=== PATIENT | male | born 1960 | race Caucasian/White ===

== ENCOUNTER 2016-10-20 15:08 | Outpatient (CLI) | payer MEDICARE, OTHER | END 2016-10-20 15:09 | disposition short-term general hospital (02) | LOC: EMS 15:08 | PROVIDERS: ATTEND Surgery | DX: R07.9 Chest pain, unspecified (principal); R42 Dizziness and giddiness | CPT/HCPCS: A0425; A0427 ==

== ENCOUNTER 2016-12-31 01:42 | Outpatient (CLI) | payer MEDICARE, OTHER | END 2016-12-31 01:43 | disposition short-term general hospital (02) | LOC: EMS 01:42 | PROVIDERS: ATTEND Surgery | DX: R07.9 Chest pain, unspecified (principal) | CPT/HCPCS: A0425; A0427 ==

== ENCOUNTER 2017-03-09 17:42 | Outpatient (CLI) | payer MEDICARE, OTHER | END 2017-03-09 17:43 | disposition critical access hospital (66) | LOC: EMS 17:42 | PROVIDERS: ATTEND Surgery | DX: R07.9 Chest pain, unspecified (principal) | CPT/HCPCS: A0425; A0427 ==

== ENCOUNTER 2017-03-09 18:03 | Inpatient (IN) | payer MEDICARE, OTHER ==
--- NOTE | 2017-03-09 18:16 | ED Physician Documentation ---
PD HPI CHEST PAIN - Stated complaint Stated Complaint: CP - Chief complaint Chief Complaint: Cardiac - History obtained from History obtained from: Patient - History of Present Illness Timing - onset: Today (at 5 pm while at rest) Timing - onset during: Rest (watching TV) Timing - duration: Hours (1) Timing - details: Abrupt onset, Still present Quality: Pressure, Tightness, Pain. No: Tearing Location: Substernal, Left chest Radiation: Back Improved by: No: Rest Worsened by: No: Inspiration, Movement, Palpation Associated symptoms: Shortness of air, Feeling faint / dizzy. No: Nausea, General Weakness, Palpitations Similar symptoms before: Diagnosis (he states being treated as [place] anginal episodes. Recent cath several months ago without stenoses.) Review of Systems Constitutional: denies: Fever, Chills Nose: denies: Rhinorrhea / runny nose, Congestion Throat: denies: Sore throat Cardiac: reports: Chest pain / pressure (just this evening). denies: Palpitations, Pedal edema, Calf pain Respiratory: reports: Dyspnea. denies: Cough GI: denies: Nausea, Vomiting, Diarrhea : denies: Dysuria, Frequency Skin: denies: Rash, Lesions Neurologic: denies: Generalized weakness, Focal weakness, Numbness, Near syncope Endocrine: denies: Weight loss, Easy bruising / bleeding Immunocompromised: denies: Immunocompromised PD PAST MEDICAL HISTORY - Past Medical History Cardiovascular: Coronary artery disease, Angina, [place] Respiratory: None Neuro: None Endocrine/Autoimmune: None - Allergies Allergies/Adverse Reactions: Allergies Allergy/AdvReac Type Severity Reaction Status Date / Time hydroxyzine [From Vistaril] Allergy Hives Verified 03/09/17 19:05 meperidine [From Demerol] Allergy Anaphylaxis Verified 03/09/17 19:05 - Social History Does the pt smoke?: No Does the pt drink ETOH?: No Does the pt have substance abuse?: No - Family History Family history: reports: CAD PD ED PE NORMAL - Vitals Vital signs reviewed: Yes - General General: Alert and oriented X 3, Well developed/nourished, Other (appears uncomfortable with chest pain. ) - HEENT HEENT: Pharynx benign - Neck Neck: Supple, no meningeal sign, No adenopathy - Cardiac Cardiac: RRR, No murmur - Respiratory Respiratory: Clear bilaterally, Other (no chestwall tenderness) - Abdomen Abdomen: Soft, Non tender - Back Back: No CVA TTP - Derm Derm: Normal color, Warm and dry - Extremities Extremities: No deformity, No tenderness to palpate, Normal ROM s pain, No edema , No calf tenderness / cord - Neuro Neuro: Alert and oriented X 3, No motor deficit, Normal speech Eye Opening: Spontaneous Motor: Obeys Commands Verbal: Oriented GCS Score: 15 - Psych Psych: Normal mood Results - Vitals Vitals: Vital Signs - 24 hr 03/09/17 03/09/17 03/09/17 18:08 19:50 20:40 Temperature 37.9 C H Heart Rate 106 H 88 87 Respiratory 20 14 13 Rate Blood Pressure 128/74 138/72 H 124/78 O2 Saturation 96 94 91 L Oxygen O2 Source Room air - EKG (time done) 18:08 Rate: Rate (enter#) (101) Rhythm: Sinus tachycardia [place]: Normal Intervals: Other (baseline artifact) QRS: Normal Ischemia: Normal ST segments. No: ST elevation c/w ischemia, ST depression Compare to prior EKG: Unchanged from prior EKG - Labs Labs: Laboratory Tests 03/09/17 03/09/17 03/09/17 19:09 19:09 19:09 WBC 11.1 H RBC 5.38 Hgb 16.8 Hct 48.9 MCV 90.9 MCH 31.2 H MCHC 34.3 RDW 14.3 Plt Count 244 MPV 8.3 Neut # 6.3 Lymph # 3.3 Harvey # 1.2 H Eos # 0.2 Baso # 0.0 Absolute Nucleated RBC 0.01 Nucleated RBC % 0.1 PT INR Sodium 137 Potassium 3.9 Chloride 104 Carbon Dioxide 23 Anion Gap 10.0 BUN 13 Creatinine 0.7 Estimated GFR (MDRD) 116 Glucose 101 H Calcium 9.5 Magnesium 2.0 Total Bilirubin 0.6 AST 78 H ALT 97 H Alkaline Phosphatase 149 H Troponin I < 0.04 Total Protein 7.4 Albumin 3.9 Globulin 3.5 Albumin/Globulin Ratio 1.1 Lipase 45 03/09/17 19:09 WBC RBC Hgb Hct MCV MCH MCHC RDW Plt Count MPV Neut # Lymph # Harvey # Eos # Baso # Absolute Nucleated RBC Nucleated RBC % PT 12.6 INR 1.1 Sodium Potassium Chloride Carbon Dioxide Anion Gap BUN Creatinine Estimated GFR (MDRD) Glucose Calcium Magnesium Total Bilirubin AST ALT Alkaline Phosphatase Troponin I Total Protein Albumin Globulin Albumin/Globulin Ratio Lipase - Rads (name of study) chest Radiology: Prelim report reviewed (no acute process) PD MEDICAL DECISION MAKING - ED course Complexity details: reviewed old records (Cath report from [facility] from recent showed no critical stenoses and patent prior stents. ), considered differential (patient has had CAD with 5 prior stents, but last was 2011 and has had CP episodes that he says are treated as coronary vasospasms. ), d/w patient Departure - Departure Disposition: 66 [facility] DC/Xfer Clinical Impression: Chest pain, rule out acute myocardial infarction, Variant angina Chest pain Qualifiers: Chest pain type: precordial pain Qualified Code(s): R07.2 - Precordial pain Condition: Stable Record reviewed to determine appropriate education?: Yes
[2017-03-09] MEDS ORDERED: HYDROmorphone 1 MG/ML SYRINGE IM STA (18:27)
[2017-03-09] MEDS ORDERED: diltiaZEM INJ 5 MG/ML VIAL IVP STA ×2 (18:28→20:21)
[2017-03-09] MEDS ORDERED: KETOROLAC 60 MG/2 ML VIAL IVP STA (18:28)
[2017-03-09] MEDS ORDERED: HYDROmorphone 1 MG/ML SYRINGE IVP STA ×2 (18:28→20:21)
--- NOTE | 2017-03-09 19:13 | XRAY Report ---
EXAM: CHEST RADIOGRAPHY EXAM DATE: 03/09/2017 06:45 PM. CLINICAL HISTORY: Chest pain onset 5 pm. COMPARISON: 03/24/2006. TECHNIQUE: 1 view. FINDINGS: Lungs/Pleura: There is moderate pulmonary vascular congestion. Lung volumes are low. No new focal air space disease. Negative for pneumothorax. Mediastinum: Within exam limitations, the cardiomediastinal contour is normal. Other: None. IMPRESSION: 1. Pulmonary vascular congestion. No interval change since previous exam. [facility] Referring Provider Line: [phone] SITE ID: [id number]
--- NOTE | 2017-03-09 19:13 | XRAY Preliminary Report ---
Exam: XR CHEST 1 VIEW X-RAY IMPRESSION: 1. Pulmonary vascular congestion. No interval change since previous exam. [facility] SITE ID: [id number]
[2017-03-09 19:18] LABS: BASOPHILS % (AUTO) 0.3 %; EOSINOPHILS # (AUTO) 0.2 10^3/uL (0.0-0.7); EOSINOPHILS % (AUTO) 1.8 %; HGB - HEMOGLOBIN 16.8 g/dL (14.0-18.0); LYMPHOCYTES # (AUTO) 3.3 10^3/uL (1.5-3.5); LYMPHOCYTES % (AUTO) 29.9 %; MEAN CORPUSCULAR HEMOGLOBIN 31.2 pg (27.0-31.0); MEAN CORPUSCULAR HGB CONC 34.3 g/dL (32.0-36.0); MEAN CORPUSCULAR VOLUME 90.9 fL (80.0-94.0); MEAN PLATELET VOLUME 8.3 fL (7.4-11.4); MONOCYTES # (AUTO) 1.2 10^3/uL (0.0-1.0); NEUTROPHILS # (AUTO) 6.3 10^3/uL (1.5-6.6); PLT - PLATELET COUNT 244 10^3/uL (130-450); RED BLOOD COUNT 5.38 10^6/uL (4.70-6.10); RED CELL DISTRIBUTION WIDTH 14.3 % (12.0-15.0); WHITE BLOOD COUNT 11.1 x10^3/uL (4.8-10.8)
[2017-03-09 19:30] LABS: ALBUMIN 3.9 g/dL (3.2-5.5); ALBUMIN/GLOBULIN RATIO 1.1 (1.0-2.2); BILIRUBIN,TOTAL 0.6 mg/dL (0.2-1.0); CALCIUM 9.5 mg/dL (8.5-10.3); CREATININE 0.7 mg/dL (0.6-1.2); TOTAL PROTEIN 7.4 g/dL (6.7-8.2)
[2017-03-09] MEDS ORDERED: NITROGLYCERIN 50 MG/250 ML 50 MG/250 ML BOTTLE IV STA (20:21)
[2017-03-09] MEDS ORDERED: PROCHLORPERAZINE 10 MG/2 ML VIAL IVP PRN (20:52)
[2017-03-09] MEDS ORDERED: ZOLPIDEM 5 MG TABLET PO PRN (20:52)
[2017-03-09] MEDS ORDERED: ACETAMINOPHEN 325 MG TABLET PO PRN (20:52)
[2017-03-09 21:17] LABS: INR 1.1 (0.8-1.2); PT - PROTHROMBIN TIME 12.6 secs (9.9-12.6)
[2017-03-09] MEDS: NITROGLYCERIN 50 MG/250 ML 50 MG/250 ML BOTTLE IV SCH (22:42)
[2017-03-09] MEDS: SODIUM CHLORIDE FLUSH 0.9% 10 ML SYRINGE IVP SCH (22:53)
[2017-03-09] MEDS: FUROSEMIDE 20 MG/2 ML VIAL IVP SCH (22:53)
[2017-03-09] MEDS: HYDROmorphone 1 MG/ML SYRINGE IVP PRN (22:59)
[2017-03-10] MEDS: ATORVASTATIN 40 MG TABLET PO SCH ×2 (00:05→21:14)
[2017-03-10] MEDS: diltiaZEM 30 MG TABLET PO SCH ×2 (00:06→05:34)
[2017-03-10] MEDS: INSULIN GLARGINE 300 UNIT/3 ML PEN SUBQ SCH ×2 (00:06→21:13)
[2017-03-10] MEDS ORDERED: SODIUM CHLORIDE 0.9% 500 ML IV PRN (00:28)
[2017-03-10] MEDS: ENOXAPARIN 40 MG/0.4 ML SYRINGE SUBQ SCH ×3 (00:39→21:13)
[2017-03-10] MEDS: HYDROmorphone 1 MG/ML SYRINGE IVP PRN ×8 (01:35→21:08)
--- NOTE | 2017-03-10 05:15 | HISTORY & PHYSICAL EXAMINATION ---
DATE OF SERVICE: Physician: Amberly Guerrier MD DATE OF ADMISSION: 03/09/2017 HISTORY OF PRESENT ILLNESS: This is a 56-year-old white male with a history of insulin-dependent diabetes, coronary artery disease with stenting, vasospastic angina in addition, normally low blood pressure, neuropathy. The patient presents with unstable angina. Patient was watching TV and suddenly got his typical onset of chest pressure across the entire precordium without radiation that he labeled a 7/10. He had run out of his sublingual nitroglycerin to try any but these do not normally work. He called an ambulance and was given sublingual nitroglycerin as well as nitro paste en route, which also did not help. He was eventually started on IV nitroglycerin in addition to narcotics in the ER which started to relieve his pain. His pain is currently increased up to a 7/10 again. There was no radiation of pain or associated shortness of breath or other symptoms. The patient states he normally gets this type of presentation with his angina, it is usually at rest and responds only to IV nitroglycerin drip. It was this same type of presentation for which he had an ambulance called and was taken to [facility] in December 2016, which led to the angiogram. From that discharge, it does not appear that he was put on any oral vasodilators for daily management of coronary vasospasm. The patient is normally active, able to play golf and walk without exertional angina. He denies PND and orthopnea. He denies palpitations, syncope, leg edema. He is compliant with his medications. PAST MEDICAL HISTORY: Coronary artery disease with 5 stents of the LAD artery in the past, coronary vasospasm documented by abnormal stress testing with ischemia of the anterior wall, but subsequent angiography done December 2016, showed a patent LAD (all stents were open) and no significant disease in the circumflex or right coronary arteries. He also has diabetes requiring insulin, has low blood pressure, and obesity. FAMILY HISTORY: No inherited diseases, no CAD. SOCIAL HISTORY: He is a nonsmoker, drinks no alcohol, denies any illicit drug use. ALLERGIES TO DRUGS; 1. VISTARIL, WHICH GAVE HIM HIVES. 2. DEMEROL, WHICH GAVE HIM ANAPHYLAXIS. MEDICATIONS AT HOME: 1. Vitamin D3. 2. Baby aspirin. 3. Lipitor, probably 40 mg at bedtime. 4. Insulin aspart 45 units b.i.d. 5. Victoza daily. 6. Lantus glargine 70 units every p.m. 7. Lyrica 150 p.o. b.i.d. REVIEW OF SYSTEMS: A comprehensive review of systems was performed and the positives are listed as above, all other organ systems are negative. PHYSICAL EXAMINATION: GENERAL: Obese white male. He appears in mild distress. VITAL SIGNS: Blood pressure 145/89, heart rate 82 in sinus rhythm. He did have a fever on presentation of 37.9 in the emergency room. Respiratory rate is 20, O2 saturation is 95% on room air. HEENT: Unremarkable. NECK: Very obese. There is no visible JVD. There is no thyromegaly or carotid bruits. LUNGS: Clear with poor air movement. CARDIOVASCULAR: Heart tones are very distant. BREASTS: Large. ABDOMEN: Large. I cannot rule out organomegaly or ascites. There was no tenderness and positive normal bowel sounds. EXTREMITIES: No clubbing, cyanosis or edema. NEUROLOGIC: Intact. LABORATORY DATA: Normal electrolytes, normal BUN and creatinine. Magnesium was 2.0. Mild LFT elevation with AST 78, ALT 97, alkaline phosphatase 149. Albumin 3.9. Troponin not detectable at less than 0.04. White blood count 11, hemoglobin 16.8, normal MCV , normal platelet count. INR 1.1. Chest x-ray: Mild intravascular edema. EKG: Normal sinus rhythm and borderline prolonged QT of 476 milliseconds, but otherwise within normal limits. There is no old EKG available for comparison. IMPRESSION/DIAGNOSES: 1. Unstable angina. 2. Prinzmetal angina. 3. Coronary artery disease with stenting in a [place] coronary artery. 4. Congestive heart failure exacerbation by chest x-ray. 5. Diabetes mellitus, on insulin. 6. Fever, source unclear. 5. Obesity. PLAN: Admit the patient to the ICU and continue the IV nitroglycerin drip for relief of his symptoms. Morphine can be used for narcotic relief of pain also. Start the patient on an oral vasodilator which should then be continued at discharge. I will choose Cardizem 30 mg p.o. every 6 hours, which could be titrated up and could be changed to a long-acting form at discharge depending on his blood pressure. Continue with his aspirin, Lipitor. No stress testing or transfer for coronary angiography is needed since he recently had workup just several months ago. Begin IV Lasix since diastolic dysfunction causing heart failure could also be adding to his chest pain. He can be transitioned over to p.o. Lasix or HCTZ or spironolactone at the time of discharge. Continue with his insulin management and a diabetic diet. Fully culture the patient and follow his CBC, but since there is no obvious source of infection, so no empiric antibiotics will be started. The fever could be related to the acute coronary syndrome. DVT prophylaxis: The patient will be started on Lovenox at a therapeutic dose of 40 mg p.o. b.i.d. because of the unstable angina and this will also serve as prophylaxis from DVT. CODE STATUS: FULL CODE. ATTESTATION: The patient is expected to be discharged or transferred to another facility within 96 hours: Yes. TD: 03/10/2017 06:14 STEPHENIE
[2017-03-10] MEDS: SODIUM CHLORIDE FLUSH 0.9% 10 ML SYRINGE IVP SCH ×3 (05:24→21:15)
[2017-03-10] MEDS: PANTOPRAZOLE 40 MG TABLET PO SCH (06:31)
[2017-03-10 07:23] LABS: BASOPHILS # (AUTO) 0.2 10^3/uL (0.0-0.1); BASOPHILS % (AUTO) 1.4 %; EOSINOPHILS # (AUTO) 0.4 10^3/uL (0.0-0.7); EOSINOPHILS % (AUTO) 3.1 %; HGB - HEMOGLOBIN 16.8 g/dL (14.0-18.0); LYMPHOCYTES # (AUTO) 4.1 10^3/uL (1.5-3.5); MEAN CORPUSCULAR HEMOGLOBIN 31.9 pg (27.0-31.0); MEAN CORPUSCULAR HGB CONC 34.6 g/dL (32.0-36.0); MEAN CORPUSCULAR VOLUME 92.1 fL (80.0-94.0); MEAN PLATELET VOLUME 8.3 fL (7.4-11.4); MONOCYTES # (AUTO) 1.3 10^3/uL (0.0-1.0); MONOCYTES % (AUTO) 9.9 %; NEUTROPHILS # (AUTO) 7.1 10^3/uL (1.5-6.6); NEUTROPHILS % (AUTO) 54.6 %; PLT - PLATELET COUNT 173 10^3/uL (130-450); RED BLOOD COUNT 5.26 10^6/uL (4.70-6.10); RED CELL DISTRIBUTION WIDTH 14.3 % (12.0-15.0); WHITE BLOOD COUNT 13.1 x10^3/uL (4.8-10.8)
[2017-03-10 07:25] LABS: CALCIUM 8.7 mg/dL (8.5-10.3); CREATININE 1.3 mg/dL (0.6-1.2); MAGNESIUM 1.8 mg/dL (1.7-2.8)
[2017-03-10 07:46] LABS: CHOL/HDL RATIO 8.4 (<5.0); CHOLESTEROL 245 mg/dL; HDL CHOLESTEROL 29 mg/dL; LDL CHOLESTEROL,CALCULATED 177 mg/dL; LDL/HDL RATIO 6.1 (<3.6); PHOSPHORUS 6.3 mg/dL (2.5-4.6); VLDL CHOLESTEROL 39 mg/dL
[2017-03-10] MEDS: PREGABALIN 25 MG CAPSULE PO SCH ×2 (08:03→21:13)
[2017-03-10] MEDS: PREGABALIN 100 MG CAPSULE PO SCH ×2 (08:03→21:14)
[2017-03-10] MEDS: NITROGLYCERIN 50 MG/250 ML 50 MG/250 ML BOTTLE IV SCH ×3 (08:23→21:22)
[2017-03-10] MEDS: INSULIN ASPART 300 UNIT/3 ML PEN SUBQ SCH ×5 (08:25→21:12)
[2017-03-10] MEDS: FUROSEMIDE 20 MG/2 ML VIAL IVP SCH ×2 (08:33→21:13)
[2017-03-10] MEDS: ASPIRIN 325 MG TABLET PO SCH (08:33)
[2017-03-10 08:43] LABS: HB2 TOTAL 17.2 g/dL; HEMOGLOBIN A1C 0.87 g/dL; HEMOGLOBIN A1C % 6.8 % (4.6-6.2)
[2017-03-10] MEDS ORDERED: PREGABALIN 100 MG CAPSULE PO SCH (09:00)
[2017-03-10 10:11] LABS: BILIRUBIN,URINE NEGATIVE (NEGATIVE); GLUCOSE, URINE (UA) NEGATIVE (NEGATIVE); KETONES,URINE (UA) NEGATIVE (NEGATIVE); LEUKOCYTE ESTERASE, URINE NEGATIVE (NEGATIVE); NITRITE,URINE NEGATIVE (NEGATIVE); OCCULT BLOOD,URINE NEGATIVE (NEGATIVE); PROTEIN,URINE NEGATIVE (NEGATIVE); UROBILINOGEN,URINE 0.2 (NORMAL) E.U./dL (NORMAL)
[2017-03-10 10:13] LABS: CLARITY,URINE CLEAR (CLEAR)
--- NOTE | 2017-03-10 14:09 | PROVIDER PROGRESS NOTE ---
Subjective - Prog Note Date Prog Note Date: 03/10/17 Prog Note Time: 14:07 - Subjective Pt reports feeling: Improved (Pt's chest pain is improved but still present, 5/ 10) Current Medications - Current Medications Current Medications: Tylenol, aspirin, Lipitor, Cardizem, Lovenox, Lasix, Dilaudid, insulin, Nitroglycerin, Protonix, Lyrica, Compazine, normal saline, Ambien Objective - Vital Signs/Intake & Output Reviewed Vital Signs: Yes Vital Signs: Vital Signs Temp Pulse Resp BP BP 03/10/17 13:00 88 16 125/55 L 03/10/17 12:23 138/64 H 03/10/17 12:00 37 C 95 16 138/64 H 03/10/17 11:45 113/75 03/10/17 11:21 113/79 03/10/17 11:05 113/49 L 03/10/17 11:00 120/65 Intake & Output: Intake & Output 03/07/17 03/08/17 03/09/17 03/10/17 23:59 23:59 23:59 23:59 Intake Total 2.325 3385.75 Output Total 1050 Balance 2.325 2335.75 - Objective General Appearance: positive: Alert, Mild distress Eyes Bilateral: positive: Normal inspection, PERRL, EOMI, No lid inflammation, Conjunctivae nml, No scleral icterus ENT: positive: ENT inspection nml, Pharynx nml, No signs of dehydration. negative: Purulent nasal drainage Neck: positive: No JVD, Trachea midline. negative: Thyromegaly Respiratory: positive: Chest non-tender, No respiratory distress, Breath sounds nml. negative: Wheezes, Rales, Rhonchi Cardiovascular: positive: Regular rate & rhythm, No murmur, No gallop Abdomen: positive: Non-tender, No organomegaly, Nml bowel sounds, No distention. negative: Tenderness Back: positive: Nml inspection. negative: CVA tenderness (R), CVA tenderness (L ) Skin: positive: Color nml, No rash, Warm, Dry. negative: Cyanosis Extremities: positive: Non-tender, Full ROM, Nml appearance Neurologic/Psychiatric: positive: Oriented x3, CN's nml (2-12), Motor nml, Sensation nml, Mood/affect nml - Lab Results Fish Bones: 03/10/17 07:05 03/10/17 07:05 Other Labs: Lab Results x24hrs 03/10/17 03/10/17 03/10/17 Range/Units 13:00 07:05 07:05 WBC (4.8-10.8) x10^3/uL RBC (4.70-6.10) 10^6/uL Hgb (14.0-18.0) g/dL Hct (42.0-52.0) % MCV (80.0-94.0) fL MCH (27.0-31.0) pg MCHC (32.0-36.0) g/dL RDW (12.0-15.0) % Plt Count (130-450) 10^3/uL MPV (7.4-11.4) fL Neut # (1.5-6.6) 10^3/uL Lymph # (1.5-3.5) 10^3/uL [place] # (0.0-1.0) 10^3/uL Eos # (0.0-0.7) 10^3/uL Baso # (0.0-0.1) 10^3/uL Absolute Nucleated RBC x10^3/uL Nucleated RBC % /100WBC Sodium (135-145) mmol/L Potassium (3.5-5.0) mmol/L Chloride (101-111) mmol/L Carbon Dioxide (21-32) mmol/L Anion Gap (6-13) BUN (6-20) mg/dL Creatinine (0.6-1.2) mg/dL Estimated GFR (MDRD) (>89) Glucose (70-100) mg/dL Glycated Hemoglobin 6.8 H (4.6-6.2) % Estim Average Glucose 148 H (70-100) Calcium (8.5-10.3) mg/dL Phosphorus 6.3 H (2.5-4.6) mg/dL Magnesium (1.7-2.8) mg/dL Troponin I < 0.04 (<0.49) ng/mL Triglycerides 197 H ( - 149) mg/dL Cholesterol 245 H ( - 199) mg/dL LDL Cholesterol, Calc 177 H ( - 129) mg/dL VLDL Cholesterol 39 mg/dL HDL Cholesterol 29 L (60 - ) mg/dL LDL/HDL Ratio 6.1 (<3.6) Cholesterol/HDL Ratio 8.4 (<5.0) 03/10/17 03/10/17 03/10/17 Range/Units 07:05 07:05 01:37 WBC 13.1 H (4.8-10.8) x10^3/uL RBC 5.26 (4.70-6.10) 10^6/uL Hgb 16.8 (14.0-18.0) g/dL Hct 48.5 (42.0-52.0) % MCV 92.1 (80.0-94.0) fL MCH 31.9 H (27.0-31.0) pg MCHC 34.6 (32.0-36.0) g/dL RDW 14.3 (12.0-15.0) % Plt Count 173 (130-450) 10^3/uL MPV 8.3 (7.4-11.4) fL Neut # 7.1 H (1.5-6.6) 10^3/uL Lymph # 4.1 H (1.5-3.5) 10^3/uL [place] # 1.3 H (0.0-1.0) 10^3/uL Eos # 0.4 (0.0-0.7) 10^3/uL Baso # 0.2 H (0.0-0.1) 10^3/uL Absolute Nucleated RBC 0.01 x10^3/uL Nucleated RBC % 0.0 /100WBC Sodium 132 L (135-145) mmol/L Potassium 4.0 (3.5-5.0) mmol/L Chloride 99 L (101-111) mmol/L Carbon Dioxide 22 (21-32) mmol/L Anion Gap 11.0 (6-13) BUN 17 (6-20) mg/dL Creatinine 1.3 H (0.6-1.2) mg/dL Estimated GFR (MDRD) 57 L (>89) Glucose 131 H (70-100) mg/dL Glycated Hemoglobin (4.6-6.2) % Estim Average Glucose (70-100) Calcium 8.7 (8.5-10.3) mg/dL Phosphorus (2.5-4.6) mg/dL Magnesium 1.8 (1.7-2.8) mg/dL Troponin I < 0.04 (<0.49) ng/mL Triglycerides ( - 149) mg/dL Cholesterol ( - 199) mg/dL LDL Cholesterol, Calc ( - 129) mg/dL VLDL Cholesterol mg/dL HDL Cholesterol (60 - ) mg/dL LDL/HDL Ratio (<3.6) Cholesterol/HDL Ratio (<5.0) Assessment/Plan - Problem List (1) Chest pain Impression: Improved with nitroglycerin drip and diltiazem PO. Pain is 5/10. Will consider weaning off drip when pain decreases, pain is 5/10 currently. Qualifiers: Chest pain type: precordial pain Qualified Code(s): R07.2 - Precordial pain (2) Variant angina Impression: Prinzmetal/vasospastic angina, pt on nitro drip, adjusting diltiazem doses.
[2017-03-10] MEDS ORDERED: diphenhydrAMINE 25 MG CAPSULE PO PRN (16:20)
[2017-03-10 16:54] LABS: CALCIUM 8.8 mg/dL (8.5-10.3); CREATININE 1.1 mg/dL (0.6-1.2)
[2017-03-10 17:00] LABS: BASOPHILS # (AUTO) 0.1 10^3/uL (0.0-0.1); BASOPHILS % (AUTO) 1.3 %; EOSINOPHILS # (AUTO) 0.2 10^3/uL (0.0-0.7); EOSINOPHILS % (AUTO) 1.7 %; HGB - HEMOGLOBIN 14.5 g/dL (14.0-18.0); LYMPHOCYTES # (AUTO) 2.8 10^3/uL (1.5-3.5); LYMPHOCYTES % (AUTO) 25.4 %; MEAN CORPUSCULAR HEMOGLOBIN 30.7 pg (27.0-31.0); MEAN CORPUSCULAR HGB CONC 33.7 g/dL (32.0-36.0); MEAN CORPUSCULAR VOLUME 91.2 fL (80.0-94.0); MEAN PLATELET VOLUME 7.7 fL (7.4-11.4); MONOCYTES # (AUTO) 1.4 10^3/uL (0.0-1.0); MONOCYTES % (AUTO) 12.4 %; NEUTROPHILS # (AUTO) 6.6 10^3/uL (1.5-6.6); NEUTROPHILS % (AUTO) 59.2 %; PLT - PLATELET COUNT 228 10^3/uL (130-450); RED BLOOD COUNT 4.73 10^6/uL (4.70-6.10); RED CELL DISTRIBUTION WIDTH 13.8 % (12.0-15.0); WHITE BLOOD COUNT 11.1 x10^3/uL (4.8-10.8)
[2017-03-10] MEDS: oxyCODONE 5 MG TABLET PO PRN (18:29)
[2017-03-10] MEDS: ZINC OXIDE 20% OINT 28.35 GM TUBE TOP PRN (20:12)
[2017-03-11] MEDS: oxyCODONE 5 MG TABLET PO PRN ×3 (00:03→09:24)
[2017-03-11] MEDS: HYDROmorphone 1 MG/ML SYRINGE IVP PRN (01:08)
[2017-03-11] MEDS: NITROGLYCERIN 50 MG/250 ML 50 MG/250 ML BOTTLE IV SCH ×4 (03:59→21:14)
[2017-03-11] MEDS: SODIUM CHLORIDE FLUSH 0.9% 10 ML SYRINGE IVP SCH ×3 (06:13→21:06)
[2017-03-11] MEDS: PANTOPRAZOLE 40 MG TABLET PO SCH (06:14)
[2017-03-11] MEDS: INSULIN ASPART 300 UNIT/3 ML PEN SUBQ SCH ×6 (08:08→20:53)
[2017-03-11] MEDS: PREGABALIN 100 MG CAPSULE PO SCH ×2 (08:23→21:06)
[2017-03-11] MEDS: ASPIRIN 325 MG TABLET PO SCH (08:23)
[2017-03-11] MEDS: PREGABALIN 25 MG CAPSULE PO SCH ×2 (08:23→21:06)
[2017-03-11] MEDS: FUROSEMIDE 20 MG/2 ML VIAL IVP SCH ×2 (08:23→21:04)
[2017-03-11] MEDS: ENOXAPARIN 40 MG/0.4 ML SYRINGE SUBQ SCH ×2 (08:24→21:00)
[2017-03-11] MEDS: MORPHINE 2 MG/ML CARPUJECT IVP PRN ×6 (10:31→23:36)
[2017-03-11] MEDS: ISOSORBIDE MONONITRATE ER 30 MG TABLET PO SCH (10:32)
[2017-03-11] MEDS: diltiaZEM 30 MG TABLET PO SCH ×3 (12:23→23:36)
[2017-03-11] MEDS: ZINC OXIDE 20% OINT 28.35 GM TUBE TOP PRN (17:59)
--- NOTE | 2017-03-11 18:45 | PROVIDER PROGRESS NOTE ---
Assessment/Plan - Problem List (1) Prinzmetal angina Assessment/Plan: Patient continued on nitro drip Pain improved but still 5/10 Increase dilt this am to 90 mg q 6 hours Add Imdur Start morphine IV Patient had cath and stress test done in December showing Prinzmetal angina Wean nitro drip (2) CAD (coronary artery disease) Assessment/Plan: Continue optimal management with aspirin, lipitor but no BB Trops negative No new EKG changes (3) Diabetes Qualifiers: Diabetes mellitus type: type 2 Diabetes mellitus complication status: with hyperglycemia Diabetes mellitus custodial insulin use: with custodial use Qualified Code(s): E11.65 - Type 2 diabetes mellitus with hyperglycemia; Z79.4 - exterminator helper (current) use of insulin; Z79.4 - intermediate (current) use of insulin ; Z79.4 - intermediate (current) use of insulin; Z79.4 - exterminator helper (current) use of insulin Assessment/Plan: Continue home dose of lantus and SS insulin Will start aspart with meals today Monitor BG BG elevated - Current Meds Current Meds: Current Medications Generic Name Dose Route Start Last Admin Trade Name Freq PRN Reason Stop Dose Admin Aspirin 325 mg 03/10/17 09:00 03/11/17 08:23 Wesly PO 325 mg DAILY JANNY Administration Atorvastatin Calcium 40 mg 03/09/17 23:45 03/10/17 21:14 Lipitor PO 40 mg QPM JANNY Administration Diltiazem HCl 90 mg 03/11/17 08:04 03/11/17 17:44 Cardizem PO 90 mg Q6HR JANNY Administration Diphenhydramine HCl 25 mg 03/10/17 16:20 03/10/17 16:35 Benadryl PO 25 mg Q4HR PRN Administration Allergy Symptoms Enoxaparin Sodium 40 mg 03/09/17 21:00 03/11/17 08:24 Lovenox SUBQ 40 mg BID JANNY Administration Furosemide 20 mg 03/09/17 22:00 03/11/17 08:23 Lasix Inj 20mg Vial IVP 20 mg BID JANNY Administration Hydromorphone HCl 1 mg 03/09/17 20:52 03/11/17 01:08 Dilaudid Inj Syringe IVP 1 mg Q2H PRN Administration Pain 8 to 10 Nitroglycerin 50 mg in 250 mls @ 1.5 mls/hr 03/09/17 22:00 03/11/17 18:00 Nitroglycerin IV 140 mcg/min .Q72H JANNY 42 mls/hr Protocol Titration 5 MCG/MIN Sodium Chloride 500 mls @ 10 mls/hr 03/10/17 00:28 03/11/17 18:00 Normal Saline 0.9% IV 10 mls/hr .Q48H PRN Infusion Peripheral Line Protocol Insulin Aspart 40 unit 03/10/17 09:00 03/11/17 08:08 Novolog SUBQ 40 unit DAILY JANNY Administration Insulin Aspart 1 - 5 unit 03/10/17 08:00 03/11/17 17:41 Novolog SUBQ 1 unit 0800,1200,1700,2100 JANNY Administration Protocol Insulin Aspart 40 unit 03/11/17 18:00 03/11/17 17:41 Novolog SUBQ 40 unit TIDWM JANNY Administration Insulin Glargine 70 unit 03/09/17 23:45 03/10/17 21:13 Lantus Solostar SUBQ 70 unit QPM JANNY Administration Isosorbide Mononitrate 30 mg 03/11/17 11:00 03/11/17 10:32 Imdur PO 30 mg DAILY [facility] Administration Morphine Sulfate 3 mg 03/11/17 17:02 03/11/17 17:43 Morphine (Carpuject) IVP 3 mg Q2HR PRN Administration PAIN Multi-Ingredient Ointment 1 applic 03/10/17 19:30 03/11/17 17:59 Zinc Oxide TOP 1 applic PRN PRN Administration Skin Care Oxycodone HCl 5 mg 03/10/17 16:19 03/11/17 09:24 Roxicodone PO 5 mg Q4HR PRN Administration Pain 5 to 7 Pantoprazole Sodium 40 mg 03/10/17 07:00 03/11/17 06:14 Protonix PO 40 mg QDAC JANNY Administration Pregabalin 100 mg 03/10/17 09:00 03/11/17 08:23 Lyrica PO 100 mg BID JANNY Administration Pregabalin 50 mg 03/10/17 09:00 03/11/17 08:23 Lyrica PO 50 mg BID JANNY Administration Sodium Chloride 10 ml 03/09/17 22:00 03/11/17 17:42 Normal Saline Flush 0.9% IVP Not Given Q8HR [facility] Zolpidem Tartrate 5 mg 03/09/17 20:52 03/11/17 00:03 Ambien PO 5 mg QPM PRN Administration Insomnia - Lab Result Lab results reviewed: Yes Fish Bone Diagrams: 03/10/17 16:53 03/10/17 16:40 - Diagnostic Imaging Results Diagnostic Imaging Results: Final report reviewed - Additional Planning Condition/Complexity: Guarded My Orders: My Active Orders 03/11/17 08:04 diltiaZEM [Cardizem] 90 mg PO Q6HR 03/11/17 11:00 Isosorbide Mononitrate ER [Imdur] 30 mg PO DAILY 03/11/17 17:02 Morphine Inj (Carpuject) [Morphine (Carpuject)] 3 mg IVP Q2HR PRN 03/11/17 18:00 Insulin Aspart [NovoLOG] 40 unit SUBQ TIDWM Plan Discussed with:: Patient Time Spent: 31-60 minutes Subjective - Subjective Patient Reports: Chest Pain (Continues to have 5/10 chest pain which improves with morphine), Other (No fevers, no chills, no SOB) Nursing Reports: No Complaints Objective Vital Signs: Vital Signs - 24 hr 03/10/17 03/10/17 03/10/17 19:00 19:20 20:00 Temperature 37.4 C Heart Rate [ 95 96 103 H Monitoring electrodes] Respiratory 19 24 20 Rate Blood Pressure Blood Pressure 134/76 H 131/81 H [Right Brachial artery] O2 Saturation 96 03/10/17 03/10/17 03/10/17 21:00 22:00 23:00 Temperature Heart Rate [ 95 100 102 H Monitoring electrodes] Respiratory 20 19 18 Rate Blood Pressure Blood Pressure 126/72 136/68 H 110/81 H [Right Brachial artery] O2 Saturation 96 92 03/11/17 03/11/17 03/11/17 00:00 00:03 01:00 Temperature 37.6 C H Heart Rate [ 99 98 Monitoring electrodes] Respiratory 17 19 Rate Blood Pressure 123/73 Blood Pressure 123/73 123/70 [Right Brachial artery] O2 Saturation 94 94 03/11/17 03/11/17 03/11/17 02:00 03:00 04:00 Temperature 37.2 C Heart Rate [ 98 90 86 Monitoring electrodes] Respiratory 17 17 17 Rate Blood Pressure Blood Pressure 134/68 H 133/74 H 126/68 [Right Brachial artery] O2 Saturation 95 95 95 03/11/17 03/11/17 03/11/17 05:00 06:00 06:13 Temperature Heart Rate [ 86 78 Monitoring electrodes] Respiratory 17 18 Rate Blood Pressure 126/71 Blood Pressure 127/71 126/71 [Right Brachial artery] O2 Saturation 94 03/11/17 03/11/17 03/11/17 07:00 07:47 07:52 Temperature 36.9 C Heart Rate [ 76 77 81 Monitoring electrodes] Respiratory 14 16 14 Rate Blood Pressure Blood Pressure 119/73 115/75 117/78 [Right Brachial artery] O2 Saturation 93 93 03/11/17 03/11/17 03/11/17 07:55 08:10 09:00 Temperature Heart Rate [ 87 82 84 Monitoring electrodes] Respiratory Rate Blood Pressure Blood Pressure 121/80 119/73 130/68 [Right Brachial artery] O2 Saturation 03/11/17 03/11/17 03/11/17 10:00 10:30 11:00 Temperature Heart Rate [ 75 74 74 Monitoring electrodes] Respiratory 17 Rate Blood Pressure Blood Pressure 118/71 123/68 123/68 [Right Brachial artery] O2 Saturation 93 95 03/11/17 03/11/17 03/11/17 12:00 12:23 13:00 Temperature Heart Rate [ 81 72 Monitoring electrodes] Respiratory 17 14 Rate Blood Pressure 120/65 Blood Pressure 120/70 124/55 L [Right Brachial artery] O2 Saturation 94 03/11/17 03/11/17 03/11/17 14:43 14:47 15:00 Temperature 37.1 C Heart Rate [ 72 80 75 Monitoring electrodes] Respiratory 20 18 Rate Blood Pressure Blood Pressure 120/80 120/80 120/80 [Right Brachial artery] O2 Saturation 03/11/17 03/11/17 03/11/17 16:00 17:00 17:44 Temperature Heart Rate [ 76 87 Monitoring electrodes] Respiratory 19 22 Rate Blood Pressure 108/90 H Blood Pressure 123/72 118/73 [Right Brachial artery] O2 Saturation 96 03/11/17 18:00 Temperature Heart Rate [ 76 Monitoring electrodes] Respiratory 16 Rate Blood Pressure Blood Pressure 116/68 [Right Brachial artery] O2 Saturation 98 Oxygen O2 Source Nasal cannula I&O (Last 24 Hrs): Intake and Output Totals x24h 03/09/17 03/10/17 03/11/17 23:59 23:59 23:59 Intake Total 2.325 4576.75 4680.583 Output Total 4200 4660 Balance 2.325 376.75 20.583 General: Alert, Oriented x3, Cooperative, Mild distress (Chest pain) HEENT: Atraumatic, PERRLA, EOMI, Mucous membr. moist/pink Neck: Supple, No JVD, No thyromegaly, +2 carotid pulse wo bruit, No LAD Lymphatic: no adenopathy Neuro: Alert, Non Focal, CN 2-12 Grossly Intact, Oriented Times 3 Cardiovascular: Regular rate, Normal S1, Normal S2, No murmurs Respiratory: Chest non-tender, No respiratory distress, Breath sounds nml Abdomen: Normal bowel sounds, Soft, No tenderness, No hepatospenomegaly Extremities: No clubbing, No cyanosis, No edema, Normal pulses Skin: No rashes, No breakdown - Results Results: Laboratory Results WBC 11.1 x10^3/uL (4.8-10.8) H 03/10/17 16:53 RBC 4.73 10^6/uL (4.70-6.10) 03/10/17 16:53 Hgb 14.5 g/dL (14.0-18.0) 03/10/17 16:53 Hct 43.1 % (42.0-52.0) 03/10/17 16:53 MCV 91.2 fL (80.0-94.0) 03/10/17 16:53 MCH 30.7 pg (27.0-31.0) 03/10/17 16:53 MCHC 33.7 g/dL (32.0-36.0) 03/10/17 16:53 RDW 13.8 % (12.0-15.0) 03/10/17 16:53 Plt Count 228 10^3/uL (130-450) 03/10/17 16:53 MPV 7.7 fL (7.4-11.4) 03/10/17 16:53 Neut # 6.6 10^3/uL (1.5-6.6) 03/10/17 16:53 Lymph # 2.8 10^3/uL (1.5-3.5) 03/10/17 16:53 [place] # 1.4 10^3/uL (0.0-1.0) H 03/10/17 16:53 Eos # 0.2 10^3/uL (0.0-0.7) 03/10/17 16:53 Baso # 0.1 10^3/uL (0.0-0.1) 03/10/17 16:53 Absolute Nucleated RBC 0.00 x10^3/uL 03/10/17 16:53 Nucleated RBC % 0.0 /100WBC 03/10/17 16:53 PT 12.6 secs (9.9-12.6) 03/09/17 19:09 INR 1.1 (0.8-1.2) 03/09/17 19:09 Sodium 129 mmol/L (135-145) L 03/10/17 16:40 Potassium 4.3 mmol/L (3.5-5.0) 03/10/17 16:40 Chloride 95 mmol/L (101-111) L 03/10/17 16:40 Carbon Dioxide 20 mmol/L (21-32) L 03/10/17 16:40 Anion Gap 14.0 (6-13) H 03/10/17 16:40 BUN 17 mg/dL (6-20) 03/10/17 16:40 Creatinine 1.1 mg/dL (0.6-1.2) 03/10/17 16:40 Estimated GFR (MDRD) 69 (>89) L 03/10/17 16:40 Glucose 112 mg/dL (70-100) H 03/10/17 16:40 POC Whole Bld Glucose 168 mg/dL (70 - 100) H 03/11/17 16:45 Glycated Hemoglobin 6.8 % (4.6-6.2) H 03/10/17 07:05 Estim Average Glucose 148 (70-100) H 03/10/17 07:05 Calcium 8.8 mg/dL (8.5-10.3) 03/10/17 16:40 Phosphorus 4.1 mg/dL (2.5-4.6) 03/11/17 05:16 Magnesium 1.8 mg/dL (1.7-2.8) 03/10/17 07:05 Total Bilirubin 0.6 mg/dL (0.2-1.0) 03/09/17 19:09 AST 78 IU/L (10-42) H 03/09/17 19:09 ALT 97 IU/L (10-60) H 03/09/17 19:09 Alkaline Phosphatase 149 IU/L (42-121) H 03/09/17 19:09 Troponin I < 0.04 ng/mL (<0.49) 03/10/17 13:00 Total Protein 7.4 g/dL (6.7-8.2) 03/09/17 19:09 Albumin 3.9 g/dL (3.2-5.5) 03/09/17 19:09 Globulin 3.5 g/dL (2.1-4.2) 03/09/17 19:09 Albumin/Globulin Ratio 1.1 (1.0-2.2) 03/09/17 19:09 Triglycerides 197 mg/dL (-149) H 03/10/17 07:05 Cholesterol 245 mg/dL (-199) H 03/10/17 07:05 LDL Cholesterol, Calc 177 mg/dL (-129) H 03/10/17 07:05 VLDL Cholesterol 39 mg/dL 03/10/17 07:05 HDL Cholesterol 29 mg/dL (60-) L 03/10/17 07:05 LDL/HDL Ratio 6.1 (<3.6) 03/10/17 07:05 Cholesterol/HDL Ratio 8.4 (<5.0) 03/10/17 07:05 Lipase 45 U/L (22-51) 03/09/17 19:09 Urine Color DARK YELLOW 03/09/17 09:20 Urine Clarity CLEAR (CLEAR) 03/09/17 09:20 Urine pH 6.0 PH (5.0-7.5) 03/09/17 09:20 Ur Specific [place] 1.025 (1.002-1.030) 03/09/17 09:20 Urine Protein NEGATIVE mg/dL (NEGATIVE) 03/09/17 09:20 Urine Glucose (UA) NEGATIVE mg/dL (NEGATIVE) 03/09/17 09:20 Urine Ketones NEGATIVE mg/dL (NEGATIVE) 03/09/17 09:20 Urine Occult Blood NEGATIVE (NEGATIVE) 03/09/17 09:20 Urine Nitrite NEGATIVE (NEGATIVE) 03/09/17 09:20 Urine Bilirubin NEGATIVE (NEGATIVE) 03/09/17 09:20 Urine Urobilinogen 0.2 (NORMAL) E.U./dL (NORMAL) 03/09/17 09:20 Ur Leukocyte Esterase NEGATIVE (NEGATIVE) 03/09/17 09:20 Ur Microscopic Review NOT INDICATED 03/09/17 09:20 Urine Culture Comments NOT INDICATED 03/09/17 09:20
[2017-03-11] MEDS: INSULIN GLARGINE 300 UNIT/3 ML PEN SUBQ SCH (20:59)
[2017-03-11] MEDS: ATORVASTATIN 40 MG TABLET PO SCH (21:05)
[2017-03-12] MEDS: MORPHINE 2 MG/ML CARPUJECT IVP PRN ×6 (03:42→21:18)
[2017-03-12] MEDS: NITROGLYCERIN 50 MG/250 ML 50 MG/250 ML BOTTLE IV SCH ×2 (03:42→14:25)
[2017-03-12 05:24] LABS: VBG PH 7.386 (7.31-7.41)
[2017-03-12] MEDS: diltiaZEM 30 MG TABLET PO SCH ×3 (06:50→17:21)
[2017-03-12] MEDS: SODIUM CHLORIDE FLUSH 0.9% 10 ML SYRINGE IVP SCH ×3 (07:01→20:44)
[2017-03-12] MEDS: PANTOPRAZOLE 40 MG TABLET PO SCH (07:01)
[2017-03-12] MEDS: INSULIN ASPART 300 UNIT/3 ML PEN SUBQ SCH ×8 (08:54→20:46)
[2017-03-12] MEDS: ISOSORBIDE MONONITRATE ER 30 MG TABLET PO SCH (08:57)
[2017-03-12] MEDS: ASPIRIN 325 MG TABLET PO SCH (08:57)
[2017-03-12] MEDS: PREGABALIN 25 MG CAPSULE PO SCH ×2 (08:57→20:47)
[2017-03-12] MEDS: FUROSEMIDE 20 MG/2 ML VIAL IVP SCH ×2 (08:57→20:44)
[2017-03-12] MEDS: ENOXAPARIN 40 MG/0.4 ML SYRINGE SUBQ SCH ×2 (08:57→20:36)
[2017-03-12] MEDS: PREGABALIN 100 MG CAPSULE PO SCH ×2 (08:58→20:46)
[2017-03-12] MEDS: SODIUM CHLORIDE FLUSH 0.9% 10 ML SYRINGE IVP PRN ×3 (09:13→16:54)
[2017-03-12 09:40] LABS: BASOPHILS # (AUTO) 0.1 10^3/uL (0.0-0.1); EOSINOPHILS # (AUTO) 0.1 10^3/uL (0.0-0.7); EOSINOPHILS % (AUTO) 0.8 %; HGB - HEMOGLOBIN 14.4 g/dL (14.0-18.0); LYMPHOCYTES # (AUTO) 1.4 10^3/uL (1.5-3.5); LYMPHOCYTES % (AUTO) 14.3 %; MEAN CORPUSCULAR HGB CONC 35.5 g/dL (32.0-36.0); MEAN CORPUSCULAR VOLUME 90.3 fL (80.0-94.0); MONOCYTES # (AUTO) 0.8 10^3/uL (0.0-1.0); MONOCYTES % (AUTO) 8.3 %; NEUTROPHILS # (AUTO) 7.4 10^3/uL (1.5-6.6); NEUTROPHILS % (AUTO) 75.6 %; PLT - PLATELET COUNT 174 10^3/uL (130-450); RED BLOOD COUNT 4.48 10^6/uL (4.70-6.10); RED CELL DISTRIBUTION WIDTH 13.6 % (12.0-15.0); WHITE BLOOD COUNT 9.8 x10^3/uL (4.8-10.8)
[2017-03-12 09:49] LABS: ALBUMIN 3.6 g/dL (3.2-5.5); ALBUMIN/GLOBULIN RATIO 1.2 (1.0-2.2); ALKALINE PHOSPHATASE 110 IU/L (42-121); ALT ALANINE AMINOTRANSFERASE 54 IU/L (10-60); AST ASPARTATE AMINOTRANSFERASE 43 IU/L (10-42); BUN - BLOOD UREA NITROGEN 12 mg/dL (6-20); CALCIUM 8.6 mg/dL (8.5-10.3); CARBON DIOXIDE - CO2 28 mmol/L (21-32); CHLORIDE 94 mmol/L (101-111); CREATININE 0.9 mg/dL (0.6-1.2); GFR - MDRD 87 (>89); GLUCOSE 210 mg/dL (70-100); PHOSPHORUS 2.7 mg/dL (2.5-4.6); SODIUM 135 mmol/L (135-145); TOTAL PROTEIN 6.7 g/dL (6.7-8.2)
--- NOTE | 2017-03-12 18:11 | PROVIDER PROGRESS NOTE ---
Assessment/Plan - Problem List (1) Prinzmetal angina Assessment/Plan: Patient continued on nitro drip weaned down to 45 mcg/hr this afternoon Pain improved but still persistently a 3 On Dilt 90 mg q6 hours will switch to 360 mg daily in the morning Continue Imdur 30 mg daily Continue morphine prn patient has needed 2 doses today Patient had cath and stress test done in December showing Prinzmetal angina Wean nitro drip Hopeful for discharge tomorrow (2) CAD (coronary artery disease) Assessment/Plan: Continue optimal management with aspirin, lipitor but currently no BB will consider at discharge Trops negative No new EKG changes (3) Diabetes Qualifiers: Diabetes mellitus type: type 2 Diabetes mellitus complication status: with hyperglycemia Diabetes mellitus alf insulin use: with superintendent marine oil terminal 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 aspart with meals and SS insulin Monitor BG BG improved - Current Meds Current Meds: Current Medications Generic Name Dose Route Start Last Admin Trade Name Freq PRN Reason Stop Dose Admin Aspirin 325 mg 03/10/17 09:00 03/12/17 08:57 Wesly PO 325 mg DAILY JANNY Administration Atorvastatin Calcium 40 mg 03/09/17 23:45 03/11/17 21:05 Lipitor PO 40 mg QPM JANNY Administration Diltiazem HCl 90 mg 03/11/17 08:04 03/12/17 17:21 Cardizem PO 90 mg Q6HR JANNY Administration Diphenhydramine HCl 25 mg 03/10/17 16:20 03/10/17 16:35 Benadryl PO 25 mg Q4HR PRN Administration Allergy Symptoms Enoxaparin Sodium 40 mg 03/09/17 21:00 03/12/17 08:57 Lovenox SUBQ 40 mg BID JANNY Administration Furosemide 20 mg 03/09/17 22:00 03/12/17 08:57 Lasix Inj 20mg Vial IVP 20 mg BID JANNY Administration Hydromorphone HCl 1 mg 03/09/17 20:52 03/11/17 01:08 Dilaudid Inj Syringe IVP 1 mg Q2H PRN Administration Pain 8 to 10 Nitroglycerin 50 mg in 250 mls @ 1.5 mls/hr 03/09/17 22:00 03/12/17 14:58 Nitroglycerin IV Infused .Q72H JANNY Titration Protocol 5 MCG/MIN Sodium Chloride 500 mls @ 10 mls/hr 03/10/17 00:28 03/12/17 01:15 Normal Saline 0.9% IV Infused .Q48H PRN Infusion Peripheral Line Protocol Insulin Aspart 1 - 5 unit 03/10/17 08:00 03/12/17 17:22 Novolog SUBQ 1 unit 0800,1200,1700,2100 JANNY Administration Protocol Insulin Aspart 40 unit 03/11/17 18:00 03/12/17 17:22 Novolog SUBQ 40 unit TIDWM JANNY Administration Insulin Glargine 70 unit 03/09/17 23:45 03/11/17 20:59 Lantus Solostar SUBQ 70 unit QPM JANNY Administration Isosorbide Mononitrate 30 mg 03/11/17 11:00 03/12/17 08:57 Imdur PO 30 mg DAILY JANNY Administration Morphine Sulfate 3 mg 03/11/17 17:02 03/12/17 16:54 Morphine (Carpuject) IVP 3 mg Q2HR PRN Administration PAIN Multi-Ingredient Ointment 1 applic 03/10/17 19:30 03/11/17 17:59 Zinc Oxide TOP 1 applic PRN PRN Administration Skin Care Oxycodone HCl 5 mg 03/10/17 16:19 03/11/17 09:24 Roxicodone PO 5 mg Q4HR PRN Administration Pain 5 to 7 Pantoprazole Sodium 40 mg 03/10/17 07:00 03/12/17 07:01 Protonix PO 40 mg QDAC JANNY Administration Pregabalin 100 mg 03/10/17 09:00 03/12/17 08:58 Lyrica PO 100 mg BID JANNY Administration Pregabalin 50 mg 03/10/17 09:00 03/12/17 08:57 Lyrica PO 50 mg BID JANNY Administration Sodium Chloride 10 ml 03/09/17 22:00 03/12/17 13:39 Normal Saline Flush 0.9% IVP 10 ml Q8HR JANNY Administration Sodium Chloride 10 ml 03/09/17 20:52 03/12/17 16:54 Normal Saline Flush 0.9% IVP 10 ml PRN PRN Administration NEEDED PER PROVIDER ORDERS Zolpidem Tartrate 5 mg 03/09/17 20:52 03/11/17 00:03 Ambien PO 5 mg QPM PRN Administration Insomnia - Lab Result Lab results reviewed: Yes Fish Bone Diagrams: 03/12/17 09:27 03/12/17 09:27 - Diagnostic Imaging Results Diagnostic Imaging Results: Final report reviewed - Additional Planning Condition/Complexity: Guarded My Orders: My Active Orders 03/11/17 18:00 Insulin Aspart [NovoLOG] 40 unit SUBQ TIDWM 03/13/17 05:00 CBC - COMP BLD CT W/AUTO DIFF [HEME] DAILYLAB CMP, RFLX TO IONIZED CA IF [CHEM] DAILYLAB PHOSPHORUS [CHEM] DAILYLAB Plan Discussed with:: Patient Time Spent: 31-60 minutes Subjective - Subjective Patient Reports: Chest Pain (Persistent but improved from yesterday. No radiation just localized on left side.), Other (No headache or dizziness) Nursing Reports: No Complaints Objective Vital Signs: Vital Signs - 24 hr 03/11/17 03/11/17 03/11/17 19:00 20:00 21:00 Temperature 98.6 C H Heart Rate [ 77 75 76 Monitoring electrodes] Respiratory 16 26 H 18 Rate Blood Pressure Blood Pressure 112/68 114/73 118/67 [Right Brachial artery] O2 Saturation 98 96 96 03/11/17 03/11/17 03/11/17 22:00 23:00 23:36 Temperature Heart Rate [ 76 77 Monitoring electrodes] Respiratory 19 20 Rate Blood Pressure 128/70 Blood Pressure 128/69 127/66 [Right Brachial artery] O2 Saturation 98 97 03/12/17 03/12/17 03/12/17 00:00 01:00 02:00 Temperature 37.1 C Heart Rate [ 74 72 70 Monitoring electrodes] Respiratory 12 19 17 Rate Blood Pressure Blood Pressure 136/46 H 125/67 93/79 [Right Brachial artery] O2 Saturation 95 93 93 03/12/17 03/12/17 03/12/17 03:00 04:00 05:00 Temperature Heart Rate [ 72 71 70 Monitoring electrodes] Respiratory 17 17 20 Rate Blood Pressure Blood Pressure 127/67 121/74 126/72 [Right Brachial artery] O2 Saturation 94 90 L 92 03/12/17 03/12/17 03/12/17 06:00 06:50 07:00 Temperature Heart Rate [ 70 71 Monitoring electrodes] Respiratory 17 18 Rate Blood Pressure 135/74 H Blood Pressure 116/68 124/70 [Right Brachial artery] O2 Saturation 92 92 03/12/17 03/12/17 03/12/17 07:50 09:00 09:48 Temperature Heart Rate [ 72 86 75 Monitoring electrodes] Respiratory 17 16 18 Rate Blood Pressure Blood Pressure 127/67 120/64 128/69 [Right Brachial artery] O2 Saturation 94 95 93 03/12/17 03/12/17 03/12/17 10:00 10:41 11:00 Temperature Heart Rate [ 71 67 73 Monitoring electrodes] Respiratory 16 16 19 Rate Blood Pressure Blood Pressure 121/65 108/70 113/70 [Right Brachial artery] O2 Saturation 94 96 93 03/12/17 03/12/17 03/12/17 11:41 12:00 12:16 Temperature Heart Rate [ 69 71 Monitoring electrodes] Respiratory 17 14 Rate Blood Pressure 118/64 Blood Pressure 109/70 [Right Brachial artery] O2 Saturation 95 96 03/12/17 03/12/17 03/12/17 12:49 13:00 13:34 Temperature Heart Rate [ 69 67 70 Monitoring electrodes] Respiratory 17 17 16 Rate Blood Pressure Blood Pressure 123/68 125/76 131/71 H [Right Brachial artery] O2 Saturation 92 92 94 03/12/17 03/12/17 03/12/17 14:00 14:14 14:30 Temperature Heart Rate [ 70 68 68 Monitoring electrodes] Respiratory 18 16 Rate Blood Pressure Blood Pressure 124/74 118/72 116/74 [Right Brachial artery] O2 Saturation 93 93 94 03/12/17 03/12/17 03/12/17 14:46 15:04 16:00 Temperature 37.1 C Heart Rate [ 74 72 70 Monitoring electrodes] Respiratory 18 16 16 Rate Blood Pressure Blood Pressure 149/68 H 134/76 H 129/69 [Right Brachial artery] O2 Saturation 93 93 95 03/12/17 03/12/17 17:00 17:21 Temperature Heart Rate [ 73 Monitoring electrodes] Respiratory 16 Rate Blood Pressure 118/67 Blood Pressure 118/67 [Right Brachial artery] O2 Saturation 93 Oxygen O2 Source Nasal cannula I&O (Last 24 Hrs): Intake and Output Totals x24h 03/10/17 03/11/17 03/12/17 23:59 23:59 23:59 Intake Total 4576.75 4930.283 2160.967 Output Total 4200 5410 1080 Balance 376.75 -579.869 9023.967 General: Alert, Oriented x3, Cooperative, Mild distress (chest pain) HEENT: Atraumatic, PERRLA, EOMI, Mucous membr. moist/pink Neck: Supple, No JVD, No thyromegaly, +2 carotid pulse wo bruit, No LAD Lymphatic: no adenopathy Neuro: Alert, Non Focal, CN 2-12 Grossly Intact, Oriented Times 3 Cardiovascular: Regular rate, Normal S1, Normal S2, No murmurs Respiratory: Chest non-tender, No respiratory distress, Breath sounds nml Abdomen: Normal bowel sounds, Soft, No tenderness, No hepatospenomegaly, No masses Extremities: No clubbing, No cyanosis, No edema, Normal pulses Skin: No rashes, No breakdown - Results Results: Laboratory Results WBC 9.8 x10^3/uL (4.8-10.8) 03/12/17 09:27 RBC 4.48 10^6/uL (4.70-6.10) L 03/12/17 09:27 Hgb 14.4 g/dL (14.0-18.0) 03/12/17 09:27 Hct 40.4 % (42.0-52.0) L 03/12/17 09:27 MCV 90.3 fL (80.0-94.0) 03/12/17 09:27 MCH 32.0 pg (27.0-31.0) H 03/12/17 09:27 MCHC 35.5 g/dL (32.0-36.0) 03/12/17 09:27 RDW 13.6 % (12.0-15.0) 03/12/17 09:27 Plt Count 174 10^3/uL (130-450) 03/12/17 09:27 MPV 8.0 fL (7.4-11.4) 03/12/17 09:27 Neut # 7.4 10^3/uL (1.5-6.6) H 03/12/17 09:27 Lymph # 1.4 10^3/uL (1.5-3.5) L 03/12/17 09:27 [place] # 0.8 10^3/uL (0.0-1.0) 03/12/17 09:27 Eos # 0.1 10^3/uL (0.0-0.7) 03/12/17 09:27 Baso # 0.1 10^3/uL (0.0-0.1) 03/12/17 09:27 Absolute Nucleated RBC 0.01 x10^3/uL 03/12/17 09:27 Nucleated RBC % 0.1 /100WBC 03/12/17 09:27 PT 12.6 secs (9.9-12.6) 03/09/17 19:09 INR 1.1 (0.8-1.2) 03/09/17 19:09 VBG pH 7.386 (7.31-7.41) 03/12/17 05:10 Ionized Calcium 1.10 mmol/L (1.15-1.33) L 03/12/17 05:10 Sodium 135 mmol/L (135-145) 03/12/17 09:27 Potassium 3.8 mmol/L (3.5-5.0) 03/12/17 09:27 Chloride 94 mmol/L (101-111) L 03/12/17 09:27 Carbon Dioxide 28 mmol/L (21-32) 03/12/17 09:27 Anion Gap 13.0 (6-13) 03/12/17 09:27 BUN 12 mg/dL (6-20) 03/12/17 09:27 Creatinine 0.9 mg/dL (0.6-1.2) 03/12/17 09:27 Estimated GFR (MDRD) 87 (>89) L 03/12/17 09:27 Glucose 210 mg/dL (70-100) H 03/12/17 09:27 POC Whole Bld Glucose 145 mg/dL (70 - 100) H 03/12/17 16:51 Glycated Hemoglobin 6.8 % (4.6-6.2) H 03/10/17 07:05 Estim Average Glucose 148 (70-100) H 03/10/17 07:05 Calcium 8.6 mg/dL (8.5-10.3) 03/12/17 09:27 Ionized Calcium NO 03/12/17 09:27 Phosphorus 2.7 mg/dL (2.5-4.6) 03/12/17 09:27 Magnesium 1.9 mg/dL (1.7-2.8) 03/12/17 04:00 Total Bilirubin 1.0 mg/dL (0.2-1.0) 03/12/17 09:27 AST 43 IU/L (10-42) H 03/12/17 09:27 ALT 54 IU/L (10-60) 03/12/17 09:27 Alkaline Phosphatase 110 IU/L (42-121) 03/12/17 09:27 Troponin I < 0.04 ng/mL (<0.49) 03/10/17 13:00 Total Protein 6.7 g/dL (6.7-8.2) 03/12/17 09:27 Albumin 3.6 g/dL (3.2-5.5) 03/12/17 09:27 Globulin 3.1 g/dL (2.1-4.2) 03/12/17 09:27 Albumin/Globulin Ratio 1.2 (1.0-2.2) 03/12/17 09:27 Triglycerides 197 mg/dL (-149) H 03/10/17 07:05 Cholesterol 245 mg/dL (-199) H 03/10/17 07:05 LDL Cholesterol, Calc 177 mg/dL (-129) H 03/10/17 07:05 VLDL Cholesterol 39 mg/dL 03/10/17 07:05 HDL Cholesterol 29 mg/dL (60-) L 03/10/17 07:05 LDL/HDL Ratio 6.1 (<3.6) 03/10/17 07:05 Cholesterol/HDL Ratio 8.4 (<5.0) 03/10/17 07:05 Lipase 45 U/L (22-51) 03/09/17 19:09 Urine Color DARK YELLOW 03/09/17 09:20 Urine Clarity CLEAR (CLEAR) 03/09/17 09:20 Urine pH 6.0 PH (5.0-7.5) 03/09/17 09:20 Ur Specific [place] 1.025 (1.002-1.030) 03/09/17 09:20 Urine Protein NEGATIVE mg/dL (NEGATIVE) 03/09/17 09:20 Urine Glucose (UA) NEGATIVE mg/dL (NEGATIVE) 03/09/17 09:20 Urine Ketones NEGATIVE mg/dL (NEGATIVE) 03/09/17 09:20 Urine Occult Blood NEGATIVE (NEGATIVE) 03/09/17 09:20 Urine Nitrite NEGATIVE (NEGATIVE) 03/09/17 09:20 Urine Bilirubin NEGATIVE (NEGATIVE) 03/09/17 09:20 Urine Urobilinogen 0.2 (NORMAL) E.U./dL (NORMAL) 03/09/17 09:20 Ur Leukocyte Esterase NEGATIVE (NEGATIVE) 03/09/17 09:20 Ur Microscopic Review NOT INDICATED 03/09/17 09:20 Urine Culture Comments NOT INDICATED 03/09/17 09:20
[2017-03-12] MEDS: INSULIN GLARGINE 300 UNIT/3 ML PEN SUBQ SCH (20:36)
[2017-03-12] MEDS: diltiaZEM CD 180 MG CAPSULE PO SCH (20:47)
[2017-03-12] MEDS: CARVEDILOL 3.125 MG TABLET PO SCH (20:47)
[2017-03-12] MEDS: ATORVASTATIN 40 MG TABLET PO SCH (20:49)
[2017-03-13] MEDS: MORPHINE 2 MG/ML CARPUJECT IVP PRN ×3 (00:27→20:20)
[2017-03-13] MEDS: SODIUM CHLORIDE FLUSH 0.9% 10 ML SYRINGE IVP SCH ×3 (00:27→20:25)
[2017-03-13] MEDS: oxyCODONE 5 MG TABLET PO PRN ×5 (01:12→23:03)
[2017-03-13 05:11] LABS: ALBUMIN 3.6 g/dL (3.2-5.5); ALBUMIN/GLOBULIN RATIO 1.2 (1.0-2.2); ALKALINE PHOSPHATASE 120 IU/L (42-121); ALT ALANINE AMINOTRANSFERASE 44 IU/L (10-60); AST ASPARTATE AMINOTRANSFERASE 31 IU/L (10-42); BILIRUBIN,TOTAL 1.3 mg/dL (0.2-1.0); BUN - BLOOD UREA NITROGEN 12 mg/dL (6-20); CALCIUM 8.4 mg/dL (8.5-10.3); CARBON DIOXIDE - CO2 27 mmol/L (21-32); CHLORIDE 97 mmol/L (101-111); CREATININE 0.8 mg/dL (0.6-1.2); GFR - MDRD 99 (>89); GLUCOSE 139 mg/dL (70-100); PHOSPHORUS 2.7 mg/dL (2.5-4.6); SODIUM 135 mmol/L (135-145); TOTAL PROTEIN 6.6 g/dL (6.7-8.2)
[2017-03-13 05:12] LABS: BASOPHILS # (AUTO) 0.2 10^3/uL (0.0-0.1); BASOPHILS % (AUTO) 1.2 %; EOSINOPHILS # (AUTO) 0.1 10^3/uL (0.0-0.7); EOSINOPHILS % (AUTO) 0.6 %; HGB - HEMOGLOBIN 15.3 g/dL (14.0-18.0); LYMPHOCYTES # (AUTO) 1.7 10^3/uL (1.5-3.5); MEAN CORPUSCULAR HEMOGLOBIN 30.8 pg (27.0-31.0); MEAN CORPUSCULAR HGB CONC 33.6 g/dL (32.0-36.0); MEAN CORPUSCULAR VOLUME 91.6 fL (80.0-94.0); MEAN PLATELET VOLUME 8.6 fL (7.4-11.4); MONOCYTES # (AUTO) 1.5 10^3/uL (0.0-1.0); MONOCYTES % (AUTO) 9.5 %; NEUTROPHILS # (AUTO) 11.9 10^3/uL (1.5-6.6); NEUTROPHILS % (AUTO) 77.7 %; PLT - PLATELET COUNT 203 10^3/uL (130-450); RED BLOOD COUNT 4.97 10^6/uL (4.70-6.10); WHITE BLOOD COUNT 15.4 x10^3/uL (4.8-10.8)
[2017-03-13] MEDS: PANTOPRAZOLE 40 MG TABLET PO SCH (06:16)
[2017-03-13] MEDS ORDERED: POTASSIUM CHLORIDE 20 MEQ TABLET PO ONE ×2 (07:00→07:43)
[2017-03-13] MEDS: INSULIN ASPART 300 UNIT/3 ML PEN SUBQ SCH ×7 (08:27→20:33)
[2017-03-13] MEDS: FUROSEMIDE 20 MG/2 ML VIAL IVP SCH ×2 (08:29→20:20)
[2017-03-13] MEDS: ENOXAPARIN 40 MG/0.4 ML SYRINGE SUBQ SCH ×2 (08:29→20:33)
[2017-03-13] MEDS: CARVEDILOL 3.125 MG TABLET PO SCH ×2 (08:29→20:24)
[2017-03-13] MEDS: diltiaZEM CD 180 MG CAPSULE PO SCH (08:29)
[2017-03-13] MEDS: ASPIRIN 325 MG TABLET PO SCH (08:29)
[2017-03-13] MEDS: ISOSORBIDE MONONITRATE ER 30 MG TABLET PO SCH (08:30)
[2017-03-13] MEDS: PREGABALIN 25 MG CAPSULE PO SCH ×2 (08:30→20:24)
[2017-03-13] MEDS: SODIUM CHLORIDE FLUSH 0.9% 10 ML SYRINGE IVP PRN ×2 (08:30→10:47)
[2017-03-13] MEDS: PREGABALIN 100 MG CAPSULE PO SCH ×2 (08:30→20:24)
[2017-03-13 09:18] LABS: BILIRUBIN,URINE NEGATIVE (NEGATIVE); GLUCOSE, URINE (UA) NEGATIVE (NEGATIVE); KETONES,URINE (UA) NEGATIVE (NEGATIVE); LEUKOCYTE ESTERASE, URINE NEGATIVE (NEGATIVE); NITRITE,URINE NEGATIVE (NEGATIVE); OCCULT BLOOD,URINE NEGATIVE (NEGATIVE); PROTEIN,URINE NEGATIVE (NEGATIVE); UROBILINOGEN,URINE 1 (NORMAL) E.U./dL (NORMAL)
[2017-03-13 09:19] LABS: CLARITY,URINE HAZY (CLEAR)
[2017-03-13 09:29] LABS: BACTERIA,URINE Moderate /HPF (None Seen); RBC,URINE 0-5 /HPF (0-5); SQUAMOUS EPITHELIAL CELL,UR MANY Squamous (<= Few)
[2017-03-13] MEDS ORDERED: FUROSEMIDE 20 MG/2 ML VIAL IVP SCH (10:30)
[2017-03-13] MEDS: cefTRIAXone 1 GM in SODIUM CHLORIDE 0.9% MINIBAG 100 ML IV SCH (10:46)
[2017-03-13] MEDS ORDERED: AZITHROMYCIN INJ 500 MG in SODIUM CHLORIDE 0.9% 250 ML IV SCH (12:00)
--- NOTE | 2017-03-13 17:09 | XRAY Report ---
DATE OF SERVICE: 03/13/2017 FRONTAL CHEST: 03/13/2017 CLINICAL INDICATION: Hypoxia, elevated white count. COMPARISON: 03/09/2017 Frontal view of the chest demonstrates a normal cardiac silhouette. There is increasing pulmonary vascular congestion, as well as bilateral perihilar infiltrates. No effusion or pneumothorax is seen. IMPRESSION: New perihilar infiltrates, with increasing pulmonary vascular congestion. TD: 03/13/2017 18:08
--- NOTE | 2017-03-13 18:23 | PROVIDER PROGRESS NOTE ---
Assessment/Plan - Problem List (1) CAP (community acquired pneumonia) Qualifiers: Laterality: unspecified laterality Qualified Code(s): J18.9 - Pneumonia, unspecified organism Assessment/Plan: This morning patient increasingly hypoxic and short of breath with exertion. Patient up to 5L of O2 and WBC was elevated up to 15.4. CXR shows new perihilar infiltrates with increasing pulmonary congestion Patient started on treatment for pneumonia with ceftriaxone and azithromycin Patient given IV dose of lasix EF 55-60% on echo without valvular abnormalities Wean O2 Will likely need 1-2 days of IV abx for pneumonia (2) Prinzmetal angina Assessment/Plan: Patient successfully weaned off nitro drip this morning Pain is relatively controlled but still 2-3/10 maybe secondary to pneumonia On diltiazem 360 mg Daily, coreg 3.125 mg and Imdur 30 mg daily for maintenance (3) CAD (coronary artery disease) Assessment/Plan: Continue optimal management with aspirin, lipitor and BB added here Trops negative No new EKG changes (4) Diabetes Qualifiers: Diabetes mellitus type: type 2 Diabetes mellitus complication status: with hyperglycemia Diabetes mellitus termite treater insulin use: with termite treater use Qualified Code(s): E11.65 - Type 2 diabetes mellitus with hyperglycemia; Z79.4 - exterminator termite (current) use of insulin; Z79.4 - exterminator termite (current) use of insulin ; Z79.4 - exterminator termite (current) use of insulin; Z79.4 - exterminator termite (current) use of insulin Assessment/Plan: Continue home dose of lantus. aspart with meals and SS insulin Monitor BG BG stable (5) Obstructive Sleep Apnea Assessment/Plan: Patients to bring in home CPAP tonight CPAP at night - Current Meds Current Meds: Current Medications Generic Name Dose Route Start Last Admin Trade Name Freq PRN Reason Stop Dose Admin Aspirin 325 mg 03/10/17 09:00 03/13/17 08:29 Wesly PO 325 mg DAILY JANNY Administration Atorvastatin Calcium 40 mg 03/09/17 23:45 03/12/17 20:49 Lipitor PO 40 mg QPM JANNY Administration Carvedilol 3.125 mg 03/12/17 19:00 03/13/17 08:29 Coreg PO 3.125 mg BID JANNY Administration Diltiazem HCl 360 mg 03/12/17 19:00 01/25/18 08:29 Cardizem Cd PO 360 mg DAILY JANNY Administration Diphenhydramine HCl 25 mg 03/10/17 16:20 03/10/17 16:35 Benadryl PO 25 mg Q4HR PRN Administration Allergy Symptoms Enoxaparin Sodium 40 mg 03/09/17 21:00 03/13/17 08:29 Lovenox SUBQ 40 mg BID JANNY Administration Furosemide 20 mg 03/09/17 22:00 03/13/17 08:29 Lasix Inj 20mg Vial IVP 20 mg BID JANNY Administration Hydromorphone HCl 1 mg 03/09/17 20:52 03/11/17 01:08 Dilaudid Inj Syringe IVP 1 mg Q2H PRN Administration Pain 8 to 10 Nitroglycerin 50 mg in 250 mls @ 1.5 mls/hr 03/09/17 22:00 03/12/17 14:58 Nitroglycerin IV Infused .Q72H JANNY Titration Protocol 5 MCG/MIN Sodium Chloride 500 mls @ 10 mls/hr 03/10/17 00:28 03/12/17 01:15 Normal Saline 0.9% IV Infused .Q48H PRN Infusion Peripheral Line Protocol Azithromycin 500 mg/ Sodium 250 mls @ 250 mls/hr 03/13/17 12:00 03/13/17 14: 36 Chloride IV Infused Q24H JANNY Infusion Ceftriaxone Sodium 1 gm/ 100 mls @ 200 mls/hr 03/13/17 11:00 03/13/17 11:20 Sodium Chloride IV Infused Q24H JANNY Infusion Insulin Aspart 1 - 5 unit 03/10/17 08:00 03/13/17 16:57 Novolog SUBQ Not Given 0800,1200,1700,2100 [facility] Protocol Insulin Aspart 40 unit 03/11/17 18:00 03/13/17 17:06 Novolog SUBQ 40 unit TIDWM JANNY Administration Insulin Glargine 70 unit 03/09/17 23:45 03/12/17 20:36 Lantus Solostar SUBQ 70 unit QPM JANNY Administration Isosorbide Mononitrate 30 mg 03/11/17 11:00 03/13/17 08:30 Imdur PO 30 mg DAILY JANNY Administration Morphine Sulfate 3 mg 03/11/17 17:02 03/13/17 14:25 Morphine (Carpuject) IVP 3 mg Q2HR PRN Administration PAIN Multi-Ingredient Ointment 1 applic 03/10/17 19:30 03/11/17 17:59 Zinc Oxide TOP 1 applic PRN PRN Administration Skin Care Oxycodone HCl 5 mg 03/10/17 16:19 03/13/17 17:05 Roxicodone PO 5 mg Q4HR PRN Administration Pain 5 to 7 Pantoprazole Sodium 40 mg 03/10/17 07:00 03/13/17 06:16 Protonix PO 40 mg QDAC JANNY Administration Pregabalin 100 mg 03/10/17 09:00 03/13/17 08:30 Lyrica PO 100 mg BID JANNY Administration Pregabalin 50 mg 03/10/17 09:00 03/13/17 08:30 Lyrica PO 50 mg BID JANNY Administration Sodium Chloride 10 ml 03/09/17 22:00 03/13/17 13:39 Normal Saline Flush 0.9% IVP 10 ml Q8HR JANNY Administration Sodium Chloride 10 ml 03/09/17 20:52 03/13/17 10:47 Normal Saline Flush 0.9% IVP 10 ml PRN PRN Administration NEEDED PER PROVIDER ORDERS Zolpidem Tartrate 5 mg 03/09/17 20:52 03/11/17 00:03 Ambien PO 5 mg QPM PRN Administration Insomnia - Lab Result Lab results reviewed: Yes Fish Bone Diagrams: 03/13/17 04:13 03/13/17 04:13 - EKG Results EKG Comparison: Unchanged from prior EKG - Diagnostic Imaging Results Diagnostic Imaging Results: Final report reviewed - Additional Planning Condition/Complexity: Guarded My Orders: My Active Orders 03/12/17 19:00 Carvedilol [Coreg] 3.125 mg PO BID diltiaZEM CD [Cardizem Cd] 360 mg PO DAILY 03/13/17 10:00 Echo Transthoracic Complete [ECHO] Routine 03/13/17 11:00 cefTRIAXone [Rocephin] 1 gm Sodium Chloride 0.9% Minibag [Normal Saline 0.9% Minibag] 100 ml IV Q24H 03/13/17 12:00 Azithromycin Inj [Zithromax Inj] 500 mg Sodium Chloride 0.9% [Normal Saline 0.9%] 250 ml IV Q24H 03/13/17 14:44 Home CPAP/BiPAP [RC] .ONCE 03/14/17 05:00 BNP - B-NATRIURETIC PEPTIDE [IAI] DAILYLAB CBC W/O DIFF (HEMOGRAM) [HEME] DAILYLAB CMP, RFLX TO IONIZED CA IF [CHEM] DAILYLAB 03/15/17 05:00 BNP - B-NATRIURETIC PEPTIDE [IAI] DAILYLAB CBC W/O DIFF (HEMOGRAM) [HEME] DAILYLAB CMP, RFLX TO IONIZED CA IF [CHEM] DAILYLAB 03/16/17 05:00 BNP - B-NATRIURETIC PEPTIDE [IAI] DAILYLAB CBC W/O DIFF (HEMOGRAM) [HEME] DAILYLAB CMP, RFLX TO IONIZED CA IF [CHEM] DAILYLAB 03/17/17 05:00 BNP - B-NATRIURETIC PEPTIDE [IAI] DAILYLAB CBC W/O DIFF (HEMOGRAM) [HEME] DAILYLAB CMP, RFLX TO IONIZED CA IF [CHEM] DAILYLAB 03/18/17 05:00 BNP - B-NATRIURETIC PEPTIDE [IAI] DAILYLAB CBC W/O DIFF (HEMOGRAM) [HEME] DAILYLAB CMP, RFLX TO IONIZED CA IF [CHEM] DAILYLAB Plan Discussed with:: Patient Time Spent: 31-60 minutes Subjective - Subjective Patient Reports: Chest Pain (2-3/10 in left side of chest, localized), Shortness of Breath (This morning patient is increasingly short of breath wiht increased O2 requirment) Nursing Reports: No Complaints Objective Vital Signs: Vital Signs - 24 hr 03/12/17 03/12/17 03/12/17 19:00 20:00 21:00 Temperature Heart Rate [ 73 76 83 Monitoring electrodes] Respiratory 18 18 23 Rate Blood Pressure 134/69 H 134/61 H 116/101 H [Right Brachial artery] O2 Saturation 93 96 95 03/12/17 03/12/17 03/13/17 22:00 23:00 00:00 Temperature Heart Rate [ 84 84 82 Monitoring electrodes] Respiratory 22 27 H 25 H Rate Blood Pressure 136/99 H 128/74 135/78 H [Right Brachial artery] O2 Saturation 94 95 03/13/17 03/13/17 03/13/17 01:00 02:00 03:00 Temperature Heart Rate [ 81 78 80 Monitoring electrodes] Respiratory 30 H 18 22 Rate Blood Pressure 140/77 H 137/80 H 126/61 [Right Brachial artery] O2 Saturation 93 03/13/17 03/13/17 03/13/17 04:00 05:00 06:00 Temperature 37.3 C Heart Rate [ 81 79 76 Monitoring electrodes] Respiratory 15 19 20 Rate Blood Pressure 135/71 H 135/72 H 98/64 [Right Brachial artery] O2 Saturation 91 L 92 03/13/17 03/13/17 03/13/17 07:00 08:00 09:00 Temperature Heart Rate [ 73 73 77 Monitoring electrodes] Respiratory 18 17 18 Rate Blood Pressure 100/77 127/69 138/74 H [Right Brachial artery] O2 Saturation 96 95 03/13/17 03/13/17 03/13/17 10:00 11:10 14:11 Temperature Heart Rate [ 66 69 66 Monitoring electrodes] Respiratory 18 17 18 Rate Blood Pressure 94/78 104/48 L 115/67 [Right Brachial artery] O2 Saturation 93 92 91 L 03/13/17 16:52 Temperature 98.3 C H Heart Rate [ 64 Monitoring electrodes] Respiratory 18 Rate Blood Pressure 113/71 [Right Brachial artery] O2 Saturation 91 L Oxygen O2 Source BIPAP I&O (Last 24 Hrs): Intake and Output Totals x24h 03/11/17 03/12/17 03/13/17 23:59 23:59 23:59 Intake Total 4930.283 2500.967 2180 Output Total 5410 1080 150 Balance -269.279 4354.967 2030 General: Alert, Oriented x3, Cooperative, No acute distress, Other (Obese) HEENT: Atraumatic, PERRLA, EOMI, Mucous membr. moist/pink Neck: Supple, No JVD, No thyromegaly, +2 carotid pulse wo bruit, No LAD Lymphatic: no adenopathy Neuro: Alert, Non Focal, CN 2-12 Grossly Intact, Oriented Times 3 Cardiovascular: Regular rate, Normal S1, Normal S2, No murmurs Respiratory: Chest non-tender, No respiratory distress, Rhonchi (Mid lung bilaterally) Abdomen: Normal bowel sounds, Soft, No tenderness, No hepatospenomegaly Extremities: No clubbing, No cyanosis, No edema, Normal pulses Skin: No rashes, No breakdown - Results Results: Laboratory Results WBC 15.4 x10^3/uL (4.8-10.8) H 03/13/17 04:13 RBC 4.97 10^6/uL (4.70-6.10) 03/13/17 04:13 Hgb 15.3 g/dL (14.0-18.0) 03/13/17 04:13 Hct 45.6 % (42.0-52.0) 03/13/17 04:13 MCV 91.6 fL (80.0-94.0) 03/13/17 04:13 MCH 30.8 pg (27.0-31.0) 03/13/17 04:13 MCHC 33.6 g/dL (32.0-36.0) 03/13/17 04:13 RDW 14.0 % (12.0-15.0) 03/13/17 04:13 Plt Count 203 10^3/uL (130-450) 03/13/17 04:13 MPV 8.6 fL (7.4-11.4) 03/13/17 04:13 Neut # 11.9 10^3/uL (1.5-6.6) H 03/13/17 04:13 Lymph # 1.7 10^3/uL (1.5-3.5) 03/13/17 04:13 Fergus # 1.5 10^3/uL (0.0-1.0) H 03/13/17 04:13 Eos # 0.1 10^3/uL (0.0-0.7) 03/13/17 04:13 Baso # 0.2 10^3/uL (0.0-0.1) H 03/13/17 04:13 Absolute Nucleated RBC 0.02 x10^3/uL 03/13/17 04:13 Nucleated RBC % 0.1 /100WBC 03/13/17 04:13 PT 12.6 secs (9.9-12.6) 03/09/17 19:09 INR 1.1 (0.8-1.2) 03/09/17 19:09 VBG pH 7.386 (7.31-7.41) 03/12/17 05:10 Ionized Calcium 1.10 mmol/L (1.15-1.33) L 03/12/17 05:10 Sodium 135 mmol/L (135-145) 03/13/17 04:13 Potassium 3.4 mmol/L (3.5-5.0) L 03/13/17 04:13 Chloride 97 mmol/L (101-111) L 03/13/17 04:13 Carbon Dioxide 27 mmol/L (21-32) 03/13/17 04:13 Anion Gap 11.0 (6-13) 03/13/17 04:13 BUN 12 mg/dL (6-20) 03/13/17 04:13 Creatinine 0.8 mg/dL (0.6-1.2) 03/13/17 04:13 Estimated GFR (MDRD) 99 (>89) 03/13/17 04:13 Glucose 139 mg/dL (70-100) H 03/13/17 04:13 POC Whole Bld Glucose 130 mg/dL (70 - 100) H 03/13/17 16:53 Glycated Hemoglobin 6.8 % (4.6-6.2) H 03/10/17 07:05 Estim Average Glucose 148 (70-100) H 03/10/17 07:05 Calcium 8.4 mg/dL (8.5-10.3) L 03/13/17 04:13 Ionized Calcium NO 03/13/17 04:13 Phosphorus 2.7 mg/dL (2.5-4.6) 03/13/17 04:13 Magnesium 1.8 mg/dL (1.7-2.8) 03/13/17 04:13 Total Bilirubin 1.3 mg/dL (0.2-1.0) H 03/13/17 04:13 AST 31 IU/L (10-42) 03/13/17 04:13 ALT 44 IU/L (10-60) 03/13/17 04:13 Alkaline Phosphatase 120 IU/L (42-121) 03/13/17 04:13 Troponin I 0.04 ng/mL (<0.49) 03/13/17 12:03 B-Natriuretic Peptide 515 pg/mL (5-100) H 03/13/17 12:03 Total Protein 6.6 g/dL (6.7-8.2) L 03/13/17 04:13 Albumin 3.6 g/dL (3.2-5.5) 03/13/17 04:13 Globulin 3.0 g/dL (2.1-4.2) 03/13/17 04:13 Albumin/Globulin Ratio 1.2 (1.0-2.2) 03/13/17 04:13 Triglycerides 197 mg/dL (-149) H 03/10/17 07:05 Cholesterol 245 mg/dL (-199) H 03/10/17 07:05 LDL Cholesterol, Calc 177 mg/dL (-129) H 03/10/17 07:05 VLDL Cholesterol 39 mg/dL 03/10/17 07:05 HDL Cholesterol 29 mg/dL (60-) L 03/10/17 07:05 LDL/HDL Ratio 6.1 (<3.6) 03/10/17 07:05 Cholesterol/HDL Ratio 8.4 (<5.0) 03/10/17 07:05 Lipase 45 U/L (22-51) 03/09/17 19:09 Urine Color YELLOW 03/13/17 09:12 Urine Clarity HAZY (CLEAR) 03/13/17 09:12 Urine pH 6.0 PH (5.0-7.5) 03/13/17 09:12 Ur Specific Mary[place] 1.010 (1.002-1.030) 03/13/17 09:12 Urine Protein NEGATIVE mg/dL (NEGATIVE) 03/13/17 09:12 Urine Glucose (UA) NEGATIVE mg/dL (NEGATIVE) 03/13/17 09:12 Urine Ketones NEGATIVE mg/dL (NEGATIVE) 03/13/17 09:12 Urine Occult Blood NEGATIVE (NEGATIVE) 03/13/17 09:12 Urine Nitrite NEGATIVE (NEGATIVE) 03/13/17 09:12 Urine Bilirubin NEGATIVE (NEGATIVE) 03/13/17 09:12 Urine Urobilinogen 1 (NORMAL) E.U./dL (NORMAL) 03/13/17 09:12 Ur Leukocyte Esterase NEGATIVE (NEGATIVE) 03/13/17 09:12 Urine RBC 0-5 /HPF (0-5) 03/13/17 09:12 Urine WBC 4-5 /HPF (0-3) 03/13/17 09:12 Ur Squamous Epith Cells MANY Squamous (<= Few) H 03/13/17 09:12 Urine Bacteria Moderate /HPF (None Seen) H 03/13/17 09:12 Ur Microscopic Review INDICATED 03/13/17 09:12 Urine Culture Comments NOT INDICATED 03/13/17 09:12 Influenza A (Rapid) Negative (Negative) 03/13/17 09:00 Influenza B (Rapid) Negative (Negative) 03/13/17 09:00 Influenza Types A,B Ag - 03/13/17 09:00
[2017-03-13] MEDS: ATORVASTATIN 40 MG TABLET PO SCH (20:24)
[2017-03-13] MEDS: INSULIN GLARGINE 300 UNIT/3 ML PEN SUBQ SCH (20:33)
[2017-03-14] MEDS: MORPHINE 2 MG/ML CARPUJECT IVP PRN (03:44)
[2017-03-14] MEDS: SODIUM CHLORIDE FLUSH 0.9% 10 ML SYRINGE IVP SCH (03:45)
[2017-03-14 05:04] LABS: HGB - HEMOGLOBIN 15.1 g/dL (14.0-18.0); MEAN CORPUSCULAR HGB CONC 34.3 g/dL (32.0-36.0); MEAN CORPUSCULAR VOLUME 90.4 fL (80.0-94.0); MEAN PLATELET VOLUME 8.3 fL (7.4-11.4); RED BLOOD COUNT 4.86 10^6/uL (4.70-6.10); RED CELL DISTRIBUTION WIDTH 14.1 % (12.0-15.0); WHITE BLOOD COUNT 10.8 x10^3/uL (4.8-10.8)
[2017-03-14 05:13] LABS: ALBUMIN 3.4 g/dL (3.2-5.5); ALBUMIN/GLOBULIN RATIO 1.1 (1.0-2.2); ALKALINE PHOSPHATASE 111 IU/L (42-121); ALT ALANINE AMINOTRANSFERASE 38 IU/L (10-60); AST ASPARTATE AMINOTRANSFERASE 26 IU/L (10-42); BILIRUBIN,TOTAL 0.9 mg/dL (0.2-1.0); BUN - BLOOD UREA NITROGEN 13 mg/dL (6-20); CALCIUM 8.3 mg/dL (8.5-10.3); CARBON DIOXIDE - CO2 28 mmol/L (21-32); CHLORIDE 96 mmol/L (101-111); CREATININE 0.8 mg/dL (0.6-1.2); GFR - MDRD 99 (>89); GLUCOSE 125 mg/dL (70-100); SODIUM 136 mmol/L (135-145); TOTAL PROTEIN 6.5 g/dL (6.7-8.2)
[2017-03-14 05:19] LABS: VBG PH 7.448 (7.31-7.41)
[2017-03-14] MEDS: oxyCODONE 5 MG TABLET PO PRN (06:20)
[2017-03-14] MEDS: PANTOPRAZOLE 40 MG TABLET PO SCH (06:20)
--- NOTE | 2017-03-14 09:09 | Discharge Plan ---
Discharge Plan Disposition: 01 Home, Self Care Condition: Stable Prescriptions: Azithromycin [Zithromax] 250 mg PO DAILY #6 tablet diltiaZEM CD [Cardizem Cd] 360 mg PO DAILY #60 capsule Diet: Diabetic Activity Restrictions: Activity as Tolerated Shower Restrictions: No Driving Restrictions: No Instruction Topics: Coronary Artery Spasm, Angina Unstable Additional Instructions or Follow Up instructions: Take the antibiotic prescription until it is done. Start taking Cardizem CD daily (to dilate the heart arteries and prevent their spasm) Resume all your other medications as before this hospitalization. Return to the ER if you develop unrelenting chest pressure again. See your Primary doctor and Application Development Intern in follow-up in the next 1-2 weeks. No Smoking: If you smoke, Please STOP! Call for help.
[2017-03-14] MEDS: INSULIN ASPART 300 UNIT/3 ML PEN SUBQ SCH ×2 (09:16→09:19)
[2017-03-14] MEDS: FUROSEMIDE 20 MG/2 ML VIAL IVP SCH (09:21)
[2017-03-14] MEDS: SODIUM CHLORIDE FLUSH 0.9% 10 ML SYRINGE IVP PRN (09:23)
[2017-03-14] MEDS: POTASSIUM CHLOR 10 MEQ/100 ML 10 MEQ/100 ML BAG IV SCH ×2 (09:28→10:53)
[2017-03-14] MEDS: ENOXAPARIN 40 MG/0.4 ML SYRINGE SUBQ SCH (09:41)
[2017-03-14] MEDS: PREGABALIN 25 MG CAPSULE PO SCH (09:44)
[2017-03-14] MEDS: ISOSORBIDE MONONITRATE ER 30 MG TABLET PO SCH (09:44)
[2017-03-14] MEDS: PREGABALIN 100 MG CAPSULE PO SCH (09:44)
[2017-03-14] MEDS: diltiaZEM CD 180 MG CAPSULE PO SCH (09:45)
[2017-03-14] MEDS: ASPIRIN 325 MG TABLET PO SCH (09:45)
[2017-03-14] MEDS: cefTRIAXone 1 GM in SODIUM CHLORIDE 0.9% MINIBAG 100 ML IV SCH (10:43)
[2017-03-14 12:11] VITALS: BP 112/71
--- NOTE | 2017-03-14 18:39 | DISCHARGE SUMMARY ---
DATE OF SERVICE: 03/14/2017 Physician: Amberly Guerrier MD DATE OF ADMISSION: 03/09/2017 DATE OF DISCHARGE: 03/14/2017 This is a 56-year-old white male with a history of obesity, diabetes on insulin , coronary disease with 5 stents in the past, vasospastic angina history. The patient presented after rapidly accelerating typical anginal symptoms which occurred at rest that did not respond to sublingual nitroglycerin or nitro paste in the ambulance, and he required IV nitroglycerin drip, which is his normal presentation with his vasospastic angina. The patient had undergone stress testing showing anterior ischemia several months previously, which led to a recent coronary angiogram that showed open LAD stents and no significant disease in the circumflex and RCA coronary arteries; therefore, he was diagnosed with vasospasm. The patient has been compliant with all his prescription medications. HOSPITAL COURSE AND DISCHARGE DIAGNOSES: 1. Printzmetal angina, unstable. The patient required over 24 hours of an IV nitroglycerin drip with slow improvement of his typical chest pressure. The patient had initiation of Cardizem with increase in doses slowly in order to achieve vasodilation so that IV nitroglycerin could be weaned off. At the time of discharge, he was sent home on new Cardizem-CD to treat his vasospastic angina. No beta tre was prescribed as it can cause vasospasm. 2. Coronary disease history. The angiogram recently showed patent stents. An echo done during this admission showed left ventricular hypertrophy with normal left ventricular ejection fraction of 55% to 60%. The patient was advised to continue with his aspirin, statin and good blood pressure and glucose control because of the history of previous coronary stenting. 3. Insulin-dependent diabetes. The patient required a diabetic diet, sliding scale insulin, long-acting and short-acting insulin while here and was discharged on his prehospitalization diabetic management. 5. Obstructive sleep apnea. The patient did use his CPAP while here. The patient developed worsening shortness of breath on the day before discharge, which responded to a day of iv diuretics, and a chest x-ray showed a new infiltrate, therefore he was started on antibiotics (see #7 below). 6. Constipation. It was noted the patient had no bowel movement since admission; however, he refused every single one of his medications for constipation and he was discharged without any abdominal pain, and a soft abdomen. 7. Hospital acquired pneumonia. The day before admission he was short of breath and had desaturations. He was put on empiric IV antibiotics and at the time of discharge, was changed to empiric Z-ELMER to complete a course of treatment. IMAGING and LABS: Reviewed and summarized above, ALLERGIES: HYDROXYZINE AND MEPERIDINE. MEDICATIONS AT DISCHARGE: 1. Adult dose aspirin daily. 2. Lipitor 40 mg daily. 3. Z-ELMER daily until the pills are done. 4. Vitamin D3 at 2000 units daily. 5. Cardizem-CD 360 mg p.o. daily. 6. Lexapro 20 mg daily. 7. NovoLog insulin as previously prescribed. 8. Glargine insulin as previously prescribed. 9. Victoza as previously prescribed. 10. Lovaza 1 gram p.o. b.i.d. 11. Lyrica as previously prescribed. CONDITION AT DISCHARGE: Stable. PHYSICAL EXAMINATION AT DISCHARGE: VITAL SIGNS: Blood pressure 112/71, pulse of 85 in sinus rhythm, afebrile, room air saturation 94%. HEENT: Unremarkable, except he appeared disheveled. NECK: His neck Showed no JVD in a vertical position. CHEST: Clear. HEART: Sounds normal. ABDOMEN: Soft, obese, nontender. EXTREMITIES: Without clubbing, cyanosis or edema. NEUROLOGIC: Intact. FOLLOWUP: With his PCP in 1-2 weeks and with his Security Escort as previously scheduled. CODE STATUS: FULL CODE. Time required to complete this entire discharge: 30 minutes. TD: 03/14/2017 19:38 [facility]
== END 2017-03-14 12:25 | disposition home or self-care (01) | DRG 302 ==
LOC: EDUNIT# → ED 18:03 → ICU 20:52
PROVIDERS: ADMIT Internal Medicine; ATTEND Internal Medicine
DX: R07.2 Precordial pain (principal); I25.10 Atherosclerotic heart disease of native coronary artery without angina pectoris; I25.118 Atherosclerotic heart disease of native coronary artery with other forms of angina pectoris; J18.9 Pneumonia, unspecified organism; Z68.41 Body mass index [BMI] 40.0-44.9, adult; E11.40 Type 2 diabetes mellitus with diabetic neuropathy, unspecified; E11.65 Type 2 diabetes mellitus with hyperglycemia; Z79.4 Long term (current) use of insulin; G47.33 Obstructive sleep apnea (adult) (pediatric); K59.00 Constipation, unspecified; Y95 Nosocomial condition; Z95.5 Presence of coronary angioplasty implant and graft; E66.9 Obesity, unspecified; I25.2 Old myocardial infarction; Z82.49 Family history of ischemic heart disease and other diseases of the circulatory system; Z79.82 Long term (current) use of aspirin; Z79.899 Other long term (current) drug therapy
CPT/HCPCS: 36415; 71045; 80048; 80053; 80061; 81001; 81003; 82330; 83036; 83690; 83721; 83735; 83880; 84100; 84132; 84484; 85025; 85610; 87040; 87086; 87150; 87275; 87276; 93005; 93306; 96372; 96374; 96375; 96376; 99284; 99285

== ENCOUNTER 2017-04-06 20:13 | Outpatient (CLI) | payer MEDICARE, OTHER | END 2017-04-06 20:14 | disposition critical access hospital (66) | LOC: EMS 20:13 | PROVIDERS: ATTEND Surgery | DX: R07.9 Chest pain, unspecified (principal) | CPT/HCPCS: A0425; A0427 ==

== ENCOUNTER 2017-04-06 20:32 | Inpatient (IN) | payer MEDICARE, OTHER ==
[2017-04-06] MEDS ORDERED: NITROGLYCERIN SL 0.4 MG TABLET SL STA ×2 (20:49→20:57)
[2017-04-06] MEDS: ASPIRIN CHEW 81 MG TABLET PO STA ×2 (20:51→20:53)
[2017-04-06 20:53] LABS: BASOPHILS # (AUTO) 0.1 10^3/uL (0.0-0.1); BASOPHILS % (AUTO) 1.4 %; EOSINOPHILS # (AUTO) 0.2 10^3/uL (0.0-0.7); EOSINOPHILS % (AUTO) 2.3 %; LYMPHOCYTES # (AUTO) 2.8 10^3/uL (1.5-3.5); LYMPHOCYTES % (AUTO) 29.3 %; MEAN CORPUSCULAR HEMOGLOBIN 31.5 pg (27.0-31.0); MEAN CORPUSCULAR HGB CONC 34.7 g/dL (32.0-36.0); MEAN CORPUSCULAR VOLUME 90.6 fL (80.0-94.0); MEAN PLATELET VOLUME 8.3 fL (7.4-11.4); MONOCYTES # (AUTO) 0.9 10^3/uL (0.0-1.0); NEUTROPHILS # (AUTO) 5.4 10^3/uL (1.5-6.6); PLT - PLATELET COUNT 201 10^3/uL (130-450); RED BLOOD COUNT 4.76 10^6/uL (4.70-6.10); RED CELL DISTRIBUTION WIDTH 14.1 % (12.0-15.0); WHITE BLOOD COUNT 9.4 x10^3/uL (4.8-10.8)
--- NOTE | 2017-04-06 20:57 | ED Physician Documentation ---
PD HPI CHEST PAIN - Stated complaint Stated Complaint: CHEST PAIN - Chief complaint Chief Complaint: Cardiac - History obtained from History obtained from: Patient, EMS - History of Present Illness Timing - onset: How many hours ago (2.5) Timing - onset during: Rest Timing - duration: Hours (2.5) Timing - details: Gradual onset, Still present Quality: Pain Location: Left chest Radiation: Jaw, Left upper extremity Associated symptoms: Shortness of air. No: Diaphoresis, Nausea, Vomiting Similar symptoms before: Diagnosis (History of similar symptoms with vasospastic angina.) Recently seen: Admitted (Hospitalized 1 month ago with similar symptoms, diagnosed as Prinzmetal's angina. He was also treated for pneumonia at that time.) - Treatment prior to arrival Treatment prior to arrival: Medics administered 4 baby aspirin and 1 sublingual nitroglycerin. - Additional information Additional information: The patient is a 56-year-old male with history of insulin-dependent diabetes, coronary artery disease, status post stents 5, history of Prinzmetal's angina, who arrives via ambulance with substernal chest pain radiating to his jaw and left shoulder. His pain started about 2 and half hours prior to arrival and has persisted since that time. He rates it at 8 out of 10 in severity. He reports associated mild shortness of breath. He denies nausea, vomiting, or diaphoresis. Medics administered 4 baby aspirin and 1 sublingual nitroglycerin , without change in the patient's symptoms. He has a history of coronary artery disease and is status post coronary stents 5. The last time was in 2011. He also has a history of similar angina symptoms for which he is been evaluated by cardiology at [facility], and diagnosed with Prinzmetal's angina. Review of his medical record reveals that he was hospitalized here 1 month ago with chest pain and was treated with IV nitroglycerin drip for vasospastic angina. At the time of discharge his medication was changed to Cardizem CD and he was taken off of beta-blockers. Review of Systems Constitutional: denies: Fever Ears: denies: Tinnitus/ringing Nose: denies: Congestion Throat: denies: Sore throat Cardiac: reports: Chest pain / pressure. denies: Palpitations Respiratory: reports: Dyspnea (mild). denies: Cough GI: denies: Abdominal Pain, Nausea, Vomiting : denies: Dysuria Skin: denies: Rash Musculoskeletal: denies: Extremity swelling Neurologic: denies: Focal weakness, Numbness, Headache PD PAST MEDICAL HISTORY - Past Medical History Cardiovascular: Coronary artery disease, Angina, VA Respiratory: Sleep apnea, CPAP use Neuro: None Endocrine/Autoimmune: Type 2 diabetes GI: None : None HEENT: None Psych: None Musculoskeletal: None Derm: None - Past Surgical History Past Surgical History: Yes Ortho: Knee replacement, Rotator cuff repair, Other Cardiovascular: Coronary stent - Present Medications Home Medications: Ambulatory Orders Medication Instructions Recorded Confirmed Insulin Aspart [NovoLOG] 40 unit SUBQ 0800 03/09/17 03/10/17 Insulin Aspart [NovoLOG] 45 unit SQ 1200,1700 03/09/17 03/10/17 Insulin Glargine [Lantus Solostar] 70 unit SQ DAILY PM 03/09/17 03/10/17 Liraglutide [Victoza 2-Antonio] 1.8 mg SQ DAILY PM 03/09/17 03/10/17 Pregabalin [Lyrica] 225 mg PO DAILY 03/09/17 03/10/17 Cholecalciferol (Vitamin D3) 2,000 units PO DAILY 03/10/17 03/10/17 [Vitamin D3] Escitalopram [Lexapro] 20 mg PO DAILY 03/10/17 03/10/17 Whiting-3 Acid Ethyl Esters [Lovaza] 1 gm PO BID 03/10/17 03/10/17 Aspirin [Wesly] 325 mg PO DAILY tablet 03/14/17 Atorvastatin [Lipitor] 40 mg PO QPM tablet 03/14/17 Azithromycin [Zithromax] 250 mg PO DAILY #6 tablet 03/14/17 Pregabalin [Lyrica] 50 mg PO BID capsule 03/14/17 Pregabalin [Lyrica] 100 mg PO BID capsule 03/14/17 diltiaZEM CD [Cardizem Cd] 360 mg PO DAILY #60 capsule 03/14/17 - Allergies Allergies/Adverse Reactions: Allergies Allergy/AdvReac Type Severity Reaction Status Date / Time hydroxyzine [From Vistaril] Allergy Hives Verified 04/06/17 20:39 meperidine [From Demerol] Allergy Anaphylaxis Verified 04/06/17 20:39 - Social History Does the pt smoke?: No Smoking Status: Never smoker Does the pt drink ETOH?: No Does the pt have substance abuse?: No PD ED PE NORMAL - Vitals Vital signs reviewed: Yes (mild hypertension initially.) - General General: Alert and oriented X 3, Well developed/nourished, Other (Obese.) - HEENT HEENT: Atraumatic, Moist mucous membranes, Pharynx benign - Neck Neck: Supple, no meningeal sign, No adenopathy, No JVD - Cardiac Cardiac: RRR, No murmur - Respiratory Respiratory: No respiratory distress, Clear bilaterally - Abdomen Abdomen: Soft, Non tender - Back Back: No CVA TTP - Derm Derm: No rash - Extremities Extremities: No calf tenderness / cord, Other (Trace pedal edema.) - Neuro Neuro: Alert and oriented X 3, No motor deficit, Normal speech Results - Vitals Vitals: Vital Signs - 24 hr 04/06/17 04/06/17 04/06/17 20:34 21:25 21:28 Temperature 37.2 C Heart Rate 86 84 84 Respiratory 22 17 18 Rate Blood Pressure 155/83 H 141/79 H 144/80 H O2 Saturation 96 97 96 04/06/17 04/06/17 04/06/17 21:30 21:35 21:46 Temperature Heart Rate 82 82 84 Respiratory 18 17 16 Rate Blood Pressure 150/82 H 149/80 H 143/85 H O2 Saturation 97 97 96 04/06/17 04/06/17 04/06/17 21:49 22:16 22:50 Temperature Heart Rate 79 85 86 Respiratory 22 18 16 Rate Blood Pressure 143/85 H 138/75 H 134/78 H O2 Saturation 96 96 95 Oxygen O2 Source Room air - EKG (time done) 20:41 Rate: Rate (enter#) (87) Rhythm: NSR [place]: Normal Ischemia: Q waves (in V2, consistent with old anteroseptal VA.). No: ST elevation c/w ischemia Compare to prior EKG: Changed from prior EKG (Q wave in V2 is new compared to previous EKG 03/09/2017.) Computer interpretation: Disagree with computer (NSR with wavy baseline (not accelerated junctional rhythm).) - Labs Labs: Laboratory Tests 04/06/17 04/06/17 04/06/17 20:45 20:45 20:45 WBC 9.4 RBC 4.76 Hgb 15.0 Hct 43.1 MCV 90.6 MCH 31.5 H MCHC 34.7 RDW 14.1 Plt Count 201 MPV 8.3 Neut # 5.4 Lymph # 2.8 [place] # 0.9 Eos # 0.2 Baso # 0.1 Absolute Nucleated RBC 0.01 Nucleated RBC % 0.1 Sodium 138 Potassium 3.7 Chloride 100 L Carbon Dioxide 25 Anion Gap 13.0 BUN 9 Creatinine 0.9 Estimated GFR (MDRD) 87 L Glucose 173 H Calcium 9.3 Total Bilirubin 0.8 AST 64 H ALT 74 H Alkaline Phosphatase 157 H Troponin I < 0.04 B-Natriuretic Peptide Total Protein 6.8 Albumin 3.7 Globulin 3.1 Albumin/Globulin Ratio 1.2 Lipase 48 04/06/17 20:45 WBC RBC Hgb Hct MCV MCH MCHC RDW Plt Count MPV Neut # Lymph # [place] # Eos # Baso # Absolute Nucleated RBC Nucleated RBC % Sodium Potassium Chloride Carbon Dioxide Anion Gap BUN Creatinine Estimated GFR (MDRD) Glucose Calcium Total Bilirubin AST ALT Alkaline Phosphatase Troponin I B-Natriuretic Peptide 44 Total Protein Albumin Globulin Albumin/Globulin Ratio Lipase - Rads (name of study) 1-view CXR Radiology: Prelim report reviewed, EMP read contemporaneously, See rad report ( Pulmonary vascular congestion, with no focal airspace disease.) PD MEDICAL DECISION MAKING - ED course Complexity details: reviewed old records, reviewed results, re-evaluated patient , considered differential, d/w patient, d/w pre owned sales consultant ED course: The patient's presentation is consistent with Prinzmetal's angina, which is the patient's previously determined diagnosis. There is no acute ST elevation on his electrocardiogram, and his troponin is normal. Chest x-ray reveals mild pulmonary vascular congestion, without evidence of airspace disease. His BNP is normal at 44. Treatment in the emergency department included administration of sublingual nitroglycerin followed by nitroglycerin drip. Morphine 4 mg administered IV. The patient's pain diminished from 9 out of 10 in severity to 6 out of 10 in severity. I discussed his presentation with Dr. Valentino, who is familiar with the patient from his previous hospitalization. She will write further orders. Departure - Departure Disposition: [facility] DC/Xfer Clinical Impression: Chest pain, rule out acute myocardial infarction, Variant angina Condition: Fair Discharge Date/Time: 04/07/17 00:35
[2017-04-06] MEDS ORDERED: NITROGLYCERIN SL 0.4 MG TABLET SL ONE (20:58)
[2017-04-06] MEDS ORDERED: ASPIRIN CHEW 81 MG TABLET ONE ×2 (20:58→20:59)
[2017-04-06 21:04] LABS: ALBUMIN 3.7 g/dL (3.2-5.5); ALBUMIN/GLOBULIN RATIO 1.2 (1.0-2.2); BILIRUBIN,TOTAL 0.8 mg/dL (0.2-1.0); CALCIUM 9.3 mg/dL (8.5-10.3); CREATININE 0.9 mg/dL (0.6-1.2); TOTAL PROTEIN 6.8 g/dL (6.7-8.2)
[2017-04-06] MEDS ORDERED: NITROGLYCERIN 50 MG/250 ML 50 MG/250 ML BOTTLE IV STA (21:09)
[2017-04-06] MEDS ORDERED: MORPHINE 2 MG/ML CARPUJECT IVP STA (21:37)
--- NOTE | 2017-04-06 21:59 | XRAY Preliminary Report ---
Exam: XR CHEST 1 VIEW X-RAY IMPRESSION: Pulmonary vascular congestion with no focal airspace disease. [facility] SITE ID: [id number]
--- NOTE | 2017-04-06 21:59 | XRAY Report ---
EXAM: CHEST RADIOGRAPHY EXAM DATE: 04/06/2017 09:15 PM. CLINICAL HISTORY: Chest pain. COMPARISON: 03/13/2017 chest x-ray. TECHNIQUE: 1 view. FINDINGS: Lungs/Pleura: There is pulmonary vascular congestion without overt edema. No lobar consolidation. No pleural effusion or pneumothorax. Mediastinum: Within exam limitations, the cardiomediastinal contour is normal. Other: None. IMPRESSION: Pulmonary vascular congestion with no focal airspace disease. [facility] Referring Provider Line: [phone] SITE ID: [id number]
[2017-04-06] MEDS ORDERED: diltiaZEM CD 120 MG CAPSULE PO SCH (23:45)
[2017-04-07] MEDS: ENOXAPARIN 150 MG/ML SYRINGE SUBQ SCH ×3 (01:00→20:42)
[2017-04-07] MEDS: INSULIN GLARGINE 300 UNIT/3 ML PEN SUBQ SCH ×2 (01:00→20:42)
[2017-04-07] MEDS ORDERED: AZITHROMYCIN 250 MG TABLET PO SCH (01:00)
[2017-04-07] MEDS: SODIUM CHLORIDE FLUSH 0.9% 10 ML SYRINGE IVP PRN ×4 (01:02→22:54)
[2017-04-07] MEDS: HYDROmorphone 1 MG/ML SYRINGE IVP PRN ×4 (01:02→08:42)
[2017-04-07] MEDS: IBUPROFEN 600 MG TABLET PO PRN (01:18)
[2017-04-07] MEDS: diltiaZEM CD 120 MG CAPSULE PO SCH ×3 (01:22→20:46)
[2017-04-07] MEDS: SODIUM CHLORIDE FLUSH 0.9% 10 ML SYRINGE IVP SCH ×3 (05:20→21:30)
[2017-04-07 05:46] LABS: BASOPHILS # (AUTO) 0.1 10^3/uL (0.0-0.1); BASOPHILS % (AUTO) 0.9 %; EOSINOPHILS # (AUTO) 0.2 10^3/uL (0.0-0.7); EOSINOPHILS % (AUTO) 2.6 %; HGB - HEMOGLOBIN 14.1 g/dL (14.0-18.0); LYMPHOCYTES # (AUTO) 2.9 10^3/uL (1.5-3.5); LYMPHOCYTES % (AUTO) 34.5 %; MEAN CORPUSCULAR HEMOGLOBIN 30.6 pg (27.0-31.0); MEAN CORPUSCULAR HGB CONC 33.4 g/dL (32.0-36.0); MEAN CORPUSCULAR VOLUME 91.8 fL (80.0-94.0); MEAN PLATELET VOLUME 8.3 fL (7.4-11.4); MONOCYTES # (AUTO) 0.8 10^3/uL (0.0-1.0); MONOCYTES % (AUTO) 9.9 %; NEUTROPHILS # (AUTO) 4.4 10^3/uL (1.5-6.6); NEUTROPHILS % (AUTO) 52.1 %; PLT - PLATELET COUNT 181 10^3/uL (130-450); RED BLOOD COUNT 4.59 10^6/uL (4.70-6.10); RED CELL DISTRIBUTION WIDTH 13.8 % (12.0-15.0); WHITE BLOOD COUNT 8.5 x10^3/uL (4.8-10.8)
[2017-04-07 05:47] LABS: BILIRUBIN,URINE NEGATIVE (NEGATIVE); GLUCOSE, URINE (UA) NEGATIVE (NEGATIVE); KETONES,URINE (UA) NEGATIVE (NEGATIVE); LEUKOCYTE ESTERASE, URINE NEGATIVE (NEGATIVE); NITRITE,URINE NEGATIVE (NEGATIVE); OCCULT BLOOD,URINE NEGATIVE (NEGATIVE); PROTEIN,URINE NEGATIVE (NEGATIVE); UROBILINOGEN,URINE 0.2 (NORMAL) E.U./dL (NORMAL)
[2017-04-07 05:53] LABS: INR 1.1 (0.8-1.2); PT - PROTHROMBIN TIME 12.7 secs (9.9-12.6)
[2017-04-07 06:08] LABS: CLARITY,URINE CLEAR (CLEAR)
[2017-04-07 06:09] LABS: CREATININE 0.9 mg/dL (0.6-1.2); MAGNESIUM 1.9 mg/dL (1.7-2.8)
[2017-04-07 06:20] LABS: CHOL/HDL RATIO 9.7 (<5.0); CHOLESTEROL 251 mg/dL; HDL CHOLESTEROL 26 mg/dL; LDL CHOLESTEROL,CALCULATED 176 mg/dL; LDL/HDL RATIO 6.8 (<3.6); VLDL CHOLESTEROL 49 mg/dL
[2017-04-07] MEDS ORDERED: POTASSIUM CHLORIDE 20 MEQ TABLET PO ONE (06:30)
[2017-04-07] MEDS ORDERED: NITROGLYCERIN 50 MG/250 ML 50 MG/250 ML BOTTLE IV ONE (07:37)
[2017-04-07] MEDS: NITROGLYCERIN 50 MG/250 ML 50 MG/250 ML BOTTLE IV SCH ×3 (07:39→21:32)
[2017-04-07] MEDS: ASPIRIN 325 MG TABLET PO SCH (08:44)
[2017-04-07] MEDS: AZITHROMYCIN 250 MG TABLET PO SCH (08:44)
[2017-04-07] MEDS: PREGABALIN 25 MG CAPSULE PO SCH ×2 (08:45→20:46)
[2017-04-07] MEDS: amLODIPine 5 MG TABLET PO SCH (08:46)
[2017-04-07] MEDS: FAMOTIDINE 20 MG TABLET PO SCH (08:46)
[2017-04-07] MEDS: ESCITALOPRAM 10 MG TABLET PO SCH (08:46)
[2017-04-07] MEDS: CHOLECALCIFEROL 1,000 UNIT TABLET PO SCH (08:46)
[2017-04-07] MEDS: PREGABALIN 100 MG CAPSULE PO SCH ×2 (08:47→20:46)
[2017-04-07] MEDS: INSULIN ASPART 300 UNIT/3 ML PEN SUBQ SCH ×7 (08:51→20:30)
[2017-04-07] MEDS ORDERED: NON FORMULARY MED (Cholecalciferol (Vitamin D3) [Vitamin D3] 2,000 UNITS) PO SCH (09:00)
[2017-04-07] MEDS: MORPHINE 2 MG/ML CARPUJECT IVP PRN ×8 (10:50→22:54)
--- NOTE | 2017-04-07 11:43 | PROVIDER PROGRESS NOTE ---
Subjective - Prog Note Date Prog Note Date: 04/07/17 Prog Note Time: 11:39 - Subjective Pt reports feeling: Improved (Patient says his pain which had been at 9 out of 10 is now around 5 out of 10.) Objective - Vital Signs/Intake & Output Reviewed Vital Signs: Yes Vital Signs: Vital Signs Temp Pulse Resp BP Pulse Ox 04/07/17 11:19 75 17 103/67 96 04/07/17 09:46 74 17 114/61 94 04/07/17 09:00 37.0 C 72 17 100/67 94 04/07/17 08:55 17 107/68 04/07/17 08:50 16 111/64 04/07/17 08:45 16 117/66 04/07/17 08:40 76 18 92/62 95 04/07/17 08:35 73 16 111/64 95 04/07/17 08:30 74 14 90/68 95 04/07/17 08:25 16 116/58 L Intake & Output: Intake & Output 04/04/17 04/05/17 04/06/17 04/07/17 23:59 23:59 23:59 23:59 Intake Total 11.7 926.90 Output Total 1100 Balance 11.7 -173.10 - Objective General Appearance: positive: No acute distress, Alert Eyes Bilateral: positive: Normal inspection, PERRL, EOMI, No lid inflammation, Conjunctivae nml, No scleral icterus ENT: positive: ENT inspection nml, Pharynx nml, No signs of dehydration Neck: positive: Nml inspection, Thyroid nml, No JVD, Trachea midline. negative : Thyromegaly Respiratory: positive: Chest non-tender, No respiratory distress, Breath sounds nml. negative: Wheezes, Rales, Rhonchi Cardiovascular: positive: Regular rate & rhythm, No murmur, No gallop Abdomen: positive: Non-tender, No organomegaly, Nml bowel sounds, No distention. negative: Guarding, Rebound Back: positive: Nml inspection. negative: CVA tenderness (R), CVA tenderness (L ) Skin: positive: Color nml, No rash, Warm, Dry. negative: Cyanosis Extremities: positive: Non-tender, Full ROM, Nml appearance, No pedal edema Neurologic/Psychiatric: positive: Oriented x3, CN's nml (2-12), Motor nml, Sensation nml, Mood/affect nml - Lab Results Fish Bones: 04/07/17 04:58 04/07/17 04:58 Other Labs: Lab Results x24hrs 04/07/17 04/07/17 04/07/17 Range/Units 05:25 04:58 04:58 WBC (4.8-10.8) x10^3/uL RBC (4.70-6.10) 10^6/uL Hgb (14.0-18.0) g/dL Hct (42.0-52.0) % MCV (80.0-94.0) fL MCH (27.0-31.0) pg MCHC (32.0-36.0) g/dL RDW (12.0-15.0) % Plt Count (130-450) 10^3/uL MPV (7.4-11.4) fL Neut # (1.5-6.6) 10^3/uL Lymph # (1.5-3.5) 10^3/uL [place] # (0.0-1.0) 10^3/uL Eos # (0.0-0.7) 10^3/uL Baso # (0.0-0.1) 10^3/uL Absolute Nucleated RBC x10^3/uL Nucleated RBC % /100WBC PT (9.9-12.6) secs INR (0.8-1.2) Sodium (135-145) mmol/L Potassium (3.5-5.0) mmol/L Chloride (101-111) mmol/L Carbon Dioxide (21-32) mmol/L Anion Gap (6-13) BUN (6-20) mg/dL Creatinine (0.6-1.2) mg/dL Estimated GFR (MDRD) (>89) Glucose (70-100) mg/dL Calcium (8.5-10.3) mg/dL Phosphorus 4.4 (2.5-4.6) mg/dL Magnesium (1.7-2.8) mg/dL Triglycerides 246 H ( - 149) mg/dL Cholesterol 251 H ( - 199) mg/dL LDL Cholesterol, Calc 176 H ( - 129) mg/dL VLDL Cholesterol 49 mg/dL HDL Cholesterol 26 L (60 - ) mg/dL LDL/HDL Ratio 6.8 (<3.6) Cholesterol/HDL Ratio 9.7 (<5.0) Urine Color YELLOW Urine Clarity CLEAR (CLEAR) Urine pH 7.0 (5.0-7.5) PH Ur Specific [place] 1.020 (1.002-1.030) Urine Protein NEGATIVE (NEGATIVE) mg/dL Urine Glucose (UA) NEGATIVE (NEGATIVE) mg/dL Urine Ketones NEGATIVE (NEGATIVE) mg/dL Urine Occult Blood NEGATIVE (NEGATIVE) Urine Nitrite NEGATIVE (NEGATIVE) Urine Bilirubin NEGATIVE (NEGATIVE) Urine Urobilinogen 0.2 (NORMAL) (NORMAL) E.U./dL Ur Leukocyte Esterase NEGATIVE (NEGATIVE) Ur Microscopic Review NOT INDICATED Urine Culture Comments NOT INDICATED 04/07/17 04/07/17 04/07/17 Range/Units 04:58 04:58 04:58 WBC 8.5 (4.8-10.8) x10^3/uL RBC 4.59 L (4.70-6.10) 10^6/uL Hgb 14.1 (14.0-18.0) g/dL Hct 42.1 (42.0-52.0) % MCV 91.8 (80.0-94.0) fL MCH 30.6 (27.0-31.0) pg MCHC 33.4 (32.0-36.0) g/dL RDW 13.8 (12.0-15.0) % Plt Count 181 (130-450) 10^3/uL MPV 8.3 (7.4-11.4) fL Neut # 4.4 (1.5-6.6) 10^3/uL Lymph # 2.9 (1.5-3.5) 10^3/uL [place] # 0.8 (0.0-1.0) 10^3/uL Eos # 0.2 (0.0-0.7) 10^3/uL Baso # 0.1 (0.0-0.1) 10^3/uL Absolute Nucleated RBC 0.01 x10^3/uL Nucleated RBC % 0.1 /100WBC PT 12.7 H (9.9-12.6) secs INR 1.1 (0.8-1.2) Sodium 135 (135-145) mmol/L Potassium 3.3 L (3.5-5.0) mmol/L Chloride 101 (101-111) mmol/L Carbon Dioxide 23 (21-32) mmol/L Anion Gap 11.0 (6-13) BUN 10 (6-20) mg/dL Creatinine 0.9 (0.6-1.2) mg/dL Estimated GFR (MDRD) 87 L (>89) Glucose 200 H (70-100) mg/dL Calcium 9.0 (8.5-10.3) mg/dL Phosphorus (2.5-4.6) mg/dL Magnesium 1.9 (1.7-2.8) mg/dL Triglycerides ( - 149) mg/dL Cholesterol ( - 199) mg/dL LDL Cholesterol, Calc ( - 129) mg/dL VLDL Cholesterol mg/dL HDL Cholesterol (60 - ) mg/dL LDL/HDL Ratio (<3.6) Cholesterol/HDL Ratio (<5.0) Urine Color Urine Clarity (CLEAR) Urine pH (5.0-7.5) PH Ur Specific [place] (1.002-1.030) Urine Protein (NEGATIVE) mg/dL Urine Glucose (UA) (NEGATIVE) mg/dL Urine Ketones (NEGATIVE) mg/dL Urine Occult Blood (NEGATIVE) Urine Nitrite (NEGATIVE) Urine Bilirubin (NEGATIVE) Urine Urobilinogen (NORMAL) E.U./dL Ur Leukocyte Esterase (NEGATIVE) Ur Microscopic Review Urine Culture Comments - Diagnostic Imaging Diagnostic Imaging Results: positive: Final report reviewed Diagnostic Imaging Comments: EXAM: CHEST RADIOGRAPHY EXAM DATE: 04/06/2017 09:15 PM. CLINICAL HISTORY: Chest pain. COMPARISON: 03/13/2017 chest x-ray. TECHNIQUE: 1 view. FINDINGS: Lungs/Pleura: There is pulmonary vascular congestion without overt edema. No lobar consolidation. No pleural effusion or pneumothorax. Mediastinum: Within exam limitations, the cardiomediastinal contour is normal. Other: None. IMPRESSION: Pulmonary vascular congestion with no focal airspace disease. Assessment/Plan - Problem List (1) Prinzmetal angina Impression: The patient has an established history of Prinzmetal angina. He had been on Cardizem CD 360 mg daily however his Prinzmetal angina continued through this. He is currently on a nitroglycerin drip in the intensive care unit and is also receiving 2 different types of calcium channel blockers. We will continue with the current care and once the patient is stable and his symptoms are relieved we will start him on a long-acting nitrate such as Imdur. No other changes at this time. (2) Diabetes Impression: The patient has been restarted on his insulin therapy from home. Continue coverage with sliding scale. Qualifiers: Diabetes mellitus type: type 2 Diabetes mellitus complication status: with hyperglycemia Diabetes mellitus correction insulin use: with intermediate teacher use Qualified Code(s): E11.65 - Type 2 diabetes mellitus with hyperglycemia; Z79.4 - intermediate teacher (current) use of insulin; Z79.4 - intermediate teacher (current) use of insulin ; Z79.4 - intermediate teacher (current) use of insulin; Z79.4 - intermediate teacher (current) use of insulin (3) HTN (hypertension) Impression: The patient's blood pressure has been very well controlled. Continue present care. Qualifiers: Hypertension type: essential hypertension Qualified Code(s): I10 - Essential (primary) hypertension (4) Hypercholesterolemia Impression: We will continue the patient on atorvastatin for hypercholesterolemia.
[2017-04-07] MEDS: POTASSIUM CHLORIDE 20 MEQ TABLET PO SCH (12:29)
[2017-04-07] MEDS: ATORVASTATIN 40 MG TABLET PO SCH (20:46)
[2017-04-07] MEDS: VICTOZA SUBQ SCH (20:47)
[2017-04-08] MEDS: MORPHINE 2 MG/ML CARPUJECT IVP PRN ×13 (00:27→22:02)
[2017-04-08] MEDS: SODIUM CHLORIDE FLUSH 0.9% 10 ML SYRINGE IVP PRN ×9 (00:27→20:13)
[2017-04-08] MEDS: NITROGLYCERIN 50 MG/250 ML 50 MG/250 ML BOTTLE IV SCH ×3 (04:30→18:04)
[2017-04-08] MEDS: SODIUM CHLORIDE FLUSH 0.9% 10 ML SYRINGE IVP SCH ×3 (05:49→22:02)
[2017-04-08 05:52] LABS: CALCIUM 8.8 mg/dL (8.5-10.3); MAGNESIUM 1.9 mg/dL (1.7-2.8)
[2017-04-08] MEDS: POTASSIUM CHLORIDE 20 MEQ TABLET PO SCH (08:23)
[2017-04-08] MEDS: ASPIRIN 325 MG TABLET PO SCH (08:23)
[2017-04-08] MEDS: amLODIPine 5 MG TABLET PO SCH (08:23)
[2017-04-08] MEDS: CHOLECALCIFEROL 1,000 UNIT TABLET PO SCH (08:24)
[2017-04-08] MEDS: AZITHROMYCIN 250 MG TABLET PO SCH (08:24)
[2017-04-08] MEDS: ENOXAPARIN 150 MG/ML SYRINGE SUBQ SCH ×2 (08:26→21:06)
[2017-04-08] MEDS: diltiaZEM CD 120 MG CAPSULE PO SCH ×2 (08:26→21:06)
[2017-04-08] MEDS: ESCITALOPRAM 10 MG TABLET PO SCH (08:26)
[2017-04-08] MEDS: PREGABALIN 25 MG CAPSULE PO SCH ×2 (08:27→21:07)
[2017-04-08] MEDS: FAMOTIDINE 20 MG TABLET PO SCH (08:27)
[2017-04-08] MEDS: PREGABALIN 100 MG CAPSULE PO SCH ×2 (08:28→21:07)
[2017-04-08] MEDS: INSULIN ASPART 300 UNIT/3 ML PEN SUBQ SCH ×7 (08:29→21:05)
--- NOTE | 2017-04-08 12:49 | PROVIDER PROGRESS NOTE ---
Subjective - Prog Note Date Prog Note Date: 04/08/17 Prog Note Time: 13:00 - Subjective Pt reports feeling: Improved (The pt's chest pain has improved, but is still significantly greater than baseline.) Current Medications - Current Medications Current Medications: Amlodipine, aspirin, Lipitor, azithromycin, vitamin D3, Cardizem CD, Lovenox, Lexapro, Pepcid, Dilaudid, Motrin, insulin, morphine, nitroglycerin,Potassium chloride, Lyrica, sodium chloride, temazepam Objective - Vital Signs/Intake & Output Reviewed Vital Signs: Yes Vital Signs: Vital Signs Temp Pulse Resp BP Pulse Ox 04/08/17 12:00 77 16 112/66 95 04/08/17 11:00 73 12 126/73 95 04/08/17 10:00 88 22 124/64 96 04/08/17 09:00 37.0 C 86 16 109/66 95 Intake & Output: Intake & Output 04/05/17 04/06/17 04/07/17 04/08/17 23:59 23:59 23:59 23:59 Intake Total 11.7 3565.675 1615 Output Total 2100 1650 Balance 11.7 1465.675 -35 - Objective General Appearance: positive: No acute distress, Alert Eyes Bilateral: positive: Normal inspection, PERRL, EOMI, No lid inflammation, Conjunctivae nml, No scleral icterus ENT: positive: ENT inspection nml, Pharynx nml, No signs of dehydration Neck: positive: Nml inspection, Thyroid nml, No JVD, Trachea midline. negative : Thyromegaly Respiratory: positive: Chest non-tender, No respiratory distress, Breath sounds nml. negative: Wheezes, Rales, Rhonchi Cardiovascular: positive: Regular rate & rhythm, No murmur, No gallop Abdomen: positive: Non-tender, No organomegaly, Nml bowel sounds, No distention. negative: Guarding, Rebound Back: positive: Nml inspection. negative: CVA tenderness (R), CVA tenderness (L ) Skin: positive: Color nml, No rash, Warm, Dry. negative: Cyanosis Extremities: positive: Non-tender, Full ROM, Nml appearance, No pedal edema Neurologic/Psychiatric: positive: Oriented x3, CN's nml (2-12), Motor nml, Sensation nml, Mood/affect nml - Lab Results Fish Bones: 04/07/17 04:58 04/08/17 04:54 Other Labs: Lab Results x24hrs 04/08/17 04/08/17 04/08/17 Range/Units 11:23 07:41 04:54 Potassium 3.8 (3.5-5.0) mmol/L POC Whole Bld Glucose 145 H 158 H (70 - 100) mg/dL Calcium 8.8 (8.5-10.3) mg/dL Phosphorus 4.0 (2.5-4.6) mg/dL Magnesium 1.9 (1.7-2.8) mg/dL 04/07/17 04/07/17 Range/Units 20:17 16:36 Potassium (3.5-5.0) mmol/L POC Whole Bld Glucose 121 H 83 (70 - 100) mg/dL Calcium (8.5-10.3) mg/dL Phosphorus (2.5-4.6) mg/dL Magnesium (1.7-2.8) mg/dL Assessment/Plan - Problem List (1) Prinzmetal angina Impression: The patient has an established history of Prinzmetal angina. His pain today is improved but still significant. He had been on Cardizem CD 360 mg daily however his Prinzmetal angina continued through this. He is currently on a nitroglycerin drip in the intensive care unit and is also receiving 2 different types of calcium channel blockers. We will continue with the current care and once the patient is stable and his symptoms are relieved we will start him on a long-acting nitrate such as Imdur. No other changes at this time. (2) Diabetes Impression: The patient has been restarted on his insulin therapy from home. Continue coverage with sliding scale. Qualifiers: Diabetes mellitus type: type 2 Diabetes mellitus complication status: with hyperglycemia Diabetes mellitus machine staker insulin use: with longterm use Qualified Code(s): E11.65 - Type 2 diabetes mellitus with hyperglycemia; Z79.4 - senior living (current) use of insulin; Z79.4 - senior living (current) use of insulin ; Z79.4 - weaver narrow fabrics (current) use of insulin; Z79.4 - weaver narrow fabrics (current) use of insulin (3) HTN (hypertension) Impression: The patient's blood pressure has been very well controlled. Continue present care. Qualifiers: Hypertension type: essential hypertension Qualified Code(s): I10 - Essential (primary) hypertension (4) Hypercholesterolemia Impression: Continue the patient on atorvastatin for hypercholesterolemia.
--- NOTE | 2017-04-08 17:53 | XRAY Report ---
FRONTAL CHEST: 04/08/2017 CLINICAL INDICATION: Pulmonary congestion. COMPARISON: 04/06/2017 FINDINGS: Frontal view of the chest demonstrates a normal cardiac silhouette. Pulmonary vascular congestion has increased. No focal infiltrate, effusion, or pneumothorax is present. IMPRESSION: INCREASING PULMONARY VASCULAR CONGESTION. NO FOCAL INFILTRATE. TD: 04/08/2017 17:52
[2017-04-08] MEDS: ATORVASTATIN 40 MG TABLET PO SCH (21:06)
[2017-04-08] MEDS: INSULIN GLARGINE 300 UNIT/3 ML PEN SUBQ SCH (21:07)
[2017-04-08] MEDS: VICTOZA SUBQ SCH (21:07)
[2017-04-09] MEDS: MORPHINE 2 MG/ML CARPUJECT IVP PRN ×14 (00:02→23:55)
[2017-04-09] MEDS: SODIUM CHLORIDE FLUSH 0.9% 10 ML SYRINGE IVP PRN ×8 (00:02→23:55)
[2017-04-09] MEDS: NITROGLYCERIN 50 MG/250 ML 50 MG/250 ML BOTTLE IV SCH ×4 (00:35→20:22)
[2017-04-09] MEDS: SODIUM CHLORIDE FLUSH 0.9% 10 ML SYRINGE IVP SCH ×5 (06:20→18:35)
[2017-04-09] MEDS: INSULIN ASPART 300 UNIT/3 ML PEN SUBQ SCH ×7 (08:02→20:59)
[2017-04-09] MEDS: ESCITALOPRAM 10 MG TABLET PO SCH (08:18)
[2017-04-09] MEDS: ASPIRIN 325 MG TABLET PO SCH (08:19)
[2017-04-09] MEDS: amLODIPine 5 MG TABLET PO SCH ×2 (08:19→21:01)
[2017-04-09] MEDS: FAMOTIDINE 20 MG TABLET PO SCH (08:19)
[2017-04-09] MEDS: PREGABALIN 25 MG CAPSULE PO SCH ×2 (08:20→21:01)
[2017-04-09] MEDS: PREGABALIN 100 MG CAPSULE PO SCH ×2 (08:20→21:01)
[2017-04-09] MEDS: diltiaZEM CD 120 MG CAPSULE PO SCH ×2 (08:21→21:02)
[2017-04-09] MEDS: CHOLECALCIFEROL 1,000 UNIT TABLET PO SCH (08:22)
[2017-04-09] MEDS: POTASSIUM CHLORIDE 20 MEQ TABLET PO SCH (08:22)
[2017-04-09] MEDS: AZITHROMYCIN 250 MG TABLET PO SCH (08:22)
[2017-04-09] MEDS: ENOXAPARIN 150 MG/ML SYRINGE SUBQ SCH (08:53)
[2017-04-09] MEDS ORDERED: ISOSORBIDE MONONITRATE ER 30 MG TABLET PO SCH (14:00)
--- NOTE | 2017-04-09 18:25 | PROVIDER PROGRESS NOTE ---
Assessment/Plan - Problem List (1) Prinzmetal angina Assessment/Plan: Will try to wean iv NTG to off very slowly and increase Ca-channel blockers and add Imdur, spreading out the doses Pt has R/O for GA, therefore will change sq Lovenox from treatment dose to prophylactic dose (2) CAD (coronary artery disease) Assessment/Plan: Continue antiplatelet agents and pre-hospital meds (3) Diabetes Qualifiers: Diabetes mellitus type: type 2 Diabetes mellitus complication status: with hyperglycemia Diabetes mellitus penitentiary insulin use: with penitentiary use Qualified Code(s): E11.65 - Type 2 diabetes mellitus with hyperglycemia; Z79.4 - custodial (current) use of insulin; Z79.4 - custodial (current) use of insulin ; 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; Z79.4 - custodial (current) use of insulin Assessment/Plan: Good glu control, but Pt needs high doses of Insulin Continue diet and meds (4) Morbid obesity with BMI of 40.0-44.9, adult Assessment/Plan: Pt would benefit from a calorie restricted diet and education - Current Meds Current Meds: Current Medications Generic Name Dose Route Start Last Admin Trade Name Freq PRN Reason Stop Dose Admin Aspirin 325 mg 04/07/17 09:00 04/09/17 08:19 Wesly PO 325 mg DAILY JANNY Administration Atorvastatin Calcium 40 mg 04/07/17 21:00 04/08/17 21:06 Lipitor PO 40 mg QPM JANNY Administration Azithromycin 250 mg 04/07/17 09:00 04/09/17 08:22 Zithromax PO 04/10/17 09:01 250 mg DAILY JANNY Administration Cholecalciferol 2,000 unit 04/07/17 09:00 04/09/17 08:22 Vitamin D3 PO 2,000 unit DAILY JANNY Administration Escitalopram Oxalate 20 mg 04/07/17 09:00 04/09/17 08:18 Lexapro PO 20 mg DAILY JANNY Administration Famotidine 20 mg 04/07/17 09:00 04/09/17 08:19 Pepcid PO 20 mg DAILY JANNY Administration Hydromorphone HCl 0.5 mg 04/06/17 23:30 04/07/17 08:42 Dilaudid Inj Syringe IVP 0.5 mg Q2H PRN Administration Pain 8 to 10 Nitroglycerin 50 mg in 250 mls @ 1.5 mls/hr 04/07/17 07:12 04/09/17 17:00 Nitroglycerin IV 135 mcg/min TITR JANNY 40.5 mls/hr Protocol Titration 5 MCG/MIN Ibuprofen 600 mg 04/06/17 23:30 04/07/17 01:18 Motrin PO 600 mg Q6HR PRN Administration Pain 1 to 4 Insulin Aspart 40 unit 04/07/17 08:00 04/09/17 08:02 Novolog SUBQ 40 unit 0800 JANNY Administration Insulin Aspart 45 unit 04/07/17 12:00 04/09/17 17:11 Novolog SUBQ 45 unit 1200,1700 JANNY Administration Insulin Aspart 1 - 5 unit 04/07/17 08:00 04/09/17 17:00 Novolog SUBQ Not Given 0800,1200,1700,2100 [facility] Protocol Insulin Glargine 70 unit 04/07/17 00:30 04/08/17 21:07 Lantus Solostar SUBQ 70 unit QPM JANNY Administration Morphine Sulfate 4 mg 04/09/17 17:01 04/09/17 17:05 Morphine (Carpuject) IVP 4 mg Q1H PRN Administration PAIN Victoza 1.8 each 04/07/17 21:00 04/08/17 21:07 SUBQ Not Given 2100 [facility] Potassium Chloride 20 meq 04/07/17 12:00 04/09/17 08:22 K-Dur PO 20 meq DAILYWM JANNY Administration Pregabalin 50 mg 04/07/17 09:00 04/09/17 08:20 Lyrica PO 50 mg BID JANNY Administration Pregabalin 100 mg 04/07/17 09:00 04/09/17 08:20 Lyrica PO 100 mg BID JANNY Administration Sodium Chloride 10 ml 04/07/17 06:00 04/09/17 16:08 Normal Saline Flush 0.9% IVP 10 ml Q8HR JANNY Administration Sodium Chloride 10 ml 04/06/17 23:30 04/09/17 14:52 Normal Saline Flush 0.9% IVP 10 ml PRN PRN Administration NEEDED PER PROVIDER ORDERS - Lab Result Fish Bone Diagrams: 04/07/17 04:58 04/08/17 04:54 - Additional Planning My Orders: My Active Orders 04/09/17 10:43 Miscellaenous Nursing Order [RC] QSHIFT 04/09/17 17:01 Morphine Inj (Carpuject) [Morphine (Carpuject)] 4 mg IVP Q1H PRN 04/09/17 17:02 diltiaZEM CD [Cardizem Cd] 240 mg PO BID 04/09/17 21:00 amLODIPine [Norvasc] 5 mg PO BID 04/10/17 09:00 Enoxaparin [Lovenox] 40 mg SUBQ DAILY Subjective - Subjective Patient Reports: Feeling Better, Other (Pt is on iv NTG drip at 130 mcg) Nursing Reports: Other (As iv NTG was started to wean, Pt developed his CP rated 6/10) Objective Vital Signs: Vital Signs - 24 hr 04/08/17 04/08/17 04/08/17 19:00 19:48 20:00 Temperature 37.2 C Heart Rate [ 82 81 79 Monitoring electrodes] Respiratory 22 15 15 Rate Blood Pressure 128/60 132/65 H [Left Brachial artery] O2 Saturation 95 96 95 04/08/17 04/08/17 04/08/17 21:00 22:00 23:00 Temperature Heart Rate [ 81 82 79 Monitoring electrodes] Respiratory 17 13 17 Rate Blood Pressure 129/75 140/75 H 139/82 H [Left Brachial artery] O2 Saturation 95 95 96 04/09/17 04/09/17 04/09/17 00:00 01:00 02:00 Temperature 37.1 C Heart Rate [ 79 76 72 Monitoring electrodes] Respiratory 14 17 14 Rate Blood Pressure 120/65 126/74 121/74 [Left Brachial artery] O2 Saturation 95 94 93 04/09/17 04/09/17 04/09/17 03:00 04:00 04:24 Temperature 36.8 C Heart Rate [ 82 72 81 Monitoring electrodes] Respiratory 18 13 17 Rate Blood Pressure 127/76 128/78 [Left Brachial artery] O2 Saturation 95 95 94 04/09/17 04/09/17 04/09/17 05:00 06:00 07:00 Temperature Heart Rate [ 73 72 69 Monitoring electrodes] Respiratory 18 17 14 Rate Blood Pressure 123/84 H 122/75 126/75 [Left Brachial artery] O2 Saturation 94 95 04/09/17 04/09/17 04/09/17 08:00 09:00 10:00 Temperature Heart Rate [ 71 75 72 Monitoring electrodes] Respiratory 11 L 15 16 Rate Blood Pressure 126/85 H 117/77 122/77 [Left Brachial artery] O2 Saturation 97 95 04/09/17 04/09/17 04/09/17 11:00 12:00 13:00 Temperature 37.3 C Heart Rate [ 81 73 76 Monitoring electrodes] Respiratory 17 14 21 Rate Blood Pressure 127/75 130/70 125/78 [Left Brachial artery] O2 Saturation 96 97 99 04/09/17 04/09/17 04/09/17 14:00 15:00 16:00 Temperature 37.3 C Heart Rate [ 77 76 78 Monitoring electrodes] Respiratory 18 16 17 Rate Blood Pressure 132/78 H 139/71 H [Left Brachial artery] O2 Saturation 95 95 04/09/17 04/09/17 17:00 18:00 Temperature Heart Rate [ 88 Monitoring electrodes] Respiratory 21 14 Rate Blood Pressure 119/81 H 111/41 L [Left Brachial artery] O2 Saturation 95 98 Oxygen O2 Source Room air I&O (Last 24 Hrs): Intake and Output Totals x24h 04/07/17 04/08/17 04/09/17 23:59 23:59 23:59 Intake Total 3565.675 3385.00 3983.65 Output Total 2100 2550 1500 Balance 1465.675 835.00 2483.65 General: Alert, Oriented x3 HEENT: Mucous membr. moist/pink Neck: Supple, Other (obese) Neuro: Non Focal Cardiovascular: Regular rate, No murmurs Respiratory: No respiratory distress Abdomen: Other (Obese with pannus, normal BS) Extremities: No edema - Results Results: Laboratory Results WBC 8.5 x10^3/uL (4.8-10.8) 04/07/17 04:58 RBC 4.59 10^6/uL (4.70-6.10) L 04/07/17 04:58 Hgb 14.1 g/dL (14.0-18.0) 04/07/17 04:58 Hct 42.1 % (42.0-52.0) 04/07/17 04:58 MCV 91.8 fL (80.0-94.0) 04/07/17 04:58 MCH 30.6 pg (27.0-31.0) 04/07/17 04:58 MCHC 33.4 g/dL (32.0-36.0) 04/07/17 04:58 RDW 13.8 % (12.0-15.0) 04/07/17 04:58 Plt Count 181 10^3/uL (130-450) 04/07/17 04:58 MPV 8.3 fL (7.4-11.4) 04/07/17 04:58 Neut # 4.4 10^3/uL (1.5-6.6) 04/07/17 04:58 Lymph # 2.9 10^3/uL (1.5-3.5) 04/07/17 04:58 [place] # 0.8 10^3/uL (0.0-1.0) 04/07/17 04:58 Eos # 0.2 10^3/uL (0.0-0.7) 04/07/17 04:58 Baso # 0.1 10^3/uL (0.0-0.1) 04/07/17 04:58 Absolute Nucleated RBC 0.01 x10^3/uL 04/07/17 04:58 Nucleated RBC % 0.1 /100WBC 04/07/17 04:58 PT 12.7 secs (9.9-12.6) H 04/07/17 04:58 INR 1.1 (0.8-1.2) 04/07/17 04:58 Sodium 135 mmol/L (135-145) 04/07/17 04:58 Potassium 3.8 mmol/L (3.5-5.0) 04/08/17 04:54 Chloride 101 mmol/L (101-111) 04/07/17 04:58 Carbon Dioxide 23 mmol/L (21-32) 04/07/17 04:58 Anion Gap 11.0 (6-13) 04/07/17 04:58 BUN 10 mg/dL (6-20) 04/07/17 04:58 Creatinine 0.9 mg/dL (0.6-1.2) 04/07/17 04:58 Estimated GFR (MDRD) 87 (>89) L 04/07/17 04:58 Glucose 200 mg/dL (70-100) H 04/07/17 04:58 POC Whole Bld Glucose 108 mg/dL (70 - 100) H 04/09/17 16:31 Calcium 8.8 mg/dL (8.5-10.3) 04/08/17 04:54 Phosphorus 3.8 mg/dL (2.5-4.6) 04/09/17 04:25 Magnesium 1.9 mg/dL (1.7-2.8) 04/08/17 04:54 Total Bilirubin 0.8 mg/dL (0.2-1.0) 04/06/17 20:45 AST 64 IU/L (10-42) H 04/06/17 20:45 ALT 74 IU/L (10-60) H 04/06/17 20:45 Alkaline Phosphatase 157 IU/L (42-121) H 04/06/17 20:45 Troponin I < 0.04 ng/mL (<0.49) 04/06/17 20:45 B-Natriuretic Peptide 44 pg/mL (5-100) 04/06/17 20:45 Total Protein 6.8 g/dL (6.7-8.2) 04/06/17 20:45 Albumin 3.7 g/dL (3.2-5.5) 04/06/17 20:45 Globulin 3.1 g/dL (2.1-4.2) 04/06/17 20:45 Albumin/Globulin Ratio 1.2 (1.0-2.2) 04/06/17 20:45 Triglycerides 246 mg/dL (-149) H 04/07/17 04:58 Cholesterol 251 mg/dL (-199) H 04/07/17 04:58 LDL Cholesterol, Calc 176 mg/dL (-129) H 04/07/17 04:58 VLDL Cholesterol 49 mg/dL 04/07/17 04:58 HDL Cholesterol 26 mg/dL (60-) L 04/07/17 04:58 LDL/HDL Ratio 6.8 (<3.6) 04/07/17 04:58 Cholesterol/HDL Ratio 9.7 (<5.0) 04/07/17 04:58 Lipase 48 U/L (22-51) 04/06/17 20:45 Urine Color YELLOW 04/07/17 05:25 Urine Clarity CLEAR (CLEAR) 04/07/17 05:25 Urine pH 7.0 PH (5.0-7.5) 04/07/17 05:25 Ur Specific [place] 1.020 (1.002-1.030) 04/07/17 05:25 Urine Protein NEGATIVE mg/dL (NEGATIVE) 04/07/17 05:25 Urine Glucose (UA) NEGATIVE mg/dL (NEGATIVE) 04/07/17 05:25 Urine Ketones NEGATIVE mg/dL (NEGATIVE) 04/07/17 05:25 Urine Occult Blood NEGATIVE (NEGATIVE) 04/07/17 05:25 Urine Nitrite NEGATIVE (NEGATIVE) 04/07/17 05:25 Urine Bilirubin NEGATIVE (NEGATIVE) 04/07/17 05:25 Urine Urobilinogen 0.2 (NORMAL) E.U./dL (NORMAL) 04/07/17 05:25 Ur Leukocyte Esterase NEGATIVE (NEGATIVE) 04/07/17 05:25 Ur Microscopic Review NOT INDICATED 04/07/17 05:25 Urine Culture Comments NOT INDICATED 04/07/17 05:25
[2017-04-09] MEDS: INSULIN GLARGINE 300 UNIT/3 ML PEN SUBQ SCH (21:00)
[2017-04-09] MEDS: ATORVASTATIN 40 MG TABLET PO SCH (21:01)
[2017-04-09] MEDS: VICTOZA SUBQ SCH (21:02)
[2017-04-09] MEDS: TEMAZEPAM 15 MG CAPSULE PO PRN (22:30)
[2017-04-10] MEDS: NITROGLYCERIN 50 MG/250 ML 50 MG/250 ML BOTTLE IV SCH ×2 (02:53→14:51)
[2017-04-10] MEDS: MORPHINE 2 MG/ML CARPUJECT IVP PRN ×13 (02:54→23:08)
[2017-04-10] MEDS: SODIUM CHLORIDE FLUSH 0.9% 10 ML SYRINGE IVP PRN ×2 (02:54→06:07)
[2017-04-10] MEDS: INSULIN ASPART 300 UNIT/3 ML PEN SUBQ SCH ×7 (08:00→21:33)
[2017-04-10] MEDS: CHOLECALCIFEROL 1,000 UNIT TABLET PO SCH (08:11)
[2017-04-10] MEDS: PREGABALIN 100 MG CAPSULE PO SCH ×2 (08:12→21:43)
[2017-04-10] MEDS: PREGABALIN 25 MG CAPSULE PO SCH ×2 (08:12→21:33)
[2017-04-10] MEDS: POTASSIUM CHLORIDE 20 MEQ TABLET PO SCH (08:13)
[2017-04-10] MEDS: ESCITALOPRAM 10 MG TABLET PO SCH (08:13)
[2017-04-10] MEDS: amLODIPine 5 MG TABLET PO SCH ×2 (08:14→21:34)
[2017-04-10] MEDS: diltiaZEM CD 120 MG CAPSULE PO SCH ×2 (08:15→21:33)
[2017-04-10] MEDS: AZITHROMYCIN 250 MG TABLET PO SCH (08:15)
[2017-04-10] MEDS: FAMOTIDINE 20 MG TABLET PO SCH (08:16)
[2017-04-10] MEDS: ASPIRIN 325 MG TABLET PO SCH (08:16)
--- NOTE | 2017-04-10 08:22 | HISTORY & PHYSICAL EXAMINATION ---
DATE OF SERVICE: 04/06/2017 Physician: Amberly Guerrier MD This is a 56-year-old white male with a history of obesity, insulin-dependent diabetes, coronary disease, vasospastic angina, and he normally runs a low blood pressure. The patient was just admitted here 1 month ago for vasospastic angina requiring IV nitroglycerin for over 24 hours and adjustment of his p.o. vasodilators in order to achieve pain control. The patient's recent past history is significant for the fact that coronary vasospasm was diagnosed by an abnormal stress test with ischemia of the anterior wall, but subsequent angiography done 12/2016 showed patent LAD stents and no significant disease in the left circumflex or right coronary arteries and, therefore, his diagnosis was vasospastic angina. Patient is waiting to be taken on by a new human services program specialist, and he has been compliant with the new medications with which he was discharged from here 1 month ago. The patient presents with a similar onset of chest pressure across the entire precordium with mild shortness of breath and radiation to the neck and jaw of his pain, which occurred while he was resting and watching TV after dinner. He presents to the emergency room via ambulance, where he received aspirin and sublingual nitroglycerin and in the ER was already started on an IV nitroglycerin drip with some improvement of his pain, but he also needs narcotics. The patient is now in the ICU and states that his pain has decreased, but not entirely resolved. He is mildly diaphoretic, but not short of breath currently. PAST MEDICAL HISTORY 1. Obesity. 2. Insulin-dependent diabetes. 3. Coronary disease with 5 stents in the LAD. 4. Coronary vasospasm. 5. Usually borderline low blood pressure. ALLERGIES 1. VISTARIL. 2. DEMEROL. MEDICATIONS 1. Insulin NovoLog 40 units subcutaneous in the morning. 2. Insulin NovoLog 45 units at noon and 5 p.m. 3. Lantus insulin 70 units in the p.m. 4. Victoza 1.8 mg subcutaneous in the p.m. 5. Lyrica 225 p.o. in the a.m. 6. Vitamin D3, 2000 units daily. 7. Lexapro 20 mg daily. 8. Ava-3 1000 mg b.i.d. 9. Adult dose aspirin daily. 10. Lipitor 40 mg q.p.m. 11. Zithromax for unknown cause 250 mg p.o. daily, 6 more tablets. 12. Diltiazem CD 360 mg p.o. daily in the a.m. REVIEW OF SYSTEMS: A comprehensive review of systems was performed and the pertinent positives are as above. There is no current cough or sputum production as there was on the admission 1 month ago. SOCIAL HISTORY: The patient is a nonsmoker who never smoked, drinks no alcohol , uses no illicit drugs. FAMILY HISTORY: No inherited diseases. PHYSICAL EXAMINATION GENERAL: Obese white male, mildly diaphoretic and complaining of mild chest pressure. VITAL SIGNS: Blood pressure 138/91, pulse of 80 sinus rhythm, afebrile, room air saturation 94%. HEENT: Unremarkable, except for mild forehead diaphoresis. Oral mucosa moist. NECK: No JVD at a 45-degree upright angle. No carotid bruits. LUNGS: Clear. HEART: Sounds distant. ABDOMEN: Obese with a pannus. No organomegaly. Nontender, soft. EXTREMITIES: 1+ edema to the mid shins. No clubbing or cyanosis. NEUROLOGIC: Grossly intact. LABORATORY DATA: Normal electrolytes. Normal BUN and creatinine. Glucose 173 , AST 64, ALT 74, alkaline phosphatase 157, troponin not detectable at less than 0.04. BNP 44. Normal CBC. No INR was done. No urinalysis was done. Chest x-ray shows pulmonary vascular congestion and no focal airspace disease. Cardiac size is normal. EKG with normal sinus rhythm, QS waves in V1 and V2, and since his EKG from 1 month previously the QS wave in V2 is new. IMPRESSION/DIAGNOSES 1. Unstable angina pectoris. 2. Printzmetal vasospastic angina. 3. Coronary artery disease in a [place] coronary artery. 4. Congestive heart failure exacerbation by chest x-ray. 5. Insulin-dependent diabetes. 6. Morbid obesity. PLAN Admit the patient to the ICU on telemetry. Continue with his IV nitroglycerin drip, titrate to pain. Adjust his calcium channel blockers, spreading them out and 2 different ones can be used in a situation like this. Therefore, I will change the Cardizem CD 360 mg daily to Cardizem CD 120 mg p.o. b.i.d. and add Norvasc 5 mg p.o. in the a.m. Continue with his aspirin, statin, and diabetic medications. Start diabetic diet and a sliding scale insulin for coverage. Obtain troponins to rule out myocardial infarction and follow his EKG for changes. Also, obtain an Echo, limited, to evaluate for wall motion regarding the anterior wall where the new QS waves are now seen on EKG and where he had the ischemia noted 3 months previously by stress testing, since prolonged vasospasm may have caused an MA for him. DVT prophylaxis: Lovenox at treatment doses will be used because of unstable angina. Code status: FULL CODE. ATTESTATION: The patient is expected to be discharged or transferred to another facility within 96 hours: Yes. TD: 04/07/2017 06:46 STEPHENIE
[2017-04-10] MEDS ORDERED: ENOXAPARIN 40 MG/0.4 ML SYRINGE SUBQ ONE (09:33)
[2017-04-10] MEDS: ENOXAPARIN 150 MG/ML SYRINGE SUBQ SCH (10:38)
[2017-04-10] MEDS: SODIUM CHLORIDE FLUSH 0.9% 10 ML SYRINGE IVP SCH ×3 (12:52→18:48)
[2017-04-10] MEDS ORDERED: POLYETHYLENE GLYCOL 3350 17 GM PACKET PO SCH (13:00)
--- NOTE | 2017-04-10 15:51 | PROVIDER PROGRESS NOTE ---
Assessment/Plan - Problem List (1) Prinzmetal angina Assessment/Plan: Continue iv NTG taper to off and increase of Ca-channel blockers. 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 Assessment/Plan: Continue present diet and meds (4) Morbid obesity with BMI of 40.0-44.9, adult Assessment/Plan: Continue diet - Current Meds Current Meds: Current Medications Generic Name Dose Route Start Last Admin Trade Name Joshq PRN Reason Stop Dose Admin Amlodipine Besylate 5 mg 04/09/17 21:00 04/10/17 08:14 Norvasc PO 5 mg BID JANNY Administration Aspirin 325 mg 04/07/17 09:00 04/10/17 08:16 Wesly PO 325 mg DAILY JANNY Administration Atorvastatin Calcium 40 mg 04/07/17 21:00 04/09/17 21:01 Lipitor PO 40 mg QPM JANNY Administration Cholecalciferol 2,000 unit 04/07/17 09:00 04/10/17 08:11 Vitamin D3 PO 2,000 unit DAILY JANNY Administration Diltiazem HCl 240 mg 04/09/17 17:02 04/10/17 08:15 Cardizem Cd PO 240 mg BID JANNY Administration Enoxaparin Sodium 40 mg 04/10/17 09:00 04/10/17 10:38 Lovenox SUBQ 40 mg DAILY JANNY Administration Escitalopram Oxalate 20 mg 04/07/17 09:00 04/10/17 08:13 Lexapro PO 20 mg DAILY JANNY Administration Famotidine 20 mg 04/07/17 09:00 04/10/17 08:16 Pepcid PO 20 mg DAILY JANNY Administration Hydromorphone HCl 0.5 mg 04/06/17 23:30 04/07/17 08:42 Dilaudid Inj Syringe IVP 0.5 mg Q2H PRN Administration Pain 8 to 10 Nitroglycerin 50 mg in 250 mls @ 1.5 mls/hr 04/07/17 07:12 04/10/17 14:51 Nitroglycerin IV 60 mcg/min TITR JANNY 18 mls/hr Protocol Administration 5 MCG/MIN Ibuprofen 600 mg 04/06/17 23:30 04/07/17 01:18 Motrin PO 600 mg Q6HR PRN Administration Pain 1 to 4 Insulin Aspart 40 unit 04/07/17 08:00 04/10/17 08:09 Novolog SUBQ 40 unit 0800 JANNY Administration Insulin Aspart 45 unit 04/07/17 12:00 04/10/17 11:57 Novolog SUBQ 45 unit 1200,1700 JANNY Administration Insulin Aspart 1 - 5 unit 04/07/17 08:00 04/10/17 11:57 Novolog SUBQ 1 unit 0800,1200,1700,2100 JANNY Administration Protocol Insulin Glargine 70 unit 04/07/17 00:30 04/09/17 21:00 Lantus Solostar SUBQ 70 unit QPM JANNY Administration Morphine Sulfate 4 mg 04/09/17 17:01 04/10/17 15:34 Morphine (Carpuject) IVP 4 mg Q1H PRN Administration PAIN Victoza 1.8 each 04/07/17 21:00 04/09/17 21:02 SUBQ Not Given 2099 [facility] Potassium Chloride 20 meq 04/07/17 12:00 04/10/17 08:13 K-Dur PO 20 meq DAILYWM JANNY Administration Pregabalin 50 mg 04/07/17 09:00 04/10/17 08:12 Lyrica PO 50 mg BID JANNY Administration Pregabalin 100 mg 04/07/17 09:00 04/10/17 08:12 Lyrica PO 100 mg BID JANNY Administration Sodium Chloride 10 ml 04/07/17 06:00 04/10/17 12:52 Normal Saline Flush 0.9% IVP 10 ml Q8HR JANNY Administration Sodium Chloride 10 ml 04/06/17 23:30 04/10/17 06:07 Normal Saline Flush 0.9% IVP 10 ml PRN PRN Administration NEEDED PER PROVIDER ORDERS Temazepam 15 mg 04/06/17 23:30 04/09/17 22:30 Restoril PO 15 mg QPM PRN Administration Insomnia - Lab Result Fish Bone Diagrams: 04/07/17 04:58 04/08/17 04:54 - Additional Planning My Orders: My Active Orders 04/09/17 17:01 Morphine Inj (Carpuject) [Morphine (Carpuject)] 4 mg IVP Q1H PRN 04/09/17 17:02 diltiaZEM CD [Cardizem Cd] 240 mg PO BID 04/09/17 21:00 amLODIPine [Norvasc] 5 mg PO BID 04/10/17 09:00 Enoxaparin [Lovenox] 40 mg SUBQ DAILY Subjective - Subjective Patient Reports: Feeling Better, Resting Comfortably Nursing Reports: Other (iv NTG was decreased slightly) Objective Vital Signs: Vital Signs - 24 hr 04/09/17 04/09/17 04/09/17 16:00 17:00 18:00 Temperature 37.3 C Heart Rate [ 78 88 Monitoring electrodes] Respiratory 17 21 14 Rate Blood Pressure 139/71 H 119/81 H 111/41 L [Left Brachial artery] O2 Saturation 95 95 98 04/09/17 04/09/17 04/09/17 19:17 20:00 21:00 Temperature 37.6 C H Heart Rate [ 81 80 83 Monitoring electrodes] Respiratory 17 13 20 Rate Blood Pressure 139/80 H 145/76 H 130/79 [Left Brachial artery] O2 Saturation 96 96 95 04/09/17 04/09/17 04/10/17 22:00 23:00 00:00 Temperature 37.3 C Heart Rate [ 83 84 81 Monitoring electrodes] Respiratory 18 19 19 Rate Blood Pressure 104/82 H 122/65 116/72 [Left Brachial artery] O2 Saturation 94 92 95 04/10/17 04/10/17 04/10/17 01:00 02:00 03:00 Temperature Heart Rate [ 77 71 74 Monitoring electrodes] Respiratory 21 11 L 12 Rate Blood Pressure 121/72 117/73 127/79 [Left Brachial artery] O2 Saturation 95 96 96 04/10/17 04/10/17 04/10/17 04:00 05:00 06:00 Temperature Heart Rate [ 75 70 78 Monitoring electrodes] Respiratory 14 16 17 Rate Blood Pressure 124/75 113/46 L 114/77 [Left Brachial artery] O2 Saturation 95 95 93 04/10/17 04/10/17 04/10/17 07:00 08:00 09:00 Temperature 36.7 C Heart Rate [ 69 79 68 Monitoring electrodes] Respiratory 14 20 14 Rate Blood Pressure 124/69 135/78 H 122/71 [Left Brachial artery] O2 Saturation 94 93 94 04/10/17 04/10/17 04/10/17 10:00 11:00 12:00 Temperature Heart Rate [ 79 89 66 Monitoring electrodes] Respiratory 15 20 17 Rate Blood Pressure 122/62 120/58 L 124/62 [Left Brachial artery] O2 Saturation 98 95 04/10/17 04/10/17 14:29 15:00 Temperature Heart Rate [ 66 76 Monitoring electrodes] Respiratory 20 12 Rate Blood Pressure 153/83 H 125/77 [Left Brachial artery] O2 Saturation 95 Oxygen O2 Source Room air I&O (Last 24 Hrs): Intake and Output Totals x24h 04/08/17 04/09/17 04/10/17 23:59 23:59 23:59 Intake Total 3385.00 4739.40 2658.250 Output Total 2550 2225 1800 Balance 835.00 2514.40 858.250 General: Other ([place] using his home CPAP) HEENT: Mucous membr. moist/pink Neck: Supple Neuro: Alert Cardiovascular: No murmurs Abdomen: Other (Obese with pannus) Extremities: No edema - Results Results: Laboratory Results WBC 8.5 x10^3/uL (4.8-10.8) 04/07/17 04:58 RBC 4.59 10^6/uL (4.70-6.10) L 04/07/17 04:58 Hgb 14.1 g/dL (14.0-18.0) 04/07/17 04:58 Hct 42.1 % (42.0-52.0) 04/07/17 04:58 MCV 91.8 fL (80.0-94.0) 04/07/17 04:58 MCH 30.6 pg (27.0-31.0) 04/07/17 04:58 MCHC 33.4 g/dL (32.0-36.0) 04/07/17 04:58 RDW 13.8 % (12.0-15.0) 04/07/17 04:58 Plt Count 181 10^3/uL (130-450) 04/07/17 04:58 MPV 8.3 fL (7.4-11.4) 04/07/17 04:58 Neut # 4.4 10^3/uL (1.5-6.6) 04/07/17 04:58 Lymph # 2.9 10^3/uL (1.5-3.5) 04/07/17 04:58 [place] # 0.8 10^3/uL (0.0-1.0) 04/07/17 04:58 Eos # 0.2 10^3/uL (0.0-0.7) 04/07/17 04:58 Baso # 0.1 10^3/uL (0.0-0.1) 04/07/17 04:58 Absolute Nucleated RBC 0.01 x10^3/uL 04/07/17 04:58 Nucleated RBC % 0.1 /100WBC 04/07/17 04:58 PT 12.7 secs (9.9-12.6) H 04/07/17 04:58 INR 1.1 (0.8-1.2) 04/07/17 04:58 Sodium 135 mmol/L (135-145) 04/07/17 04:58 Potassium 3.8 mmol/L (3.5-5.0) 04/08/17 04:54 Chloride 101 mmol/L (101-111) 04/07/17 04:58 Carbon Dioxide 23 mmol/L (21-32) 04/07/17 04:58 Anion Gap 11.0 (6-13) 04/07/17 04:58 BUN 10 mg/dL (6-20) 04/07/17 04:58 Creatinine 0.9 mg/dL (0.6-1.2) 04/07/17 04:58 Estimated GFR (MDRD) 87 (>89) L 04/07/17 04:58 Glucose 200 mg/dL (70-100) H 04/07/17 04:58 POC Whole Bld Glucose 169 mg/dL (70 - 100) H 04/10/17 11:28 Calcium 8.8 mg/dL (8.5-10.3) 04/08/17 04:54 Phosphorus 3.8 mg/dL (2.5-4.6) 04/09/17 04:25 Magnesium 1.9 mg/dL (1.7-2.8) 04/08/17 04:54 Total Bilirubin 0.8 mg/dL (0.2-1.0) 04/06/17 20:45 AST 64 IU/L (10-42) H 04/06/17 20:45 ALT 74 IU/L (10-60) H 04/06/17 20:45 Alkaline Phosphatase 157 IU/L (42-121) H 04/06/17 20:45 Troponin I < 0.04 ng/mL (<0.49) 04/06/17 20:45 B-Natriuretic Peptide 44 pg/mL (5-100) 04/06/17 20:45 Total Protein 6.8 g/dL (6.7-8.2) 04/06/17 20:45 Albumin 3.7 g/dL (3.2-5.5) 04/06/17 20:45 Globulin 3.1 g/dL (2.1-4.2) 04/06/17 20:45 Albumin/Globulin Ratio 1.2 (1.0-2.2) 04/06/17 20:45 Triglycerides 246 mg/dL (-149) H 04/07/17 04:58 Cholesterol 251 mg/dL (-199) H 04/07/17 04:58 LDL Cholesterol, Calc 176 mg/dL (-129) H 04/07/17 04:58 VLDL Cholesterol 49 mg/dL 04/07/17 04:58 HDL Cholesterol 26 mg/dL (60-) L 04/07/17 04:58 LDL/HDL Ratio 6.8 (<3.6) 04/07/17 04:58 Cholesterol/HDL Ratio 9.7 (<5.0) 04/07/17 04:58 Lipase 48 U/L (22-51) 04/06/17 20:45 Urine Color YELLOW 04/07/17 05:25 Urine Clarity CLEAR (CLEAR) 04/07/17 05:25 Urine pH 7.0 PH (5.0-7.5) 04/07/17 05:25 Ur Specific [place] 1.020 (1.002-1.030) 04/07/17 05:25 Urine Protein NEGATIVE mg/dL (NEGATIVE) 04/07/17 05:25 Urine Glucose (UA) NEGATIVE mg/dL (NEGATIVE) 04/07/17 05:25 Urine Ketones NEGATIVE mg/dL (NEGATIVE) 04/07/17 05:25 Urine Occult Blood NEGATIVE (NEGATIVE) 04/07/17 05:25 Urine Nitrite NEGATIVE (NEGATIVE) 04/07/17 05:25 Urine Bilirubin NEGATIVE (NEGATIVE) 04/07/17 05:25 Urine Urobilinogen 0.2 (NORMAL) E.U./dL (NORMAL) 04/07/17 05:25 Ur Leukocyte Esterase NEGATIVE (NEGATIVE) 04/07/17 05:25 Ur Microscopic Review NOT INDICATED 04/07/17 05:25 Urine Culture Comments NOT INDICATED 04/07/17 05:25
[2017-04-10] MEDS: IBUPROFEN 600 MG TABLET PO PRN (16:40)
[2017-04-10] MEDS: INSULIN GLARGINE 300 UNIT/3 ML PEN SUBQ SCH (21:32)
[2017-04-10] MEDS: ATORVASTATIN 40 MG TABLET PO SCH (21:34)
[2017-04-10] MEDS: VICTOZA SUBQ SCH (21:51)
[2017-04-10] MEDS: TEMAZEPAM 15 MG CAPSULE PO PRN (22:23)
[2017-04-11] MEDS: MORPHINE 2 MG/ML CARPUJECT IVP PRN ×13 (00:58→22:41)
[2017-04-11] MEDS: HYDROmorphone 1 MG/ML SYRINGE IVP PRN (02:03)
[2017-04-11] MEDS: NITROGLYCERIN 50 MG/250 ML 50 MG/250 ML BOTTLE IV SCH ×2 (06:52→23:38)
[2017-04-11] MEDS: diltiaZEM CD 120 MG CAPSULE PO SCH ×2 (08:23→21:03)
[2017-04-11] MEDS: FAMOTIDINE 20 MG TABLET PO SCH (08:23)
[2017-04-11] MEDS: PREGABALIN 25 MG CAPSULE PO SCH ×2 (08:23→21:02)
[2017-04-11] MEDS: PREGABALIN 100 MG CAPSULE PO SCH ×2 (08:23→21:03)
[2017-04-11] MEDS: ESCITALOPRAM 10 MG TABLET PO SCH (08:24)
[2017-04-11] MEDS: CHOLECALCIFEROL 1,000 UNIT TABLET PO SCH (08:24)
[2017-04-11] MEDS: POTASSIUM CHLORIDE 20 MEQ TABLET PO SCH (08:25)
[2017-04-11] MEDS: INSULIN ASPART 300 UNIT/3 ML PEN SUBQ SCH ×7 (08:25→21:01)
[2017-04-11] MEDS: amLODIPine 5 MG TABLET PO SCH ×2 (08:25→21:03)
[2017-04-11] MEDS: ASPIRIN 325 MG TABLET PO SCH (08:25)
[2017-04-11] MEDS: ENOXAPARIN 150 MG/ML SYRINGE SUBQ SCH (08:26)
[2017-04-11] MEDS ORDERED: ENOXAPARIN 40 MG/0.4 ML SYRINGE SUBQ SCH (11:00)
[2017-04-11] MEDS: SODIUM CHLORIDE FLUSH 0.9% 10 ML SYRINGE IVP SCH ×2 (13:48→23:52)
--- NOTE | 2017-04-11 17:50 | PROVIDER PROGRESS NOTE ---
Assessment/Plan - Problem List (1) Prinzmetal angina Assessment/Plan: I called the available [employer] Assembler at [facility] today and discussed this Pt's entire case, including his abnormal stress test 12/03, angio results at [facility] 01/03 and the 2 admissions here to the ICU over the past 2 mos with prolonged CP, on iv NTG for several days. His impressions was that this is not true angina (from CAD or vasospasm) and that other causes should be considered, before potentially transferring the Pt to them for another coronary angio. Will ask for a Surgical Consult for EGD, to evaluate for esophageal spasm or PUD /inflammatiom. (EGD tomorrow am) If he has a negative EGD, will start a therapeutic trial of NSAIDs fo potential pericarditis pain or costochondritis. (2) CAD (coronary artery disease) Assessment/Plan: As above in #1 (3) Diabetes Qualifiers: Diabetes mellitus type: type 2 Diabetes mellitus complication status: with hyperglycemia Diabetes mellitus assisted insulin use: with adjunct faculty for medical terminology use Qualified Code(s): E11.65 - Type 2 diabetes mellitus with hyperglycemia; Z79.4 - penitentiary (current) use of insulin; Z79.4 - adjunct faculty for medical terminology (current) use of insulin ; Z79.4 - adjunct faculty for medical terminology (current) use of insulin; Z79.4 - adjunct faculty for medical terminology (current) use of insulin Assessment/Plan: Continue present diet and will adjust Insulin orders to avoid low blood glu checks (4) Morbid obesity with BMI of 40.0-44.9, adult Assessment/Plan: Continue diet - Current Meds Current Meds: Current Medications Generic Name Dose Route Start Last Admin Trade Name Gabriel PRN Reason Stop Dose Admin Amlodipine Besylate 5 mg 04/09/17 21:00 04/11/17 08:25 Norvasc PO 5 mg BID JANNY Administration Aspirin 325 mg 04/07/17 09:00 04/11/17 08:25 Wesly PO 325 mg DAILY JANNY Administration Atorvastatin Calcium 40 mg 04/07/17 21:00 04/10/17 21:34 Lipitor PO 40 mg QPM JANNY Administration Cholecalciferol 2,000 unit 04/07/17 09:00 04/11/17 08:24 Vitamin D3 PO 2,000 unit DAILY JANNY Administration Diltiazem HCl 240 mg 04/09/17 17:02 04/11/17 08:23 Cardizem Cd PO 240 mg BID JANNY Administration Escitalopram Oxalate 20 mg 04/07/17 09:00 04/11/17 08:24 Lexapro PO 20 mg DAILY JANNY Administration Famotidine 20 mg 04/07/17 09:00 04/11/17 08:23 Pepcid PO 20 mg DAILY JANNY Administration Hydromorphone HCl 0.5 mg 04/06/17 23:30 04/11/17 02:03 Dilaudid Inj Syringe IVP 0.5 mg Q2H PRN Administration Pain 8 to 10 Nitroglycerin 50 mg in 250 mls @ 1.5 mls/hr 04/07/17 07:12 04/11/17 17:00 Nitroglycerin IV 50 mcg/min TITR JANNY 15 mls/hr Protocol Titration 5 MCG/MIN Ibuprofen 600 mg 04/06/17 23:30 04/10/17 16:40 Motrin PO 600 mg Q6HR PRN Administration Pain 1 to 4 Insulin Aspart 1 - 5 unit 04/07/17 08:00 04/11/17 17:23 Novolog SUBQ Not Given 0800,1200,1700,2100 [facility] Protocol Insulin Aspart 20 unit 04/11/17 12:00 04/11/17 17:23 Novolog SUBQ 20 unit 0800,1200,1700 [facility] Administration Insulin Glargine 70 unit 04/07/17 00:30 04/10/17 21:32 Lantus Solostar SUBQ 70 unit QPM JANNY Administration Morphine Sulfate 4 mg 04/09/17 17:01 04/11/17 16:40 Morphine (Carpuject) IVP 4 mg Q1H PRN Administration PAIN Victoza 1.8 each 04/07/17 21:00 04/10/17 21:51 SUBQ Not Given 2100 [facility] Potassium Chloride 20 meq 04/07/17 12:00 04/11/17 08:25 K-Dur PO 20 meq DAILYWM JANNY Administration Pregabalin 50 mg 04/07/17 09:00 04/11/17 08:23 Lyrica PO 50 mg BID JANNY Administration Pregabalin 100 mg 04/07/17 09:00 04/11/17 08:23 Lyrica PO 100 mg BID JANNY Administration Sodium Chloride 10 ml 04/07/17 06:00 04/11/17 13:48 Normal Saline Flush 0.9% IVP 10 ml Q8HR JANNY Administration Sodium Chloride 10 ml 04/06/17 23:30 04/10/17 06:07 Normal Saline Flush 0.9% IVP 10 ml PRN PRN Administration NEEDED PER PROVIDER ORDERS Temazepam 15 mg 04/06/17 23:30 04/10/17 22:23 Restoril PO 15 mg QPM PRN Administration Insomnia - Lab Result Fish Bone Diagrams: 04/07/17 04:58 04/08/17 04:54 - Additional Planning My Orders: My Active Orders 04/11/17 Consult [General Surgery Consult] [CONS] Routine 04/11/17 12:00 Insulin Aspart [NovoLOG] 20 unit SUBQ 0800,1200,1700 Subjective - Subjective Patient Reports: Resting Comfortably Nursing Reports: Other (Pt gets his typical chest pressure if iv infusion of NTG is turned down below 50 mcg) Objective Vital Signs: Vital Signs - 24 hr 04/10/17 04/10/17 04/10/17 18:00 19:00 21:14 Temperature Heart Rate [ 74 76 Monitoring electrodes] Respiratory 15 17 Rate Blood Pressure 145/76 H 141/84 H 139/75 H [Left Brachial artery] O2 Saturation 04/10/17 04/10/17 04/10/17 22:00 23:00 23:57 Temperature 36.7 C Heart Rate [ 73 76 75 Monitoring electrodes] Respiratory 16 16 13 Rate Blood Pressure 115/70 115/70 96/59 L [Left Brachial artery] O2 Saturation 04/11/17 04/11/17 04/11/17 01:00 02:00 03:00 Temperature Heart Rate [ 76 74 75 Monitoring electrodes] Respiratory 14 16 15 Rate Blood Pressure 117/69 [Left Brachial artery] O2 Saturation 96 04/11/17 04/11/17 04/11/17 04:00 05:00 06:00 Temperature 36.8 C Heart Rate [ 72 71 74 Monitoring electrodes] Respiratory 18 11 L 12 Rate Blood Pressure 118/69 130/82 H [Left Brachial artery] O2 Saturation 97 04/11/17 04/11/17 04/11/17 07:00 08:29 09:00 Temperature 36.6 C Heart Rate [ 74 79 79 Monitoring electrodes] Respiratory 10 L 11 L 11 L Rate Blood Pressure 131/72 H 131/72 H 125/75 [Left Brachial artery] O2 Saturation 95 94 04/11/17 04/11/17 04/11/17 11:23 12:00 13:00 Temperature 37.1 C Heart Rate [ 73 80 77 Monitoring electrodes] Respiratory 14 14 15 Rate Blood Pressure 116/76 101/62 120/77 [Left Brachial artery] O2 Saturation 96 93 93 04/11/17 04/11/17 04/11/17 14:00 16:00 17:00 Temperature 37.0 C Heart Rate [ 70 70 76 Monitoring electrodes] Respiratory 20 13 17 Rate Blood Pressure 115/70 117/69 125/92 H [Left Brachial artery] O2 Saturation 92 93 93 Oxygen O2 Source Room air I&O (Last 24 Hrs): Intake and Output Totals x24h 04/09/17 04/10/17 04/11/17 23:59 23:59 23:59 Intake Total 4739.40 4306.075 2370 Output Total 2225 1800 0 Balance 2514.40 2506.075 2370 General: Alert, Oriented x3 HEENT: Mucous membr. moist/pink Neck: Supple Neuro: Non Focal Cardiovascular: No murmurs Respiratory: No respiratory distress Abdomen: Other (Obese with pannus) Extremities: Other (Trace edema) - Results Results: Laboratory Results WBC 8.5 x10^3/uL (4.8-10.8) 04/07/17 04:58 RBC 4.59 10^6/uL (4.70-6.10) L 04/07/17 04:58 Hgb 14.1 g/dL (14.0-18.0) 04/07/17 04:58 Hct 42.1 % (42.0-52.0) 04/07/17 04:58 MCV 91.8 fL (80.0-94.0) 04/07/17 04:58 MCH 30.6 pg (27.0-31.0) 04/07/17 04:58 MCHC 33.4 g/dL (32.0-36.0) 04/07/17 04:58 RDW 13.8 % (12.0-15.0) 04/07/17 04:58 Plt Count 181 10^3/uL (130-450) 04/07/17 04:58 MPV 8.3 fL (7.4-11.4) 04/07/17 04:58 Neut # 4.4 10^3/uL (1.5-6.6) 04/07/17 04:58 Lymph # 2.9 10^3/uL (1.5-3.5) 04/07/17 04:58 Wagoner # 0.8 10^3/uL (0.0-1.0) 04/07/17 04:58 Eos # 0.2 10^3/uL (0.0-0.7) 04/07/17 04:58 Baso # 0.1 10^3/uL (0.0-0.1) 04/07/17 04:58 Absolute Nucleated RBC 0.01 x10^3/uL 04/07/17 04:58 Nucleated RBC % 0.1 /100WBC 04/07/17 04:58 PT 12.7 secs (9.9-12.6) H 04/07/17 04:58 INR 1.1 (0.8-1.2) 04/07/17 04:58 Sodium 135 mmol/L (135-145) 04/07/17 04:58 Potassium 3.8 mmol/L (3.5-5.0) 04/08/17 04:54 Chloride 101 mmol/L (101-111) 04/07/17 04:58 Carbon Dioxide 23 mmol/L (21-32) 04/07/17 04:58 Anion Gap 11.0 (6-13) 04/07/17 04:58 BUN 10 mg/dL (6-20) 04/07/17 04:58 Creatinine 0.9 mg/dL (0.6-1.2) 04/07/17 04:58 Estimated GFR (MDRD) 87 (>89) L 04/07/17 04:58 Glucose 200 mg/dL (70-100) H 04/07/17 04:58 POC Whole Bld Glucose 113 mg/dL (70 - 100) H 04/11/17 17:10 Calcium 8.8 mg/dL (8.5-10.3) 04/08/17 04:54 Phosphorus 3.8 mg/dL (2.5-4.6) 04/09/17 04:25 Magnesium 1.9 mg/dL (1.7-2.8) 04/08/17 04:54 Total Bilirubin 0.8 mg/dL (0.2-1.0) 04/06/17 20:45 AST 64 IU/L (10-42) H 04/06/17 20:45 ALT 74 IU/L (10-60) H 04/06/17 20:45 Alkaline Phosphatase 157 IU/L (42-121) H 04/06/17 20:45 Troponin I < 0.04 ng/mL (<0.49) 04/06/17 20:45 B-Natriuretic Peptide 44 pg/mL (5-100) 04/06/17 20:45 Total Protein 6.8 g/dL (6.7-8.2) 04/06/17 20:45 Albumin 3.7 g/dL (3.2-5.5) 04/06/17 20:45 Globulin 3.1 g/dL (2.1-4.2) 04/06/17 20:45 Albumin/Globulin Ratio 1.2 (1.0-2.2) 04/06/17 20:45 Triglycerides 246 mg/dL (-149) H 04/07/17 04:58 Cholesterol 251 mg/dL (-199) H 04/07/17 04:58 LDL Cholesterol, Calc 176 mg/dL (-129) H 04/07/17 04:58 VLDL Cholesterol 49 mg/dL 04/07/17 04:58 HDL Cholesterol 26 mg/dL (60-) L 04/07/17 04:58 LDL/HDL Ratio 6.8 (<3.6) 04/07/17 04:58 Cholesterol/HDL Ratio 9.7 (<5.0) 04/07/17 04:58 Lipase 48 U/L (22-51) 04/06/17 20:45 Urine Color YELLOW 04/07/17 05:25 Urine Clarity CLEAR (CLEAR) 04/07/17 05:25 Urine pH 7.0 PH (5.0-7.5) 04/07/17 05:25 Ur Specific [place] 1.020 (1.002-1.030) 04/07/17 05:25 Urine Protein NEGATIVE mg/dL (NEGATIVE) 04/07/17 05:25 Urine Glucose (UA) NEGATIVE mg/dL (NEGATIVE) 04/07/17 05:25 Urine Ketones NEGATIVE mg/dL (NEGATIVE) 04/07/17 05:25 Urine Occult Blood NEGATIVE (NEGATIVE) 04/07/17 05:25 Urine Nitrite NEGATIVE (NEGATIVE) 04/07/17 05:25 Urine Bilirubin NEGATIVE (NEGATIVE) 04/07/17 05:25 Urine Urobilinogen 0.2 (NORMAL) E.U./dL (NORMAL) 04/07/17 05:25 Ur Leukocyte Esterase NEGATIVE (NEGATIVE) 04/07/17 05:25 Ur Microscopic Review NOT INDICATED 04/07/17 05:25 Urine Culture Comments NOT INDICATED 04/07/17 05:25
[2017-04-11] MEDS: INSULIN GLARGINE 300 UNIT/3 ML PEN SUBQ SCH (21:01)
[2017-04-11] MEDS: ATORVASTATIN 40 MG TABLET PO SCH (21:03)
[2017-04-11] MEDS: TEMAZEPAM 15 MG CAPSULE PO PRN (22:40)
[2017-04-11] MEDS: VICTOZA SUBQ SCH (22:48)
[2017-04-12] MEDS: MORPHINE 2 MG/ML CARPUJECT IVP PRN ×11 (00:17→22:00)
[2017-04-12] MEDS: SODIUM CHLORIDE FLUSH 0.9% 10 ML SYRINGE IVP SCH ×3 (05:47→23:24)
[2017-04-12] MEDS: INSULIN ASPART 300 UNIT/3 ML PEN SUBQ SCH ×7 (08:21→20:56)
[2017-04-12] MEDS ORDERED: GLYCOPYRROLATE 1 MG/5 ML VIAL IVP ONE (08:30)
[2017-04-12] MEDS ORDERED: MIDAZOLAM 2 MG/2 ML VIAL IVP ONE (08:30)
[2017-04-12] MEDS ORDERED: KETAMINE 500 MG/10 ML VIAL IVP ONE (08:30)
[2017-04-12] MEDS ORDERED: LACTATED RINGERS 1,000 ML IV ONE (08:41)
[2017-04-12] MEDS ORDERED: LIDO GARGLE 30 ML BOTTLE TOP ONE (08:41)
[2017-04-12 08:59] LABS: CALCIUM 8.7 mg/dL (8.5-10.3); CREATININE 0.8 mg/dL (0.6-1.2); HGB - HEMOGLOBIN 13.3 g/dL (14.0-18.0); MEAN CORPUSCULAR HEMOGLOBIN 31.8 pg (27.0-31.0); MEAN CORPUSCULAR HGB CONC 34.7 g/dL (32.0-36.0); MEAN CORPUSCULAR VOLUME 91.7 fL (80.0-94.0); MEAN PLATELET VOLUME 8.4 fL (7.4-11.4); RED BLOOD COUNT 4.18 10^6/uL (4.70-6.10); RED CELL DISTRIBUTION WIDTH 14.1 % (12.0-15.0); WHITE BLOOD COUNT 7.7 x10^3/uL (4.8-10.8)
[2017-04-12] MEDS: PREGABALIN 25 MG CAPSULE PO SCH ×2 (10:00→20:55)
[2017-04-12] MEDS: POTASSIUM CHLORIDE 20 MEQ TABLET PO SCH (10:00)
[2017-04-12] MEDS: ASPIRIN 325 MG TABLET PO SCH (10:00)
[2017-04-12] MEDS: CHOLECALCIFEROL 1,000 UNIT TABLET PO SCH (10:00)
[2017-04-12] MEDS ORDERED: PANTOPRAZOLE 40 MG TABLET PO SCH (10:00)
[2017-04-12] MEDS: ESCITALOPRAM 10 MG TABLET PO SCH (10:00)
[2017-04-12] MEDS: diltiaZEM CD 120 MG CAPSULE PO SCH ×2 (10:00→20:56)
[2017-04-12] MEDS: FAMOTIDINE 20 MG TABLET PO SCH (10:00)
[2017-04-12] MEDS: amLODIPine 5 MG TABLET PO SCH ×2 (10:00→20:55)
[2017-04-12] MEDS: PREGABALIN 100 MG CAPSULE PO SCH ×2 (10:00→20:55)
[2017-04-12] MEDS: SUCRALFATE 1 GM/10 ML UDC PO SCH ×3 (10:48→21:48)
[2017-04-12] MEDS: PANTOPRAZOLE 40 MG VIAL IVP SCH (10:49)
[2017-04-12] MEDS: SODIUM CHLORIDE FLUSH 0.9% 10 ML SYRINGE IVP PRN ×3 (10:49→23:28)
--- NOTE | 2017-04-12 14:24 | PROVIDER PROGRESS NOTE ---
Subjective - Prog Note Date Prog Note Date: 04/12/17 Prog Note Time: 12:45 - Subjective Pt reports feeling: No change (The patient still complains of chest pressure and pain. He denies any other new problems. He has been eating well and moving his bowels. He is not short of breath at rest.) Current Medications - Current Medications Current Medications: Amlodipine, aspirin, atorvastatin, vitamin D, diltiazem CD, Enochs apparent, Lexapro, Pepcid, hydromorphone, ibuprofen, insulin, isosorbide, morphine, Protonix, potassium chloride, Lyrica, sodium chloride, Carafate, Restoril Objective - Vital Signs/Intake & Output Reviewed Vital Signs: Yes Vital Signs: Vital Signs Temp Pulse Resp BP Pulse Ox 04/12/17 14:11 78 14 113/87 H 98 04/12/17 14:00 37.6 C H 77 16 119/77 94 04/12/17 13:00 87 19 128/83 H 93 04/12/17 12:00 75 120 H 131/72 H 93 04/12/17 11:00 80 11 L 119/88 H 95 Intake & Output: Intake & Output 04/09/17 04/10/17 04/11/17 04/12/17 23:59 23:59 23:59 23:59 Intake Total 4739.40 4306.075 3508 1830.0 Output Total 2225 1800 0 1100 Balance 2514.40 2506.075 3508 730.0 - Objective General Appearance: positive: Alert, Mild distress, Other (anxiety) Eyes Bilateral: positive: Normal inspection, PERRL, EOMI ENT: positive: ENT inspection nml, Pharynx nml, No signs of dehydration Neck: positive: Nml inspection, Thyroid nml, No JVD, Trachea midline. negative : Thyromegaly Respiratory: positive: Chest non-tender, No respiratory distress, Breath sounds nml. negative: Wheezes, Rales, Rhonchi Cardiovascular: positive: Regular rate & rhythm, No murmur, No gallop Abdomen: positive: Non-tender, No organomegaly, Nml bowel sounds, No distention. negative: Guarding, Rebound Back: positive: Nml inspection. negative: CVA tenderness (R), CVA tenderness (L ) Skin: positive: Color nml, No rash, Warm, Dry. negative: Cyanosis Extremities: positive: Non-tender, Full ROM, Nml appearance, No pedal edema Neurologic/Psychiatric: positive: Oriented x3, CN's nml (2-12), Motor nml, Sensation nml, Mood/affect nml - Lab Results Fish Bones: 04/12/17 08:25 04/12/17 08:25 Other Labs: Lab Results x24hrs 04/12/17 04/12/17 04/12/17 Range/Units 11:58 08:25 08:25 WBC (4.8-10.8) x10^3/uL RBC (4.70-6.10) 10^6/uL Hgb (14.0-18.0) g/dL Hct (42.0-52.0) % MCV (80.0-94.0) fL MCH (27.0-31.0) pg MCHC (32.0-36.0) g/dL RDW (12.0-15.0) % Plt Count (130-450) 10^3/uL MPV (7.4-11.4) fL Sodium 138 (135-145) mmol/L Potassium 4.0 (3.5-5.0) mmol/L Chloride 100 L (101-111) mmol/L Carbon Dioxide 28 (21-32) mmol/L Anion Gap 10.0 (6-13) BUN 12 (6-20) mg/dL Creatinine 0.8 (0.6-1.2) mg/dL Estimated GFR (MDRD) 99 (>89) Glucose 148 H (70-100) mg/dL POC Whole Bld Glucose 163 H (70 - 100) mg/dL Calcium 8.7 (8.5-10.3) mg/dL B-Natriuretic Peptide 126 H (5-100) pg/mL 04/12/17 04/12/17 04/11/17 Range/Units 08:25 08:18 20:21 WBC 7.7 (4.8-10.8) x10^3/uL RBC 4.18 L (4.70-6.10) 10^6/uL Hgb 13.3 L (14.0-18.0) g/dL Hct 38.3 L (42.0-52.0) % MCV 91.7 (80.0-94.0) fL MCH 31.8 H (27.0-31.0) pg MCHC 34.7 (32.0-36.0) g/dL RDW 14.1 (12.0-15.0) % Plt Count 170 (130-450) 10^3/uL MPV 8.4 (7.4-11.4) fL Sodium (135-145) mmol/L Potassium (3.5-5.0) mmol/L Chloride (101-111) mmol/L Carbon Dioxide (21-32) mmol/L Anion Gap (6-13) BUN (6-20) mg/dL Creatinine (0.6-1.2) mg/dL Estimated GFR (MDRD) (>89) Glucose (70-100) mg/dL POC Whole Bld Glucose 139 H 166 H (70 - 100) mg/dL Calcium (8.5-10.3) mg/dL B-Natriuretic Peptide (5-100) pg/mL 04/11/17 Range/Units 17:10 WBC (4.8-10.8) x10^3/uL RBC (4.70-6.10) 10^6/uL Hgb (14.0-18.0) g/dL Hct (42.0-52.0) % MCV (80.0-94.0) fL MCH (27.0-31.0) pg MCHC (32.0-36.0) g/dL RDW (12.0-15.0) % Plt Count (130-450) 10^3/uL MPV (7.4-11.4) fL Sodium (135-145) mmol/L Potassium (3.5-5.0) mmol/L Chloride (101-111) mmol/L Carbon Dioxide (21-32) mmol/L Anion Gap (6-13) BUN (6-20) mg/dL Creatinine (0.6-1.2) mg/dL Estimated GFR (MDRD) (>89) Glucose (70-100) mg/dL POC Whole Bld Glucose 113 H (70 - 100) mg/dL Calcium (8.5-10.3) mg/dL B-Natriuretic Peptide (5-100) pg/mL Assessment/Plan - Problem List (1) Prinzmetal angina Impression: The patient has a known history of Prinzmetal angina, however has not had any relief despite being on a nitroglycerin drip for many days. In discussing the case with a refurbish technician from [place] Dr. Valentino was suggested that she look for other causes of the pain, especially upper GI dysfunction or pericarditis. An EGD was done which showed a small ulcer and some generalized gastritis but the surgeon does not feel that this would be enough to explain the patient's symptoms.I have converted the patient from the nitroglycerin drip to Imdur 60 mg daily and we will also start him on [id number] ibuprofen in case there is some gastritis/pericarditis component to the patient's pain. We will also continue him on the Carafate and PPI which were recommended by the surgeon. (2) Diabetes Impression: Controlled, continue present care with sliding scale coverage. Qualifiers: Diabetes mellitus type: type 2 Diabetes mellitus complication status: with hyperglycemia Diabetes mellitus jail insulin use: with terminal gauger supervisor use Qualified Code(s): E11.65 - Type 2 diabetes mellitus with hyperglycemia; Z79.4 - care home (current) use of insulin; Z79.4 - care home (current) use of insulin ; Z79.4 - care home (current) use of insulin; Z79.4 - care home (current) use of insulin (3) HTN (hypertension) Impression: Fairly well-managed with a combination of Norvasc and Cardizem, We will add hydrochlorothiazide. Qualifiers: Hypertension type: essential hypertension Qualified Code(s): I10 - Essential (primary) hypertension (4) Hypercholesterolemia Impression: Continue Lipitor
[2017-04-12] MEDS: IBUPROFEN 600 MG TABLET PO SCH ×2 (14:52→19:02)
[2017-04-12] MEDS: hydroCHLOROthiazide 25 MG TABLET PO SCH (14:52)
[2017-04-12] MEDS: ISOSORBIDE MONONITRATE ER 30 MG TABLET PO SCH (14:52)
[2017-04-12] MEDS: ATORVASTATIN 40 MG TABLET PO SCH (20:56)
[2017-04-12] MEDS: INSULIN GLARGINE 300 UNIT/3 ML PEN SUBQ SCH (20:57)
[2017-04-12] MEDS: VICTOZA SUBQ SCH (21:27)
[2017-04-12] MEDS: TEMAZEPAM 15 MG CAPSULE PO PRN (21:30)
[2017-04-13] MEDS: IBUPROFEN 600 MG TABLET PO SCH ×2 (00:33→06:35)
[2017-04-13] MEDS: MORPHINE 2 MG/ML CARPUJECT IVP PRN ×7 (03:16→10:48)
[2017-04-13] MEDS: SODIUM CHLORIDE FLUSH 0.9% 10 ML SYRINGE IVP SCH ×3 (03:20→06:28)
[2017-04-13 05:26] LABS: HGB - HEMOGLOBIN 14.4 g/dL (14.0-18.0); MEAN CORPUSCULAR HEMOGLOBIN 31.1 pg (27.0-31.0); MEAN CORPUSCULAR HGB CONC 33.5 g/dL (32.0-36.0); MEAN CORPUSCULAR VOLUME 92.6 fL (80.0-94.0); MEAN PLATELET VOLUME 8.3 fL (7.4-11.4); RED BLOOD COUNT 4.63 10^6/uL (4.70-6.10); RED CELL DISTRIBUTION WIDTH 14.3 % (12.0-15.0); WHITE BLOOD COUNT 6.9 x10^3/uL (4.8-10.8)
[2017-04-13 05:32] LABS: CALCIUM 8.9 mg/dL (8.5-10.3); CREATININE 0.8 mg/dL (0.6-1.2)
[2017-04-13] MEDS: PANTOPRAZOLE 40 MG VIAL IVP SCH (06:35)
[2017-04-13] MEDS: SUCRALFATE 1 GM/10 ML UDC PO SCH (07:07)
[2017-04-13] MEDS: SODIUM CHLORIDE FLUSH 0.9% 10 ML SYRINGE IVP PRN ×3 (07:30→10:48)
[2017-04-13] MEDS ORDERED: LORazepam 2 MG/ML VIAL IVP PRN (07:45)
[2017-04-13] MEDS: NITROGLYCERIN SL 0.4 MG TABLET SL PRN ×3 (07:50→08:10)
[2017-04-13] MEDS: INSULIN ASPART 300 UNIT/3 ML PEN SUBQ SCH ×2 (09:10→09:11)
[2017-04-13] MEDS: ASPIRIN 325 MG TABLET PO SCH (09:15)
[2017-04-13] MEDS: amLODIPine 5 MG TABLET PO SCH (09:15)
[2017-04-13] MEDS: POTASSIUM CHLORIDE 20 MEQ TABLET PO SCH (09:15)
[2017-04-13] MEDS: CHOLECALCIFEROL 1,000 UNIT TABLET PO SCH (09:16)
[2017-04-13] MEDS: ESCITALOPRAM 10 MG TABLET PO SCH (09:17)
[2017-04-13] MEDS: ISOSORBIDE MONONITRATE ER 30 MG TABLET PO SCH (09:17)
[2017-04-13] MEDS: PREGABALIN 25 MG CAPSULE PO SCH (09:28)
[2017-04-13] MEDS: PREGABALIN 100 MG CAPSULE PO SCH (09:28)
[2017-04-13] MEDS: hydroCHLOROthiazide 25 MG TABLET PO SCH (09:28)
[2017-04-13] MEDS: diltiaZEM CD 120 MG CAPSULE PO SCH (09:28)
--- NOTE | 2017-04-13 10:37 | Discharge Plan ---
Discharge Plan Disposition: 02 Transfer Acute Care Hosp Condition: Fair Diet: Diabetic Activity Restrictions: Activity as Tolerated Shower Restrictions: No Driving Restrictions: No Weight Bearing: Full Weight No Smoking: If you smoke, Please STOP! Call for help.
--- NOTE | 2017-04-13 10:40 | DISCHARGE SUMMARY ---
Discharge Summary Admit Date: 04/06/17 Discharge Date: 04/13/17 Discharging Provider: Baylee Fonseca DO Primary Care Provider: [place] clinic Code Status: Attempt Resuscitation Condition at Discharge: Fair Discharge Disposition: 02 Transfer Acute Care Hosp - DIAGNOSES Admission Diagnoses: 1. Unstable angina pectoris 2. Prinzmetal vasospastic angina 3. Coronary artery disease in the [place] coronary artery 4. Congestive heart failure exacerbation by chest x-ray 5. Insulin-dependent diabetes 6. Morbid obesity Discharge Diagnoses with Status of Each Condition: 1. Unstable angina pectoris-We are unsure of the etiology of the chest pain. It seems unlikely that it would be the Prinzmetal angina as the patient has had little to no relief over the course of 4 days with an IV nitroglycerin drip. We performed an EGD which found some mild erosions and a small ulcer but nothing that would account for the chest pain the patient has been experiencing. We have been giving him [id number] nonsteroidal anti- inflammatory medications for a possible pericarditis or costochondritis and again this has been ineffective at managing the patient's pain. At this time we will be transferring the patient over to [facility] in the hopes that they will be able to find the true etiology of the patient's chest pain. 2. Prinzmetal vasospastic angina- See #1 3. Coronary artery disease in the [place] coronary artery- The most recent angiogram found a cardiac blood vessels to be open and without occlusion 4. Congestive heart failure exacerbation by chest x-ray - BNP on admission was 44. 5. Insulin-dependent diabetes- Continue with the patient's diabetic diet and sliding scale coverage. 6. Morbid obesity- The patient needs to diet as he weighs over 300 pounds however we need to find out the etiology of his chest pain first. - HPI History of Present Illness: From Dr. Guerrier's H&P: This is a 56-year-old white male with a history of obesity, insulin-dependent diabetes, coronary artery disease, vasospastic angina, and he normally runs a low blood pressure. Patient was admitted here 1 month ago for vasospastic angina requiring IV nitroglycerin for over 24 hours and adjustment of his p.o. vasodilators in order to achieve pain control. The patient's recent past history significant for the fact that coronary vasospasm was diagnosed by an abnormal stress test with ischemia of the anterior wall but subsequent angiography done on 12/2016 showed the patient's LAD stents to be patent and no significant disease in the left circumflex or right coronary arteries and, therefore, his diagnosis was vasospastic angina. The patient is waiting to be taken on by a new mix chemist, and he has been compliant with new medications with which he was discharged from here 1 month ago. The patient presents with a similar onset of chest pressure across the entire precordium with mild shortness of breath and radiation to the neck and jaw. This radiation occurred while he was resting and watching TV after dinner. He presents to the emergency room via ambulance, where he received aspirin and sublingual nitroglycerin and in the ER was already started on an IV nitroglycerin drip with some improvement of his pain, but he also needs narcotics. The patient is now in the intensive care unit and states that his pain has decreased, but not entirely resolved. He is mildly diaphoretic, but not short of breath currently. - HOSPITAL COURSE Hospital Course: Patient was admitted to the intensive care unit on the nitroglycerin drip. His calcium channel blockers were adjusted by Dr. Valentino and unfortunately he continued to experience the substernal chest pain. After 3 days it was suggested that perhaps this was not cardiac related and so additional etiologies were investigated; the patient underwent an EGD which showed some mild erosions and a small ulcer but nothing that would account for the patient's severe chest pain. He was placed on [id number] NSAIDs to treat a possible pericarditis or costochondritis but again this was ineffective at managing his pain. He was also placed on long-acting oral nitrates, specifically Imdur 60 mg daily, but this has been ineffective at managing his pain. At this time he will be transferred to [facility] for further cardiology workup. - ALLERGIES Allergies/Adverse Reactions: Allergies Allergy/AdvReac Type Severity Reaction Status Date / Time hydroxyzine [From Vistaril] Allergy Hives Verified 04/06/17 20:39 meperidine [From Demerol] Allergy Anaphylaxis Verified 04/06/17 20:39 - MEDICATIONS Home Medications: Ambulatory Orders Medication Instructions Recorded Confirmed Insulin Aspart [NovoLOG] 40 unit SUBQ 0800 03/09/17 04/07/17 Insulin Aspart [NovoLOG] 45 unit SQ 1200,1700 03/09/17 04/07/17 Insulin Glargine [Lantus Solostar] 70 unit SQ DAILY PM 03/09/17 04/07/17 Liraglutide [Victoza 2-Antonio] 1.8 mg SQ DAILY PM 03/09/17 04/07/17 Pregabalin [Lyrica] 225 mg PO BID 03/09/17 03/10/17 Cholecalciferol (Vitamin D3) 2,000 units PO DAILY 03/10/17 04/07/17 [Vitamin D3] Escitalopram [Lexapro] 20 mg PO DAILY 03/10/17 04/07/17 Fox-3 Acid Ethyl Esters [Lovaza] 1 gm PO BID 03/10/17 04/07/17 Aspirin [Wesly] 325 mg PO DAILY tablet 03/14/17 04/07/17 Atorvastatin [Lipitor] 40 mg PO QPM tablet 03/14/17 04/07/17 diltiaZEM CD [Cardizem Cd] 360 mg PO DAILY #60 capsule 03/14/17 04/07/17 Ibuprofen [Motrin] 600 mg PO Q6HR tablet 04/13/17 Insulin Aspart [NovoLOG] 1 - 5 unit SUBQ 04/13/17 0800,1200,1700,2100 pen Isosorbide Mononitrate ER [Imdur] 60 mg PO DAILY tablet 04/13/17 LORazepam INJ [Ativan Inj (Vial)] 0.5 mg IVP Q2H PRN vial 04/13/17 Nitroglycerin [Nitrostat] 0.4 mg SL Q5MIN PRN tablet 04/13/17 Pantoprazole [Protonix inj] 40 mg IVP QDAC vial 04/13/17 Potassium Chloride [K-Dur] 20 meq PO DAILYWM tablet 04/13/17 Pregabalin [Lyrica] 50 mg PO BID capsule 04/13/17 Pregabalin [Lyrica] 100 mg PO BID capsule 04/13/17 Temazepam [Restoril] 15 mg PO QPM PRN capsule 04/13/17 amLODIPine [Norvasc] 5 mg PO BID tablet 04/13/17 diltiaZEM CD [Cardizem Cd] 240 mg PO BID capsule 04/13/17 hydroCHLOROthiazide [Hydrodiuril] 25 mg PO DAILY tablet 04/13/17 - PHYSICAL EXAM AT DISCHARGE General Appearance: positive: Alert, Moderate distress Eyes Bilateral: positive: Normal inspection, PERRL, EOMI, No lid inflammation, Conjunctivae nml, No scleral icterus ENT: positive: ENT inspection nml, Pharynx nml, No signs of dehydration Neck: positive: Nml inspection, Thyroid nml, No JVD, Trachea midline. negative : Thyromegaly Respiratory: positive: Chest non-tender, No respiratory distress, Breath sounds nml. negative: Wheezes, Rales, Rhonchi Cardiovascular: positive: Regular rate & rhythm, No murmur, No gallop Peripheral Pulses: positive: 1+ Abdomen: positive: Non-tender, No organomegaly, Nml bowel sounds, No distention. negative: Guarding, Rebound Back: positive: Nml inspection. negative: CVA tenderness (R), CVA tenderness (L ) Skin: positive: Color nml, No rash, Warm, Dry. negative: Cyanosis Extremities: positive: Non-tender, Full ROM, Nml appearance, No pedal edema Neurologic/Psychiatric: positive: Oriented x3, CN's nml (2-12), Motor nml, Sensation nml, Mood/affect nml - LABS Result Diagrams: 04/13/17 04:45 04/13/17 04:45 - FOLLOW UP Follow [facility] - TIME SPENT Time Spent in Discharge (Minutes): 45
[2017-04-13 11:02] VITALS: BP 137/73
== END 2017-04-13 10:45 | disposition short-term general hospital (02) | DRG 302 ==
LOC: EDUNIT# → ED 20:32 → ICU 23:31
PROVIDERS: ADMIT Internal Medicine; ATTEND Hospitalist
PROC: 0DB68ZX Excision of Stomach, Via Natural or Artificial Opening Endoscopic, Diagnostic (ICD-10-PCS; 2017-04-12)
PROC: 0DB38ZX Excision of Lower Esophagus, Via Natural or Artificial Opening Endoscopic, Diagnostic (ICD-10-PCS; principal; 2017-04-12 07:30)
DX: R07.9 Chest pain, unspecified (principal); R68.84 Jaw pain; I25.118 Atherosclerotic heart disease of native coronary artery with other forms of angina pectoris; E11.9 Type 2 diabetes mellitus without complications; I25.110 Atherosclerotic heart disease of native coronary artery with unstable angina pectoris; K29.71 Gastritis, unspecified, with bleeding; Z68.41 Body mass index [BMI] 40.0-44.9, adult; I31.9 Disease of pericardium, unspecified; I11.0 Hypertensive heart disease with heart failure; I50.9 Heart failure, unspecified; E78.00 Pure hypercholesterolemia, unspecified; E11.65 Type 2 diabetes mellitus with hyperglycemia; E66.01 Morbid (severe) obesity due to excess calories; M94.0 Chondrocostal junction syndrome [Tietze]; I25.111 Atherosclerotic heart disease of native coronary artery with angina pectoris with documented spasm; K26.9 Duodenal ulcer, unspecified as acute or chronic, without hemorrhage or perforation; K22.70 Barrett's esophagus without dysplasia; G47.30 Sleep apnea, unspecified; Z79.82 Long term (current) use of aspirin; Z79.4 Long term (current) use of insulin; Z95.5 Presence of coronary angioplasty implant and graft; Z96.659 Presence of unspecified artificial knee joint
CPT/HCPCS: 36415; 71045; 80048; 80053; 80061; 81001; 81003; 82310; 83690; 83721; 83735; 83880; 84100; 84132; 84484; 85025; 85610; 87086; 87150; 93005; 93308; 96374; 99285

== ENCOUNTER 2017-04-13 11:00 | Outpatient (CLI) | payer MEDICARE, OTHER | END 2017-04-13 11:01 | disposition short-term general hospital (02) | LOC: EMS 11:00 | PROVIDERS: ATTEND Surgery | DX: R07.9 Chest pain, unspecified (principal) | CPT/HCPCS: A0170; A0425; A0426 ==

== ENCOUNTER 2017-05-03 19:55 | Outpatient (CLI) | payer MEDICARE, OTHER | END 2017-05-03 19:56 | disposition critical access hospital (66) | LOC: EMS 19:55 | PROVIDERS: ATTEND Surgery | DX: M25.562 Pain in left knee (principal) | CPT/HCPCS: A0425; A0429 ==

== ENCOUNTER 2017-05-03 20:16 | Emergency (ER) | payer MEDICARE, OTHER ==
[2017-05-03] MEDS ORDERED: HYDROmorphone 1 MG/ML SYRINGE IVP STA ×2 (20:25→21:37)
--- NOTE | 2017-05-03 21:41 | XRAY Report ---
EXAM: LEFT KNEE RADIOGRAPHY EXAM DATE: 05/03/2017 09:30 PM. CLINICAL HISTORY: Left knee locked in flexion COMPARISON: None. TECHNIQUE: 2 views. FINDINGS: Evaluation is limited due to patient positioning issues. Bones: There is a total knee arthroplasty. On the lateral view, the posterior margin of the femoral c omponent may be locked on a portion of the tibial plafond component. No fractures. Soft Tissues: A mild knee effusion is present. IMPRESSION: Potential locking femoral component on the tibial plafond component. [facility] Referring Provider Line: [phone] SITE ID: [id number]
--- NOTE | 2017-05-03 21:41 | XRAY Preliminary Report ---
Exam: XR KNEE 2 VIEW LT IMPRESSION: Potential locking femoral component on the tibial plafond component. [facility] SITE ID: [id number]
--- NOTE | 2017-05-03 21:48 | ED Physician Documentation ---
History of Present Illness - Stated complaint Stated Complaint: L KNEE PAIN - Chief complaint Chief Complaint: Ext Problem - History obtained from History obtained from: Patient, EMS - History of Present Illness Timing: Today Pain level max: 10 Pain level now: 10 Improved by: nothing Worsened by: nothing - Additonal information Additional information: Patient is a 56-year-old male who presents to the emergency department with the left knee locked in flexion. He had a L total knee arthroplasty performed on this knee in 2003 in [place]. Did not have any trauma tonight. Has not taken anything for pain. EMS was called and brought him to the emergency department. Review of Systems Ten Systems: 10 systems reviewed and negative Constitutional: denies: Fever, Chills GI: denies: Vomiting, Diarrhea Skin: denies: Rash Musculoskeletal: denies: Neck pain, Back pain Neurologic: denies: Headache PD PAST MEDICAL HISTORY - Past Medical History Past Medical History: Yes Cardiovascular: Coronary artery disease, Angina, [place] Respiratory: Sleep apnea, CPAP use Neuro: None Endocrine/Autoimmune: Type 2 diabetes GI: None : None HEENT: None Psych: None Musculoskeletal: None Derm: None - Past Surgical History Past Surgical History: Yes Ortho: Knee replacement, Rotator cuff repair, Other Cardiovascular: Coronary stent - Present Medications Home Medications: Ambulatory Orders Medication Instructions Recorded Confirmed Insulin Aspart [NovoLOG] 40 unit SUBQ 0800 03/09/17 04/07/17 Insulin Aspart [NovoLOG] 45 unit SQ 1200,1700 03/09/17 04/07/17 Insulin Glargine [Lantus Solostar] 70 unit SQ DAILY PM 03/09/17 04/07/17 Liraglutide [Victoza 2-Antonio] 1.8 mg SQ DAILY PM 03/09/17 04/07/17 Pregabalin [Lyrica] 225 mg PO BID 03/09/17 03/10/17 Cholecalciferol (Vitamin D3) 2,000 units PO DAILY 03/10/17 04/07/17 [Vitamin D3] Escitalopram [Lexapro] 20 mg PO DAILY 03/10/17 04/07/17 [place]-3 Acid Ethyl Esters [Lovaza] 1 gm PO BID 03/10/17 04/07/17 Aspirin [Wesly] 325 mg PO DAILY tablet 03/14/17 04/07/17 Atorvastatin [Lipitor] 40 mg PO QPM tablet 03/14/17 04/07/17 diltiaZEM CD [Cardizem Cd] 360 mg PO DAILY #60 capsule 03/14/17 04/07/17 Ibuprofen [Motrin] 600 mg PO Q6HR tablet 04/13/17 Insulin Aspart [NovoLOG] 1 - 5 unit SUBQ 04/13/17 0800,1200,1700,2100 pen Isosorbide Mononitrate ER [Imdur] 60 mg PO DAILY tablet 04/13/17 LORazepam INJ [Ativan Inj (Vial)] 0.5 mg IVP Q2H PRN vial 04/13/17 Nitroglycerin [Nitrostat] 0.4 mg SL Q5MIN PRN tablet 04/13/17 Pantoprazole [Protonix inj] 40 mg IVP QDAC vial 04/13/17 Potassium Chloride [K-Dur] 20 meq PO DAILYWM tablet 04/13/17 Pregabalin [Lyrica] 50 mg PO BID capsule 04/13/17 Pregabalin [Lyrica] 100 mg PO BID capsule 04/13/17 Temazepam [Restoril] 15 mg PO QPM PRN capsule 04/13/17 amLODIPine [Norvasc] 5 mg PO BID tablet 04/13/17 diltiaZEM CD [Cardizem Cd] 240 mg PO BID capsule 04/13/17 hydroCHLOROthiazide [Hydrodiuril] 25 mg PO DAILY tablet 04/13/17 - Allergies Allergies/Adverse Reactions: Allergies Allergy/AdvReac Type Severity Reaction Status Date / Time hydroxyzine [From Vistaril] Allergy Hives Verified 04/06/17 20:39 meperidine [From Demerol] Allergy Anaphylaxis Verified 04/06/17 20:39 - Social History Does the pt smoke?: No Smoking Status: Never smoker Does the pt drink ETOH?: No Does the pt have substance abuse?: No - Immunizations Immunizations are current?: Yes - POLST Patient has POLST: No PD ED PE NORMAL - Vitals Vital signs reviewed: Yes - General General: Alert and oriented X 3, No acute distress - HEENT HEENT: Moist mucous membranes - Neck Neck: Supple, no meningeal sign - Cardiac Cardiac: RRR - Respiratory Respiratory: No respiratory distress, Clear bilaterally - Abdomen Abdomen: Soft, Non tender, Non distended - Derm Derm: Warm and dry - Extremities Extremities: Other (L knee - locked in flexion. Unable to move the knee. mild joint effusion. No skin changes. ) - Neuro Neuro: Alert and oriented X 3 - Psych Psych: Normal mood, Normal affect Results - Vitals Vitals: Vital Signs - 24 hr 05/03/17 05/03/17 05/03/17 20:22 21:34 21:42 Temperature 37.4 C Heart Rate 89 83 81 Respiratory 17 20 16 Rate Blood Pressure 154/70 H 141/75 H 141/75 H O2 Saturation 98 98 98 05/03/17 05/03/17 05/03/17 22:30 22:41 22:46 Temperature Heart Rate 81 81 75 Respiratory 16 12 18 Rate Blood Pressure 137/79 H 97/66 O2 Saturation 98 98 05/03/17 05/03/17 05/03/17 22:51 23:02 23:15 Temperature Heart Rate 78 80 82 Respiratory 18 16 18 Rate Blood Pressure 115/61 110/58 L 110/58 L O2 Saturation 98 97 96 Oxygen O2 Source Room air - Rads (name of study) L knee xray Radiology: Prelim report reviewed, EMP read contemporaneously, See rad report ( Potential locked femoral component on the tibial plafond component.) L knee post reduction xray Radiology: Prelim report reviewed, EMP read contemporaneously, See rad report ( Anatomic alignment of the left knee postreduction. Small enthesophyte projecting posterior to the superior pole of the patella on the lateral view, unclear if this is recently avulsed with partial quadriceps tendon tear. Correlate clinical exam suggested) Procedures - Procedural sedation Sedation prep: Informed consent, Last meal (10 hrs prior to sedation), AHA 3 - severe disease, IV O2 monitor, ET CO2 monitor, RT present Sedation medications: propofol, given by MD Patient status during sedation: Unresponsive, Vitals remained stable, Maintained airway, Recovered uneventfully Sedation recovery: Recovered uneventfully, Back to baseline PD MEDICAL DECISION MAKING - ED course Complexity details: reviewed results, re-evaluated patient, considered differential, d/w patient, d/w foreign law consultant ED course: Patient is a 56-year-old male who presents to the emergency department with possibly a partially subluxed left prosthetic knee. Orthopedics was consulted, Dr. Collins, he evaluated the patient in the emergency department request I performed sedation while he manipulates the knee. Propofol was used, patient tolerated well. Required 100 mg total. The knee was straightened and placed in a knee immobilizer. No complications to the sedation. We will have him follow-up with orthopedics in a week for repeat evaluation. See Dr. Collins's note for his portion of the care. Patient counseled regarding signs and symptoms for which I believe and urgent re-evaluation would be necessary. Patient with good understanding of and agreement to plan and is comfortable going home at this time This document was made in part using voice recognition software. While efforts are made to proofread this document, sound alike and grammatical errors may occur. Departure - Departure Disposition: 01 Home, Self Care Clinical Impression: Subluxation of prosthetic knee Qualifiers: Encounter type: initial encounter Qualified Code(s): T84.028A - Dislocation of other internal joint prosthesis, initial encounter Condition: Good Instructions: ED Knee Pain [facility] Follow-Up: [facility] [Provider Group] - Within 1 week Comments: Wear the knee immobilizer until released by orthopedics. Return if you worsen. You need to follow up with orthopedics this week for repeat evaluation. Discharge Date/Time: 05/03/17 23:54
[2017-05-03] MEDS ORDERED: PROPOFOL 200 MG/20 ML VIAL IVP STA (22:34)
[2017-05-03] MEDS ORDERED: SODIUM CHLORIDE 0.9% 1,000 ML IV ONE (22:35)
[2017-05-03 23:03] VITALS: BP 110/58
[2017-05-03] MEDS ORDERED: HYDROcod/ACETAM 5/325 MG TABLET PO STA (23:07)
--- NOTE | 2017-05-03 23:29 | XRAY Preliminary Report ---
Exam: XR KNEE 2 VIEW LT IMPRESSION: 1. Anatomic alignment of left knee post reduction. 2. Small enthesophyte projecting posterior to the superior pole of patella on the lateral view, uncle ar if this is recently avulsed with partial quadriceps tendon tear. Correlation clinical exam suggest ed. RADIA SITE ID: [id number]
--- NOTE | 2017-05-03 23:31 | XRAY Report ---
EXAM: LEFT KNEE RADIOGRAPHY EXAM DATE: 05/03/2017 11:04 PM. CLINICAL HISTORY: Post reduction left knee malalignment. COMPARISON: Earlier same day. TECHNIQUE: 2 views. FINDINGS: Bones and joints: Anatomic alignment of the left knee post reduction. No fracture seen. There is a sm all enthesophyte which projects posterior to the superior aspect of the patella on the lateral view. No large effusion. Soft Tissues: Normal. No soft tissue swelling. IMPRESSION: 1. Anatomic alignment of the left knee post reduction. 2. Small enthesophyte projecting posterior to the superior pole of patella on the lateral view, uncle ar if this is recently avulsed with partial quadriceps tendon tear. Correlation clinical exam suggest ed. MESFIN Referring Provider Line: [phone] SITE ID: [id number]
--- NOTE | 2017-05-05 13:43 | CONSULTATION NOTE ---
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 He is approximately 10 years status post primary left total knee arthroplasty. He has had occasional problem with it catching, but nothing like he has today. He was seated in a chair. He went to shift his position while still seated to accommodate his dog in some way and he felt something go in the left knee and it was locked. He was unable to straighten it. The patient is certain that his knee brand is a Vinay. PAST MEDICAL HISTORY: Significant for diabetes with neuropathic feet. He has some type of ulcer on his hallux, which is under the care of a soil specialist. There is no sign of infection in the leg. PHYSICAL EXAMINATION GENERAL: He is a morbidly obese man laying on the gurney with the patient control analgesic button in his right hand. EXTREMITIES: The left leg is bent about 115 degrees at the knee. He has pain with attempt to move it from this position. There is no varus or valgus deformity. The leg and the femur do not look as though he has a complete posterior dislocation. There is no swelling or inflammation. X-RAY: Two-view radiographs attempted of the left knee show on lateral view the polyethylene seems to be in the correct position relative to the tray. There is almost an overlap of the tibial component and femoral component shadows posteriorly. AP view is not helpful other than confirming the posterior stabilized design. IMPRESSION: Subluxation of left total knee arthroplasty. I suspect that he has posterior dislocated or subluxed the stabilizing post on the tibia relative to the femoral box. I explained this to the patient. The emergency room physician and myself formulated the plan to undergo intravenous sedation in the emergency room with an attempted closed manipulative reduction. This was explained to the patient, and he agrees to proceed. I explained to him that if it does not succeed, then we will have to take him to the operating room for a more complete anesthesia. I would not contemplate opening his knee in any way this evening or at other times. If he needs revision, he will need [place]. [place]EDURE: With the emergency room physician managing the propofol, with assistance of a nurse, and with a respiratory therapist attending, he was given somewhat more than 100 mg of propofol and became briefly unresponsive. At that moment, I placed a forearm behind his knee and pulled anteriorly and then used the left hand to help straighten the leg from the ankle. There was no palpable shift, but the knee came into full extension. There is 2 + varus/valgus laxity as is common with his type of knee. It was equal to that of the other side. Radiographs post reduction were ordered. We will suggest the patient follow up in our orthopedic clinic. TD: 05/05/2017 06:20 STEPHENIE
== END 2017-05-03 23:54 | disposition home or self-care (01) ==
LOC: EDUNIT# → ED 20:16
DX: T84.028A Dislocation of other internal joint prosthesis, initial encounter (principal); X58.XXXA Exposure to other specified factors, initial encounter; Z96.652 Presence of left artificial knee joint; I25.119 Atherosclerotic heart disease of native coronary artery with unspecified angina pectoris; I25.2 Old myocardial infarction; G47.30 Sleep apnea, unspecified; E11.9 Type 2 diabetes mellitus without complications; Z79.4 Long term (current) use of insulin; Z79.82 Long term (current) use of aspirin; E66.01 Morbid (severe) obesity due to excess calories
CPT/HCPCS: 27550; 73560; 94770; 96361; 96374; 96376; 99152; 99284; 99285; A9270; J1170

== ENCOUNTER 2017-05-09 15:59 | Outpatient (CLI) | payer MEDICARE, OTHER | END 2017-05-09 16:00 | disposition critical access hospital (66) | LOC: EMS 15:59 | PROVIDERS: ATTEND Surgery | DX: R07.9 Chest pain, unspecified (principal) | CPT/HCPCS: A0425; A0427 ==

== ENCOUNTER 2017-05-09 16:21 | Emergency (ER) | payer MEDICARE, OTHER ==
[2017-05-09] MEDS ORDERED: MORPHINE 2 MG/ML SYRINGE IVP STA (16:29)
--- NOTE | 2017-05-09 16:45 | ED Physician Documentation ---
PD HPI CHEST PAIN - Stated complaint Stated Complaint: CP - Chief complaint Chief Complaint: Cardiac - History obtained from History obtained from: Patient, EMS - History of Present Illness Timing - onset: Other (A few minutes before 3 PM today this 56-year-old gentleman with a known history of coronary disease with stents in his LAD developed sharp central chest pain that is nonradiating. He was at rest at the time. He says it feels like he was stabbed with cattle prod in his chest. There is no associated shortness of breath, sweatiness, or nausea. He did become a little dizzy with it. He still has it and it did not respond to either Tums nor nitroglycerin. Review of the chart shows he has had several admissions for chest pain recently. He ruled out each time. He was angiogrammed in [place] in December of last year showing patent stents and no other significant coronary disease. Patient says he also had an angiogram last month which was clean but showed pericarditis. I will try to get the records.) Review of Systems Constitutional: denies: Fever, Chills Throat: denies: Dental pain / toothache, Sore throat Cardiac: denies: Chest pain / pressure, Palpitations Respiratory: denies: Dyspnea, Cough PD PAST MEDICAL HISTORY - Past Medical History Cardiovascular: Coronary artery disease, Angina, [place] Respiratory: Sleep apnea, CPAP use Neuro: None Endocrine/Autoimmune: Type 2 diabetes GI: None : None HEENT: None Psych: None Musculoskeletal: None Derm: None - Past Surgical History Past Surgical History: Yes Ortho: Knee replacement, Rotator cuff repair, Other Cardiovascular: Coronary stent - Present Medications Home Medications: Ambulatory Orders Medication Instructions Recorded Confirmed Insulin Aspart [NovoLOG] 40 unit SUBQ 0800 03/09/17 04/07/17 Insulin Aspart [NovoLOG] 45 unit SQ 1200,1700 03/09/17 04/07/17 Insulin Glargine [Lantus Solostar] 70 unit SQ DAILY PM 03/09/17 04/07/17 Liraglutide [Victoza 2-Antonio] 1.8 mg SQ DAILY PM 03/09/17 04/07/17 Pregabalin [Lyrica] 225 mg PO BID 03/09/17 05/09/17 Cholecalciferol (Vitamin D3) 2,000 units PO DAILY 03/10/17 04/07/17 [Vitamin D3] Escitalopram [Lexapro] 10 mg PO DAILY 03/10/17 05/09/17 [place]-3 Acid Ethyl Esters [Lovaza] 1 gm PO BID 03/10/17 04/07/17 Aspirin [Wesly] 325 mg PO DAILY tablet 03/14/17 04/07/17 Atorvastatin [Lipitor] 40 mg PO QPM tablet 03/14/17 04/07/17 diltiaZEM CD [Cardizem Cd] 360 mg PO DAILY #60 capsule 03/14/17 05/09/17 Ibuprofen [Motrin] 600 mg PO Q6HR tablet 04/13/17 Insulin Aspart [NovoLOG] 1 - 5 unit SUBQ 04/13/17 0800,1200,1700,2100 pen Isosorbide Mononitrate ER [Imdur] 60 mg PO DAILY tablet 04/13/17 Nitroglycerin [Nitrostat] 0.4 mg SL Q5MIN PRN tablet 04/13/17 05/09/17 Potassium Chloride [K-Dur] 20 meq PO DAILYWM tablet 04/13/17 Temazepam [Restoril] 15 mg PO QPM PRN capsule 04/13/17 amLODIPine [Norvasc] 5 mg PO BID tablet 04/13/17 hydroCHLOROthiazide [Hydrodiuril] 25 mg PO DAILY tablet 04/13/17 Colchicine 0.6 mg PO BID #20 capsule 05/09/17 Colchicine [Colchicine] 0.6 mg PO BID 05/09/17 05/09/17 Liraglutide [Victoza 2-Antonio] 1.8 mg SQ DAILY 05/09/17 05/09/17 Metoprolol Succinate 12.5 mg PO DAILY 05/09/17 05/09/17 Pantoprazole Sodium [Protonix] 40 mg PO BID 05/09/17 05/09/17 - Allergies Allergies/Adverse Reactions: Allergies Allergy/AdvReac Type Severity Reaction Status Date / Time hydroxyzine [From Vistaril] Allergy Hives Verified 05/09/17 16:32 meperidine [From Demerol] Allergy Anaphylaxis Verified 05/09/17 16:32 - Social History Does the pt smoke?: No Smoking Status: Never smoker Does the pt drink ETOH?: No Does the pt have substance abuse?: No - Family History Family history: reports: Non contributory - Immunizations Immunizations are current?: Yes - POLST Patient has POLST: No PD ED PE NORMAL - Vitals Vital signs reviewed: Yes - General General: Alert and oriented X 3, No acute distress - HEENT HEENT: PERRL, EOMI - Neck Neck: Supple, no meningeal sign, No bony TTP - Cardiac Cardiac: RRR, No murmur - Respiratory Respiratory: No respiratory distress, Clear bilaterally - Abdomen Abdomen: Non tender - Back Back: No CVA TTP, No spinal TTP - Derm Derm: Normal color, Warm and dry - Extremities Extremities: No edema, No calf tenderness / cord - Neuro Neuro: Alert and oriented X 3, Normal speech - Psych Psych: Normal mood, Normal affect Results - Vitals Vitals: Vital Signs - 24 hr 05/09/17 05/09/17 05/09/17 16:23 16:57 17:11 Temperature 36.5 C Heart Rate 90 80 Respiratory 21 20 Rate Blood Pressure 150/90 H 145/82 H Blood Pressure 147/90 H [Left] Blood Pressure 139/88 H [Right] O2 Saturation 97 96 05/09/17 05/09/17 05/09/17 17:31 18:26 19:08 Temperature Heart Rate 74 83 82 Respiratory 18 18 16 Rate Blood Pressure 146/95 H 117/91 H 112/78 Blood Pressure [Left] Blood Pressure [Right] O2 Saturation 95 95 96 Oxygen O2 Source Room air - EKG (time done) 1625 Rate: Rate (enter#) (83) Rhythm: NSR [place]: Normal Intervals: Normal NE QRS: Normal Ischemia: Normal ST segments Compare to prior EKG: Unchanged from prior EKG (no chg from 04/06/17) Computer interpretation: Agree with computer - Labs Labs: Laboratory Tests 05/09/17 05/09/17 05/09/17 16:36 16:36 16:36 WBC 8.1 RBC 4.74 Hgb 15.0 Hct 43.0 MCV 90.8 MCH 31.7 H MCHC 34.9 RDW 14.2 Plt Count 170 MPV 8.4 Neut # 4.8 Lymph # 2.2 [place] # 0.8 Eos # 0.2 Baso # 0.1 Absolute Nucleated RBC 0.00 Nucleated RBC % 0.0 Sodium 135 Potassium 4.1 Chloride 100 L Carbon Dioxide 24 Anion Gap 11.0 BUN 10 Creatinine 0.9 Estimated GFR (MDRD) 87 L Glucose 260 H Calcium 8.8 Total Bilirubin 0.4 AST 66 H ALT 87 H Alkaline Phosphatase 200 H Troponin I < 0.04 Total Protein 7.2 Albumin 3.9 Globulin 3.3 Albumin/Globulin Ratio 1.2 Lipase 58 H 05/09/17 18:50 WBC RBC Hgb Hct MCV MCH MCHC RDW Plt Count MPV Neut # Lymph # [place] # Eos # Baso # Absolute Nucleated RBC Nucleated RBC % Sodium Potassium Chloride Carbon Dioxide Anion Gap BUN Creatinine Estimated GFR (MDRD) Glucose Calcium Total Bilirubin AST ALT Alkaline Phosphatase Troponin I < 0.04 Total Protein Albumin Globulin Albumin/Globulin Ratio Lipase Procedures - General procedure General procedure: He was difficult for IV access, paramedics and tried and failed prior to arrival. I personally placed a 20-gauge IV in the left forearm using real-time ultrasound guidance after ChloraPrep which john and flushed easily. PD MEDICAL DECISION MAKING - ED course Complexity details: reviewed old records ED course: Records from last admission, April 13 of this year to [place] were reviewed. He had nonobstructive coronary disease, they were concerned for pericarditis and recommended colchicine for 3 months which he is not taking. He says he took it for 3 days. But later found out he is still taking it, recommended continuation. Note made also of pang's changes on recent EGD (only path available, no op note yet). He was quite demanding about the need for pain medications requesting a "morphine drip." There is no evidence of coronary disease and given recent negative catheterization, unchanged EKG, and 2 negative troponins in the emergency department ACS is no longer considered at all likely. Departure - Departure Disposition: 01 Home, Self Care Clinical Impression: Chest pain Qualifiers: Chest pain type: unspecified Qualified Code(s): R07.9 - Chest pain, unspecified Condition: Good Record reviewed to determine appropriate education?: Yes Instructions: ED Chest Pain NonCardiac Prescriptions: Colchicine 0.6 mg PO BID #20 capsule Comments: Follow-up with your physician, next available appointment. Discuss continuation of colchicine which the road mender at [place] documented they wanted you on for a full 3 months. Return if new symptoms develop. Discharge Date/Time: 05/09/17 19:30
[2017-05-09 16:47] LABS: BASOPHILS # (AUTO) 0.1 10^3/uL (0.0-0.1); BASOPHILS % (AUTO) 1.2 %; EOSINOPHILS # (AUTO) 0.2 10^3/uL (0.0-0.7); EOSINOPHILS % (AUTO) 2.7 %; LYMPHOCYTES # (AUTO) 2.2 10^3/uL (1.5-3.5); LYMPHOCYTES % (AUTO) 27.7 %; MEAN CORPUSCULAR HEMOGLOBIN 31.7 pg (27.0-31.0); MEAN CORPUSCULAR HGB CONC 34.9 g/dL (32.0-36.0); MEAN CORPUSCULAR VOLUME 90.8 fL (80.0-94.0); MEAN PLATELET VOLUME 8.4 fL (7.4-11.4); MONOCYTES # (AUTO) 0.8 10^3/uL (0.0-1.0); MONOCYTES % (AUTO) 9.3 %; NEUTROPHILS # (AUTO) 4.8 10^3/uL (1.5-6.6); NEUTROPHILS % (AUTO) 59.1 %; PLT - PLATELET COUNT 170 10^3/uL (130-450); RED BLOOD COUNT 4.74 10^6/uL (4.70-6.10); RED CELL DISTRIBUTION WIDTH 14.2 % (12.0-15.0); WHITE BLOOD COUNT 8.1 x10^3/uL (4.8-10.8)
[2017-05-09 16:57] LABS: ALBUMIN 3.9 g/dL (3.2-5.5); ALBUMIN/GLOBULIN RATIO 1.2 (1.0-2.2); BILIRUBIN,TOTAL 0.4 mg/dL (0.2-1.0); CALCIUM 8.8 mg/dL (8.5-10.3); CREATININE 0.9 mg/dL (0.6-1.2); TOTAL PROTEIN 7.2 g/dL (6.7-8.2)
[2017-05-09] MEDS ORDERED: MORPHINE 10 MG/ML VIAL IVP STA ×2 (17:07→18:34)
[2017-05-09] MEDS ORDERED: NITROGLYCERIN 2% PASTE TOP STA (17:07)
[2017-05-09] MEDS ORDERED: COLCHICINE 0.6 MG TABLET PO STA (18:42)
[2017-05-09 19:09] VITALS: BP 112/78
== END 2017-05-09 19:30 | disposition home or self-care (01) ==
LOC: EDUNIT# → ED 16:21
DX: R07.9 Chest pain, unspecified (principal); I25.119 Atherosclerotic heart disease of native coronary artery with unspecified angina pectoris; I25.2 Old myocardial infarction; G47.30 Sleep apnea, unspecified; E11.9 Type 2 diabetes mellitus without complications; Z79.4 Long term (current) use of insulin; Z79.82 Long term (current) use of aspirin
CPT/HCPCS: 36415; 80053; 83690; 84484; 85025; 93005; 96374; 96376; 99284; A9270; J2270

== ENCOUNTER 2017-05-23 15:50 | Outpatient (CLI) | payer MEDICARE, OTHER | END 2017-05-23 15:51 | disposition critical access hospital (66) | LOC: EMS 15:50 | PROVIDERS: ATTEND Surgery | DX: M23.8X2 Other internal derangements of left knee (principal) | CPT/HCPCS: A0425; A0429 ==

== ENCOUNTER 2017-05-23 16:13 | Emergency (ER) | payer MEDICARE, OTHER ==
[2017-05-23] MEDS ORDERED: MORPHINE 2 MG/ML SYRINGE IVP STA ×3 (16:56→19:31)
--- NOTE | 2017-05-23 16:59 | ED Physician Documentation ---
History of Present Illness - Stated complaint Stated Complaint: L KNEE PX - Chief complaint Chief Complaint: Ext Problem - Additonal information Additional information: hx from pt 56 male L total knee prior sublux of components req ortho reduction in OR today after shopping sat in his chair and it happened again L knee is locked last ate breakfast Review of Systems Musculoskeletal: reports: Joint pain PD PAST MEDICAL HISTORY - Past Medical History Cardiovascular: Coronary artery disease, Angina, [place] Respiratory: Sleep apnea, CPAP use Neuro: None Endocrine/Autoimmune: Type 2 diabetes GI: None : None HEENT: None Psych: None Musculoskeletal: None Derm: None - Past Surgical History Past Surgical History: Yes Ortho: Knee replacement, Rotator cuff repair, Other Cardiovascular: Coronary stent - Present Medications Home Medications: Ambulatory Orders Medication Instructions Recorded Confirmed Insulin Aspart [NovoLOG] 40 unit SUBQ 0800 03/09/17 04/07/17 Insulin Aspart [NovoLOG] 45 unit SQ 1200,1700 03/09/17 04/07/17 Insulin Glargine [Lantus Solostar] 70 unit SQ DAILY PM 03/09/17 04/07/17 Liraglutide [Victoza 2-Antonio] 1.8 mg SQ DAILY PM 03/09/17 04/07/17 Pregabalin [Lyrica] 225 mg PO BID 03/09/17 05/09/17 Cholecalciferol (Vitamin D3) 2,000 units PO DAILY 03/10/17 04/07/17 [Vitamin D3] Escitalopram [Lexapro] 10 mg PO DAILY 03/10/17 05/09/17 [place]-3 Acid Ethyl Esters [Lovaza] 1 gm PO BID 03/10/17 04/07/17 Aspirin [Wesly] 325 mg PO DAILY tablet 03/14/17 04/07/17 Atorvastatin [Lipitor] 40 mg PO QPM tablet 03/14/17 04/07/17 diltiaZEM CD [Cardizem Cd] 360 mg PO DAILY #60 capsule 03/14/17 05/09/17 Ibuprofen [Motrin] 600 mg PO Q6HR tablet 04/13/17 Insulin Aspart [NovoLOG] 1 - 5 unit SUBQ 04/13/17 0800,1200,1700,2100 pen Isosorbide Mononitrate ER [Imdur] 60 mg PO DAILY tablet 04/13/17 Nitroglycerin [Nitrostat] 0.4 mg SL Q5MIN PRN tablet 04/13/17 05/09/17 Potassium Chloride [K-Dur] 20 meq PO DAILYWM tablet 04/13/17 Temazepam [Restoril] 15 mg PO QPM PRN capsule 04/13/17 amLODIPine [Norvasc] 5 mg PO BID tablet 04/13/17 hydroCHLOROthiazide [Hydrodiuril] 25 mg PO DAILY tablet 04/13/17 Colchicine 0.6 mg PO BID #20 capsule 05/09/17 Colchicine [Colchicine] 0.6 mg PO BID 05/09/17 05/09/17 Liraglutide [Victoza 2-Antonio] 1.8 mg SQ DAILY 05/09/17 05/09/17 Metoprolol Succinate 12.5 mg PO DAILY 05/09/17 05/09/17 Pantoprazole Sodium [Protonix] 40 mg PO BID 05/09/17 05/09/17 - Allergies Allergies/Adverse Reactions: Allergies Allergy/AdvReac Type Severity Reaction Status Date / Time hydroxyzine [From Vistaril] Allergy Hives Verified 05/23/17 16:18 meperidine [From Demerol] Allergy Anaphylaxis Verified 05/23/17 16:18 - Social History Does the pt smoke?: No Smoking Status: Never smoker Does the pt drink ETOH?: No Does the pt have substance abuse?: No - Immunizations Immunizations are current?: Yes - POLST Patient has POLST: No PD ED PE NORMAL - Vitals Vital signs reviewed: Yes - Extremities Extremities: Other (in brace, + pulse, + motor, has baseline neuropthy) Results - Vitals Vitals: Vital Signs - 24 hr 05/23/17 05/23/17 05/23/17 16:15 16:19 18:01 Temperature 37.0 C 36.8 C Heart Rate 88 84 Respiratory 18 18 Rate Blood Pressure 147/90 H 129/82 H O2 Saturation 97 92 05/23/17 05/23/17 05/23/17 19:20 19:27 19:30 Temperature Heart Rate 83 84 84 Respiratory 19 14 21 Rate Blood Pressure 147/83 H 108/70 O2 Saturation 95 97 96 05/23/17 05/23/17 05/23/17 19:32 19:45 19:52 Temperature Heart Rate 84 82 83 Respiratory 13 14 16 Rate Blood Pressure 112/70 116/66 120/81 H O2 Saturation 96 95 05/23/17 20:28 Temperature 36.6 C Heart Rate 86 Respiratory 18 Rate Blood Pressure 131/86 H O2 Saturation 96 Oxygen O2 Source Room air - Rads (name of study) knee Radiology: See rad report (per rad stable and expected appearance of left knee arthroplasty) knee 2 Radiology: See rad report (no acute) Procedures - Reduction Body part reduced: Knee Anesthesia: Conscious sedation, Morphine, Propofol Reduction aftercare: Other (see ortho Dr Nichols's note for reduction as he performed that procedure while I did the sedation - straight leg brace placed) - Procedural sedation Sedation prep: Informed consent, Time out completed, Last meal, PE performed, AHA 3 - severe disease Sedation medications: morphine, propofol, given by MD Patient status during sedation: Unresponsive, Vitals remained stable, Maintained airway, Recovered uneventfully, Respiratory depression, Other ( nneded to be sedated twice, first time gave 50 of propofol s sedation, then another 30 and pt became deeply sedated with resp depression unrepsonsive except to firm tactile stimulation for approx 60 sec , did not desat, fairly quickly recovered, knee still felt out of place to him so a second sedation was done with 40 of propofol and pt was mod sedated and had no resp depression and recovered uneventfully). No: Hypoxia, Needed resp assistance, Complications Sedation recovery: Recovered uneventfully Departure - Departure Disposition: 01 Home, Self Care Clinical Impression: Subluxation of prosthetic knee Qualifiers: Encounter type: initial encounter Qualified Code(s): T84.028A - Dislocation of other internal joint prosthesis, initial encounter Condition: Good Follow-Up: Corinne Murphy MD [Emergency Provider] - Comments: Dr Nichols has reduced the knee You need to wear the straight leg brace until you follow up with orthopedics You may walk while wearing the brace but can also use crutches if that is more comfortable for you. Follow up with one of the orthopedics specialists in [place] that Dr Nichols gave you names for to discuss revising the hardware We gave you some percocet to take home to help with the pain overnight. Now that the knee is reduced you should not need narcotic pain medications after that
[2017-05-23] MEDS ORDERED: MORPHINE 2 MG/ML SYRINGE IM STA ×2 (17:34→18:11)
--- NOTE | 2017-05-23 17:38 | XRAY Report ---
EXAM: LEFT KNEE RADIOGRAPHY EXAM DATE: 05/23/2017 05:10 PM. CLINICAL HISTORY: Left knee pain while walking. Unable to bear weight or extend. COMPARISON: 05/03/2017. TECHNIQUE: 2 views. FINDINGS: Bones and Joints: No fractures or bone lesion. A 3 component left knee arthroplasty has been performe d. There is expected alignment of components. No unexpected periprosthetic lucency or other evidence of loosening. Soft Tissues: No knee effusion. No soft tissue swelling. IMPRESSION: Stable expected appearance of left knee arthroplasty. [facility] Referring Provider Line: [phone] SITE ID: [id number]
--- NOTE | 2017-05-23 17:38 | XRAY Preliminary Report ---
Exam: XR KNEE 2 VIEW LT IMPRESSION: Stable expected appearance of left knee arthroplasty. [facility] SITE ID: [id number]
--- NOTE | 2017-05-23 18:47 | PROVIDER PROGRESS NOTE ---
Subjective - Prog Note Date Prog Note Date: 05/23/17 Prog Note Time: 18:44 - Subjective Pt reports feeling: Worse ([place] when he felt his left knee"shift" out of place. Knee was "locked" in flexed position. Unable to extend knee or weight bear on left. No distal weakness/ numbness. Last ate at 0800) Objective - Vital Signs/Intake & Output Vital Signs: Vital Signs x48h Temp Pulse Resp BP Pulse Ox 05/23/17 18:01 36.8 C 84 18 129/82 H 92 05/23/17 16:19 37.0 C 05/23/17 16:15 88 18 147/90 H 97 - Diagnostic Imaging Diagnostic Imaging Comments: XR showed no acute fracture/dislocation - Other Results/Comments Other Results/Comments: EXAM: Left knee: Held in 45 degree f;lexed postion. Painful to attempt to move or translate knee. Moves toes well. sensation grossly intact. Good cap filling Assessment/Plan - Problem List (1) Other subluxation of left knee, initial encounter Impression: S/p left TKR in ?2010. Posterior stabilizing. Has subluxed twice in past 2-3 weeks PLAN: Under conscious sedation, able to place traction and manipulate knee, resulting in a reduction of his tibial component on his femoral component. Keep in knee immobilizer with knee in extension and stable position. Weightbearing as tolerated. Knee extended in immobilizer. Able to flex about 10-15 degrees in immobilizer without problem. Still with mild pain in knee. XR (post reduction) show no fracture/dislocation. Will need to establish contact with Orthopedist at [facility] for possible revision of his left TKR in the future. Several MD names given. to patient. Stay in immobilizer as much as possible until seen by revision arthroplasty surgeon.
[2017-05-23] MEDS ORDERED: PROMETHAZINE INJ 12.5 MG in SODIUM CHLORIDE 0.9% 50 ML IV STA (19:02)
[2017-05-23] MEDS ORDERED: PROPOFOL 200 MG/20 ML VIAL IVP STA ×2 (19:02→19:35)
[2017-05-23] MEDS ORDERED: oxyCODONE/ACET 5/325 Prepack 4 PO STA (19:56)
--- NOTE | 2017-05-23 20:16 | XRAY Preliminary Report ---
Exam: XR KNEE 2 VIEW LT IMPRESSION: Stable appearance of left knee prosthesis alignment. No acute bony abnormality. [facility] SITE ID: [id number]
--- NOTE | 2017-05-23 20:16 | XRAY Report ---
EXAM: LEFT KNEE RADIOGRAPHY EXAM DATE: 05/23/2017 08:00 PM. CLINICAL HISTORY: Post reduction. COMPARISON: None. TECHNIQUE: 2 views. FINDINGS: Bones: Normal. No fractures or bone lesions. Joints: Status post left knee arthroplasty. Components of the prosthesis demonstrates satisfactory al ignment and appear firmly anchored. Soft Tissues: Normal. No soft tissue swelling. IMPRESSION: Stable appearance of left knee prosthesis alignment. No acute bony abnormality. [facility] Referring Provider Line: [phone] SITE ID: [id number]
--- NOTE | 2017-05-23 20:28 | CONSULTATION NOTE ---
DATE OF SERVICE: 05/23/2017 Physician: Jassi Nichols MD REFERRING PHYSICIAN: Dr. Murphy of the emergency room department. CHIEF COMPLAINT: "My left knee is stuck." HISTORY OF PRESENT ILLNESS: The patient is a 56-year-old male who had a left total knee performed in 2010 in [place]. This apparently was a posterior stabilizing-type total knee replacement. In the last 2 weeks, he has had an episode of subluxation of his tibial component on the femoral component, resulting in a painful locking of his knee. The first time this occurred about 2-[address] Emery was able to do a closed reduction in the emergency room under conscious sedation. The patient was in a knee immobilizer for a short period of time and was informed he would need to consult a total joint arthroplasty surgeon in [place] for consideration of revision of his prostheses. He has been out of his knee immobilizer now for about a week's time. He was putting groceries back in [place] this afternoon when he felt his knee "shift". He again had a painful locking to his knee. He was taken by ambulance to the emergency room where he had his knee evaluated. The patient last ate breakfast this morning. PHYSICAL EXAMINATION: The patient's left knee was flexed at about 45 degrees. Unable to move the knee secondary to pain. The patient's neurovascular is intact distally with good toe motion on command. Good capillary filling noted. Sensation was intact. X-rays were taken and these show no obvious fractures or dislocations about his knee. ASSESSMENT 1. Recurrent subluxation of his left knee. 2. Status post posterior stabilizing left total knee. PLAN: The patient will be discharged weightbearing as tolerated on his left lower extremity in a knee immobilizer. He was told to stay on a knee immobilizer as much as possible until he can be evaluated by a total joint arthroplasty surgeon for consideration of a revision of his total knee. I gave him the names of Dr. Juan Knott and Dr. Jamie wilson in [place] for consideration for consultation. TD: 05/23/2017 20:27 MTDSeema
[2017-05-23 20:29] VITALS: BP 131/86
== END 2017-05-23 20:52 | disposition home or self-care (01) ==
LOC: EDUNIT# → ED 16:13
DX: T84.023A Instability of internal left knee prosthesis, initial encounter (principal); I25.10 Atherosclerotic heart disease of native coronary artery without angina pectoris; I25.2 Old myocardial infarction; E11.9 Type 2 diabetes mellitus without complications; Z79.4 Long term (current) use of insulin; Z95.5 Presence of coronary angioplasty implant and graft; Z79.82 Long term (current) use of aspirin
CPT/HCPCS: 27550; 73560; 94770; 96365; 96372; 99152; 99283; 99284; J2270; J7040; 27560

== ENCOUNTER 2017-06-02 07:10 | Outpatient (CLI) | payer MEDICARE, OTHER | END 2017-06-02 07:11 | disposition critical access hospital (66) | LOC: EMS 07:10 | PROVIDERS: ATTEND Surgery | DX: M25.562 Pain in left knee (principal); Z96.652 Presence of left artificial knee joint | CPT/HCPCS: A0425; A0429 ==

== ENCOUNTER 2017-06-02 07:30 | Emergency (ER) | payer MEDICARE, OTHER ==
[2017-06-02] MEDS ORDERED: HYDROmorphone 1 MG/ML CARPUJECT IVP STA (07:35)
--- NOTE | 2017-06-02 07:35 | ED Physician Documentation ---
History of Present Illness - Stated complaint Stated Complaint: L KNEE PX - Additonal information Additional information: hx from pt 56 male s/p L total knee several ER visits recently for locked hardware has required conscious sedation to reduce ortho advised needs revision has appt later this week he wasnt wearing the brace I gave him after I saw him last week, sat down, locked again - occurred this AM no fall etc Review of Systems Musculoskeletal: reports: Joint pain PD PAST MEDICAL HISTORY - Past Medical History Cardiovascular: Coronary artery disease, Angina, [place] Respiratory: Sleep apnea, CPAP use Neuro: None Endocrine/Autoimmune: Type 2 diabetes GI: None : None HEENT: None Psych: None Musculoskeletal: None Derm: None - Past Surgical History Past Surgical History: Yes Ortho: Knee replacement, Rotator cuff repair, Other Cardiovascular: Coronary stent - Present Medications Home Medications: Ambulatory Orders Medication Instructions Recorded Confirmed Insulin Aspart [NovoLOG] 40 unit SUBQ 0800 03/09/17 04/07/17 Insulin Aspart [NovoLOG] 45 unit SQ 1200,1700 03/09/17 04/07/17 Insulin Glargine [Lantus Solostar] 70 unit SQ DAILY PM 03/09/17 04/07/17 Liraglutide [Victoza 2-Antonio] 1.8 mg SQ DAILY PM 03/09/17 04/07/17 Pregabalin [Lyrica] 225 mg PO BID 03/09/17 05/09/17 Cholecalciferol (Vitamin D3) 2,000 units PO DAILY 03/10/17 04/07/17 [Vitamin D3] Escitalopram [Lexapro] 10 mg PO DAILY 03/10/17 05/09/17 [place]-3 Acid Ethyl Esters [Lovaza] 1 gm PO BID 03/10/17 04/07/17 Aspirin [Wesly] 325 mg PO DAILY tablet 03/14/17 04/07/17 Atorvastatin [Lipitor] 40 mg PO QPM tablet 03/14/17 04/07/17 diltiaZEM CD [Cardizem Cd] 360 mg PO DAILY #60 capsule 03/14/17 05/09/17 Ibuprofen [Motrin] 600 mg PO Q6HR tablet 04/13/17 Insulin Aspart [NovoLOG] 1 - 5 unit SUBQ 04/13/17 0800,1200,1700,2100 pen Isosorbide Mononitrate ER [Imdur] 60 mg PO DAILY tablet 04/13/17 Nitroglycerin [Nitrostat] 0.4 mg SL Q5MIN PRN tablet 04/13/17 05/09/17 Potassium Chloride [K-Dur] 20 meq PO DAILYWM tablet 04/13/17 Temazepam [Restoril] 15 mg PO QPM PRN capsule 04/13/17 amLODIPine [Norvasc] 5 mg PO BID tablet 04/13/17 hydroCHLOROthiazide [Hydrodiuril] 25 mg PO DAILY tablet 04/13/17 Colchicine 0.6 mg PO BID #20 capsule 05/09/17 Colchicine [Colchicine] 0.6 mg PO BID 05/09/17 05/09/17 Liraglutide [Victoza 2-Antonio] 1.8 mg SQ DAILY 05/09/17 05/09/17 Metoprolol Succinate 12.5 mg PO DAILY 05/09/17 05/09/17 Pantoprazole Sodium [Protonix] 40 mg PO BID 05/09/17 05/09/17 - Allergies Allergies/Adverse Reactions: Allergies Allergy/AdvReac Type Severity Reaction Status Date / Time hydroxyzine [From Vistaril] Allergy Hives Verified 05/23/17 16:18 meperidine [From Demerol] Allergy Anaphylaxis Verified 05/23/17 16:18 - Social History Does the pt smoke?: No Smoking Status: Never smoker Does the pt drink ETOH?: No Does the pt have substance abuse?: No - Immunizations Immunizations are current?: Yes - POLST Patient has POLST: No PD ED PE NORMAL - Vitals Vital signs reviewed: Yes - Cardiac Cardiac: RRR - Respiratory Respiratory: No respiratory distress, Clear bilaterally - Abdomen Abdomen: Non tender - Extremities Extremities: Other (L knee locked in flexion, MSV intact) Results - Vitals Vitals: Vital Signs - 24 hr 06/02/17 06/02/17 07:33 10:08 Temperature 36.4 C L Heart Rate 89 72 Respiratory 18 17 Rate Blood Pressure 150/81 H 111/73 O2 Saturation 96 96 Oxygen O2 Source Nasal cannula - Tele (time rhythm occurred) 10 AM Telemetry / rhythm strip: Other (no prolonged QT) - Rads (name of study) knee Radiology: See rad report (no fracture or hardware loosening) Procedures - Reduction Body part reduced: Other (locked L knee hardware - under conscious sedation flexed knee slightly more which seemed to unlock the hardwar and then gentyl, as the quad spasm subsided, straightened out the leg and applied a knee brace, pt tolerated well, MSV intact, no need for rpt xarys as prior showed to hardware damage or loosening) Reduction aftercare: NV intact, Splint applied - Procedural sedation Sedation prep: Informed consent, Time out completed, Last meal, PE performed, AHA 3 - severe disease, IV O2 monitor, ET CO2 monitor, RT present Sedation medications: dilaudid, propofol, given by MD Patient status during sedation: Responds to tactile, Vitals remained stable, Maintained airway, Recovered uneventfully. No: Respiratory depression Sedation recovery: Recovered uneventfully Departure - Departure Disposition: 01 Home, Self Care Clinical Impression: Subluxation of prosthetic knee Qualifiers: Encounter type: initial encounter Qualified Code(s): T84.028A - Dislocation of other internal joint prosthesis, initial encounter; Z96.659 - Presence of unspecified artificial knee joint; Z96.659 - Presence of unspecified artificial knee joint Condition: Good Follow-Up: JANELL HELMS MD [Primary Care Provider] - Comments: WEAR THE BRACE AT ALL TIMES Follow up with orthopedics tomorrow as scheduled The knee should feel better now that it is reduced We gave you percocet in the ER before you went home and that should last 6 hr After that ice and tylenol as needed
[2017-06-02] MEDS ORDERED: PROMETHAZINE INJ 25 MG in SODIUM CHLORIDE 0.9% 50 ML IV STA (07:36)
--- NOTE | 2017-06-02 08:24 | XRAY Report ---
EXAM: LEFT KNEE RADIOGRAPHY EXAM DATE: 06/02/2017 08:11 AM. CLINICAL HISTORY: Locked hardware. COMPARISON: 05/23/2017. TECHNIQUE: 2 views. 3 images are provided. FINDINGS: Bones: On the lateral view, there is no evidence of fracture or hardware loosening. Technically subop timal evaluation on the frontal view secondary to fixed flexion, but there is no gross evidence of fr acture. Joints: No gross dislocation. Soft Tissues: No significant abnormality. IMPRESSION: Technically suboptimal evaluation secondary to fixed flexion at the knee joint. There is no gross radiographically apparent fracture or hardware loosening. [facility] Referring Provider Line: [phone] SITE ID: [id number]
--- NOTE | 2017-06-02 08:24 | XRAY Preliminary Report ---
Exam: XR KNEE 2 VIEW LT IMPRESSION: Technically suboptimal evaluation secondary to fixed flexion at the knee joint. There is no gross radiographically apparent fracture or hardware loosening. [facility] SITE ID: [id number]
[2017-06-02] MEDS ORDERED: PROPOFOL 200 MG/20 ML VIAL IVP STA (09:11)
[2017-06-02 10:10] VITALS: BP 111/73
== END 2017-06-02 11:30 | disposition home or self-care (01) ==
LOC: EDUNIT# → ED 07:30
DX: T84.023A Instability of internal left knee prosthesis, initial encounter (principal); Y83.1 Surgical operation with implant of artificial internal device as the cause of abnormal reaction of the patient, or of later complication, without mention of misadventure at the time of the procedure; Z96.652 Presence of left artificial knee joint; E11.9 Type 2 diabetes mellitus without complications; Z79.4 Long term (current) use of insulin; Z79.82 Long term (current) use of aspirin
CPT/HCPCS: 27550; 73560; 94770; 96365; 99152; 99283; J1170; J7040

== ENCOUNTER 2017-06-06 21:00 | Outpatient (CLI) | payer MEDICARE, OTHER | END 2017-06-06 21:01 | disposition short-term general hospital (02) | LOC: EMS 21:00 | PROVIDERS: ATTEND Surgery | DX: M23.91 Unspecified internal derangement of right knee (principal) | CPT/HCPCS: A0425; A0429 ==

== ENCOUNTER 2017-06-28 13:44 | Outpatient (CLI) | payer MEDICARE, OTHER | END 2017-06-28 13:45 | disposition critical access hospital (66) | LOC: EMS 13:44 | PROVIDERS: ATTEND Surgery | DX: R07.9 Chest pain, unspecified (principal) | CPT/HCPCS: A0425; A0427 ==

== ENCOUNTER 2017-06-28 13:50 | Emergency (ER) | payer MEDICARE, OTHER ==
--- NOTE | 2017-06-28 13:55 | ED Physician Documentation ---
PD HPI CHEST PAIN - Stated complaint Stated Complaint: CP - History obtained from History obtained from: Patient - History of Present Illness Timing - onset: Today (This is a 56-year-old gentleman with history of coronary artery disease and history of Prinzmetal's angina who presents with about 25 minutes of his typical substernal chest pain radiating between the shoulder blades that started while at rest. His EKG in route was nonischemic.) - Additional information Additional information: He was admitted here in March of this year, had persistent chest pain but negative enzymes for 5 days, he was eventually transferred to [place], when I saw him maybe a month or 2 ago I reviewed the records, he had nonobstructive coronary disease at that time and they felt he had pericarditis. Review of Systems Constitutional: reports: Weight Loss (purposeful). denies: Fever, Chills Nose: denies: Rhinorrhea / runny nose, Congestion Cardiac: reports: Chest pain / pressure Respiratory: denies: Dyspnea PD PAST MEDICAL HISTORY - Past Medical History Cardiovascular: Coronary artery disease, Angina, [place] Respiratory: Sleep apnea, CPAP use Endocrine/Autoimmune: Type 2 diabetes GI: None : None HEENT: None Psych: None Musculoskeletal: None Derm: None - Past Surgical History Past Surgical History: Yes Ortho: Knee replacement, Rotator cuff repair, Other Cardiovascular: Coronary stent - Present Medications Home Medications: Ambulatory Orders Medication Instructions Recorded Confirmed Insulin Aspart [NovoLOG] 40 unit SUBQ 0800 03/09/17 04/07/17 Insulin Aspart [NovoLOG] 45 unit SQ 1200,1700 03/09/17 04/07/17 Insulin Glargine [Lantus Solostar] 70 unit SQ DAILY PM 03/09/17 04/07/17 Liraglutide [Victoza 2-Antonio] 1.8 mg SQ DAILY PM 03/09/17 04/07/17 Pregabalin [Lyrica] 225 mg PO BID 03/09/17 05/09/17 Cholecalciferol (Vitamin D3) 2,000 units PO DAILY 03/10/17 04/07/17 [Vitamin D3] Escitalopram [Lexapro] 10 mg PO DAILY 03/10/17 05/09/17 [place]-3 Acid Ethyl Esters [Lovaza] 1 gm PO BID 03/10/17 04/07/17 Aspirin [Wesly] 325 mg PO DAILY tablet 03/14/17 04/07/17 Atorvastatin [Lipitor] 40 mg PO QPM tablet 03/14/17 04/07/17 diltiaZEM CD [Cardizem Cd] 360 mg PO DAILY #60 capsule 03/14/17 05/09/17 Ibuprofen [Motrin] 600 mg PO Q6HR tablet 04/13/17 Insulin Aspart [NovoLOG] 1 - 5 unit SUBQ 04/13/17 0800,1200,1700,2100 pen Isosorbide Mononitrate ER [Imdur] 60 mg PO DAILY tablet 04/13/17 Nitroglycerin [Nitrostat] 0.4 mg SL Q5MIN PRN tablet 04/13/17 05/09/17 Potassium Chloride [K-Dur] 20 meq PO DAILYWM tablet 04/13/17 Temazepam [Restoril] 15 mg PO QPM PRN capsule 04/13/17 amLODIPine [Norvasc] 5 mg PO BID tablet 04/13/17 hydroCHLOROthiazide [Hydrodiuril] 25 mg PO DAILY tablet 04/13/17 Colchicine 0.6 mg PO BID #20 capsule 05/09/17 Colchicine [Colchicine] 0.6 mg PO BID 05/09/17 05/09/17 Liraglutide [Victoza 2-Antonio] 1.8 mg SQ DAILY 05/09/17 05/09/17 Metoprolol Succinate 12.5 mg PO DAILY 05/09/17 05/09/17 Pantoprazole Sodium [Protonix] 40 mg PO BID 05/09/17 05/09/17 - Allergies Allergies/Adverse Reactions: Allergies Allergy/AdvReac Type Severity Reaction Status Date / Time hydroxyzine [From Vistaril] Allergy Hives Verified 06/28/17 13:59 meperidine [From Demerol] Allergy Anaphylaxis Verified 06/28/17 13:59 - Social History Does the pt smoke?: No Smoking Status: Never smoker Does the pt drink ETOH?: No Does the pt have substance abuse?: No - Family History Family history: reports: Non contributory - Immunizations Immunizations are current?: Yes - POLST Patient has POLST: No PD ED PE NORMAL - Vitals Vital signs reviewed: Yes - General General: Alert and oriented X 3, No acute distress - HEENT HEENT: PERRL, EOMI - Neck Neck: Supple, no meningeal sign, No bony TTP - Cardiac Cardiac: RRR, No murmur - Respiratory Respiratory: No respiratory distress, Clear bilaterally - Abdomen Abdomen: Soft, Non tender - Back Back: No CVA TTP, No spinal TTP - Derm Derm: Normal color, Warm and dry - Extremities Extremities: No deformity, No edema, No calf tenderness / cord - Neuro Neuro: Alert and oriented X 3, Normal speech - Psych Psych: Normal mood, Normal affect Results - Vitals Vitals: Vital Signs - 24 hr 06/28/17 06/28/17 06/28/17 13:59 15:06 17:35 Temperature 36.8 C Heart Rate 85 76 82 Respiratory 18 16 15 Rate Blood Pressure 133/75 H 132/76 H 127/66 O2 Saturation 94 94 98 06/28/17 18:35 Temperature Heart Rate 83 Respiratory 14 Rate Blood Pressure 130/78 O2 Saturation 94 Oxygen O2 Source Room air - EKG (time done) 1355 Rate: Rate (enter#) (71) Rhythm: NSR [place]: Normal Intervals: Normal [place] QRS: Normal Ischemia: Normal ST segments Computer interpretation: Agree with computer - Labs Labs: Laboratory Tests 06/28/17 06/28/17 06/28/17 14:10 14:10 14:10 WBC 8.3 RBC 5.19 Hgb 16.2 Hct 47.1 MCV 90.7 MCH 31.1 H MCHC 34.3 RDW 14.0 Plt Count 165 MPV 8.2 Neut # 5.0 Lymph # 2.3 [place] # 0.7 Eos # 0.2 Baso # 0.1 Absolute Nucleated RBC 0.00 Nucleated RBC % 0.0 Sodium 137 Potassium 4.4 Chloride 102 Carbon Dioxide 25 Anion Gap 10.0 BUN 13 Creatinine 0.8 Estimated GFR (MDRD) 99 Glucose 227 H Calcium 9.2 Total Bilirubin 0.9 AST 72 H ALT 103 H Alkaline Phosphatase 191 H Troponin I < 0.04 Total Protein 7.7 Albumin 4.1 Globulin 3.6 Albumin/Globulin Ratio 1.1 Lipase 55 H 06/28/17 17:02 WBC RBC Hgb Hct MCV MCH MCHC RDW Plt Count MPV Neut # Lymph # [place] # Eos # Baso # Absolute Nucleated RBC Nucleated RBC % Sodium Potassium Chloride Carbon Dioxide Anion Gap BUN Creatinine Estimated GFR (MDRD) Glucose Calcium Total Bilirubin AST ALT Alkaline Phosphatase Troponin I < 0.04 Total Protein Albumin Globulin Albumin/Globulin Ratio Lipase Procedures - General procedure General procedure: He is difficult for IV access. I personally placed a 22g long IV in the right forearm after chloraprep which john and flushed well. PD MEDICAL DECISION MAKING - ED course ED course: 56-year-old gentleman with history of vasospastic angina and a cath within the last few months without intervenable coronary disease presents with chest pain. EKG and delta troponins in the department are negative. He did have mildly elevated liver enzymes but really no historical evidence that this would be biliary i.e. it did not start after eating. That said an ultrasound was done and he does have gallstones without evidence of cholecystitis. Follow-up for his chest pain and this were advised. Departure - Departure Disposition: 01 Home, Self Care Clinical Impression: Atypical chest pain Cholelithiasis Qualifiers: Cholelithiasis location: gallbladder Cholecystitis presence: without cholecystitis Biliary obstruction: without biliary obstruction Qualified Code(s) : K80.20 - Calculus of gallbladder without cholecystitis without obstruction Condition: Good Record reviewed to determine appropriate education?: Yes Instructions: ED Chest Pain Atypical Unkn Cause Follow-Up: Oksana Raya MD [Provider Admit Priv/Credential] - Within 1 week (SHE HAS OFFICE HOURS IN [place] ONCE A WEEK) Comments: [place] called a HIDA scan to better evaluate your gallbladder and return if worse. The apprentice lineman third step listed on this form is office hours once a week and here in [place] and you can call to make an appointment with her here. Discharge Date/Time: 06/28/17 18:42
[2017-06-28] MEDS ORDERED: ASPIRIN CHEW 81 MG TABLET PO STA (14:05)
[2017-06-28] MEDS ORDERED: MORPHINE 2 MG/ML SYRINGE IVP STA ×3 (14:05→17:11)
[2017-06-28 14:28] LABS: ALBUMIN 4.1 g/dL (3.2-5.5); ALBUMIN/GLOBULIN RATIO 1.1 (1.0-2.2); BILIRUBIN,TOTAL 0.9 mg/dL (0.2-1.0); CALCIUM 9.2 mg/dL (8.5-10.3); CREATININE 0.8 mg/dL (0.6-1.2); TOTAL PROTEIN 7.7 g/dL (6.7-8.2)
[2017-06-28 14:40] LABS: BASOPHILS # (AUTO) 0.1 10^3/uL (0.0-0.1); BASOPHILS % (AUTO) 1.4 %; EOSINOPHILS # (AUTO) 0.2 10^3/uL (0.0-0.7); EOSINOPHILS % (AUTO) 2.5 %; HGB - HEMOGLOBIN 16.2 g/dL (14.0-18.0); LYMPHOCYTES # (AUTO) 2.3 10^3/uL (1.5-3.5); LYMPHOCYTES % (AUTO) 27.8 %; MEAN CORPUSCULAR HEMOGLOBIN 31.1 pg (27.0-31.0); MEAN CORPUSCULAR HGB CONC 34.3 g/dL (32.0-36.0); MEAN CORPUSCULAR VOLUME 90.7 fL (80.0-94.0); MEAN PLATELET VOLUME 8.2 fL (7.4-11.4); MONOCYTES # (AUTO) 0.7 10^3/uL (0.0-1.0); MONOCYTES % (AUTO) 8.3 %; PLT - PLATELET COUNT 165 10^3/uL (130-450); RED BLOOD COUNT 5.19 10^6/uL (4.70-6.10); WHITE BLOOD COUNT 8.3 x10^3/uL (4.8-10.8)
--- NOTE | 2017-06-28 17:00 | Ultrasound Report ---
EXAM: ABDOMEN ULTRASOUND LIMITED, RUQ EXAM DATE: 06/28/2017 04:45 PM. CLINICAL HISTORY: Chest pain, elevated liver enzymes. COMPARISON: None. TECHNIQUE: Real-time scanning was performed with static images obtained. FINDINGS: Liver: The liver parenchyma is coarse and echogenic. 21 cm. Main portal vein flow: Hepatopetal. Gallbladder: There is a gallstone in the neck of the gallbladder. Gallbladder wall thickness is xiomara l at 2.5 mm. Negative ultrasound Olivera's sign, limited by pain medication. Biliary System: CBD measures 6.9 mm. No visible intrahepatic biliary dilatation. Other: Right kidney measures 13 cm in length. IMPRESSION: 1. Gallstones without other definite findings of acute cholecystitis. 2. Coarse echogenic liver consistent with steatosis 3. Mild dilation of common bile duct of uncertain chronicity. [facility] Referring Provider Line: [phone] SITE ID: [id number]
--- NOTE | 2017-06-28 17:00 | Ultrasound Preliminary Report ---
Exam: US ABDOMEN LIMITED IMPRESSION: 1. Gallstones without other definite findings of acute cholecystitis. 2. Coarse echogenic liver consistent with steatosis 3. Mild dilation of common bile duct of uncertain chronicity. [facility] SITE ID: [id number]
[2017-06-28 18:36] VITALS: BP 130/78
== END 2017-06-28 18:42 | disposition home or self-care (01) ==
LOC: EDUNIT# → ED 13:50
DX: R07.89 Other chest pain (principal); I25.10 Atherosclerotic heart disease of native coronary artery without angina pectoris; I25.2 Old myocardial infarction; Z95.5 Presence of coronary angioplasty implant and graft; E11.9 Type 2 diabetes mellitus without complications; Z79.4 Long term (current) use of insulin; Z79.82 Long term (current) use of aspirin
CPT/HCPCS: 76705; 80053; 83690; 84484; 85025; 93005; 96374; 96376; 99283; J2270; 36415

== ENCOUNTER 2017-07-04 11:01 | Outpatient (CLI) | payer MEDICARE, OTHER | END 2017-07-04 11:02 | disposition critical access hospital (66) | LOC: EMS 11:01 | PROVIDERS: ATTEND Surgery | DX: M25.561 Pain in right knee (principal); Z96.653 Presence of artificial knee joint, bilateral | CPT/HCPCS: A0425; A0429 ==

== ENCOUNTER 2017-07-04 11:24 | Emergency (ER) | payer MEDICARE, OTHER ==
--- NOTE | 2017-07-04 12:00 | ED Physician Documentation ---
History of Present Illness - Stated complaint Stated Complaint: L KNEE LOCKED - Chief complaint Chief Complaint: Ext Problem - History obtained from History obtained from: Patient, EMS - History of Present Illness Timing: Today Pain level max: 6 Pain level now: 6 Improved by: nothing Worsened by: nothing - Additonal information Additional information: Patient is a 56-year-old gentleman who presents to the emergency department complaining that his left knee is "blocked". States this is happened 3 or 4 times over the past few months and his doctor is getting ready to do a revisional surgery on him for this. He was getting out of bed this morning when this occurred. Last ate last night. No numbness or tingling. Review of Systems Ten Systems: 10 systems reviewed and negative Constitutional: denies: Fever, Chills Ears: denies: Ear pain Nose: denies: Rhinorrhea / runny nose, Congestion Throat: denies: Sore throat Cardiac: denies: Chest pain / pressure Respiratory: denies: Cough GI: denies: Nausea, Vomiting, Diarrhea Skin: denies: Rash Musculoskeletal: denies: Neck pain, Back pain Neurologic: denies: Headache PD PAST MEDICAL HISTORY - Past Medical History Past Medical History: Yes Cardiovascular: Coronary artery disease, Angina, [place] Respiratory: Sleep apnea, CPAP use Endocrine/Autoimmune: Type 2 diabetes GI: None : None HEENT: None Psych: None Musculoskeletal: None Derm: None - Past Surgical History Past Surgical History: Yes Ortho: Knee replacement, Rotator cuff repair, Other Cardiovascular: Coronary stent - Present Medications Home Medications: Ambulatory Orders Medication Instructions Recorded Confirmed Insulin Aspart [NovoLOG] 40 unit SUBQ 0800 03/09/17 04/07/17 Insulin Aspart [NovoLOG] 45 unit SQ 1200,1700 03/09/17 04/07/17 Insulin Glargine [Lantus Solostar] 70 unit SQ DAILY PM 03/09/17 04/07/17 Liraglutide [Victoza 2-Antonio] 1.8 mg SQ DAILY PM 03/09/17 04/07/17 Pregabalin [Lyrica] 225 mg PO BID 03/09/17 05/09/17 Cholecalciferol (Vitamin D3) 2,000 units PO DAILY 03/10/17 04/07/17 [Vitamin D3] Escitalopram [Lexapro] 10 mg PO DAILY 03/10/17 05/09/17 [place]-3 Acid Ethyl Esters [Lovaza] 1 gm PO BID 03/10/17 04/07/17 Aspirin [Wesly] 325 mg PO DAILY tablet 03/14/17 04/07/17 Atorvastatin [Lipitor] 40 mg PO QPM tablet 03/14/17 04/07/17 diltiaZEM CD [Cardizem Cd] 360 mg PO DAILY #60 capsule 03/14/17 05/09/17 Ibuprofen [Motrin] 600 mg PO Q6HR tablet 04/13/17 Insulin Aspart [NovoLOG] 1 - 5 unit SUBQ 04/13/17 0800,1200,1700,2100 pen Isosorbide Mononitrate ER [Imdur] 60 mg PO DAILY tablet 04/13/17 Nitroglycerin [Nitrostat] 0.4 mg SL Q5MIN PRN tablet 04/13/17 05/09/17 Potassium Chloride [K-Dur] 20 meq PO DAILYWM tablet 04/13/17 Temazepam [Restoril] 15 mg PO QPM PRN capsule 04/13/17 amLODIPine [Norvasc] 5 mg PO BID tablet 04/13/17 hydroCHLOROthiazide [Hydrodiuril] 25 mg PO DAILY tablet 04/13/17 Colchicine 0.6 mg PO BID #20 capsule 05/09/17 Colchicine [Colchicine] 0.6 mg PO BID 05/09/17 05/09/17 Liraglutide [Victoza 2-Antonio] 1.8 mg SQ DAILY 05/09/17 05/09/17 Metoprolol Succinate 12.5 mg PO DAILY 05/09/17 05/09/17 Pantoprazole Sodium [Protonix] 40 mg PO BID 05/09/17 05/09/17 - Allergies Allergies/Adverse Reactions: Allergies Allergy/AdvReac Type Severity Reaction Status Date / Time hydroxyzine [From Vistaril] Allergy Hives Verified 06/28/17 13:59 meperidine [From Demerol] Allergy Anaphylaxis Verified 06/28/17 13:59 - Social History Does the pt smoke?: No Smoking Status: Never smoker Does the pt drink ETOH?: No Does the pt have substance abuse?: No - Immunizations Immunizations are current?: Yes - POLST Patient has POLST: No PD ED PE NORMAL - Vitals Vital signs reviewed: Yes - General General: Alert and oriented X 3, No acute distress - HEENT HEENT: Moist mucous membranes - Neck Neck: Supple, no meningeal sign - Cardiac Cardiac: RRR, Strong equal pulses - Respiratory Respiratory: No respiratory distress, Clear bilaterally - Abdomen Abdomen: Soft, Non tender - Derm Derm: Warm and dry - Extremities Extremities: Other (L knee locked in flexion) - Neuro Neuro: Alert and oriented X 3 - Psych Psych: Normal mood, Normal affect Results - Vitals Vitals: Vital Signs - 24 hr 07/04/17 07/04/17 07/04/17 11:28 13:04 13:12 Temperature 36.4 C L Heart Rate 82 73 69 Respiratory 18 20 15 Rate Blood Pressure 121/72 111/67 104/68 O2 Saturation 96 96 98 07/04/17 14:19 Temperature Heart Rate 88 Respiratory 18 Rate Blood Pressure 141/78 H O2 Saturation 97 Oxygen O2 Source Room air - Labs Labs: Laboratory Tests 07/04/17 07/04/17 12:10 12:10 WBC 7.0 RBC 4.84 Hgb 15.1 Hct 44.1 MCV 91.0 MCH 31.1 H MCHC 34.2 RDW 14.3 Plt Count 152 MPV 8.0 Neut # 4.2 Lymph # 2.0 [place] # 0.6 Eos # 0.2 Baso # 0.1 Absolute Nucleated RBC 0.00 Nucleated RBC % 0.1 Sodium 137 Potassium 4.4 Chloride 102 Carbon Dioxide 27 Anion Gap 8.0 BUN 12 Creatinine 0.8 Estimated GFR (MDRD) 99 Glucose 129 H Calcium 8.9 PD MEDICAL DECISION MAKING - ED course Complexity details: reviewed results, re-evaluated patient, considered differential, d/w patient, d/w databases computer consultant (Dr. Emery (ortho) and Angelo Worthington [employer]) ED course: Patient is a 56-year-old gentleman who presents to the emergency department with a recurrent left knee subluxation. This was reduced by orthopedics in the emergency department under sedation was provided by anesthesia. See their notes for their portions of care. He recovered uneventfully and was placed in a articulating knee brace. 10-70. Ambulating quite well on this. Hopefully this will prevent recurrent subluxation until he can have his knee revised. Neurovascularly intact. Patient counseled regarding signs and symptoms for which I believe and urgent re-evaluation would be necessary. Patient with good understanding of and agreement to plan and is comfortable going home at this time This document was made in part using voice recognition software. While efforts are made to proofread this document, sound alike and grammatical errors may occur. Departure - Departure Disposition: 01 Home, Self Care Clinical Impression: Subluxation of prosthetic knee Qualifiers: Encounter type: initial encounter Qualified Code(s): T84.028A - Dislocation of other internal joint prosthesis, initial encounter Condition: Good Instructions: ED Knee Pain [facility] Follow-Up: your,orthopedist in 1 week [Other] Comments: Continue to wear the brace until you are released by orthopedist. We have limited the range of motion of your knee in hopes that this will not occur again. Return if you worsen. Discharge Date/Time: 07/04/17 14:22
[2017-07-04 12:19] LABS: BASOPHILS # (AUTO) 0.1 10^3/uL (0.0-0.1); BASOPHILS % (AUTO) 1.4 %; EOSINOPHILS # (AUTO) 0.2 10^3/uL (0.0-0.7); EOSINOPHILS % (AUTO) 2.5 %; HGB - HEMOGLOBIN 15.1 g/dL (14.0-18.0); LYMPHOCYTES % (AUTO) 28.3 %; MEAN CORPUSCULAR HEMOGLOBIN 31.1 pg (27.0-31.0); MEAN CORPUSCULAR HGB CONC 34.2 g/dL (32.0-36.0); MONOCYTES # (AUTO) 0.6 10^3/uL (0.0-1.0); MONOCYTES % (AUTO) 8.4 %; NEUTROPHILS # (AUTO) 4.2 10^3/uL (1.5-6.6); NEUTROPHILS % (AUTO) 59.4 %; PLT - PLATELET COUNT 152 10^3/uL (130-450); RED BLOOD COUNT 4.84 10^6/uL (4.70-6.10); RED CELL DISTRIBUTION WIDTH 14.3 % (12.0-15.0)
[2017-07-04 12:27] LABS: CALCIUM 8.9 mg/dL (8.5-10.3); CREATININE 0.8 mg/dL (0.6-1.2)
[2017-07-04] MEDS ORDERED: PROPOFOL 200 MG/20 ML VIAL IVP ONE (12:50)
[2017-07-04] MEDS ORDERED: LIDOCAINE-MPF 2% 5 ML VIAL IM ONE (12:50)
[2017-07-04 14:21] VITALS: BP 141/78
--- NOTE | 2017-07-04 16:29 | CONSULTATION NOTE ---
DATE OF SERVICE: 07/04/2017 Physician: Clyde Emery MD This is a consult from the emergency room physician. DIAGNOSIS: Left knee arthroplasty, subluxation. HISTORY OF PRESENT ILLNESS: The patient has had multiple episodes of coming to the emergency room with his left total knee flexed about 90 degrees and seeming to be locked in that position. He is about 5 years status post the total knee replacement. There have been 3 or more subluxation episodes in the past. Today, he was just getting up off his bed and felt his knee lock. He was not able to straighten this himself. PHYSICAL EXAMINATION: He is lying in bed. He is morbidly obese. Knee is flexed at about 90 degrees exactly. There was a faint hint of a posterior subluxation of the tibia relative to the femur, based on the position of the patella and the tibial tubercle and anterior cortex of the tibia. He is neurovascularly intact. 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 PLAN: The patient has already spoken to Dr. Ayala, and there are tentative plans to go ahead with a procedure to alleviate this problem. The exact procedure to be determined by surgeon. I explained to the patient we are in the same position we were last time when I did this and also another orthopedic hospitalist. This should be possible to do in the emergency room with simple IV sedation. The patient wished to have the animation artist perform this. Fortunately, he was available. DESCRIPTION: With the patient propped up about 20 degrees to allow easy breathing, the animation artist placed about 70 mg of propofol IV. The patient's eyes drooped and he stopped responding. I placed my forearm in the popliteal space, placed my left on the anterior ankle. I pulled distally with my forearm and brought him into extension smoothly. There was no sensation of a reduction. However, the position of the knee went back to normal. He was neurovascularly intact. We placed him in an adjustable knee brace, set to range of motion 10-60 degrees. The patient was instructed to keep this on as much as possible. He is also instructed to work his quadriceps in preparation for some knee surgery. TD: 07/04/2017 13:22
== END 2017-07-04 14:22 | disposition home or self-care (01) ==
LOC: EDUNIT# → ED 11:24
DX: T84.023A Instability of internal left knee prosthesis, initial encounter (principal); E11.9 Type 2 diabetes mellitus without complications; I25.10 Atherosclerotic heart disease of native coronary artery without angina pectoris; I25.2 Old myocardial infarction; Z98.61 Coronary angioplasty status; Z79.4 Long term (current) use of insulin; Z79.82 Long term (current) use of aspirin
CPT/HCPCS: 27550; 36415; 80048; 85025; 99283; 99284

== ENCOUNTER 2017-07-07 13:50 | Outpatient (CLI) | payer MEDICARE, OTHER | END 2017-07-07 13:51 | disposition critical access hospital (66) | LOC: EMS 13:50 | PROVIDERS: ATTEND Surgery | DX: R07.9 Chest pain, unspecified (principal) | CPT/HCPCS: A0425; A0427 ==

== ENCOUNTER 2017-07-07 14:08 | Emergency (ER) | payer MEDICARE, OTHER ==
--- NOTE | 2017-07-07 14:30 | ED Physician Documentation ---
PD HPI CHEST PAIN - Stated complaint Stated Complaint: CP - Chief complaint Chief Complaint: Cardiac - History obtained from History obtained from: Patient, EMS - History of Present Illness Timing - onset: Today Timing - onset during: Rest Timing - duration: Hours (1 1/2) Timing - details: Abrupt onset Quality: Aching, Sharp, Pain Location: Substernal, Left chest Radiation: Left upper extremity Improved by: No: Rest Worsened by: Inspiration, Movement Associated symptoms: Shortness of air. No: Nausea, Vomiting, Feeling faint / dizzy, General Weakness, Palpitations Similar symptoms before: Diagnosis (possibly pericarditis and was on Colchicine for 3 months, finished 2 weeks ago. Considered Printz-Metal possible on admission here Mar 2017, but felt not likely by Cardiology due to non- responsiveness to nitro and calcium blockers (was on them for 4 days and only narcotic pain meds seemed to be actually working). Had cardiac cath just month prior to that that showed clear stents with good flow.) Review of Systems Constitutional: denies: Fever, Chills Nose: denies: Rhinorrhea / runny nose, Congestion Throat: denies: Sore throat Cardiac: reports: Chest pain / pressure. denies: Palpitations, Pedal edema, Calf pain Respiratory: denies: Dyspnea, Cough GI: denies: Abdominal Pain, Nausea, Vomiting, Diarrhea : denies: Dysuria, Frequency Musculoskeletal: denies: Extremity swelling Neurologic: denies: Generalized weakness, Focal weakness, Numbness, Near syncope Psychiatric: denies: Anxiety Endocrine: denies: Weight loss Immunocompromised: denies: Immunocompromised PD PAST MEDICAL HISTORY - Past Medical History Past Medical History: Yes Cardiovascular: Coronary artery disease, Angina, [place] Respiratory: Sleep apnea, CPAP use Endocrine/Autoimmune: Type 2 diabetes GI: None : None HEENT: None Psych: None Musculoskeletal: None Derm: None - Past Surgical History Past Surgical History: Yes Ortho: Knee replacement, Rotator cuff repair, Other Cardiovascular: Coronary stent - Present Medications Home Medications: Ambulatory Orders Medication Instructions Recorded Confirmed Insulin Aspart [NovoLOG] 40 unit SUBQ 0800 03/09/17 04/07/17 Insulin Aspart [NovoLOG] 45 unit SQ 1200,1700 03/09/17 04/07/17 Insulin Glargine [Lantus Solostar] 70 unit SQ DAILY PM 03/09/17 04/07/17 Liraglutide [Victoza 2-Antonio] 1.8 mg SQ DAILY PM 03/09/17 04/07/17 Pregabalin [Lyrica] 225 mg PO BID 03/09/17 05/09/17 Cholecalciferol (Vitamin D3) 2,000 units PO DAILY 03/10/17 04/07/17 [Vitamin D3] Escitalopram [Lexapro] 10 mg PO DAILY 03/10/17 05/09/17 [place]-3 Acid Ethyl Esters [Lovaza] 1 gm PO BID 03/10/17 04/07/17 Aspirin [Wesly] 325 mg PO DAILY tablet 03/14/17 04/07/17 Atorvastatin [Lipitor] 40 mg PO QPM tablet 03/14/17 04/07/17 diltiaZEM CD [Cardizem Cd] 360 mg PO DAILY #60 capsule 03/14/17 05/09/17 Ibuprofen [Motrin] 600 mg PO Q6HR tablet 04/13/17 Insulin Aspart [NovoLOG] 1 - 5 unit SUBQ 04/13/17 0800,1200,1700,2100 pen Isosorbide Mononitrate ER [Imdur] 60 mg PO DAILY tablet 04/13/17 Nitroglycerin [Nitrostat] 0.4 mg SL Q5MIN PRN tablet 04/13/17 05/09/17 Potassium Chloride [K-Dur] 20 meq PO DAILYWM tablet 04/13/17 Temazepam [Restoril] 15 mg PO QPM PRN capsule 04/13/17 amLODIPine [Norvasc] 5 mg PO BID tablet 04/13/17 hydroCHLOROthiazide [Hydrodiuril] 25 mg PO DAILY tablet 04/13/17 Colchicine 0.6 mg PO BID #20 capsule 05/09/17 Colchicine [Colchicine] 0.6 mg PO BID 05/09/17 05/09/17 Liraglutide [Victoza 2-Antonio] 1.8 mg SQ DAILY 05/09/17 05/09/17 Metoprolol Succinate 12.5 mg PO DAILY 05/09/17 05/09/17 Pantoprazole Sodium [Protonix] 40 mg PO BID 05/09/17 05/09/17 Dexamethasone [Decadron] 4 mg PO DAILY #5 tablet 07/07/17 Naproxen 375 mg PO BID #20 tablet 07/07/17 Oxycodone HCl/Acetaminophen 1 each PO Q6H PRN #20 tablet 07/07/17 [Percocet 5-325 mg Tablet] - Allergies Allergies/Adverse Reactions: Allergies Allergy/AdvReac Type Severity Reaction Status Date / Time hydroxyzine [From Vistaril] Allergy Hives Verified 07/07/17 14:18 meperidine [From Demerol] Allergy Anaphylaxis Verified 07/07/17 14:18 - Social History Does the pt smoke?: No Smoking Status: Never smoker Does the pt drink ETOH?: No Does the pt have substance abuse?: No - Family History Family history: reports: CAD - Immunizations Immunizations are current?: Yes - POLST Patient has POLST: No PD ED PE NORMAL - Vitals Vital signs reviewed: Yes - General General: Alert and oriented X 3, Well developed/nourished, Other (appears in pain, suggesting nitro drip right away and pain meds.) - HEENT HEENT: Pharynx benign - Neck Neck: Supple, no meningeal sign, No adenopathy - Cardiac Cardiac: RRR, No murmur - Respiratory Respiratory: Clear bilaterally, Other (some element of chestwall tenderness left chest sternal area. No rash nor sores. Does not reproduce the pain though. ) - Abdomen Abdomen: Soft, Non tender - Back Back: No CVA TTP - Derm Derm: Normal color, Warm and dry, No rash - Extremities Extremities: No deformity, No tenderness to palpate, Normal ROM s pain, No edema , No calf tenderness / cord - Neuro Neuro: Alert and oriented X 3, No motor deficit, Normal speech - Psych Psych: Normal affect Results - Vitals Vitals: Vital Signs - 24 hr 07/07/17 07/07/17 07/07/17 14:16 15:41 15:43 Temperature 36.9 C Heart Rate 92 88 85 Respiratory 20 15 14 Rate Blood Pressure 193/85 H 150/77 H 145/77 H O2 Saturation 97 95 95 07/07/17 07/07/17 07/07/17 15:46 15:53 16:04 Temperature Heart Rate 81 78 78 Respiratory 17 15 16 Rate Blood Pressure 147/81 H 137/84 H 142/83 H O2 Saturation 95 99 94 07/07/17 07/07/17 07/07/17 16:30 17:17 18:21 Temperature Heart Rate 80 93 85 Respiratory 17 14 15 Rate Blood Pressure 158/89 H 144/86 H 118/72 O2 Saturation 97 95 94 07/07/17 07/07/17 18:45 18:59 Temperature Heart Rate 79 86 Respiratory 12 16 Rate Blood Pressure 114/80 116/84 H O2 Saturation 94 99 Oxygen O2 Source Room air - EKG (time done) 14:13 Rate: Rate (enter#) (90) Rhythm: NSR [place]: Normal Intervals: Normal [place] QRS: Poor R wave progression Ischemia: Normal ST segments, Q waves (anteroseptal without acute ST changes). No: ST elevation c/w ischemia, ST depression Compare to prior EKG: Unchanged from prior EKG - Labs Labs: Laboratory Tests 07/07/17 07/07/17 07/07/17 14:25 14:25 14:25 WBC 6.4 RBC 5.22 Hgb 16.2 Hct 46.9 MCV 89.8 MCH 31.1 H MCHC 34.6 RDW 14.2 Plt Count 139 MPV 8.3 Neut # 3.8 Lymph # 1.9 [place] # 0.5 Eos # 0.1 Baso # 0.1 Absolute Nucleated RBC 0.00 Nucleated RBC % 0.0 Sodium 136 Potassium 4.2 Chloride 99 L Carbon Dioxide 27 Anion Gap 10.0 BUN 8 Creatinine 0.8 Estimated GFR (MDRD) 99 Glucose 235 H Calcium 9.3 Magnesium 1.9 Total Bilirubin 0.9 AST 69 H ALT 86 H Alkaline Phosphatase 188 H Troponin I < 0.04 B-Natriuretic Peptide Total Protein 7.5 Albumin 4.0 Globulin 3.5 Albumin/Globulin Ratio 1.1 Lipase 42 07/07/17 07/07/17 14:25 17:03 WBC RBC Hgb Hct MCV MCH MCHC RDW Plt Count MPV Neut # Lymph # [place] # Eos # Baso # Absolute Nucleated RBC Nucleated RBC % Sodium Potassium Chloride Carbon Dioxide Anion Gap BUN Creatinine Estimated GFR (MDRD) Glucose Calcium Magnesium Total Bilirubin AST ALT Alkaline Phosphatase Troponin I < 0.04 B-Natriuretic Peptide 92 Total Protein Albumin Globulin Albumin/Globulin Ratio Lipase - Rads (name of study) chest Radiology: Prelim report reviewed, EMP read contemporaneously (no acute process) PD MEDICAL DECISION MAKING - ED course Complexity details: re-evaluated patient (not really any response to NTG by EMS nor here. Diltiazem without apparent improvement. IV Dilaudid/Morphine was only real improvement. He suggests that the nitro drip is slowly improving the pain but I would expect better with the NTG/Ca rte combo if it were spasm. Also might expect some ECG changes. I talked with Dr. Magallanes who felt it was very unlikely coronary spasm given current and prior patterns and non-response really to NTG/Ca blockers in the past. Could still consider pericardial process. Dr. Magallanes suggested NSAIDs. ), considered differential (consider cardiac, spasm or pericardial or small vessel ischemia. Will check BNP and Troponin. No ECG changes acutely. Consider musculoskeletal as is sharp and worse with breathing/position. COnsider gastric as had some gastritis on EGD in Mar. Can try GI cocktail. consider pulmonary and will get chest xray. ), d/w eyewear consultant (Dr. Magallanes, who felt it was not variant angina based on course of it and labs/ECG. Can treat with anti-inflammatories. ) Departure - Departure Disposition: Home, Self Care Clinical Impression: Chest pain at rest Clinical Impression: (Ruled Out): Prinzmetal angina Condition: Stable Record reviewed to determine appropriate education?: Yes Instructions: ED Chest Pain Atypical Unkn Cause Follow-Up: JANELL HELMS MD [Primary Care Provider] - Prescriptions: Dexamethasone [Decadron] 4 mg PO DAILY #5 tablet Naproxen 375 mg PO BID #20 tablet Oxycodone HCl/Acetaminophen [Percocet 5-325 mg Tablet] 1 each PO Q6H PRN #20 tablet PRN Reason: Pain Comments: There are no signs of heart failure or heart attack or pneumonia on labs. I talked with the forensic computer examiner on-call who reviewed your tests from March and we discussed the current lab tests and EKG. He felt it was very unlikely to be Prinzmetal angina. We could still consider possible pericarditis or musculoskeletal causes of the pain. We will treat these with anti- inflammatories and pain medicine and see how you do over the next few days. Discharge Date/Time: 07/07/17 19:32
[2017-07-07 14:58] LABS: BASOPHILS # (AUTO) 0.1 10^3/uL (0.0-0.1); BASOPHILS % (AUTO) 1.1 %; EOSINOPHILS # (AUTO) 0.1 10^3/uL (0.0-0.7); EOSINOPHILS % (AUTO) 2.2 %; HGB - HEMOGLOBIN 16.2 g/dL (14.0-18.0); LYMPHOCYTES # (AUTO) 1.9 10^3/uL (1.5-3.5); LYMPHOCYTES % (AUTO) 28.7 %; MEAN CORPUSCULAR HEMOGLOBIN 31.1 pg (27.0-31.0); MEAN CORPUSCULAR HGB CONC 34.6 g/dL (32.0-36.0); MEAN CORPUSCULAR VOLUME 89.8 fL (80.0-94.0); MEAN PLATELET VOLUME 8.3 fL (7.4-11.4); MONOCYTES # (AUTO) 0.5 10^3/uL (0.0-1.0); MONOCYTES % (AUTO) 8.5 %; NEUTROPHILS # (AUTO) 3.8 10^3/uL (1.5-6.6); NEUTROPHILS % (AUTO) 59.5 %; PLT - PLATELET COUNT 139 10^3/uL (130-450); RED BLOOD COUNT 5.22 10^6/uL (4.70-6.10); RED CELL DISTRIBUTION WIDTH 14.2 % (12.0-15.0); WHITE BLOOD COUNT 6.4 x10^3/uL (4.8-10.8)
[2017-07-07 15:08] LABS: ALBUMIN/GLOBULIN RATIO 1.1 (1.0-2.2); BILIRUBIN,TOTAL 0.9 mg/dL (0.2-1.0); CALCIUM 9.3 mg/dL (8.5-10.3); CREATININE 0.8 mg/dL (0.6-1.2); MAGNESIUM 1.9 mg/dL (1.7-2.8); TOTAL PROTEIN 7.5 g/dL (6.7-8.2)
[2017-07-07] MEDS ORDERED: HYDROmorphone 2 MG/ML VIAL IVP STA (15:11)
[2017-07-07] MEDS ORDERED: KETOROLAC 30 MG/ML VIAL IVP STA (15:11)
[2017-07-07] MEDS ORDERED: diltiaZEM INJ 5 MG/ML VIAL IVP ONE (15:12)
[2017-07-07] MEDS ORDERED: NITROGLYCERIN 50 MG/250 ML 50 MG/250 ML BOTTLE IV STA (15:13)
--- NOTE | 2017-07-07 15:32 | XRAY Report ---
EXAM: CHEST RADIOGRAPHY EXAM DATE: 07/07/2017 03:25 PM. CLINICAL HISTORY: Chest pain. COMPARISON: 04/08/2017. TECHNIQUE: 1 view. FINDINGS: Lungs/Pleura: No focal opacities evident. No pleural effusion. No pneumothorax. Mediastinum: Within exam limitations, the cardiomediastinal contour is normal. Other: None. IMPRESSION: No acute intrathoracic plain film abnormality. [facility] Referring Provider Line: [phone] SITE ID: [id number]
[2017-07-07] MEDS ORDERED: MORPHINE 10 MG/ML VIAL IVP STA ×2 (16:40→18:00)
[2017-07-07] MEDS ORDERED: MAG HYDROX/AL HYDROX/SIMETH 30 ML UDC PO STA (17:03)
[2017-07-07] MEDS ORDERED: LIDOCAINE VISCOUS 2% 15 ML UDC MM STA (17:03)
[2017-07-07] MEDS ORDERED: DEXAMETHASONE 10 MG/ML VIAL IVP STA (17:04)
[2017-07-07 18:59] VITALS: BP 116/84
== END 2017-07-07 19:32 | disposition home or self-care (01) ==
LOC: EDUNIT# → ED 14:08
DX: R07.89 Other chest pain (principal); I25.10 Atherosclerotic heart disease of native coronary artery without angina pectoris; I25.2 Old myocardial infarction; Z95.5 Presence of coronary angioplasty implant and graft; E11.9 Type 2 diabetes mellitus without complications; Z79.4 Long term (current) use of insulin; Z79.82 Long term (current) use of aspirin
CPT/HCPCS: 36415; 71045; 80053; 83690; 83735; 83880; 84484; 85025; 93005; 96365; 96366; 96375; 96376; 99284; A9270; J1170

== ENCOUNTER 2017-07-08 07:12 | Outpatient (CLI) | payer MEDICARE, OTHER | END 2017-07-08 07:13 | disposition critical access hospital (66) | LOC: EMS 07:12 | PROVIDERS: ATTEND Surgery | DX: R07.9 Chest pain, unspecified (principal) | CPT/HCPCS: A0425; A0427 ==

== ENCOUNTER 2017-07-08 07:33 | Inpatient (IN) | payer MEDICARE, OTHER ==
--- NOTE | 2017-07-08 07:45 | ED Physician Documentation ---
PD HPI CHEST PAIN - Stated complaint Stated Complaint: CP - Chief complaint Chief Complaint: Cardiac - History obtained from History obtained from: Patient - History of Present Illness Timing - onset: How many days ago (4) Timing - onset during: Rest Timing - duration: Days (4) Timing - details: Gradual onset, Still present Quality: Pressure, Tightness, Sharp, Like prior ACS, Pain Location: Substernal, Left chest Radiation: Jaw, Neck, Left upper extremity Improved by: Nitro, Other medication Associated symptoms: No: Shortness of air, Diaphoresis, Nausea, Vomiting, Feeling faint / dizzy, General Weakness, Palpitations, Cough Similar symptoms before: Diagnosis (prinzmentals angina) Recently seen: Emergency Dept - Additional information Additional information: 56-year-old diabetic male with history of coronary artery disease and Prinzmetal 's angina has developed chest pain the last 4 days. The pain radiates up into his jaw and neck and he has been evaluated in the emergency department for this yesterday. He did have some improvement with pain medication and nitro his tropes were negative and his liver functions were mildly elevated without elevation of the bilirubin. He went home and subsequently developed worsening chest pain again throughout the night is very uncomfortable throughout the entire night and decided to call the aid car again this morning. He has had a problem with his knee prosthesis locking and has required conscious sedation to reduce the joints. He states that he plays golf and continues to play walking 18 holes. Review of Systems Constitutional: denies: Fever Eyes: denies: Decreased vision Ears: denies: Ear pain Nose: denies: Congestion Throat: denies: Sore throat Cardiac: reports: Chest pain / pressure. denies: Palpitations Respiratory: reports: Cough. denies: Dyspnea GI: denies: Abdominal Pain, Nausea, Vomiting : denies: Dysuria, Frequency Skin: denies: Rash Musculoskeletal: reports: Neck pain, Extremity pain, Joint pain. denies: Back pain Neurologic: denies: Generalized weakness, Focal weakness, Numbness PD PAST MEDICAL HISTORY - Past Medical History Cardiovascular: Coronary artery disease, Angina, [place] Respiratory: Sleep apnea, CPAP use Endocrine/Autoimmune: Type 2 diabetes GI: None : None HEENT: None Psych: None Musculoskeletal: None Derm: None - Past Surgical History Past Surgical History: Yes Ortho: Knee replacement, Rotator cuff repair, Other Cardiovascular: Coronary stent - Present Medications Home Medications: Ambulatory Orders Medication Instructions Recorded Confirmed Insulin Aspart [NovoLOG] 40 unit SUBQ 0800 03/09/17 04/07/17 Insulin Aspart [NovoLOG] 45 unit SQ 1200,1700 03/09/17 04/07/17 Insulin Glargine [Lantus Solostar] 70 unit SQ DAILY PM 03/09/17 04/07/17 Liraglutide [Victoza 2-Antonio] 1.8 mg SQ DAILY PM 03/09/17 04/07/17 Pregabalin [Lyrica] 225 mg PO BID 03/09/17 05/09/17 Cholecalciferol (Vitamin D3) 2,000 units PO DAILY 03/10/17 04/07/17 [Vitamin D3] Escitalopram [Lexapro] 10 mg PO DAILY 03/10/17 05/09/17 [place]-3 Acid Ethyl Esters [Lovaza] 1 gm PO BID 03/10/17 04/07/17 Aspirin [Wesly] 325 mg PO DAILY tablet 03/14/17 04/07/17 Atorvastatin [Lipitor] 40 mg PO QPM tablet 03/14/17 04/07/17 diltiaZEM CD [Cardizem Cd] 360 mg PO DAILY #60 capsule 03/14/17 05/09/17 Ibuprofen [Motrin] 600 mg PO Q6HR tablet 04/13/17 Insulin Aspart [NovoLOG] 1 - 5 unit SUBQ 04/13/17 0800,1200,1700,2100 pen Isosorbide Mononitrate ER [Imdur] 60 mg PO DAILY tablet 04/13/17 Nitroglycerin [Nitrostat] 0.4 mg SL Q5MIN PRN tablet 04/13/17 05/09/17 Potassium Chloride [K-Dur] 20 meq PO DAILYWM tablet 04/13/17 Temazepam [Restoril] 15 mg PO QPM PRN capsule 04/13/17 amLODIPine [Norvasc] 5 mg PO BID tablet 04/13/17 hydroCHLOROthiazide [Hydrodiuril] 25 mg PO DAILY tablet 04/13/17 Colchicine 0.6 mg PO BID #20 capsule 05/09/17 Colchicine [Colchicine] 0.6 mg PO BID 05/09/17 05/09/17 Liraglutide [Victoza 2-Antonio] 1.8 mg SQ DAILY 05/09/17 05/09/17 Metoprolol Succinate 12.5 mg PO DAILY 05/09/17 05/09/17 Pantoprazole Sodium [Protonix] 40 mg PO BID 05/09/17 05/09/17 Dexamethasone [Decadron] 4 mg PO DAILY #5 tablet 07/07/17 Naproxen 375 mg PO BID #20 tablet 07/07/17 Oxycodone HCl/Acetaminophen 1 each PO Q6H PRN #20 tablet 07/07/17 [Percocet 5-325 mg Tablet] - Allergies Allergies/Adverse Reactions: Allergies Allergy/AdvReac Type Severity Reaction Status Date / Time hydroxyzine [From Vistaril] Allergy Hives Verified 07/07/17 14:18 meperidine [From Demerol] Allergy Anaphylaxis Verified 07/07/17 14:18 - Social History Does the pt smoke?: No Smoking Status: Never smoker Does the pt drink ETOH?: No Does the pt have substance abuse?: No - Immunizations Immunizations are current?: Yes - POLST Patient has POLST: No PD ED PE NORMAL - Vitals Vital signs reviewed: Yes (tachy and hypertensive ) - General General: Alert and oriented X 3, No acute distress, Well developed/nourished - HEENT HEENT: Atraumatic, PERRL, EOMI - Neck Neck: Supple, no meningeal sign - Cardiac Cardiac: No murmur, Other (tachy to 110) - Respiratory Respiratory: No respiratory distress, Clear bilaterally, Other (no chest wall tenderness) - Abdomen Abdomen: Soft, Non tender - Back Back: No CVA TTP, No spinal TTP - Derm Derm: Normal color, Warm and dry, No rash - Extremities Extremities: No deformity, No edema - Neuro Neuro: No motor deficit, No sensory deficit Eye Opening: Spontaneous Motor: Obeys Commands Verbal: Oriented GCS Score: 15 - Psych Psych: Normal mood, Normal affect Results - Vitals Vitals: Vital Signs - 24 hr 07/08/17 07/08/17 07/08/17 07:36 08:50 11:02 Temperature 36.9 C Heart Rate 106 H 101 H 99 Respiratory 18 14 16 Rate Blood Pressure 134/65 H 127/75 142/82 H O2 Saturation 93 94 94 07/08/17 07/08/17 07/08/17 11:40 12:13 13:30 Temperature Heart Rate 93 93 96 Respiratory 16 16 16 Rate Blood Pressure 109/63 107/65 106/78 O2 Saturation 93 93 94 07/08/17 07/08/17 07/08/17 14:28 15:29 16:40 Temperature Heart Rate 87 98 90 Respiratory 16 18 16 Rate Blood Pressure 112/66 147/78 H 106/54 L O2 Saturation 93 98 95 Oxygen O2 Source Room air - EKG (time done) 0738 Rate: Rate (enter#) (106) Rhythm: Sinus tachycardia Intervals: Wide QRS Compare to prior EKG: Changed from prior EKG (spt 07-07-2017 rate has increased and the QRSd is prolonged today) Computer interpretation: Agree with computer - Labs Labs: Laboratory Tests 07/08/17 07/08/17 07/08/17 09:00 09:00 09:00 WBC 11.7 H RBC 5.03 Hgb 15.7 Hct 45.7 MCV 90.8 MCH 31.2 H MCHC 34.3 RDW 14.4 Plt Count 187 MPV 8.2 Neut # 9.9 H Lymph # 1.2 L [place] # 0.6 Eos # 0.0 Baso # 0.1 Absolute Nucleated RBC 0.01 Nucleated RBC % 0.1 Sodium 136 Potassium 4.6 Chloride 102 Carbon Dioxide 23 Anion Gap 11.0 BUN 13 Creatinine 0.9 Estimated GFR (MDRD) 87 L Glucose 386 H Calcium 9.3 Total Bilirubin 0.8 AST 52 H ALT 78 H Alkaline Phosphatase 172 H Total Creatine Kinase 42 CK-MB (CK-2) 1.7 Troponin I < 0.04 Total Protein 7.3 Albumin 3.8 Globulin 3.5 Albumin/Globulin Ratio 1.1 Lipase 30 - Rads (name of study) 2 veiw chest Radiology: Prelim report reviewed (Impression: 1. No acute disease in the chest.), EMP read indepedently, See rad report Procedures - IVC sono (time) 0755 Bedside IVC sono: IVC measures (cm) (1.57), IVC collapsed c insp (cm) (complete) , Dehydration (mild est <1 liter deficit) PD MEDICAL DECISION MAKING - ED course Complexity details: reviewed old records, reviewed results, re-evaluated patient , considered differential, d/w patient ED course: 56-year-old male with a history of coronary artery disease has had prior episodes similar to this which have been treated as vasospastic angina. The patient has had prior improvement with use of intravenous nitroglycerin and morphine and today we have started this on the patient again. I have reviewed the patient's past history and I am not satisfied that the clinical course matches with vasospastic angina but I am inexperienced in this. I have looked at other etiologies including pulmonary embolism, infection and musculoskeletal injury. His CT angiogram was unremarkable with the exception of thickened bronchus consistent with COPD his CK was normal and there is no evidence of infiltrate in the detailed CT examination. He did have improvement with the use of nitroglycerin and morphine and he has asked to be hospitalized. He spent all of last night in severe pain and does not want to continue to experience that. I have talked to our hospitalist Dr. Valentino and she is willing to treat the patient and provide for further diagnosis if possible. Departure - Departure Disposition: ED Place in Observation Clinical Impression: Prinzmetal angina Condition: Stable Discharge Date/Time: 07/08/17 18:46
[2017-07-08] MEDS ORDERED: SODIUM CHLORIDE 0.9% 500 ML IV ONE ×2 (08:12→10:46)
[2017-07-08 09:03] LABS: BASOPHILS # (AUTO) 0.1 10^3/uL (0.0-0.1); BASOPHILS % (AUTO) 0.6 %; EOSINOPHILS % (AUTO) 0.1 %; HGB - HEMOGLOBIN 15.7 g/dL (14.0-18.0); LYMPHOCYTES # (AUTO) 1.2 10^3/uL (1.5-3.5); LYMPHOCYTES % (AUTO) 9.8 %; MEAN CORPUSCULAR HEMOGLOBIN 31.2 pg (27.0-31.0); MEAN CORPUSCULAR HGB CONC 34.3 g/dL (32.0-36.0); MEAN CORPUSCULAR VOLUME 90.8 fL (80.0-94.0); MEAN PLATELET VOLUME 8.2 fL (7.4-11.4); MONOCYTES # (AUTO) 0.6 10^3/uL (0.0-1.0); MONOCYTES % (AUTO) 5.3 %; NEUTROPHILS # (AUTO) 9.9 10^3/uL (1.5-6.6); NEUTROPHILS % (AUTO) 84.2 %; PLT - PLATELET COUNT 187 10^3/uL (130-450); RED BLOOD COUNT 5.03 10^6/uL (4.70-6.10); RED CELL DISTRIBUTION WIDTH 14.4 % (12.0-15.0); WHITE BLOOD COUNT 11.7 x10^3/uL (4.8-10.8)
--- NOTE | 2017-07-08 09:06 | XRAY Report ---
EXAM: CHEST RADIOGRAPHY EXAM DATE: 07/08/2017 08:57 AM. CLINICAL HISTORY: Chest pain. Lightheadedness. COMPARISON: 07/07/2017. TECHNIQUE: 2 views. FINDINGS: Lungs/Pleura: No focal opacities evident. No pleural effusion. No pneumothorax. Normal volumes. Mediastinum: Heart size is normal. Aorta is mildly tortuous. Other: No acute osseous abnormalities. IMPRESSION: 1. No acute disease in the chest. [facility] Referring Provider Line: [phone] SITE ID: [id number]
[2017-07-08 09:17] LABS: ALBUMIN 3.8 g/dL (3.2-5.5); ALBUMIN/GLOBULIN RATIO 1.1 (1.0-2.2); BILIRUBIN,TOTAL 0.8 mg/dL (0.2-1.0); CALCIUM 9.3 mg/dL (8.5-10.3); CREATININE 0.9 mg/dL (0.6-1.2); TOTAL PROTEIN 7.3 g/dL (6.7-8.2)
[2017-07-08 09:21] LABS: TROPONIN I < 0.04 ng/mL (<0.49)
[2017-07-08 09:23] LABS: CREATINE KINASE MB 1.7 ng/mL (0.6-6.3)
[2017-07-08] MEDS ORDERED: ONDANSETRON 4 MG/2 ML VIAL IVP STA (09:39)
[2017-07-08] MEDS ORDERED: MORPHINE 10 MG/ML VIAL IVP STA ×2 (09:39→10:13)
[2017-07-08] MEDS ORDERED: NITROGLYCERIN 50 MG/250 ML 50 MG/250 ML BOTTLE IV SCH ×2 (12:00→19:00)
[2017-07-08] MEDS ORDERED: MORPHINE 10 MG/ML VIAL IVP ONE (12:28)
[2017-07-08] MEDS ORDERED: IOPAMIDOL-300 100 ML VIAL ONE (14:55)
[2017-07-08] MEDS ORDERED: IOPAMIDOL-300 100 ML VIAL IVP ONE (15:08)
--- NOTE | 2017-07-08 15:39 | CT Preliminary Report ---
Exam: CT CHEST ANGIO (PE) IMPRESSION: 1. No acute intrathoracic abnormality. Specifically no evidence of pulmonary emboli through the segme ntal pulmonary arteries. 2. Mild diffuse bronchial wall thickening suggestive of bronchitis or other airways disease with sabe r-sheath configuration of the trachea suggesting COPD. 3. Multifocal solid nonspecific pulmonary nodules measuring <6 mm. Recommend follow-up of the described nodule(s) according to the following guidelines: Fleischner Society Recommendations 2017 MacMahon et al. Radiology 2017 Solid Nodules-Low Risk Patients: <6 mm (single or multiple) - No routine follow-up* Solid Nodules-High Risk Patients: <6 mm (single or multiple) -Optional CT at 12 months* *Nodules < 6mm do not require routine follow-up, but suspicious nodule morphology, upper lobe locatio n, or both may warrant 12 month follow-up [facility] SITE ID: [id number]
--- NOTE | 2017-07-08 15:51 | CT Report ---
EXAM: CT ANGIOGRAM CHEST EXAM DATE: 07/08/2017 03:08 PM. CLINICAL HISTORY: Left-sided chest pain. COMPARISON: Chest radiograph 07/08/2017. CT chest 03/25/2006. TECHNIQUE: Routine helical imaging was performed through the chest in the pulmonary arterial phase. I V Contrast: 80ML ISOVUE 300. Reconstructions: Coronal 3-D MIP reconstructions.Sagittal and coronal. In accordance with CT protocol optimization, one or more of the following dose reduction techniques w ere utilized for this exam: automated exposure control, adjustment of mA and/or KV based on patient s ize, or use of iterative reconstructive technique. FINDINGS: Pulmonary Arteries: Diagnostic quality: Adequate through the segmental arteries. No evidence for acute or chronic pulmona ry emboli. RV/LV is within normal limits. There is no interventricular septal bowing. There is no reflux of cont rast material in the IVC. Lungs/Pleura: -No mass or consolidation. No evidence of edema. No pleural effusion or pneumothorax. There is minima l bibasilar dependent atelectasis, right greater than left. There is mild focal subsegmental atelecta sis versus pleuroparenchymal scarring in the lingula and left lower lobe. -There is a nonspecific solid 5 mm pulmonary nodule in the right middle lobe laterally, which is incr eased some in size since 2007 exam when this measured 2-3 mm (, prior exam ). Additional nons pecific right middle lobe subpleural solid pulmonary nodule measures 5 mm, previously [place] was present in this position on 2006 CT (current exam , prior exam ). 2 adjacent nonspec [facility] left upper lobe pulmonary nodule centrally measures 3 mm (, not definitely present on prior exam). Similar solid nodule along the course of the left major fissure projecting into the uppe r lobe likely represents a benign intrapulmonary lymph node measuring 5.7 mm (). There are additi onal pulmonary micronodules within both lungs, predominating in the upper lobes near the apices, best appreciated on thick slab MIP coronal series 7. Benign calcified pulmonary lymph node versus granulo ma present along the course of the right fissures (). -The central airways are patent. There is mild circumferential wall thickening of the bronchioles thr oughout both lungs, most prominent inferiorly. There is a saber-sheath configuration of the upper tra lindsey, strongly correlated with COPD. Mediastinum: -No cardiac enlargement. No significant pericardial effusion. Severe coronary artery calcifications a nd likely stent present in the LAD distribution. -Main pulmonary arterial caliber is within normal limits. -There are mildly prominent, though non-pathologically enlarged right hilar and right lower paratrach eal lymph nodes of uncertain etiology and clinical significance, though similar to 2007 CT. Thoracic Aorta: Normal in course and caliber. No evidence of dissection. Trace calcific atheroscleros is present at the arch. Normal variant bovine arch branch pattern noted. Upper Abdomen: Unremarkable. Other: No acute osseous abnormality or suspicious focal osseous lesion. Minimal to mild spondylitic c hanges present in the thoracic spine. Moderate to severe degenerative spondylitic changes present in the visualized lower cervical spine. Degenerative changes present at the sternomanubrial joint as wel l. There is mild convex right curvature of the midthoracic spine. Visualized lower thyroid is unremar kable. No abnormally enlarged axillary, supraclavicular or internal mammary lymph nodes. There is par tially visualized mild symmetric gynecomastia. IMPRESSION: 1. No acute intrathoracic abnormality. Specifically no evidence of pulmonary emboli through the segme ntal pulmonary arteries. 2. Mild diffuse bronchial wall thickening suggestive of bronchitis or other airways disease with sabe r-sheath configuration of the trachea suggesting COPD. 3. Multifocal solid nonspecific pulmonary nodules measuring <6 mm. Recommend follow-up of the described nodule(s) according to the following guidelines: Fleischner Society Recommendations 2017 MacMahon et al. Radiology 2017 Solid Nodules-Low Risk Patients: <6 mm (single or multiple) - No routine follow-up* Solid Nodules-High Risk Patients: <6 mm (single or multiple) -Optional CT at 12 months* *Nodules < 6mm do not require routine follow-up, but suspicious nodule morphology, upper lobe locatio n, or both may warrant 12 month follow-up [facility] Referring Provider Line: [phone] SITE ID: [id number]
[2017-07-08] MEDS: HYDROcod/ACETAM 5/325 MG TABLET PO PRN ×2 (19:09→23:43)
[2017-07-08] MEDS ORDERED: SODIUM CHLORIDE 0.9% 500 ML IV PRN (20:25)
[2017-07-08] MEDS: amLODIPine 5 MG TABLET PO SCH (20:30)
[2017-07-08] MEDS: COLCHICINE 0.6 MG TABLET PO SCH (20:30)
[2017-07-08] MEDS: ATORVASTATIN 40 MG TABLET PO SCH (20:30)
[2017-07-08] MEDS: INSULIN GLARGINE 300 UNIT/3 ML PEN SUBQ SCH (20:34)
[2017-07-08] MEDS: methylPREDNISolone SUCCINATE 40 MG/ML VIAL IVP SCH (21:18)
[2017-07-09] MEDS: SODIUM CHLORIDE FLUSH 0.9% 10 ML SYRINGE IVP SCH ×4 (01:05→22:48)
[2017-07-09] MEDS: HYDROcod/ACETAM 5/325 MG TABLET PO PRN ×3 (03:40→11:33)
[2017-07-09 05:28] LABS: CALCIUM 8.7 mg/dL (8.5-10.3); CREATININE 0.7 mg/dL (0.6-1.2)
[2017-07-09] MEDS: methylPREDNISolone SUCCINATE 40 MG/ML VIAL IVP SCH ×3 (05:57→21:13)
[2017-07-09] MEDS: INSULIN ASPART 300 UNIT/3 ML PEN SUBQ SCH ×3 (08:14→17:54)
[2017-07-09] MEDS: amLODIPine 5 MG TABLET PO SCH ×2 (09:11→20:23)
[2017-07-09] MEDS: ISOSORBIDE MONONITRATE ER 30 MG TABLET PO SCH (09:11)
[2017-07-09] MEDS: METOPROLOL SUCCINATE 25 MG TABLET PO SCH (09:11)
[2017-07-09] MEDS: hydroCHLOROthiazide 25 MG TABLET PO SCH (09:11)
[2017-07-09] MEDS: ESCITALOPRAM 10 MG TABLET PO SCH (09:11)
[2017-07-09] MEDS: COLCHICINE 0.6 MG TABLET PO SCH ×3 (09:14→20:23)
[2017-07-09] MEDS: diltiaZEM CD 180 MG CAPSULE PO SCH (09:14)
[2017-07-09] MEDS: ASPIRIN 325 MG TABLET PO SCH (09:14)
--- NOTE | 2017-07-09 09:19 | HISTORY & PHYSICAL EXAMINATION ---
DATE OF SERVICE: 07/08/2017 Physician: Amberly Guerrier MD HISTORY OF PRESENT ILLNESS: This is a 56-year-old white male with a history of coronary artery disease with 5 stents done over 2 years ago. He moved to [facility] in 2015. He has had at least 4 admissions here for evaluation of chest pain. In the fall of 2016, he underwent stress testing here which showed an area of anterior ischemia, and he required transfer for an angiogram which showed patent LAD stents and no areas to explain the ischemia. Therefore, he was diagnosed with vasospastic angina (Printzmetal's angina). He then had another evaluation in the winter, and in March 2017, an admission with chest pain, at which time he had an EGD to evaluate for gastric cause of the pain, and this showed a small ulcer plus gastritis. He had persistent pain as an inpatient, and therefore was transferred for another coronary angiogram, which was done 04/14/2017 and showed no new stenoses and patent major coronary vessels. The patient again presented to the ER yesterday with similar chest pain. He was evaluated and treated, had some improvement and released but returned to the ER this morning with "unbearable pain". He always gets his symptoms at rest, not with (demand) exercise. He requires IV nitroglycerin for pain control or, in the last several admissions, has now needed narcotics. Now he was started on IV nitro with some relief at 5 mcg and then slightly more improvement with 10 mcg. He also underwent a CTA of the chest and a PE was ruled out this morning. PAST MEDICAL HISTORY 1. Insulin-dependent diabetes. 2. Obesity. 3. Sleep apnea on CPAP. 4. Coronary artery disease with stents done over 2 years ago, last angiogram showing no significant stenoses and preserved LVEF. 5. Presumed pericarditis since the March 2017 admission, for which he is supposed to be on colchicine, and it is unknown if his Decadron was started for that. ALLERGIES 1. DILAUDID. 2. HYDROXYZINE. MEDICATIONS 1. Amlodipine 5 mg b.i.d. 2. Adult dose aspirin daily. 3. Lipitor 40 mg every evening. 4. Colchicine 0.6 mg b.i.d. 5. Cardizem-CD 360 mg daily. 6. Lexapro 10 mg daily. 7. HydroDIURIL 25 mg daily. 8. Insulin 40 units subcu in the morning and 40 units subcu at noon and 5 p.m. 9. Lantus insulin 70 units subcu every evening. 10. Imdur 60 mg daily. 11. Decadron 4 mg daily. 12. Sublingual nitroglycerin p.r.n. 13. Vitamin D3 daily. 14. Protonix 40 mg b.i.d. 15. Victoza 2 pack daily. 16. Tylenol with codeine p.r.n. FAMILY HISTORY: Known heart disease. SOCIAL HISTORY: The patient is a nonsmoker, drinks social alcohol, uses no illicit drugs. REVIEW OF SYSTEMS: A comprehensive review of systems was performed, and the pertinent positives are in the HPI. All the rest are negative. PHYSICAL EXAMINATION GENERAL: Obese white male. He states that his pain is waxing and waning and goes as high as 8/10. VITAL SIGNS: Blood pressure 117/71, heart rate 84 in sinus rhythm, afebrile. Room air saturation 94%. HEENT: Unremarkable. NECK: Without JVD, but is obese. No carotid bruits. LUNGS: Clear. HEART: Heart sounds normal. No audible murmur. ABDOMEN: Soft, obese, positive bowel sounds. No organomegaly. EXTREMITIES: Trace ankle edema. No clubbing or cyanosis. NEUROLOGIC: Intact. LABORATORY/DATA His troponin is nondetectable at less than 0.04. Normal electrolytes, normal BUN and creatinine. Glucose 386, AST 52, ALT 78, alkaline phosphatase 172, bilirubin 0.8. Normal lipase. White count 11.7, hemoglobin 15.7, platelet count 187. EKG: Normal sinus rhythm, nonspecific lateral ST depressions which have been present for many EKGs in the past. CTA of the chest showed no pulmonary embolism. The LV and RV are within normal size. There is a subpleural solid pulmonary nodule and/or additional pulmonary micronodules within the lung, and a benign calcified pulmonary lymph node or granuloma in the right fissure, and there is mild thickening of the bronchioles. IMPRESSION/DIAGNOSES 1. Atypical chest pain. Pain is now "only relieved with narcotics," in the past admission it was "only controlled with IV nitroglycerin." 2. Pericarditis, presumable. 3. Vasospastic angina, presumably. 4. History of coronary artery disease with stenting, 2 recent angiograms were done (December 2016 and March 2017, showing no new areas of stenosis). 5. Insulin-dependent diabetes. 6. Obesity. 7. Sleep apnea, on CPAP. 8. HTN PLAN: Continue with the patient's IV nitroglycerin, which is currently at 5mcg , and place him in Observation to cycle troponins. Recheck an EKG in the am. Check an Echo to rule out pericardial effusion or suggestion of pericarditis. Increase his steroid, which I assume was being used for treatment of pericarditis, and continue the colchicine at its current dose. Resume his GI medications for the ulcer and gastritis found by EGD in 04/06. If all the troponins are negative, will stop the IV nitroglycerin and adjust medications to control the pain of either pericarditis or costochondritis or gastritis. I am concerned now that he may have drug-seeking behavior since he readily admits that "only narcotics now control the pain." If so, he will need outpatient chronic pain management. DEEP VENOUS THROMBOSIS PROPHYLAXIS: SCDs. CODE STATUS: FULL CODE. ATTESTATION: The patient is expected to be discharged or transferred to another facility within 96 hours: Yes. TD: 07/08/2017 22:58 STEPHENIE
[2017-07-09] MEDS: SODIUM CHLORIDE FLUSH 0.9% 10 ML SYRINGE IVP PRN ×3 (11:34→17:49)
[2017-07-09] MEDS ORDERED: ISOSORBIDE MONONITRATE ER 30 MG TABLET PO ONE (13:21)
[2017-07-09] MEDS: SUCRALFATE 1 GM/10 ML UDC PO SCH ×3 (14:20→21:13)
[2017-07-09] MEDS: PANTOPRAZOLE 40 MG TABLET PO SCH (14:21)
--- NOTE | 2017-07-09 17:10 | PROVIDER PROGRESS NOTE ---
Assessment/Plan - Problem List (1) Atypical chest pain Assessment/Plan: Pt rquesting iv NTG and iv Morphine pushes to "break the cycle". Will use oral Imdur and oral narcotics overlapping iv Morphine. Will also continue iv syeroids and colchicine for poss pericarditis. Will also restart Protonix and Carafate for poss gastritis. Will change from OBS status to inpt. (3) Prinzmetal angina Assessment/Plan: Continue nitrates and Ca channel blockers (4) Diabetes Qualifiers: Assessment/Plan: ontinue DM diet and Insulin coverage. (5) MARLEY on CPAP Assessment/Plan: Have ordered CPAP from home. - Current Meds Current Meds: Current Medications Generic Name Dose Route Start Last Admin Trade Name Freq PRN Reason Stop Dose Admin Acetaminophen/Hydrocodone Bitart 1 tab 07/08/17 18:01 07/09/17 11:33 [place] 5/325 PO 1 tab Q4HR PRN Administration Pain 5 to 7 Amlodipine Besylate 5 mg 07/08/17 21:00 07/09/17 09:11 Norvasc PO 5 mg BID JANNY Administration Aspirin 325 mg 07/09/17 09:00 07/09/17 09:14 Wesly PO 325 mg DAILY JANNY Administration Atorvastatin Calcium 40 mg 07/08/17 21:00 07/08/17 20:30 Lipitor PO 40 mg QPM JANNY Administration Colchicine 0.6 mg 07/09/17 13:30 07/09/17 14:21 Colcrys PO 0.6 mg BID JANNY Administration Diltiazem HCl 360 mg 07/09/17 09:00 07/09/17 09:14 Cardizem Cd PO 360 mg DAILY JANNY Administration Escitalopram Oxalate 10 mg 07/09/17 09:00 07/09/17 09:11 Lexapro PO 10 mg DAILY JANNY Administration Hydrochlorothiazide 25 mg 07/09/17 09:00 07/09/17 09:11 Hydrodiuril PO 25 mg DAILY JANNY Administration Sodium Chloride 500 mls @ 10 mls/hr 07/08/17 20:25 07/09/17 11:42 Normal Saline 0.9% IV Infused .Q48H PRN Infusion Peripheral Line Protocol Insulin Aspart 40 unit 07/09/17 08:00 07/09/17 08:14 Novolog SUBQ 40 unit 0800 JANNY Administration Insulin Aspart 45 unit 07/09/17 12:00 07/09/17 12:47 Novolog SUBQ 45 unit 1200,1700 JANNY Administration Insulin Glargine 70 unit 07/08/17 21:00 07/08/17 20:34 Lantus Solostar SUBQ 70 unit QPM JANNY Administration Isosorbide Mononitrate 60 mg 07/09/17 09:00 07/09/17 09:11 Imdur PO 60 mg DAILY JANNY Administration Methylprednisolone 40 mg 07/08/17 22:00 07/09/17 14:21 Solu-Medrol (40mg Vial) IVP 40 mg TID JANNY Administration Metoprolol Succinate 12.5 mg 07/09/17 09:00 07/09/17 09:11 Toprol Xl PO 12.5 mg DAILY JANNY Administration Pantoprazole Sodium 40 mg 07/09/17 14:00 07/09/17 14:21 Protonix PO 40 mg QDAC JANNY Administration Sodium Chloride 10 ml 07/09/17 01:00 07/09/17 09:18 Normal Saline Flush 0.9% IVP Not Given 0100,0900,1700 [facility] Sodium Chloride 10 ml 07/08/17 18:01 07/09/17 14:22 Normal Saline Flush 0.9% IVP 10 ml PRN PRN Administration NEEDED PER PROVIDER ORDERS Sucralfate 1 gm 07/09/17 14:00 07/09/17 16:16 Carafate PO Not Given 0700,1100,1600,2200 JANNY - Lab Result Fish Bone Diagrams: 07/08/17 09:00 07/09/17 04:45 - Additional Planning My Orders: My Active Orders 07/08/17 20:25 Sodium Chloride 0.9% [Normal Saline 0.9%] 500 ml IV 10 mls/hr 07/08/17 21:00 Atorvastatin [Lipitor] 40 mg PO QPM Insulin Glargine [Lantus Solostar] 70 unit SUBQ QPM amLODIPine [Norvasc] 5 mg PO BID 07/08/17 22:00 methylPREDNISolone SUCCINATE [SOLU-Medrol (40MG VIAL)] 40 mg IVP TID 07/09/17 08:00 Insulin Aspart [NovoLOG] 40 unit SUBQ 0800 07/09/17 09:00 Aspirin [Wesly] 325 mg PO DAILY Escitalopram [Lexapro] 10 mg PO DAILY Isosorbide Mononitrate ER [Imdur] 60 mg PO DAILY Metoprolol Succinate [Toprol Xl] 12.5 mg PO DAILY diltiaZEM CD [Cardizem Cd] 360 mg PO DAILY hydroCHLOROthiazide [Hydrodiuril] 25 mg PO DAILY 07/09/17 12:00 Insulin Aspart [NovoLOG] 45 unit SUBQ 1200,1700 07/09/17 13:30 Colchicine [Colcrys] 0.6 mg PO BID 07/09/17 14:00 Pantoprazole [Protonix] 40 mg PO QDAC Sucralfate [Carafate] 1 gm PO 0700,1100,1600,2200 Subjective - Subjective Patient Reports: Other (Still gets waves of CP to L shoulder and into L arm.) Nursing Reports: Other (Pt was lightheaded when to toilet today.) Objective Vital Signs: Vital Signs - 24 hr 07/08/17 07/08/17 07/08/17 19:00 20:00 21:00 Temperature 36.6 C Heart Rate [ 84 76 78 Monitoring electrodes] Respiratory 14 15 16 Rate Blood Pressure 117/71 104/73 108/65 [Right Brachial artery] O2 Saturation 94 94 92 07/08/17 07/08/17 07/09/17 22:00 23:00 00:00 Temperature 36.5 C 36.5 C Heart Rate [ 76 75 71 Monitoring electrodes] Respiratory 14 12 14 Rate Blood Pressure 95/71 98/64 103/66 [Right Brachial artery] O2 Saturation 94 94 95 07/09/17 07/09/17 07/09/17 01:00 02:00 03:00 Temperature Heart Rate [ 73 73 74 Monitoring electrodes] Respiratory 13 12 13 Rate Blood Pressure 98/64 86/56 L 100/61 [Right Brachial artery] O2 Saturation 94 93 92 07/09/17 07/09/17 07/09/17 04:00 05:00 06:00 Temperature 36.5 C Heart Rate [ 72 69 74 Monitoring electrodes] Respiratory 12 10 L 15 Rate Blood Pressure 114/72 106/77 105/70 [Right Brachial artery] O2 Saturation 93 92 94 07/09/17 07/09/17 07/09/17 07:00 07:39 07:50 Temperature 36.5 C Heart Rate [ 73 72 Monitoring electrodes] Respiratory 12 13 Rate Blood Pressure 108/66 108/66 [Right Brachial artery] O2 Saturation 95 95 07/09/17 07/09/17 07/09/17 09:00 10:00 11:00 Temperature Heart Rate [ 80 76 74 Monitoring electrodes] Respiratory 14 12 14 Rate Blood Pressure 105/56 L 99/94 H 109/72 [Right Brachial artery] O2 Saturation 92 92 95 07/09/17 07/09/17 07/09/17 12:00 12:56 14:00 Temperature 36.9 C Heart Rate [ 69 74 75 Monitoring electrodes] Respiratory 15 17 19 Rate Blood Pressure 105/70 116/69 111/63 [Right Brachial artery] O2 Saturation 94 95 95 07/09/17 07/09/17 07/09/17 15:00 16:00 17:00 Temperature 37.1 C Heart Rate [ 79 74 77 Monitoring electrodes] Respiratory 15 16 19 Rate Blood Pressure 114/78 114/76 110/73 [Right Brachial artery] O2 Saturation 94 95 94 Oxygen O2 Source Room air I&O (Last 24 Hrs): Intake and Output Totals x24h 07/07/17 07/08/17 07/09/17 23:59 23:59 23:59 Intake Total 411.725 831.275 Output Total 2250 Balance 411.725 -1418.725 General: Alert, Oriented x3, No acute distress HEENT: Mucous membr. moist/pink Neck: Supple, No JVD Neuro: Non Focal Cardiovascular: Regular rate, No murmurs Respiratory: Chest non-tender, No respiratory distress Abdomen: Other (Obese with pannus.) Extremities: No edema - Results Results: Laboratory Results WBC 11.7 x10^3/uL (4.8-10.8) H 07/08/17 09:00 RBC 5.03 10^6/uL (4.70-6.10) 07/08/17 09:00 Hgb 15.7 g/dL (14.0-18.0) 07/08/17 09:00 Hct 45.7 % (42.0-52.0) 07/08/17 09:00 MCV 90.8 fL (80.0-94.0) 07/08/17 09:00 MCH 31.2 pg (27.0-31.0) H 07/08/17 09:00 MCHC 34.3 g/dL (32.0-36.0) 07/08/17 09:00 RDW 14.4 % (12.0-15.0) 07/08/17 09:00 Plt Count 187 10^3/uL (130-450) 07/08/17 09:00 MPV 8.2 fL (7.4-11.4) 07/08/17 09:00 Neut # 9.9 10^3/uL (1.5-6.6) H 07/08/17 09:00 Lymph # 1.2 10^3/uL (1.5-3.5) L 07/08/17 09:00 [place] # 0.6 10^3/uL (0.0-1.0) 07/08/17 09:00 Eos # 0.0 10^3/uL (0.0-0.7) 07/08/17 09:00 Baso # 0.1 10^3/uL (0.0-0.1) 07/08/17 09:00 Absolute Nucleated RBC 0.01 x10^3/uL 07/08/17 09:00 Nucleated RBC % 0.1 /100WBC 07/08/17 09:00 ESR 6 mm/Hr (0-20) 07/09/17 04:45 Sodium 139 mmol/L (135-145) 07/09/17 04:45 Potassium 4.2 mmol/L (3.5-5.0) 07/09/17 04:45 Chloride 105 mmol/L (101-111) 07/09/17 04:45 Carbon Dioxide 25 mmol/L (21-32) 07/09/17 04:45 Anion Gap 9.0 (6-13) 07/09/17 04:45 BUN 19 mg/dL (6-20) 07/09/17 04:45 Creatinine 0.7 mg/dL (0.6-1.2) 07/09/17 04:45 Estimated GFR (MDRD) 116 (>89) 07/09/17 04:45 Glucose 231 mg/dL (70-100) H 07/09/17 04:45 Calcium 8.7 mg/dL (8.5-10.3) 07/09/17 04:45 Total Bilirubin 0.8 mg/dL (0.2-1.0) 07/08/17 09:00 AST 52 IU/L (10-42) H 07/08/17 09:00 ALT 78 IU/L (10-60) H 07/08/17 09:00 Alkaline Phosphatase 172 IU/L (42-121) H 07/08/17 09:00 Total Creatine Kinase 42 IU/L (22-269) 07/08/17 09:00 CK-MB (CK-2) 1.7 ng/mL (0.6-6.3) 07/08/17 09:00 Troponin I < 0.04 ng/mL (<0.49) 07/09/17 04:45 Total Protein 7.3 g/dL (6.7-8.2) 07/08/17 09:00 Albumin 3.8 g/dL (3.2-5.5) 07/08/17 09:00 Globulin 3.5 g/dL (2.1-4.2) 07/08/17 09:00 Albumin/Globulin Ratio 1.1 (1.0-2.2) 07/08/17 09:00 Lipase 30 U/L (22-51) 07/08/17 09:00 - Procedures Procedures: Procedures EXCISION OF LOWER ESOPHAGUS, ENDO, DIAGN (04/06/17) EXCISION OF STOMACH, ENDO, DIAGN (04/06/17)
[2017-07-09] MEDS: MORPHINE 2 MG/ML SYRINGE IVP PRN ×3 (17:49→22:48)
[2017-07-09] MEDS: ATORVASTATIN 40 MG TABLET PO SCH (20:23)
[2017-07-09] MEDS: INSULIN GLARGINE 300 UNIT/3 ML PEN SUBQ SCH (21:16)
[2017-07-10] MEDS: HYDROcod/ACETAM 5/325 MG TABLET PO PRN ×4 (00:08→15:44)
[2017-07-10] MEDS: MORPHINE 2 MG/ML SYRINGE IVP PRN ×4 (02:54→10:59)
[2017-07-10] MEDS: SODIUM CHLORIDE FLUSH 0.9% 10 ML SYRINGE IVP PRN ×3 (02:54→06:13)
[2017-07-10] MEDS: SUCRALFATE 1 GM/10 ML UDC PO SCH ×3 (06:13→16:27)
[2017-07-10] MEDS: methylPREDNISolone SUCCINATE 40 MG/ML VIAL IVP SCH ×2 (06:13→14:18)
[2017-07-10] MEDS: PANTOPRAZOLE 40 MG TABLET PO SCH (06:13)
[2017-07-10] MEDS: INSULIN ASPART 300 UNIT/3 ML PEN SUBQ SCH ×3 (08:33→17:15)
[2017-07-10] MEDS: ESCITALOPRAM 10 MG TABLET PO SCH (08:37)
[2017-07-10] MEDS: hydroCHLOROthiazide 25 MG TABLET PO SCH (08:37)
[2017-07-10] MEDS: diltiaZEM CD 180 MG CAPSULE PO SCH (08:38)
[2017-07-10] MEDS: COLCHICINE 0.6 MG TABLET PO SCH (08:38)
[2017-07-10] MEDS: ISOSORBIDE MONONITRATE ER 30 MG TABLET PO SCH (08:38)
[2017-07-10] MEDS: METOPROLOL SUCCINATE 25 MG TABLET PO SCH (08:40)
[2017-07-10] MEDS: ASPIRIN 325 MG TABLET PO SCH (08:40)
[2017-07-10] MEDS: amLODIPine 5 MG TABLET PO SCH (08:40)
[2017-07-10] MEDS: SODIUM CHLORIDE FLUSH 0.9% 10 ML SYRINGE IVP SCH ×2 (09:00→14:19)
[2017-07-10 13:31] VITALS: BP 104/65
[2017-07-10] MEDS ORDERED: HYDROcod/ACETAM 10 MG/325 MG TABLET PO ONE (16:00)
--- NOTE | 2017-07-10 17:20 | Discharge Plan ---
Discharge Plan Disposition: Home, Self Care Condition: Stable Prescriptions: HYDROcod/ACETAM 5/325 [[place] 5/325] 2 tab PO Q4HR PRN #8 tablet PRN Reason: Pain 5 to 7 Diet: Diabetic Activity Restrictions: Activity as Tolerated Shower Restrictions: No Driving Restrictions: No Instruction Topics: Pain Manage Ch, Pain Manage Meds Ch Additional Instructions or Follow Up instructions: See your PCP for follow-up within 1 week. He needs to adjust your medications for pain control, so that you do not need admission for iv narcotics. If needed , he may send you to a painting instructor. Resume all your pre-hospital medications, especially the Decadron (steroid) and the Colchicine (antii-inflammatory medicine) for the pericarditis that the Cardiologists at [facility] started to treat. See your doctor regarding possibly restarting the ulcer and gastritis medications, you were on them temporarily while you were here. No Smoking: If you smoke, Please STOP! Call for help. Follow-up with: JANELL HELMS MD [Primary Care Provider] -
[2017-07-10] MEDS ORDERED: HYDROcod/ACETAM 5/325 MG TABLET PO PRN (18:00)
--- NOTE | 2017-07-12 20:55 | DISCHARGE SUMMARY ---
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 In December 2016, he had admission for chest pain and underwent stress testing which showed anterior ischemia and he was sent for an angiogram. There were no stenoses found in the LAD distribution, he had patent stents from prior LAD stenting. His diagnosis was considered therefore to be Printzmetal's angina. He has had 2 subsequent admissions for chest pain, underwent EGD to rule out a gastric source of pain, which did find a small duodenal ulcer plus gastritis and he also underwent repeat angiography in March 2017 because of these multiple admissions and again was found to have no significant coronary stenoses. The patient presented again now with chest pain that waxes and wanes, occurs only at rest, is slightly improved with positional changes and has in the past only responded to IV nitroglycerin, but now he also requests narcotics for this and states that it "runs its course in 3 days." The patient was placed in observation, then required transfer to inpatient status for management of another presentation of chest pain. HOSPITAL COURSE AND DISCHARGE DIAGNOSES 1. Atypical chest pain. The patient had 3 normal troponins, no EKG changes, minimal effect with IV nitroglycerin at 5 and 10 mcg and was requesting narcotics for pain relief and stating that "3 days would probably be enough." Minimal IV morphine was used for management. He was put on oxycodone tablets and advised to be followed up by his primary care doctor for pain management. 2. Printzmetal's angina. Because of the above sequence of testing, he carries a presumptive diagnosis of coronary vasospasm and is therefore on both Norvasc and Cardizem. He has had subsequent trials of colchicine and Decadron treatment for possible pericarditis , which continue. 3. Coronary artery disease. The patient did have coronary stenting done approximately 4 years ago, but recent angiography shows patent stents and he is compliant with his antiplatelet agents and other cardiac medications. 4. Insulin-dependent diabetes mellitus. The patient's management was with a diabetic diet, insulin coverage and he had adequate control noted on glucose testing. 5. Sleep apnea. The patient is compliant with a CPAP device. ALLERGIES: HYDROXYZINE AND MEPERIDINE. DISCHARGE MEDICATIONS: 1. [place] 5/325 mg 2 tablets every 4 hours p.r.n. pain, only 10 tablets were provided. 2. Lipitor 80 mg at bedtime. 3. Colchicine 0.6 mg b.i.d. 4. Cardizem-CD 360 mg daily. 5. Lexapro 20 mg daily. 6. Imdur 60 mg daily. 7. Toprol-XL 12.5 mg daily. 8. Protonix 40 mg b.i.d. 9. Aspart insulin 40 units every a.m. 10. NovoLog insulin 45 units at midday and NovoLog sliding scale insulin and Lantus 70 units subcutaneous every a.m. PHYSICAL EXAMINATION: At discharge, obese white male, who appears in no distress. VITAL SIGNS: Blood pressure 104/65, pulse of 70, afebrile, room air saturation 95%. HEENT: Reveals oral mucosa moist and unremarkable exam. NECK: Without JVD, but he is obese. No carotid bruits. CHEST: Clear. HEART: Sounds normal, but distant. ABDOMEN: Obese with a pannus. EXTREMITIES: Show no edema. NEUROLOGIC: Intact. FOLLOWUP: With his PCP in the next 1-2 weeks and recommend pain management. CODE STATUS: FULL CODE. Time required to complete discharge, chart review, medications dosing and dictation: 60 minutes. TD: 07/11/2017 21:04 STEPHENIE
== END 2017-07-10 17:40 | disposition home or self-care (01) | DRG 313 ==
LOC: EDUNIT# → ED 07:33 → ICU 18:01 → OBSVTOIN 07-09 17:23
PROVIDERS: ADMIT Internal Medicine; ATTEND Internal Medicine
DX: R07.89 Other chest pain (principal); Z68.41 Body mass index [BMI] 40.0-44.9, adult; I31.9 Disease of pericardium, unspecified; I25.118 Atherosclerotic heart disease of native coronary artery with other forms of angina pectoris; E66.9 Obesity, unspecified; G47.33 Obstructive sleep apnea (adult) (pediatric); G47.30 Sleep apnea, unspecified; I10 Essential (primary) hypertension; E11.9 Type 2 diabetes mellitus without complications; Z79.4 Long term (current) use of insulin; Z79.82 Long term (current) use of aspirin; Z79.891 Long term (current) use of opiate analgesic; Z79.899 Other long term (current) drug therapy; Z95.5 Presence of coronary angioplasty implant and graft; Z87.11 Personal history of peptic ulcer disease; Z82.49 Family history of ischemic heart disease and other diseases of the circulatory system
CPT/HCPCS: 36415; 71046; 71275; 80048; 80053; 82550; 82553; 83690; 84484; 85025; 85651; 87150; 93005; 93308; 96361; 96365; 96366; 96375; 96376; 99284; 99285

== ENCOUNTER 2017-08-05 | Outpatient (CLI) | END 2017-08-05 13:01 | disposition critical access hospital (66) | CPT/HCPCS: A0425; A0427 ==

== ENCOUNTER 2017-08-05 13:19 | Emergency (ER) | payer MEDICARE, OTHER ==
--- NOTE | 2017-08-05 14:03 | ED Physician Documentation ---
PD HPI CHEST PAIN - Stated complaint Stated Complaint: CP - Chief complaint Chief Complaint: Cardiac - History obtained from History obtained from: Patient, EMS - History of Present Illness Timing - onset: Today Timing - onset during: Light activity Timing - duration: Minutes Timing - details: Abrupt onset, Still present Quality: Pressure, Sharp, Pain Location: Substernal Radiation: Neck Improved by: Nitro Associated symptoms: Shortness of air, Diaphoresis Similar symptoms before: Diagnosis (prinzmentals angina) Recently seen: Admitted - Additional information Additional information: 56-year-old male with a history of coronary artery disease has been diagnosed with Prinzmetal's angina and he has been having episodes that will last him for about 3 days. He has been hospitalized recently on a nitroglycerin drip and pain medication about 1 month ago. Since that time he has been back to playing golf and today he was on the golf course he made it to the 6 hole when suddenly he had onset of this pain. Review of Systems Constitutional: denies: Fever, Chills, Myalgias Eyes: denies: Decreased vision Ears: denies: Ear pain Nose: denies: Congestion Throat: denies: Sore throat Cardiac: reports: Chest pain / pressure. denies: Palpitations, Pedal edema, Calf pain Respiratory: denies: Dyspnea, Cough GI: denies: Abdominal Pain, Nausea, Vomiting : denies: Dysuria, Frequency Skin: denies: Rash Musculoskeletal: denies: Neck pain, Back pain, Extremity pain Neurologic: denies: Generalized weakness, Focal weakness, Numbness PD PAST MEDICAL HISTORY - Past Medical History Past Medical History: Yes Cardiovascular: Coronary artery disease, Angina, [place] Respiratory: Sleep apnea, CPAP use Neuro: Peripheral neuropathy Endocrine/Autoimmune: Type 2 diabetes GI: None : None HEENT: None Psych: None Musculoskeletal: None Derm: None - Past Surgical History Past Surgical History: Yes General: Appendectomy, Colonoscopy Ortho: Knee replacement, Rotator cuff repair, Other Cardiovascular: Coronary stent HEENT: Tonsil/Adenoidectomy - Present Medications Home Medications: Ambulatory Orders Medication Instructions Recorded Confirmed Insulin Aspart [NovoLOG] 40 unit SUBQ QDBREAKFAST 03/09/17 07/09/17 Insulin Aspart [NovoLOG] 45 unit SQ 1200,1700 03/09/17 07/09/17 Insulin Glargine [Lantus Solostar] 70 unit SQ DAILY PM 03/09/17 07/09/17 Escitalopram [Lexapro] 20 mg PO DAILY 03/10/17 07/09/17 [place]-3 Acid Ethyl Esters [Lovaza] 1 gm PO TID 03/10/17 07/09/17 diltiaZEM CD [Cardizem Cd] 360 mg PO DAILY #60 capsule 03/14/17 07/09/17 Insulin Aspart [NovoLOG] 1 - 5 unit SUBQ 04/13/17 07/09/17 0800,1200,1700,2100 pen Isosorbide Mononitrate ER [Imdur] 60 mg PO DAILY tablet 04/13/17 07/09/17 Colchicine 0.6 mg PO BID 05/09/17 07/09/17 Metoprolol Succinate 12.5 mg PO DAILY 05/09/17 07/09/17 Pantoprazole Sodium [Protonix] 40 mg PO BID 05/09/17 07/09/17 Atorvastatin Calcium 80 mg PO DAILY 07/09/17 07/09/17 HYDROcod/ACETAM 5/325 [[place] 5/325] 2 tab PO Q4HR PRN #8 tablet 07/10/17 diltiaZEM [Cardizem] 30 mg PO Q6H PRN #20 tablet 08/05/17 oxyCODONE/ACET 5/325 [Percocet 5 1 - 2 each PO Q4-6H PRN #20 tablet 08/05/17 mg/325 mg] - Allergies Allergies/Adverse Reactions: Allergies Allergy/AdvReac Type Severity Reaction Status Date / Time hydroxyzine [From Vistaril] Allergy Hives Verified 07/07/17 14:18 meperidine [From Demerol] Allergy Anaphylaxis Verified 07/07/17 14:18 - Social History Does the pt smoke?: No Smoking Status: Never smoker Does the pt drink ETOH?: No Does the pt have substance abuse?: No - Immunizations Immunizations are current?: Yes - POLST Patient has POLST: No PD ED PE NORMAL - Vitals Vital signs reviewed: Yes (normal. 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, No motor deficit, No sensory deficit, Normal speech Eye Opening: Spontaneous Motor: Obeys Commands Verbal: Oriented GCS Score: 15 - Psych Psych: Normal mood, Normal affect Results - Vitals Vitals: Vital Signs - 24 hr 08/05/17 08/05/17 08/05/17 13:22 14:17 16:16 Temperature 36.7 C Heart Rate 73 71 70 Respiratory 16 16 11 L Rate Blood Pressure 115/61 112/70 124/70 O2 Saturation 97 96 97 08/05/17 08/05/17 08/05/17 17:01 17:40 18:16 Temperature Heart Rate 69 69 67 Respiratory 16 18 10 L Rate Blood Pressure 120/73 109/74 113/68 O2 Saturation 98 96 96 08/05/17 08/05/17 18:24 18:29 Temperature Heart Rate 64 64 Respiratory 14 11 L Rate Blood Pressure 97/61 104/72 O2 Saturation 94 95 Oxygen O2 Source Room air - EKG (time done) 1323 Rate: Rate (enter#) (73) Rhythm: NSR Ischemia: Normal ST segments Compare to prior EKG: Changed from prior EKG (SPT 07-08-17 rate has decreased and QRSD is now normal. ) Computer interpretation: Agree with computer - Labs Labs: Laboratory Tests 08/05/17 08/05/17 08/05/17 14:00 14:00 14:00 WBC 10.6 RBC 4.92 Hgb 15.3 Hct 46.0 MCV 93.4 MCH 31.0 MCHC 33.2 RDW 14.2 Plt Count 222 MPV 8.8 Neut # (Auto) 6.8 H Lymph # (Auto) 2.4 [place] # (Auto) 0.9 Eos # (Auto) 0.3 Baso # (Auto) 0.1 Absolute Nucleated RBC 0.01 Nucleated RBC % 0.1 Manual Slide Review Indicated Platelet Estimate NORMAL (130-450,000) Platelet Morphology NORMAL APPEARANCE RBC Morph Micro Appear NORMAL APPEARANCE Sodium 135 Potassium 3.8 Chloride 105 Carbon Dioxide 23 Anion Gap 7.0 BUN 13 Creatinine 0.9 Estimated GFR (MDRD) 87 L Glucose 260 H Calcium 8.7 Total Bilirubin 1.0 AST 40 ALT 49 Alkaline Phosphatase 184 H Troponin I < 0.04 Total Protein 6.7 Albumin 3.6 Globulin 3.1 Albumin/Globulin Ratio 1.2 Lipase 59 H 08/05/17 17:52 WBC RBC Hgb Hct MCV MCH MCHC RDW Plt Count MPV Neut # (Auto) Lymph # (Auto) [place] # (Auto) Eos # (Auto) Baso # (Auto) Absolute Nucleated RBC Nucleated RBC % Manual Slide Review Platelet Estimate Platelet Morphology RBC Morph Micro Appear Sodium Potassium Chloride Carbon Dioxide Anion Gap BUN Creatinine Estimated GFR (MDRD) Glucose Calcium Total Bilirubin AST ALT Alkaline Phosphatase Troponin I < 0.04 Total Protein Albumin Globulin Albumin/Globulin Ratio Lipase - Rads (name of study) 2 veiw chest Radiology: Prelim report reviewed (Impression negative for acute cardiopulmonary abnormality.), EMP read indepedently, See rad report PD MEDICAL DECISION MAKING - ED course Complexity details: reviewed old records, reviewed results, re-evaluated patient , considered differential, d/w patient ED course: 56-year-old male with a history of coronary artery disease has developed again pain in his chest. He has radiation to his back up to his left shoulder blade and into his neck. Today this pain occurred while he was on the sixth hole playing golf. He is usually had symptoms come on at rest. He has been diagnosed with Prinzmetal's angina. He was admitted to the hospital last month for 3 days on a nitroglycerin drip and morphine. He feels that this is what it will take to resolve his episode. This patient has atypical symptoms for Prinzmetal's in that his symptoms will last for days instead of minutes and appear to require narcotic pain reliever for relief. At the conclusion of his hospitalization last month it was recommended he see his primary care doctor for pain management. The patient states that in between these episodes he has no pain and he is not interested in pain management. He does not have EKG changes associated with his symptoms and he does not have elevation of his trop. Today he is treated with pain medication and not a nitro drip. He has required high doses of nitro to get an effect and he is on a long acting nitrate. This seems to be loosing its effectiveness. He is treated with oral percocet followed by fentanyl IV titration at 100micrograms per dose. He has some improvement with the narcotic alone but this is inadequate. He is given IV diltiazem 20mg with further improvement. Dr. Raya is consulted in the case by phone and recommends outpatient followup with her in [place] as the patient is not able to get an appointment on [facility] for one month. - Sepsis Event Vital Signs: Vital Signs - 24 hr 08/05/17 08/05/17 08/05/17 13:22 14:17 16:16 Temperature 36.7 C Heart Rate 73 71 70 Respiratory 16 16 11 L Rate Blood Pressure 115/61 112/70 124/70 O2 Saturation 97 96 97 08/05/17 08/05/17 08/05/17 17:01 17:40 18:16 Temperature Heart Rate 69 69 67 Respiratory 16 18 10 L Rate Blood Pressure 120/73 109/74 113/68 O2 Saturation 98 96 96 08/05/17 08/05/17 18:24 18:29 Temperature Heart Rate 64 64 Respiratory 14 11 L Rate Blood Pressure 97/61 104/72 O2 Saturation 94 95 Oxygen O2 Source Room air Departure - Departure Disposition: Home, Self Care Clinical Impression: Prinzmetal angina Instructions: Coronary Artery Spasm Follow-Up: JANELL HELMS MD [Primary Care Provider] - Oksana Raya MD [Provider Admit Priv/Credential] - Prescriptions: diltiaZEM [Cardizem] 30 mg PO Q6H PRN #20 tablet PRN Reason: chest pain oxyCODONE/ACET 5/325 [Percocet 5 mg/325 mg] 1 - 2 each PO Q4-6H PRN #20 tablet PRN Reason: Chest Pain
[2017-08-05 14:31] LABS: BASOPHILS # (AUTO) 0.1 10^3/uL (0.0-0.1); BASOPHILS % (AUTO) 1.1 %; EOSINOPHILS # (AUTO) 0.3 10^3/uL (0.0-0.7); EOSINOPHILS % (AUTO) 3.3 %; HGB - HEMOGLOBIN 15.3 g/dL (14.0-18.0); LYMPHOCYTES # (AUTO) 2.4 10^3/uL (1.5-3.5); LYMPHOCYTES % (AUTO) 22.4 %; MEAN CORPUSCULAR HGB CONC 33.2 g/dL (32.0-36.0); MEAN CORPUSCULAR VOLUME 93.4 fL (80.0-94.0); MEAN PLATELET VOLUME 8.8 fL (7.4-11.4); MONOCYTES # (AUTO) 0.9 10^3/uL (0.0-1.0); MONOCYTES % (AUTO) 8.9 %; NEUTROPHILS # (AUTO) 6.8 10^3/uL (1.5-6.6); NEUTROPHILS % (AUTO) 64.3 %; PLT - PLATELET COUNT 222 10^3/uL (130-450); RED BLOOD COUNT 4.92 10^6/uL (4.70-6.10); RED CELL DISTRIBUTION WIDTH 14.2 % (12.0-15.0); WHITE BLOOD COUNT 10.6 x10^3/uL (4.8-10.8)
[2017-08-05 14:46] LABS: ALBUMIN 3.6 g/dL (3.2-5.5); ALBUMIN/GLOBULIN RATIO 1.2 (1.0-2.2); CALCIUM 8.7 mg/dL (8.5-10.3); CREATININE 0.9 mg/dL (0.6-1.2); TOTAL PROTEIN 6.7 g/dL (6.7-8.2)
[2017-08-05 14:58] LABS: PLATELET ESTIMATE, MANUAL NORMAL (130-450,000) (NORMAL); PLATELET MORPHOLOGY NORMAL APPEARANCE (NORMAL); RBC MORPHOLOGY (MULTIPLE) NORMAL APPEARANCE (NORMAL)
--- NOTE | 2017-08-05 15:05 | XRAY Report ---
Procedure Date: 08/05/2017 Accession Number: [id number] / [id number] Procedure: XR - Chest 2 View X-Ray CPT Code: 63398 FULL RESULT: EXAM: CHEST RADIOGRAPHY EXAM DATE: 08/05/2017 02:34 PM. CLINICAL HISTORY: Chest pain. COMPARISON: None. TECHNIQUE: 2 views. FINDINGS: Lungs/Pleura: Lungs appear unchanged. Lung volumes are mildly reduced. No consolidation or edema. Negative for pneumothorax. Mediastinum: Heart and mediastinal contours are unremarkable. Other: None. IMPRESSION: Negative for an acute cardiopulmonary abnormality. RADIA
[2017-08-05] MEDS ORDERED: oxyCOD/ACETAMIN 5 MG/325 MG TABLET PO STA (15:16)
[2017-08-05] MEDS ORDERED: fentaNYL 100 MCG/2 ML VIAL IVP STA ×3 (16:28→18:30)
[2017-08-05] MEDS ORDERED: SODIUM CHLORIDE 0.9% 1,000 ML IV ONE ×2 (16:29→18:29)
[2017-08-05] MEDS ORDERED: diltiaZEM INJ 5 MG/ML VIAL IVP STA (18:01)
[2017-08-05 19:19] VITALS: BP 106/67
== END 2017-08-05 19:21 | disposition home or self-care (01) ==
LOC: EDUNIT# → ED 13:19
DX: I20.1 Angina pectoris with documented spasm (principal); I25.10 Atherosclerotic heart disease of native coronary artery without angina pectoris; E13.42 Other specified diabetes mellitus with diabetic polyneuropathy; Z95.5 Presence of coronary angioplasty implant and graft; Z79.4 Long term (current) use of insulin
CPT/HCPCS: 36415; 71046; 80053; 83690; 84484; 85025; 93005; 99284; A9270; 96361; 96374; 96375; 96376

== ENCOUNTER 2017-08-20 03:48 | Outpatient (CLI) | payer MEDICARE, OTHER | END 2017-08-20 03:49 | disposition critical access hospital (66) | LOC: EMS 03:48 | PROVIDERS: ATTEND Surgery | DX: R07.9 Chest pain, unspecified (principal) | CPT/HCPCS: A0425; A0427 ==

== ENCOUNTER 2017-08-20 04:08 | Emergency (ER) | payer MEDICARE, OTHER ==
--- NOTE | 2017-08-20 05:07 | ED Physician Documentation ---
PD HPI CHEST PAIN - Stated complaint Stated Complaint: CP - Chief complaint Chief Complaint: Cardiac - History obtained from History obtained from: Patient, EMS - History of Present Illness Timing - onset: Enter time (03:00) Timing - onset during: Sleep Timing - details: Abrupt onset Pain level now: 10 Quality: Pain Location: Other (no radiation) Improved by: Nothing Worsened by: Other (no exacerbating factors) Similar symptoms before: Diagnosis (CAD, Prinzmetal's angina) Recently seen: Emergency Dept - Additional information Additional information: patient OLIVA, states he was asleep and was awoken this morning at 3 AM by severe midline/left chest pain. He has had recurrent, similar episodes with several ED visits as well as some hospital admissions for ongoing testing. Patient says he has a stress test scheduled this Friday (August 22, 2017). Given ASA and NTG SL en route. He specifically tells me that the only thing that works for this pain in the past is nitroglycerin drip and narcotic pain medication. Review of Systems Constitutional: denies: Fever, Chills, Sweats Cardiac: reports: Chest pain / pressure. denies: Palpitations, Pedal edema Respiratory: reports: Reviewed and negative GI: reports: Reviewed and negative Musculoskeletal: denies: Back pain PD PAST MEDICAL HISTORY - Past Medical History Cardiovascular: Coronary artery disease, Angina, [place] Respiratory: Sleep apnea, CPAP use Neuro: Peripheral neuropathy Endocrine/Autoimmune: Type 2 diabetes GI: None : None HEENT: None Psych: None Musculoskeletal: None Derm: None - Past Surgical History Past Surgical History: Yes General: Appendectomy, Colonoscopy Ortho: Knee replacement, Rotator cuff repair, Other Cardiovascular: Coronary stent HEENT: Tonsil/Adenoidectomy - Present Medications Home Medications: Ambulatory Orders Medication Instructions Recorded Confirmed Insulin Aspart [NovoLOG] 40 unit SUBQ QDBREAKFAST 03/09/17 07/09/17 Insulin Aspart [NovoLOG] 45 unit SQ 1200,1700 03/09/17 07/09/17 Insulin Glargine [Lantus Solostar] 70 unit SQ DAILY PM 03/09/17 07/09/17 Escitalopram [Lexapro] 20 mg PO DAILY 03/10/17 07/09/17 [place]-3 Acid Ethyl Esters [Lovaza] 1 gm PO TID 03/10/17 07/09/17 diltiaZEM CD [Cardizem Cd] 360 mg PO DAILY #60 capsule 03/14/17 07/09/17 Insulin Aspart [NovoLOG] 1 - 5 unit SUBQ 04/13/17 07/09/17 0800,1200,1700,2100 pen Isosorbide Mononitrate ER [Imdur] 60 mg PO DAILY tablet 04/13/17 07/09/17 Colchicine 0.6 mg PO BID 05/09/17 07/09/17 Metoprolol Succinate 12.5 mg PO DAILY 05/09/17 07/09/17 Pantoprazole Sodium [Protonix] 40 mg PO BID 05/09/17 07/09/17 Atorvastatin Calcium 80 mg PO DAILY 07/09/17 07/09/17 diltiaZEM [Cardizem] 30 mg PO Q6H PRN #20 tablet 08/05/17 Isosorbide Mononitrate ER [Imdur] 60 mg PO DAILY #20 tablet 08/20/17 - Allergies Allergies/Adverse Reactions: Allergies Allergy/AdvReac Type Severity Reaction Status Date / Time hydroxyzine [From Vistaril] Allergy Hives Verified 08/20/17 04:16 meperidine [From Demerol] Allergy Anaphylaxis Verified 08/20/17 04:16 - Social History Does the pt smoke?: No Smoking Status: Never smoker Does the pt drink ETOH?: No Does the pt have substance abuse?: No - Immunizations Immunizations are current?: Yes - POLST Patient has POLST: No PD ED PE NORMAL - Vitals Vital signs reviewed: Yes - General General: Alert and oriented X 3, No acute distress, Well developed/nourished - HEENT HEENT: Moist mucous membranes - Neck Neck: Supple, no meningeal sign - Cardiac Cardiac: RRR, No murmur - Respiratory Respiratory: No respiratory distress, Clear bilaterally - Abdomen Abdomen: Soft, Non tender - Derm Derm: Normal color, Warm and dry - Extremities Extremities: No edema - Neuro Neuro: Alert and oriented X 3 Results - Vitals Vitals: Oxygen O2 Source Room air - EKG (time done) No standard instances Rate: Rate (enter#) (74) Rhythm: NSR [place]: Normal Intervals: Normal [place] QRS: Normal Ischemia: Q waves (V1, V2) Compare to prior EKG: Unchanged from prior EKG (no significant change vs. ) - Labs Labs: Laboratory Tests 08/20/17 08/20/17 08/20/17 05:05 05:05 05:05 WBC 7.8 RBC 4.61 L Hgb 14.5 Hct 42.9 MCV 93.0 MCH 31.5 H MCHC 33.8 RDW 14.0 Plt Count 174 MPV 7.9 Neut # (Auto) 4.6 Lymph # (Auto) 2.0 Day # (Auto) 0.9 Eos # (Auto) 0.2 Baso # (Auto) 0.1 Absolute Nucleated RBC 0.01 Nucleated RBC % 0.1 Sodium 136 Potassium 4.2 Chloride 103 Carbon Dioxide 24 Anion Gap 9.0 BUN 14 Creatinine 0.8 Estimated GFR (MDRD) 99 Glucose 398 H Calcium 8.6 Troponin I < 0.04 PD MEDICAL DECISION MAKING - ED course Complexity details: reviewed old records, reviewed results, re-evaluated patient , considered differential, d/w patient ED course: imaging not performed today, as this is similar pain to several previous episodes including 08/05/17 (at which time he had unremarkable CXR). Given ASA in field and NTG, which he says had no effect. He is adamant about needing IV nitroglycerin and narcotic pain medication and that he is certain any other medications will not work. I ordered toradol, which he subsequently reported did not have any effect. Given 1 mg Dilaudid IV, which relieved his pain. He was not given nitroglycerin during ED stay (only en route to ED by medics). 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 I initially contacted on-call cardiology for [facility]. D/W Dr. Maki, who then queried his records and determined that patient's business operations director is with a different cardiology group at [facility] and he paged the appropriate service for me. I then D/W Dr. Dimas, who tells me that patient's business operations director is Dr. Raya. Dr. Dimas agrees that patient is appropriate for discharge now that he is pain-free and his EKG and blood tests (incl. troponin) are reassuring. She asks that I emphasize to patient that he take his calcium-channel tre and beta- blockers as prescribed. She says she does not see an indication that he is currently taking long-acting nitrate, specifically Imdur, and she recommends I prescribe this if he is not. I asked patient if he is taking Imdur or a long- acting nitrate/nitroglycerin, and he says he is not. I thus prescribed Imdur. - Sepsis Event Vital Signs: Oxygen O2 Source Room air Departure - Departure Disposition: Home, Self Care Clinical Impression: Chest pain Qualifiers: Chest pain type: unspecified Qualified Code(s): R07.9 - Chest pain, unspecified Condition: Good Instructions: ED Chest Pain Atypical Unkn Cause Follow-Up: JANELL HELMS MD [Primary Care Provider] - Prescriptions: Isosorbide Mononitrate ER [Imdur] 60 mg PO DAILY #20 tablet Comments: Follow up with your business operations director this Friday as scheduled. Discharge Date/Time: 08/20/17 07:51
[2017-08-20 05:13] LABS: BASOPHILS # (AUTO) 0.1 10^3/uL (0.0-0.1); BASOPHILS % (AUTO) 1.2 %; EOSINOPHILS # (AUTO) 0.2 10^3/uL (0.0-0.7); EOSINOPHILS % (AUTO) 2.1 %; HGB - HEMOGLOBIN 14.5 g/dL (14.0-18.0); LYMPHOCYTES % (AUTO) 25.3 %; MEAN CORPUSCULAR HEMOGLOBIN 31.5 pg (27.0-31.0); MEAN CORPUSCULAR HGB CONC 33.8 g/dL (32.0-36.0); MEAN PLATELET VOLUME 7.9 fL (7.4-11.4); MONOCYTES # (AUTO) 0.9 10^3/uL (0.0-1.0); NEUTROPHILS # (AUTO) 4.6 10^3/uL (1.5-6.6); NEUTROPHILS % (AUTO) 59.4 %; PLT - PLATELET COUNT 174 10^3/uL (130-450); RED BLOOD COUNT 4.61 10^6/uL (4.70-6.10); WHITE BLOOD COUNT 7.8 x10^3/uL (4.8-10.8)
[2017-08-20 05:20] LABS: CALCIUM 8.6 mg/dL (8.5-10.3); CREATININE 0.8 mg/dL (0.6-1.2)
[2017-08-20] MEDS ORDERED: KETOROLAC 60 MG/2 ML VIAL IVP STA (05:23)
[2017-08-20] MEDS ORDERED: HYDROmorphone 1 MG/ML CARPUJECT IVP STA (06:10)
[2017-08-20 07:52] VITALS: BP 123/66
== END 2017-08-20 07:51 | disposition home or self-care (01) ==
LOC: EDUNIT# → ED 04:08 → SUPCPDRO 04:08 → ED 07:51
DX: R07.9 Chest pain, unspecified (principal); E11.42 Type 2 diabetes mellitus with diabetic polyneuropathy; Z79.4 Long term (current) use of insulin; I25.10 Atherosclerotic heart disease of native coronary artery without angina pectoris; I20.9 Angina pectoris, unspecified; Z95.5 Presence of coronary angioplasty implant and graft; I25.2 Old myocardial infarction
CPT/HCPCS: 36415; 80048; 84484; 85025; 93005; 96374; 96375; 99283; 99284; J1170

== ENCOUNTER 2017-09-11 01:45 | Outpatient (CLI) | payer MEDICARE, OTHER | END 2017-09-11 01:46 | disposition critical access hospital (66) | LOC: EMS 01:45 | PROVIDERS: ATTEND Surgery | DX: M25.561 Pain in right knee (principal); Z96.651 Presence of right artificial knee joint | CPT/HCPCS: A0425; A0429 ==

== ENCOUNTER 2017-09-11 02:03 | Emergency (ER) | payer MEDICARE, OTHER ==
[2017-09-11] MEDS ORDERED: PROPOFOL 200 MG/20 ML VIAL IVP STA (02:19)
[2017-09-11] MEDS ORDERED: HYDROmorphone 1 MG/ML CARPUJECT IVP STA (02:20)
--- NOTE | 2017-09-11 02:35 | ED Physician Documentation ---
History of Present Illness - Stated complaint Stated Complaint: RIGHT KNEE LOCKED UP - Chief complaint Chief Complaint: Ext Problem - History obtained from History obtained from: Patient, EMS - History of Present Illness Timing: How many hours ago (1) Pain level max: 9 Pain level now: 9 Improved by: rest Worsened by: movement - Additonal information Additional information: Patient is a 56-year-old male who states that he woke up tonight and was unable to extend his knee. Similar symptoms have been occurring for the past several months of the left knee. He states that his orthopedic surgeon is not planning to do surgery until at least November. He has not been wearing his hinged knee braces at home. No fall. Review of Systems Ten Systems: 10 systems reviewed and negative Constitutional: denies: Fever, Chills Respiratory: denies: Cough GI: denies: Nausea, Diarrhea : denies: Dysuria Skin: denies: Rash Musculoskeletal: denies: Neck pain, Back pain Neurologic: denies: Focal weakness, Numbness, Headache PD PAST MEDICAL HISTORY - Past Medical History Past Medical History: Yes Cardiovascular: Coronary artery disease, Angina, [place] Respiratory: Sleep apnea, CPAP use Neuro: Peripheral neuropathy Endocrine/Autoimmune: Type 2 diabetes GI: None : None HEENT: None Psych: None Musculoskeletal: None Derm: None - Past Surgical History Past Surgical History: Yes General: Appendectomy, Colonoscopy Ortho: Knee replacement, Rotator cuff repair, Other Cardiovascular: Coronary stent HEENT: Tonsil/Adenoidectomy - Present Medications Home Medications: Ambulatory Orders Medication Instructions Recorded Confirmed Insulin Aspart [NovoLOG] 40 unit SUBQ QDBREAKFAST 03/09/17 07/09/17 Insulin Aspart [NovoLOG] 45 unit SQ 1200,1700 03/09/17 07/09/17 Insulin Glargine [Lantus Solostar] 70 unit SQ DAILY PM 03/09/17 07/09/17 Escitalopram [Lexapro] 20 mg PO DAILY 03/10/17 07/09/17 [place]-3 Acid Ethyl Esters [Lovaza] 1 gm PO TID 03/10/17 07/09/17 diltiaZEM CD [Cardizem Cd] 360 mg PO DAILY #60 capsule 03/14/17 07/09/17 Insulin Aspart [NovoLOG] 1 - 5 unit SUBQ 04/13/17 07/09/17 0800,1200,1700,2100 pen Isosorbide Mononitrate ER [Imdur] 60 mg PO DAILY tablet 04/13/17 07/09/17 Colchicine 0.6 mg PO BID 05/09/17 07/09/17 Metoprolol Succinate 12.5 mg PO DAILY 05/09/17 07/09/17 Pantoprazole Sodium [Protonix] 40 mg PO BID 05/09/17 07/09/17 Atorvastatin Calcium 80 mg PO DAILY 07/09/17 07/09/17 diltiaZEM [Cardizem] 30 mg PO Q6H PRN #20 tablet 08/05/17 - Allergies Allergies/Adverse Reactions: Allergies Allergy/AdvReac Type Severity Reaction Status Date / Time hydroxyzine [From Vistaril] Allergy Hives Verified 09/11/17 02:12 meperidine [From Demerol] Allergy Anaphylaxis Verified 09/11/17 02:12 - Social History Does the pt smoke?: No Smoking Status: Never smoker Does the pt drink ETOH?: No Does the pt have substance abuse?: No - Immunizations Immunizations are current?: Yes - POLST Patient has POLST: No PD ED PE NORMAL - Vitals Vital signs reviewed: Yes - General General: Alert and oriented X 3, No acute distress - HEENT HEENT: Moist mucous membranes - Neck Neck: Supple, no meningeal sign - Cardiac Cardiac: RRR, Strong equal pulses - Respiratory Respiratory: No respiratory distress, Clear bilaterally - Abdomen Abdomen: Soft, Non tender, Non distended - Derm Derm: Warm and dry - Extremities Extremities: Other (R knee bent in flexion. NVI.) - Neuro Neuro: Alert and oriented X 3 - Psych Psych: Normal mood, Normal affect Results - Vitals Vitals: Vital Signs - 24 hr 09/11/17 09/11/17 09/11/17 02:06 02:57 03:08 Temperature 36.6 C Heart Rate 98 89 80 Respiratory 18 21 18 Rate Blood Pressure 167/90 H 116/90 H 144/81 H O2 Saturation 97 98 98 09/11/17 09/11/17 09/11/17 03:10 03:12 03:14 Temperature 36.6 C Heart Rate 86 85 84 Respiratory 16 25 H 24 Rate Blood Pressure 144/81 H 126/80 126/80 O2 Saturation 98 94 93 09/11/17 09/11/17 09/11/17 03:16 03:24 03:33 Temperature Heart Rate 83 86 82 Respiratory 21 19 16 Rate Blood Pressure 144/85 H 163/87 H 132/71 H O2 Saturation 94 97 97 09/11/17 09/11/17 09/11/17 03:40 03:51 04:01 Temperature 36.1 C L 36.1 C L Heart Rate 78 82 81 Respiratory 12 20 15 Rate Blood Pressure 132/71 H 132/71 H 126/90 H O2 Saturation 97 98 97 Oxygen O2 Source Room air - Rads (name of study) R knee xray Radiology: Prelim report reviewed, EMP read contemporaneously, See rad report ( limited, but no acute abnormalities. 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 Concern for possible hardware locking up, this is been an ongoing issue for him. Therefore he was given propofol and the leg was straightened. Placed in a hinged knee brace 10-70 degrees. Patient feels better. We will have him follow-up with his doctor for further evaluation and care. Patient counseled regarding signs and symptoms for which I believe and urgent re-evaluation would be necessary. Patient with good understanding of and agreement to plan and is comfortable going home at this time This document was made in part using voice recognition software. While efforts are made to proofread this document, sound alike and grammatical errors may occur. Patient is ambulating well in the emergency department with the brace. Neurovascularly intact - Sepsis Event Vital Signs: Vital Signs - 24 hr 09/11/17 09/11/17 09/11/17 02:06 02:57 03:08 Temperature 36.6 C Heart Rate 98 89 80 Respiratory 18 21 18 Rate Blood Pressure 167/90 H 116/90 H 144/81 H O2 Saturation 97 98 98 09/11/17 09/11/17 09/11/17 03:10 03:12 03:14 Temperature 36.6 C Heart Rate 86 85 84 Respiratory 16 25 H 24 Rate Blood Pressure 144/81 H 126/80 126/80 O2 Saturation 98 94 93 09/11/17 09/11/17 09/11/17 03:16 03:24 03:33 Temperature Heart Rate 83 86 82 Respiratory 21 19 16 Rate Blood Pressure 144/85 H 163/87 H 132/71 H O2 Saturation 94 97 97 09/11/17 09/11/17 09/11/17 03:40 03:51 04:01 Temperature 36.1 C L 36.1 C L Heart Rate 78 82 81 Respiratory 12 20 15 Rate Blood Pressure 132/71 H 132/71 H 126/90 H O2 Saturation 97 98 97 Oxygen O2 Source Room air Departure - Departure Disposition: 01 Home, Self Care Clinical Impression: Subluxation of prosthetic knee Qualifiers: Encounter type: initial encounter Qualified Code(s): T84.028A - Dislocation of other internal joint prosthesis, initial encounter Condition: Good Instructions: ED Spasm Muscle Follow-Up: JANELL HELMS MD [Primary Care Provider] - Within 3 Days Comments: You need to follow up closely with your doctor and should wear the knee braces in 10-70 degree range to prevent this from recurring in the future. Discharge Date/Time: 09/11/17 04:10
[2017-09-11] MEDS ORDERED: SODIUM CHLORIDE 0.9% 1,000 ML IV ONE (02:49)
[2017-09-11] MEDS ORDERED: KETOROLAC 60 MG/2 ML VIAL IVP STA (03:34)
[2017-09-11] MEDS ORDERED: diazePAM 5 MG TABLET PO STA (03:34)
--- NOTE | 2017-09-11 03:51 | XRAY Report ---
Procedure Date: 09/11/2017 Accession Number: [id number] / [id number] Procedure: XR - Knee 2 View RT CPT Code: FULL RESULT: EXAM: RIGHT KNEE RADIOGRAPHY EXAM DATE: 09/11/2017 03:34 AM. CLINICAL HISTORY: R knee locked, history of TKR. COMPARISON: None. TECHNIQUE: 2 views. FINDINGS: Bones: Total knee prosthesis. No acute fracture seen. No focal area of bone destruction identified. Some areas are obscured by overlying brace. Joints: No dislocation seen. No joint effusion identified. Soft Tissues: Mild soft tissue swelling. IMPRESSION: 1. Total knee prosthesis. 2. No acute abnormality seen. RADIA
[2017-09-11 04:02] VITALS: BP 126/90
== END 2017-09-11 04:10 | disposition home or self-care (01) ==
LOC: EDUNIT# → ED 02:03
DX: T84.022A Instability of internal right knee prosthesis, initial encounter (principal)
CPT/HCPCS: 73560; 94770; 96361; 96374; 99152; 99283; 99284; A9270; J1170

== ENCOUNTER 2017-11-08 01:37 | Emergency (ER) | payer MEDICARE, OTHER ==
--- NOTE | 2017-11-08 02:29 | ED Physician Documentation ---
PD HPI LOWER EXT INJURY - Stated complaint Stated Complaint: KNEE PAIN - KNEE LOCKED UP - Chief complaint Chief Complaint: Ext Problem - Additional information Additional information: 57-year-old male presents the emergency department with complaints of a locked knee. The patient has a history of recurrent issues with his right knee, the patient has a prosthetic knee. The patient reports that he is scheduled to have a procedure with orthopedics for that knee. The patient reports being unable to extend the knee. No injury. Symptoms are described as severe. No other associated symptoms. No relieving factors Review of Systems Eyes: denies: Discharge Ears: denies: Ear pain Throat: denies: Sore throat Cardiac: denies: Chest pain / pressure Respiratory: denies: Dyspnea GI: denies: Abdominal Pain Musculoskeletal: reports: Extremity pain, Joint pain. denies: Extremity swelling, Joint swelling PD PAST MEDICAL HISTORY - Past Medical History Cardiovascular: Coronary artery disease, Angina, [place] Respiratory: Sleep apnea, CPAP use Neuro: Peripheral neuropathy Endocrine/Autoimmune: Type 2 diabetes GI: None : None HEENT: None Psych: None Musculoskeletal: None Derm: None - Past Surgical History Past Surgical History: Yes General: Appendectomy, Colonoscopy Ortho: Knee replacement, Rotator cuff repair, Other Cardiovascular: Coronary stent HEENT: Tonsil/Adenoidectomy - Present Medications Home Medications: Ambulatory Orders Medication Instructions Recorded Confirmed RX: Insulin Aspart [NovoLOG] 40 unit SUBQ QDBREAKFAST 03/09/17 07/09/17 RX: Insulin Aspart [NovoLOG] 45 unit SQ 1200,1700 03/09/17 07/09/17 RX: Insulin Glargine [Lantus 70 unit SQ DAILY PM 03/09/17 07/09/17 Solostar] RX: Escitalopram [Lexapro] 20 mg PO DAILY 03/10/17 07/09/17 RX: [place]-3 Acid Ethyl Esters 1 gm PO TID 03/10/17 07/09/17 [Lovaza] RX: diltiaZEM CD [Cardizem Cd] 360 mg PO DAILY #60 capsule 03/14/17 07/09/17 RX: Insulin Aspart [NovoLOG] 1 - 5 unit SUBQ 04/13/17 07/09/17 0800,1200,1700,2100 pen RX: Isosorbide Mononitrate ER 60 mg PO DAILY tablet 04/13/17 07/09/17 [Imdur] RX: Colchicine 0.6 mg PO BID 05/09/17 07/09/17 RX: Metoprolol Succinate 12.5 mg PO DAILY 05/09/17 07/09/17 RX: Pantoprazole Sodium [Protonix] 40 mg PO BID 05/09/17 07/09/17 RX: Atorvastatin Calcium 80 mg PO DAILY 07/09/17 07/09/17 RX: diltiaZEM [Cardizem] 30 mg PO Q6H PRN #20 tablet 08/05/17 - Allergies Allergies/Adverse Reactions: Allergies Allergy/AdvReac Type Severity Reaction Status Date / Time hydroxyzine [From Vistaril] Allergy Hives Verified 09/11/17 02:12 meperidine [From Demerol] Allergy Anaphylaxis Verified 09/11/17 02:12 - Social History Does the pt smoke?: No Smoking Status: Never smoker Does the pt drink ETOH?: No Does the pt have substance abuse?: No - Immunizations Immunizations are current?: Yes - POLST Patient has POLST: No PD ED PE NORMAL - General General: Alert and oriented X 3. No: No acute distress (The patient appears quite uncomfortable) - HEENT HEENT: Atraumatic, PERRL, EOMI, Ears normal - Cardiac Cardiac: Other (The patient is tachycardic secondary to pain) - Respiratory Respiratory: No respiratory distress - Derm Derm: Normal color - Extremities Extremities: Other (The patient's right knee is stuck in flexion, the patient's muscles are significantly spasmed and I am unable to passively range the knee. No obvious deformity. There is no obvious joint swelling or information or erythematous changes. Normal dorsalis pedis pulse, normal cap refill and normal sensation) - Neuro Neuro: Alert and oriented X 3, Normal speech - Psych Psych: Normal affect Results - Vitals Vitals: Vital Signs - 24 hr 11/08/17 11/08/17 11/08/17 01:39 03:00 03:23 Temperature 38.2 C H 37.1 C Heart Rate 110 H 115 H 111 H Respiratory 22 14 27 H Rate Blood Pressure 133/87 H 147/81 H 134/90 H O2 Saturation 97 96 95 11/08/17 11/08/17 11/08/17 03:31 03:32 03:35 Temperature Heart Rate 111 H 109 H 106 H Respiratory 15 26 H 23 Rate Blood Pressure 134/90 H 143/131 H 125/59 L O2 Saturation 97 99 97 11/08/17 11/08/17 11/08/17 03:41 03:45 05:09 Temperature 37.6 C H Heart Rate 104 H 105 H 107 H Respiratory 9 L 14 14 Rate Blood Pressure 117/69 133/71 H 129/80 O2 Saturation 97 97 96 Oxygen O2 Source Room air Procedures - Procedural sedation Sedation prep: Informed consent, Time out completed, Last meal, AHA 3 - severe disease, IV O2 monitor, ET CO2 monitor, RT present Sedation medications: propofol, given by MD Patient status during sedation: Drowsy, Responds to tactile, Vitals remained stable, Maintained airway, Recovered uneventfully Sedation recovery: Recovered uneventfully PD MEDICAL DECISION MAKING - ED course ED course: The patient has a history of his knee locking up with significant spasm and is required sedation to unlock the knee. Today, the patient was given a small dose of propofol to relax him and to dissipate the spasms. I was able to fully extend the knee and the patient was placed in a knee immobilizer. The x-rays do not show any acute abnormality and the patient currently appears appropriate for discharge. The findings and plan were discussed the patient and he understands and agrees. I discussed warning signs and recommended returning to the emergency department immediately for any worsening or any concerns. - Sepsis Event Vital Signs: Vital Signs - 24 hr 11/08/17 11/08/17 11/08/17 01:39 03:00 03:23 Temperature 38.2 C H 37.1 C Heart Rate 110 H 115 H 111 H Respiratory 22 14 27 H Rate Blood Pressure 133/87 H 147/81 H 134/90 H O2 Saturation 97 96 95 11/08/17 11/08/17 11/08/17 03:31 03:32 03:35 Temperature Heart Rate 111 H 109 H 106 H Respiratory 15 26 H 23 Rate Blood Pressure 134/90 H 143/131 H 125/59 L O2 Saturation 97 99 97 11/08/17 11/08/17 11/08/17 03:41 03:45 05:09 Temperature 37.6 C H Heart Rate 104 H 105 H 107 H Respiratory 9 L 14 14 Rate Blood Pressure 117/69 133/71 H 129/80 O2 Saturation 97 97 96 Oxygen O2 Source Room air Departure - Departure Disposition: 01 Home, Self Care Clinical Impression: Locked knee Condition: Good Instructions: Knee Pain Comments: These follow-up with primary care and your surgeon. Please return to the emergency department for worsening symptoms or any concerns. Discharge Date/Time: 11/08/17 05:20
[2017-11-08] MEDS ORDERED: PROPOFOL 200 MG/20 ML VIAL IVP STA (03:16)
--- NOTE | 2017-11-08 04:16 | XRAY Report ---
Reason: pain Procedure Date: 11/08/2017 Accession Number: [id number] / [id number] Procedure: XR - Knee 2 View RT CPT Code: FULL RESULT: EXAM: RIGHT KNEE RADIOGRAPHY EXAM DATE: 11/08/2017 03:38 AM. CLINICAL HISTORY: Pain. COMPARISON: KNEE 2 VIEW RT 09/11/2017 3:23 AM. TECHNIQUE: 3 views. FINDINGS IMPRESSION: 1. Right total knee prosthesis appears satisfactory without evident loosening or infection. 2. No acute fracture or suspicious lesion. 3. No significant effusion. No dislocation. RADIA
[2017-11-08 05:11] VITALS: BP 129/80
== END 2017-11-08 05:20 | disposition home or self-care (01) ==
LOC: EDUNIT# → ED 01:37
DX: M23.8X1 Other internal derangements of right knee (principal); M62.838 Other muscle spasm; Z96.651 Presence of right artificial knee joint; E11.42 Type 2 diabetes mellitus with diabetic polyneuropathy; Z79.4 Long term (current) use of insulin
CPT/HCPCS: 29505; 96374; 99283; 99284

== ENCOUNTER 2017-11-08 08:00 | Outpatient (CLI) | payer MEDICARE, OTHER | END 2017-11-08 08:01 | disposition critical access hospital (66) | LOC: EMS 08:00 | PROVIDERS: ATTEND Surgery | DX: M25.561 Pain in right knee (principal); Z96.653 Presence of artificial knee joint, bilateral | CPT/HCPCS: A0425; A0429 ==

== ENCOUNTER 2017-11-14 23:55 | Outpatient (CLI) | payer MEDICARE, OTHER | END 2017-11-14 23:56 | disposition short-term general hospital (02) | LOC: EMS 23:55 | PROVIDERS: ATTEND Surgery | DX: R07.89 Other chest pain (principal) | CPT/HCPCS: A0425; A0427 ==

== ENCOUNTER 2018-03-07 18:02 | Outpatient (CLI) | payer MEDICARE, OTHER | END 2018-03-07 18:03 | disposition critical access hospital (66) | LOC: EMS 18:02 | PROVIDERS: ATTEND Surgery | DX: R07.9 Chest pain, unspecified (principal); R06.02 Shortness of breath | CPT/HCPCS: A0425; A0427 ==

== ENCOUNTER 2018-03-07 18:22 | Emergency (ER) | payer MEDICARE, OTHER ==
[2018-03-07 18:56] LABS: BASOPHILS % (AUTO) 0.3 %; EOSINOPHILS # (AUTO) 0.1 10^3/uL (0.0-0.7); EOSINOPHILS % (AUTO) 1.9 %; LYMPHOCYTES # (AUTO) 2.4 10^3/uL (1.5-3.5); LYMPHOCYTES % (AUTO) 31.9 %; MEAN CORPUSCULAR HEMOGLOBIN 30.2 pg (27.0-31.0); MEAN CORPUSCULAR HGB CONC 33.3 g/dL (32.0-36.0); MEAN CORPUSCULAR VOLUME 90.9 fL (80.0-94.0); MEAN PLATELET VOLUME 8.4 fL (7.4-11.4); MONOCYTES # (AUTO) 0.6 10^3/uL (0.0-1.0); MONOCYTES % (AUTO) 8.6 %; NEUTROPHILS # (AUTO) 4.2 10^3/uL (1.5-6.6); NEUTROPHILS % (AUTO) 57.3 %; PLT - PLATELET COUNT 153 10^3/uL (130-450); RED BLOOD COUNT 5.31 10^6/uL (4.70-6.10); RED CELL DISTRIBUTION WIDTH 15.1 % (12.0-15.0); WHITE BLOOD COUNT 7.4 x10^3/uL (4.8-10.8)
[2018-03-07 19:05] LABS: ALBUMIN 3.8 g/dL (3.2-5.5); ALBUMIN/GLOBULIN RATIO 1.1 (1.0-2.2); BILIRUBIN,TOTAL 0.7 mg/dL (0.2-1.0); CALCIUM 8.8 mg/dL (8.5-10.3); CREATININE 0.8 mg/dL (0.6-1.2); TOTAL PROTEIN 7.2 g/dL (6.7-8.2)
--- NOTE | 2018-03-07 19:19 | XRAY Report ---
Reason: cp Procedure Date: 03/07/2018 Accession Number: [id number] / [id number] Procedure: XR - Chest 2 View X-Ray CPT Code: 86348 FULL RESULT: EXAM: CHEST RADIOGRAPHY EXAM DATE: 03/07/2018 07:01 PM. CLINICAL HISTORY: Chest pain. COMPARISON: CHEST 2 VIEW 08/05/2017 2:21 PM. TECHNIQUE: 2 views. FINDINGS: Cardiac leads overlie the chest. Lung volumes are low, which accentuate the cardiac silhouette and bronchovascular markings. No consolidation, pleural effusion, or pneumothorax visualized. IMPRESSION: Low lung volumes. No evidence of focal pneumonia. RADIA
--- NOTE | 2018-03-07 19:21 | ED Physician Documentation ---
History of Present Illness - Stated complaint Stated Complaint: CHEST PAIN - Chief complaint Chief Complaint: Cardiac - History obtained from History obtained from: Patient - Additonal information Additional information: 57-year-old male presents the emergency department for evaluation of retrosternal chest pain which started this afternoon suddenly while at home just prior to arrival. The pain today is similar to episodes he is experienced in the past. The patient had 2 stents placed 4 years ago. The patient had aspirin, nitroglycerin and morphine in route with EMS. The patient's pain is now under better control. No radiation of the pain. No triggering factors. No other associated symptoms Review of Systems Constitutional: denies: Fever, Fatigue Eyes: denies: Discharge Ears: denies: Ear pain Nose: denies: Congestion Throat: denies: Dental pain / toothache Cardiac: reports: Chest pain / pressure Respiratory: denies: Cough GI: denies: Abdominal Pain : denies: Dysuria Skin: denies: Rash Musculoskeletal: denies: Neck pain Neurologic: denies: Generalized weakness PD PAST MEDICAL HISTORY - Past Medical History Past Medical History: Yes Cardiovascular: Coronary artery disease, Angina, [place] Respiratory: Sleep apnea, CPAP use Neuro: Peripheral neuropathy Endocrine/Autoimmune: Type 2 diabetes GI: None : None HEENT: None Psych: None Musculoskeletal: None Derm: None - Past Surgical History Past Surgical History: Yes General: Appendectomy, Colonoscopy Ortho: Knee replacement, Rotator cuff repair, Other Cardiovascular: Coronary stent HEENT: Tonsil/Adenoidectomy - Present Medications Home Medications: Ambulatory Orders Medication Instructions Recorded Confirmed Insulin Aspart [NovoLOG] 40 unit SUBQ QDBREAKFAST 03/09/17 03/07/18 Insulin Aspart [NovoLOG] 45 unit SQ 1200,1700 03/09/17 03/07/18 Insulin Glargine [Lantus Solostar] 70 unit SQ DAILY PM 03/09/17 03/07/18 Escitalopram [Lexapro] 20 mg PO DAILY 03/10/17 03/07/18 [place]-3 Acid Ethyl Esters [Lovaza] 1 gm PO TID 03/10/17 03/07/18 diltiaZEM CD [Cardizem Cd] 360 mg PO DAILY #60 capsule 03/14/17 03/07/18 Insulin Aspart [NovoLOG] 1 - 5 unit SUBQ 04/13/17 03/07/18 0800,1200,1700,2100 pen Isosorbide Mononitrate ER [Imdur] 60 mg PO DAILY tablet 04/13/17 03/07/18 Colchicine 0.6 mg PO BID 05/09/17 03/07/18 Metoprolol Succinate 12.5 mg PO DAILY 05/09/17 03/07/18 Pantoprazole Sodium [Protonix] 40 mg PO BID 05/09/17 03/07/18 Atorvastatin Calcium 80 mg PO DAILY 07/09/17 03/07/18 diltiaZEM [Cardizem] 30 mg PO Q6H PRN #20 tablet 08/05/17 03/07/18 - Allergies Allergies/Adverse Reactions: Allergies Allergy/AdvReac Type Severity Reaction Status Date / Time hydroxyzine [From Vistaril] Allergy Hives Verified 03/07/18 18:32 meperidine [From Demerol] Allergy Anaphylaxis Verified 03/07/18 18:32 - Social History Does the pt smoke?: No Smoking Status: Never smoker Does the pt drink ETOH?: No Does the pt have substance abuse?: No - Immunizations Immunizations are current?: Yes - POLST Patient has POLST: No PD ED PE NORMAL - General General: Alert and oriented X 3, No acute distress - HEENT HEENT: Atraumatic, PERRL, EOMI, Ears normal - Neck Neck: Supple, no meningeal sign - Cardiac Cardiac: RRR, Strong equal pulses - Respiratory Respiratory: No respiratory distress - Abdomen Abdomen: Soft, Non tender - Derm Derm: Normal color - Extremities Extremities: No deformity - Neuro Neuro: Alert and oriented X 3, Normal speech - Psych Psych: Normal affect Results - Vitals Vitals: Vital Signs - 24 hr 03/07/18 03/07/18 03/07/18 18:25 19:18 20:15 Temperature 37.1 C Heart Rate 101 H 98 94 Respiratory 16 18 14 Rate Blood Pressure 121/80 137/81 H 130/75 O2 Saturation 96 97 95 Oxygen O2 Source Room air - EKG (time done) 18:29 Rate: Rate (enter#) Rhythm: NSR Intervals: Normal NV, QRS normal Ischemia: Non specific changes Compare to prior EKG: Unchanged from prior EKG - Labs Labs: Laboratory Tests 01/19/19 01/19/19 01/19/19 18:25 18:25 18:25 WBC 7.4 RBC 5.31 Hgb 16.0 Hct 48.2 MCV 90.9 MCH 30.2 MCHC 33.3 RDW 15.1 H Plt Count 153 MPV 8.4 Neut # (Auto) 4.2 Lymph # (Auto) 2.4 [place] # (Auto) 0.6 Eos # (Auto) 0.1 Baso # (Auto) 0.0 Absolute Nucleated RBC 0.02 Nucleated RBC % 0.2 Sodium 133 L Potassium 3.2 L Chloride 95 L Carbon Dioxide 28 Anion Gap 10.0 BUN 10 Creatinine 0.8 Estimated GFR (MDRD) 99 Glucose 307 H Calcium 8.8 Total Bilirubin 0.7 AST 86 H ALT 104 H Alkaline Phosphatase 195 H Troponin I < 0.04 Total Protein 7.2 Albumin 3.8 Globulin 3.4 Albumin/Globulin Ratio 1.1 Lipase 53 H PD MEDICAL DECISION MAKING - ED course ED course: The case was discussed with the on-call slate worker Dr. Patel at [facility] The patient's past medical history, current presentation and findings were discussed. He recommends transfer to their facility for a chest pain observation admission With a nuclear stress test. Unfortunately our facility is unable to provide this service and the patient will require transfer. The findings and plan were discussed the patient who understands and agrees to the plan Departure - Departure Disposition: 02 Transfer Acute Care Hosp Clinical Impression: Chest pain Qualifiers: Chest pain type: unspecified Qualified Code(s): R07.9 - Chest pain, unspecified CAD (coronary artery disease) Qualifiers: Coronary Disease-Associated Artery/Lesion type: [place] artery [place] vs. transplanted heart: [place] heart Associated angina: with unstable angina Qualified Code(s): I25.110 - Atherosclerotic heart disease of [place] coronary artery with unstable angina pectoris Condition: Good
[2018-03-07] MEDS ORDERED: MORPHINE 2 MG/ML CARPUJECT IVP STA (20:04)
[2018-03-07 21:44] VITALS: BP 132/87
== END 2018-03-07 21:50 | disposition short-term general hospital (02) ==
LOC: EDUNIT# → ED 18:22
DX: R07.9 Chest pain, unspecified (principal); I25.110 Atherosclerotic heart disease of native coronary artery with unstable angina pectoris; I45.81 Long QT syndrome; I25.2 Old myocardial infarction; E11.42 Type 2 diabetes mellitus with diabetic polyneuropathy; Z79.4 Long term (current) use of insulin; Z95.5 Presence of coronary angioplasty implant and graft; Z96.659 Presence of unspecified artificial knee joint
CPT/HCPCS: 36415; 71046; 80053; 83690; 84484; 85025; 93005; 96374; 99284

== ENCOUNTER 2018-03-07 21:46 | Outpatient (CLI) | payer MEDICARE, OTHER | END 2018-03-07 21:47 | disposition short-term general hospital (02) | LOC: EMS 21:46 | PROVIDERS: ATTEND Surgery | DX: R07.9 Chest pain, unspecified (principal) | CPT/HCPCS: A0170; A0425; A0426 ==

== ENCOUNTER 2018-04-03 02:37 | Outpatient (CLI) | payer MEDICARE, OTHER | END 2018-04-03 02:38 | disposition short-term general hospital (02) | LOC: EMS 02:37 | PROVIDERS: ATTEND Surgery | DX: M25.561 Pain in right knee (principal) | CPT/HCPCS: A0425; A0429; A0888 ==

== ENCOUNTER 2018-04-09 18:14 | Outpatient (CLI) | payer MEDICARE, OTHER | END 2018-04-09 18:15 | disposition short-term general hospital (02) | LOC: EMS 18:14 | PROVIDERS: ATTEND Surgery | DX: M25.862 Other specified joint disorders, left knee (principal) | CPT/HCPCS: A0425; A0429 ==

== ENCOUNTER 2018-04-16 02:44 | Outpatient (CLI) | payer MEDICARE, OTHER | END 2018-04-16 02:45 | disposition short-term general hospital (02) | LOC: EMS 02:44 | PROVIDERS: ATTEND Surgery | DX: R07.9 Chest pain, unspecified (principal) | CPT/HCPCS: A0425; A0427 ==

== ENCOUNTER 2018-04-18 13:32 | Outpatient (CLI) | payer MEDICARE, OTHER | END 2018-04-18 13:33 | disposition short-term general hospital (02) | LOC: EMS 13:32 | PROVIDERS: ATTEND Surgery | DX: R29.898 Other symptoms and signs involving the musculoskeletal system (principal) | CPT/HCPCS: A0425; A0429; A0888 ==

== ENCOUNTER 2018-04-23 04:47 | Outpatient (CLI) | payer MEDICARE, OTHER | END 2018-04-23 04:48 | disposition short-term general hospital (02) | LOC: EMS 04:47 | PROVIDERS: ATTEND Surgery | DX: R29.898 Other symptoms and signs involving the musculoskeletal system (principal); M25.561 Pain in right knee | CPT/HCPCS: A0425; A0429; A0888 ==

== ENCOUNTER 2018-05-13 15:38 | Outpatient (CLI) | payer MEDICARE, OTHER | END 2018-05-13 15:39 | disposition short-term general hospital (02) | LOC: EMS 15:38 | PROVIDERS: ATTEND Surgery | DX: M23.92 Unspecified internal derangement of left knee (principal); M25.562 Pain in left knee | CPT/HCPCS: A0425; A0429; A0888 ==

== ENCOUNTER 2018-05-20 20:46 | Outpatient (CLI) | payer MEDICARE, OTHER | END 2018-05-20 20:47 | disposition short-term general hospital (02) | LOC: EMS 20:46 | PROVIDERS: ATTEND Surgery | DX: M25.562 Pain in left knee (principal); M25.572 Pain in left ankle and joints of left foot; W18.30XA Fall on same level, unspecified, initial encounter; Y93.89 Activity, other specified; Y92.009 Unspecified place in unspecified non-institutional (private) residence as the place of occurrence of the external cause | CPT/HCPCS: A0425; A0429 ==

== ENCOUNTER 2018-05-31 03:12 | Outpatient (CLI) | payer MEDICARE, OTHER | END 2018-05-31 03:13 | disposition short-term general hospital (02) | LOC: EMS 03:12 | PROVIDERS: ATTEND Surgery | DX: R29.898 Other symptoms and signs involving the musculoskeletal system (principal) | CPT/HCPCS: A0425; A0429 ==

== ENCOUNTER 2018-06-05 22:25 | Outpatient (CLI) | payer MEDICARE, OTHER | END 2018-06-05 22:26 | disposition short-term general hospital (02) | LOC: EMS 22:25 | PROVIDERS: ATTEND Surgery | DX: R29.898 Other symptoms and signs involving the musculoskeletal system (principal) | CPT/HCPCS: A0425; A0429; A0888 ==

== ENCOUNTER 2018-06-11 14:46 | Outpatient (CLI) | payer MEDICARE, OTHER | END 2018-06-11 14:47 | disposition short-term general hospital (02) | LOC: EMS 14:46 | PROVIDERS: ATTEND Surgery | DX: M25.552 Pain in left hip (principal); M25.562 Pain in left knee; M79.671 Pain in right foot; W01.0XXA Fall on same level from slipping, tripping and stumbling without subsequent striking against object, initial encounter; Y93.89 Activity, other specified; Y92.009 Unspecified place in unspecified non-institutional (private) residence as the place of occurrence of the external cause | CPT/HCPCS: A0425; A0429; A0888 ==

== ENCOUNTER 2018-06-18 02:28 | Outpatient (CLI) | payer MEDICARE, OTHER | END 2018-06-18 02:29 | disposition short-term general hospital (02) | LOC: EMS 02:28 | PROVIDERS: ATTEND Surgery | DX: M25.562 Pain in left knee (principal); Z96.652 Presence of left artificial knee joint | CPT/HCPCS: A0425; A0429; A0888 ==

== ENCOUNTER 2018-06-21 15:25 | Outpatient (CLI) | payer MEDICARE, OTHER | END 2018-06-21 15:26 | disposition short-term general hospital (02) | LOC: EMS 15:25 | PROVIDERS: ATTEND Surgery | DX: M25.562 Pain in left knee (principal) | CPT/HCPCS: A0425; A0429; A0888 ==

== ENCOUNTER 2018-08-16 17:50 | Outpatient (CLI) | payer MEDICARE, OTHER | END 2018-08-16 17:51 | disposition short-term general hospital (02) | LOC: EMS 17:50 | PROVIDERS: ATTEND Surgery | DX: R07.9 Chest pain, unspecified (principal) | CPT/HCPCS: A0425; A0427 ==

== ENCOUNTER 2018-09-27 06:11 | Outpatient (CLI) | payer MEDICARE, OTHER | END 2018-09-27 06:12 | disposition critical access hospital (66) | LOC: EMS 06:11 | PROVIDERS: ATTEND Surgery | DX: R26.2 Difficulty in walking, not elsewhere classified (principal); Z96.653 Presence of artificial knee joint, bilateral | CPT/HCPCS: A0425; A0429 ==

== ENCOUNTER 2018-09-27 06:32 | Emergency (ER) | payer MEDICARE, OTHER ==
[2018-09-27] MEDS ORDERED: ONDANSETRON 4 MG/2 ML VIAL IVP STA (06:55)
[2018-09-27] MEDS ORDERED: MORPHINE 2 MG/ML CARPUJECT IVP STA ×2 (06:55→09:22)
--- NOTE | 2018-09-27 06:58 | ED Physician Documentation ---
<Shelli Chamberlain Sara - Last Filed: 09/27/18 06:55> PD HPI LOWER EXT INJURY - Stated complaint Stated Complaint: LEG STIFFNESS - Chief complaint Chief Complaint: Ext Problem - History obtained from History obtained from: Patient - History of Present Illness PD HPI LOW EXT INJURY LOCATION: Right, Knee Type of injury: Other Where injury occurred: Home Timing - onset: How many hours ago (2) Timing - duration: Hours (2) Timing - details: Abrupt onset Pain level now: 8 Improved by: Nothing Recently seen: Not recently seen - Additional information Additional information: This is a 57-year-old man who presents by ambulance with complaints that his right knee is locked up and he cannot straighten it. He got up to go to the bathroom was standing up on his left knee and then twisted and his right leg was just dangling and then he was unable to straighten it. He complains of his chronic underlying neuropathic tingling and numbness in the foot. He has had that knee replaced by a Surgeon in [facility]. He has had the same thing happen with his left knee had to be taken to [facility] because we do not have any orthopedist on the [place] that deal with knees. Review of Systems Musculoskeletal: reports: Extremity pain, Joint pain Neurologic: reports: Numbness (Diabetic neuropathy with numbness from the mid calf to the toes in both feet.) PD PAST MEDICAL HISTORY - Past Medical History Cardiovascular: Coronary artery disease, Angina, [place] Respiratory: Sleep apnea, CPAP use Neuro: Peripheral neuropathy Endocrine/Autoimmune: Type 2 diabetes GI: None : None HEENT: None Psych: None Musculoskeletal: None Derm: None - Past Surgical History Past Surgical History: Yes General: Appendectomy, Colonoscopy Ortho: Knee replacement, Rotator cuff repair, Other Cardiovascular: Coronary stent HEENT: Tonsil/Adenoidectomy - Present Medications Home Medications: Ambulatory Orders Medication Instructions Recorded Confirmed RX: Insulin Aspart [NovoLOG] 40 unit SUBQ QDBREAKFAST 03/09/17 03/07/18 RX: Insulin Aspart [NovoLOG] 45 unit SQ 1200,1700 03/09/17 03/07/18 RX: Insulin Glargine [Lantus 70 unit SQ DAILY PM 03/09/17 03/07/18 Solostar] RX: Escitalopram [Lexapro] 20 mg PO DAILY 03/10/17 03/07/18 RX: [place]-3 Acid Ethyl Esters 1 gm PO TID 03/10/17 03/07/18 [Lovaza] RX: diltiaZEM CD [Cardizem Cd] 360 mg PO DAILY #60 capsule 03/14/17 03/07/18 RX: Insulin Aspart [NovoLOG] 1 - 5 unit SUBQ 04/13/17 03/07/18 0800,1200,1700,2100 pen RX: Isosorbide Mononitrate ER 60 mg PO DAILY tablet 04/13/17 03/07/18 [Imdur] RX: Colchicine 0.6 mg PO BID 05/09/17 03/07/18 RX: Metoprolol Succinate 12.5 mg PO DAILY 05/09/17 03/07/18 RX: Pantoprazole Sodium [Protonix] 40 mg PO BID 05/09/17 03/07/18 RX: Atorvastatin Calcium 80 mg PO DAILY 07/09/17 03/07/18 RX: diltiaZEM [Cardizem] 30 mg PO Q6H PRN #20 tablet 08/05/17 03/07/18 - Allergies Allergies/Adverse Reactions: Allergies Allergy/AdvReac Type Severity Reaction Status Date / Time hydroxyzine [From Vistaril] Allergy Hives Verified 09/27/18 06:36 meperidine [From Demerol] Allergy Anaphylaxis Verified 09/27/18 06:36 - Social History Does the pt smoke?: No Smoking Status: Never smoker Does the pt drink ETOH?: No Does the pt have substance abuse?: No - Immunizations Immunizations are current?: Yes - POLST Patient has POLST: No PD ED PE NORMAL - Vitals Vital signs reviewed: Yes - General General: Alert and oriented X 3, No acute distress, Well developed/nourished - HEENT HEENT: Atraumatic - Derm Derm: Normal color, No rash - Extremities Extremities: Other (Well-healed scars over both knees related to total knee replacements. He is holding the right knee bent at just past a 90 degree angle. He will not let me attempt to even straighten it. Complains of pain with palpation around the joint. There is no erythema or obvious effusion. He has 1+ pedal edema in that right leg there is a palpable dorsalis pedis pulse he complains of no sensation until you hit mid calf.) PD MEDICAL DECISION MAKING - ED course ED course: An IV with pain medications and right knee x-ray have been ordered. Care will be turned over to Dr. Koo. Departure - Departure Disposition: 01 Home, Self Care Clinical Impression: Locked knee Qualifiers: Laterality: right Qualified Code(s): M23.91 - Unspecified internal derangement of right knee Condition: Stable Instructions: Knee Replace Follow-Up: JANELL HELMS MD [Primary Care Provider] - Aure Hobbs MD [Physician No Access] - Discharge Date/Time: 09/27/18 14:39 <Clyde Koo - Last Filed: 09/27/18 18:46> PD HPI LOWER EXT INJURY - History obtained from History obtained from: Patient - History of Present Illness PD HPI LOW EXT INJURY LOCATION: Right, Knee Where injury occurred: Home Timing - onset: Today Timing - details: Abrupt onset Improved by: Immobilization Worsened by: Moving, Palpating Associated symptoms: No: Weakness, Numbness, Tingling Contributing factors: Prior ortho surgery, Prosthetic joint Similar symptoms before: Diagnosis (locked prosthesis) Recently seen: Not recently seen Review of Systems Constitutional: denies: Fever Throat: denies: Sore throat Cardiac: denies: Chest pain / pressure Respiratory: denies: Dyspnea, Cough GI: denies: Nausea, Vomiting : denies: Dysuria Musculoskeletal: reports: Extremity pain, Joint pain Neurologic: denies: Generalized weakness, Focal weakness PD ED PE NORMAL - Vitals Vital signs reviewed: Yes (hypertensive ) - General General: Alert and oriented X 3, No acute distress, Well developed/nourished - HEENT HEENT: Atraumatic, PERRL, EOMI - Respiratory Respiratory: No respiratory distress - Derm Derm: Normal color, Warm and dry, No rash - Extremities Extremities: Other (Well-healed scars over both knees related to total knee replacements. He is holding the right knee bent at just past a 90 degree angle. He will not let me attempt to even straighten it. Complains of pain with palpation around the joint. There is no erythema or obvious effusion. He has 1+ pedal edema in that right leg there is a palpable dorsalis pedis pulse he complains of no sensation until you hit mid calf. flexed at 90 degrees ) - Neuro Neuro: Alert and oriented X 3, internet site designer 2-12 intact, No motor deficit, No sensory deficit, Normal speech Eye Opening: Spontaneous Motor: Obeys Commands Verbal: Oriented GCS Score: 15 - Psych Psych: Normal mood, Normal affect Results - Vitals Vitals: Vital Signs - 24 hr 09/27/18 09/27/18 09/27/18 06:33 08:59 09:43 Temperature 36.7 C Heart Rate 84 86 84 Respiratory 18 19 14 Rate Blood Pressure 166/95 H 156/87 H 148/78 H O2 Saturation 97 98 96 09/27/18 09/27/18 09/27/18 09:48 11:48 11:58 Temperature Heart Rate 84 85 84 Respiratory 14 16 19 Rate Blood Pressure 149/100 H 153/91 H 153/91 H O2 Saturation 96 98 99 09/27/18 09/27/18 09/27/18 12:03 12:43 12:47 Temperature Heart Rate 83 88 91 Respiratory 17 11 L Rate Blood Pressure 124/69 132/87 H 135/85 H O2 Saturation 97 97 09/27/18 09/27/18 09/27/18 12:52 12:58 13:46 Temperature Heart Rate 85 80 91 Respiratory 10 L 16 18 Rate Blood Pressure 155/85 H 166/71 H O2 Saturation 99 99 09/27/18 14:30 Temperature 36.8 C Heart Rate 89 Respiratory 20 Rate Blood Pressure 130/94 H O2 Saturation 95 Oxygen O2 Source Room air - Rads (name of study) knee R Radiology: Prelim report reviewed (Impression: 1. No fracture, effusion or malalignment evident. Limited evaluation of the femoral view secondary to flexed position. Total knee arthroplasty unchanged.), EMP read indepedently, See rad report knee post red Radiology: Prelim report reviewed (Impression: Status post tricompartmental total knee replacement without evidence of acute fracture or nor hardware complication.), EMP read indepedently, See rad report Procedures - Procedural sedation Sedation prep: Informed consent, Time out completed, Last meal (last night), PE performed, AHA 2 - mild disease Sedation medications: morphine, propofol, ketamine, given by MD Patient status during sedation: Responds to tactile, Maintained airway PD MEDICAL DECISION MAKING - ED course Complexity details: reviewed old records, reviewed results, re-evaluated patient, considered differential, d/w patient, d/w supervisor home energy consultant (Nichols: recommends attempt at reduction with conscious sedataion. ) ED course: 57-year-old male with bilateral total knees has the right knee locked and presents to the emergency department with severe pain and a knee bent to greater than 90 degrees. IV access is obtained in the left AC using bedside ultrasound. Conscious sedation was attempted with the use of propofol. The patient had no reaction to 100mg of propofol IV and the IV had infiltrated. Anesthesia was consulted for IV acess and this was done in the right A/C and propofol was attempted again with 200mg with no reaction. Anesthesia was again consulted and recommended use of ketamine and he did stand by for the procedure. The IV seemed to be running well but when we used it to give ketamine as an alternative it took about 7-8 minutes for it to be effective consistent with an infiltrated IV. This did work for sedation with 200mg given and this provided excellent anesthsia and the knee was reduced with traction on the posterior tibia and extension of the knee with traction on the ankle. There was no thud or clunk. The knee required force to reduce and following reduction ran through ROM without difficulty. The patient had relief of pain and was able to move the knee through ROM actively without pain. He was placed into an immobilizer.
--- NOTE | 2018-09-27 08:30 | XRAY Report ---
Reason: PAIN AND INABILITY TO STRAIGHTEN Procedure Date: 09/27/2018 Accession Number: [id number] / [id number] Procedure: XR - Knee 2 View RT CPT Code: FULL RESULT: EXAM: RIGHT KNEE RADIOGRAPHY EXAM DATE: 09/27/2018 08:21 AM. CLINICAL HISTORY: Knee pain, inability to straighten. COMPARISON: KNEE 2 VIEW RT 11/08/2017 3:38 AM. TECHNIQUE: 2 views. FINDINGS: Bones: No fracture or bone lesion evident. Joints: A 3 component total knee arthroplasty is again visualized without evidence of loosening, malalignment or other complication. No effusion identified. The frontal view is limited secondary to patient's inability to straighten knee. Soft Tissues: Normal. No soft tissue swelling. IMPRESSION: 1. No fracture, effusion or malalignment evident. 2. Limited evaluation of the frontal view secondary to flexed position. 3. Total knee arthroplasty unchanged. [facility]
[2018-09-27] MEDS ORDERED: PROPOFOL 200 MG/20 ML VIAL IVP STA ×2 (09:37→11:50)
[2018-09-27] MEDS ORDERED: KETAMINE 500 MG/10 ML VIAL IVP STA (12:28)
[2018-09-27] MEDS ORDERED: MIDAZOLAM 2 MG/2 ML VIAL IVP STA (12:29)
--- NOTE | 2018-09-27 13:32 | XRAY Report ---
Reason: post reduction Procedure Date: 09/27/2018 Accession Number: [id number] / [id number] Procedure: XR - Knee 2 View RT CPT Code: FULL RESULT: EXAM: RIGHT KNEE RADIOGRAPHY EXAM DATE: 09/27/2018 01:13 PM. CLINICAL HISTORY: Post reduction. COMPARISON: KNEE 2 VIEW RT 09/27/2018 7:58 AM. TECHNIQUE: 2 views. FINDINGS: Bones: Patient is status post tricompartmental total knee replacement. Visualized hardware is well seated without evidence of complication. No acute fracture noted. Joints: Mild osteoarthritic changes noted. Soft Tissues: Normal. No soft tissue swelling. IMPRESSION: Status post tricompartmental total knee replacement without evidence of acute fracture nor hardware complication. [facility]
[2018-09-27 14:30] VITALS: BP 130/94
== END 2018-09-27 14:39 | disposition home or self-care (01) ==
LOC: ED 06:32
DX: T84.89XA Other specified complication of internal orthopedic prosthetic devices, implants and grafts, initial encounter (principal); T84.84XA Pain due to internal orthopedic prosthetic devices, implants and grafts, initial encounter; Y83.8 Other surgical procedures as the cause of abnormal reaction of the patient, or of later complication, without mention of misadventure at the time of the procedure; Y92.009 Unspecified place in unspecified non-institutional (private) residence as the place of occurrence of the external cause; Z96.653 Presence of artificial knee joint, bilateral; E11.42 Type 2 diabetes mellitus with diabetic polyneuropathy; Z79.4 Long term (current) use of insulin
CPT/HCPCS: 27550; 94770; 96374; 99152; 99153

== ENCOUNTER 2018-10-13 14:42 | Outpatient (CLI) | payer MEDICARE, OTHER | END 2018-10-13 14:43 | disposition short-term general hospital (02) | LOC: EMS 14:42 | PROVIDERS: ATTEND Surgery | DX: R07.89 Other chest pain (principal); R06.02 Shortness of breath | CPT/HCPCS: A0425; A0427 ==

== ENCOUNTER 2018-11-03 06:20 | Outpatient (CLI) | payer MEDICARE, OTHER | END 2018-11-03 06:21 | disposition short-term general hospital (02) | LOC: EMS 06:20 | PROVIDERS: ATTEND Surgery | DX: R29.898 Other symptoms and signs involving the musculoskeletal system (principal); Z96.651 Presence of right artificial knee joint | CPT/HCPCS: A0425; A0429 ==